=== PATIENT | female | born 1955 | race Caucasian/White ===

== ENCOUNTER 2018-02-03 04:30 | Observation (INO) | payer BC, SELFPAY ==
[2018-02-03] VITALS (9 sets, daily range): BP systolic 112–146; BP diastolic 66–81; PULSE 69–85; RESP 14–21; TEMP 36.4–36.9; O2SAT 97–100; BMI 22.1
--- NOTE | 2018-02-03 04:34 | ED.RN ---
no old ekg's in [facility]
--- NOTE | 2018-02-03 04:42 | EKG12_ITS ---
Test Reason : CP Blood Pressure : / mmHG Vent. Rate : 081 BPM Atrial Rate : 081 BPM P-R Int : 146 ms QRS Dur : 070 ms QT Int : 382 ms P-R-T Axes : 065 007 067 degrees QTc Int : 443 ms Normal sinus rhythm Nonspecific T wave abnormality Abnormal ECG Confirmed by JOSE RAFAEL SHIRLEY, ELDER ([id number]), technical editor MARIA ESTHER WAGNER ([id number]) on 02/03/2018 5:14:23 PM Referred By: AJIT Confirmed By:ELDER MANTILLA MD
--- NOTE | 2018-02-03 04:42 | RAD_ITS ---
STUDY: X-RAY CHEST REASON FOR EXAM: Female, 62 years old. Chest pain, nausea. TECHNIQUE: PA and lateral chest. COMPARISON: None. FINDINGS: The lungs are clear and expanded. There is no demonstrated pleural abnormality. Normal size heart. Normal mediastinum and braden. Normal visualized pulmonary arteries. Normal visualized aortic arch and descending thoracic aorta. Normal visualized thoracic spine. Normal visualized ribs, clavicles, and shoulders. There is no demonstrated abnormality of the visualized soft tissue structures of the upper abdomen. RAD/Chest PA and Lateral IMPRESSION: Normal x-ray examination of the chest. Electronically Signed: Wilfredo Mills MD at 5:07 EDT , Service support ,
[2018-02-03] MEDS: Aspirin 81 MG TAB.CHEW 324 MG PO (04:47)
[2018-02-03 04:49] LABS: Absolute Lymphocyte Count 4.26 X10^3/ul (0.83-4.51); Absolute Neutrophil Count 3.6 X10^3/uL (2.0-7.7); Basophil# 0.08 X10^3/uL; Basophil% 0.9 % (0-1); Eosinophil# 0.16 X10^3/uL; Eosinophils% 1.8 % (0-5); Hematocrit 40.2 % (37-47); Hemoglobin 13.9 g/dl (12.0-15.0); Lymphocyte # 4.26 X10^3/ul (4.0); Mean Corp Hgb Conc 34.6 g/gl (32-36); Mean Corpuscular Hgb 32.6 pg (27.0-32.0); Mean Corpuscular Volume 94.4 fL (81-99); Mean Platelet Vol. 10.8 fl (6.2-12.0); Monocyte# 0.76 X10^3/uL; Monocyte% 8.6 % (0-10); Neutrophil # 3.59 X10^3/uL (2.7-7.7); Neutrophil % 40.5 % (47-70); Platelet Count 271 K/mm3 (150-450); RBC Distribution Width CV 12.8 % (11.6-14.6); RBC Distribution Width SD 42.5 fl (35.1-43.9); Red Blood Count 4.26 M/mm3 (4.2-5.4); White Blood Count 8.9 K/mm3 (4.4-11.0)
[2018-02-03] MEDS: Ondansetron 4 MG/2 ML Vial IV (04:49)
[2018-02-03 04:51] LABS: POSITIVE COUNT NO; POSITIVE DIFFERENTIAL NO; POSITIVE MORPHOLOGY NO
--- NOTE | 2018-02-03 04:53 | ED.VISSUMM ---
- ER Visit Summary Date of Service: 02/03/18 Chief Complaint: Chest pain History of Present Illness: The patient is a 62 F presenting for evaluation secondary chest pain. Patient states that she woke up this evening very suddenly with an onset of chest pain. She described it as a heaviness in her chest, and then she developed a feeling of intense nausea. Patient and her then state that she started to have dry heaves at the side of the bed, and her states that she had a brief syncopal episode after that. Patient reports that she felt diaphoretic and short of breath associated with this. Patient reports that the symptoms lasted approximately half hour, and on presentation to the emergency department seem to have somewhat alleviated. Patient has no prior similar history in the past. She denies any history of hypertension diabetes high cholesterol family history of smoking. She denies any DVT or PE risk factors. Patient states that her primary care physician has recommended scheduling a stress test but she has not had one performed yet. Review of systems otherwise negative. Physical Examination: Vital signs are within normal limits, patient is afebrile. General: Patient is well-nourished well-developed and in no acute distress, but is significantly anxious Head: Normocephalic, atraumatic Eyes: Pupils equal round and reactive bilaterally, extra occular motion intact bialterally ENT: Moist mucous membranes Neck: Supple, no lymphadenopathy, no JVD, no meningismus CVS: Heart regular rate and rhythm, no murmurs, rubs or gallops, radial pulses 2+ bilaterally, DP pulses 2+ bilaterally Resp: Respirations nondistressed, lung sounds clear bilaterally Abdomen: Soft, nontender, nondistended, no palpable masses, normal bowel sounds Back: Nontender Extremities: Nontender, atraumatic, active full range of motion, no peripheral edema Skin: warm, no rashes, no petechia Neuro: Alert and oriented x 4, CN 2-12 intact, no lateralizing neurological defecits Psyc: Normal affect Test Results: Sinus rhythm of [address] segments. There is underlying artifact noted in leads III, II, and aVF. Nonspecific T-wave flattening is noted. No evidence of acute ischemia or arrhythmia. CBC, chemistry, troponin are negative. PA and lateral chest x-ray found to be unremarkable by my personal review as well as radiology Emergency Department Course and Treatment: Patient presented for evaluation secondary chest pain. Patient's workup was found to be unremarkable as noted above. She was administered aspirin in the emergency department and had improvement of her pain on repeat evaluation. Patient's LISSA score is 0, her heart score is 3. Patient's story however is very concerning to me given the fact that it was heavy chest pain associated with shortness of breath and syncope. I believe she warrants admission. I discussed this with the hospitalist. Disposition: Admission Impression: 1. Chest pain This note was generated with [employer] dictation software. It may contain incorrect words, spelling, and punctuation that were not noted in review of the chart prior to signing ED Disposition - Plan for ED Patient: Chief Complaint: Chest Pain Referrals: Robert Ramirez DO [Primary Care Provider] -
[2018-02-03 05:23] LABS: Anion Gap 11 (5-15); BUN 24 mg/dL (7-18); BUN/Creat Ratio 27.6 RATIO (10-20); Calcium,Total 9.3 mg/dL (8.5-10.1); Chloride 105 mmol/L (98-107); Creatinine, Serum 0.87 mg/dL (0.55-1.02); EST Glomerular Filtration Rate 70 mL/min (>60); Est Glom Filt Rate - Afr Amer 84 mL/min (>60); Glucose 142 mg/dL (74-106); Potassium 3.9 mmol/L (3.5-5.1); Sodium Level 141 mmol/L (136-145)
--- NOTE | 2018-02-03 05:54 | PCM.HP.STD ---
Problem List (1) Chest pain Status: Acute History of Present Illness Date of Admission: 02/03/18 Chief Complaint: chest pain The patient is a 62 year old F presents after awakening with chest pain. Earlier this morning, patient woke with midsternal chest pain. It was associated with diaphoresis and nausea. Patient presented to the emergency room and underwent a workup that has thus far been negative. She states that both of her arms were numb. Patient states states that she still has pressure midsternally but is much less than it was previously. Patient has never had anything like this before. [] Past Medical History Past Medical History (Chronic Problems): Chronic Problems (Last Reviewed 02/03/18 @ 05:56 by Jose Greenberg DO) History of right breast cancer (Chronic) Medical History: Medical History (Last Reviewed 02/03/18 @ 05:56 by Jose Greenberg DO) Fibromyalgia M79.7 IBS (irritable bowel syndrome) K58.9 Osteopenia M85.80 bone fractures gastrointestinal Allergies acetaminophen [From Tylenol] Allergy (Mild, Verified 02/03/18 04:41) Hives hydromorphone [From Dilaudid] Allergy (Mild, Verified 02/03/18 04:41) Hives oxycodone Allergy (Mild, Verified 02/03/18 04:41) Hives Home Medications: Ambulatory Orders Medication Instructions Recorded calcium carbonate 500 mg calcium 500 mg PO BID tab 08/26/17 (1,250 mg) tablet cholecalciferol (vitamin D3) 1,000 1,000 unit PO ONCE 08/26/17 unit capsule flaxseed oil 1,000 mg capsule 1,000 mg PO BID 08/26/17 melatonin 10 mg capsule 10 mg PO HS PRN 08/26/17 omega-3 fatty acids 1,000 mg 1,000 mg PO QDAY 08/26/17 capsule amitriptyline 75 mg tablet 75 mg PO QDAY #90 tab 09/14/17 Venlafaxine HCl [Effexor] 75 mg PO DAILY 02/03/18 Surgical History: Surgical History (Last Reviewed 02/03/18 @ 05:56 by Jose Greenberg DO) Calcaneus fracture S92.009A H/O hemorrhoidectomy Z98.890 History of hysterectomy Z98.890, Z90.710 KELSI BSO History of lumpectomy of right breast Z98.890, Z90.11 2016; no radiation or chemo cholecystectomy Smoking Status: Never smoker Tobacco Use: Non-smoker Alcohol: None Drugs: None - *Family History Paternal Family History: Family History (Last Reviewed 02/03/18 @ 05:56 by Jose Greenberg DO) Father Heart disease Mother Heart disease Osteoporosis Review of Systems Constitutional: Reports: Weakness. Denies: Anorexia, Chills, Fever Eyes: Denies: Blurred vision, Double vision HEENT: Denies: Head Aches, Sinus Congestion, Sinus Drainage Cardiovascular: Reports: Chest Pain. Denies: Edema Respiratory: Denies: Cough, Shortness of breath at rest, Sputum production Gastrointestinal: Reports: Nausea. Denies: Vomiting Genitourinary: Denies: Dysuria Musculoskeletal: Denies: Joint Pain, Joint Tenderness Skin: Denies: Rash, Wounds Neurological: Denies: Numbness, Tingling, Focal weakness Psychiatric: Denies: Anxiety, Depression Endocrine: Denies: Change in Body Habitus, Heat/ Cold Intolerance Hematologic/ Lymphatic: Denies: Easy Bruising, Easy Bleeding, Hx of blood clot Comment: Otherwise all review systems are negative except for as mentioned above in the HPI and review of systems. VTE Information - Inpt Only VTE Present on Admission: No VTE Pharm Prophylaxis ordered?: Yes Patient Problems: Active and Suspected Problems (Last Reviewed 02/03/18 @ 05:56 by Jose Greenberg DO) Chest pain (Acute) - Physical Exam General: Alert, Cooperative, No apparent distress HEENT: Atraumatic, Normocephalic Neck: No Nodes, Thyroid Normal Size and Texture Lungs: Clear to auscultation, Normal air movement, No rhonchi, No wheeze Cardiovascular: Regular rate, Regular Rhythm, Normal S1, Normal S2, No murmurs Abdomen: Bowel Sounds Present, Soft, Non Tender, Non-Distended, No Hepato-splenomegaly Extremities: No edema, No Calf Tenderness Skin: No rashes, No breakdown Musculoskeletal: No Tenderness to Palpation of Joints or Extremities, No Muscle Wasting Psych/Mental Status: Normal Affect, Appropriate Vital Signs Temp Pulse Resp BP Pulse Ox 36.4 C L 81 21 H 116/66 100 02/03/18 04:32 02/03/18 05:38 02/03/18 05:38 02/03/18 05:38 02/03/18 05:38 Oxygen Flow Rate (L/min) 2 Oxygen Delivery Method Nasal Cannula Weight: 60.2 kg Body Mass Index (BMI) 22.1 Laboratory Tests Past 24 Hrs 02/03/18 02/03/18 04:35 04:35 WBC 8.9 RBC 4.26 Hgb 13.9 Hct 40.2 MCV 94.4 MCH 32.6 H MCHC 34.6 RDW 12.8 RDW Differential 42.5 Plt Count 271 MPV 10.8 Immature Gran % (Auto) 0.200 Neut % (Auto) 40.5 L Lymph % (Auto) 48.0 H [place] % (Auto) 8.6 Eos % (Auto) 1.8 Baso % (Auto) 0.9 Absolute Neuts (auto) 3.6 Absolute Lymphs (auto) 4.26 Total Counted Not Reportable Sodium 141 Potassium 3.9 Chloride 105 Carbon Dioxide 25.0 Anion Gap 11 BUN 24 H Creatinine 0.87 Est GFR (MDRD) Af Amer 84 Est GFR (MDRD) Non-Af 70 BUN/Creatinine Ratio 27.6 H Glucose 142 H Calcium 9.3 Troponin I < 0.015 EKG reviewed showed normal sinus rhythm without any acute changes. Assessment/Plan All Active Problems (Last Reviewed 02/03/18 @ 05:56 by Jose Greenberg DO) Chest pain (Acute) 1. Chest pain Atypical but associated with nausea and diaphoresis. Plan is to get a treadmill stress test. Check a d-dimer and if elevated patient will undergo a CT angiogram. Etiologies could arrange for unstable angina, to pulmonary embolism to musculoskeletal. Is possible this could all be benign that some patients other symptoms, in regards to her arm numbness, may be attributable to a panic attack that patient had when she developed chest pain. 2. DVT prophylaxis with Lovenox Code Visit OBSV E&M: 03267 Initial observation care L2
--- NOTE | 2018-02-03 06:00 | HP.PCM_ITS ---
Problem List (1) Chest pain Status: Acute History of Present Illness Date of Admission: 02/03/18 Chief Complaint: chest pain The patient is a 62 year old F presents after awakening with chest pain. Earlier this morning, patient woke with midsternal chest pain. It was associated with diaphoresis and nausea. Patient presented to the emergency room and underwent a workup that has thus far been negative. She states that both of her arms were numb. Patient states states that she still has pressure midsternally but is much less than it was previously. Patient has never had anything like this before. [] Past Medical History Past Medical History (Chronic Problems): Chronic Problems (Last Reviewed 02/03/18 @ 05:56 by Jose Greenberg DO) History of right breast cancer (Chronic) Medical History: Medical History (Last Reviewed 02/03/18 @ 05:56 by Jose Greenberg DO) Fibromyalgia M79.7 IBS (irritable bowel syndrome) K58.9 Osteopenia M85.80 bone fractures gastrointestinal Allergies acetaminophen [From Tylenol] Allergy (Mild, Verified 02/03/18 04:41) Hives hydromorphone [From Dilaudid] Allergy (Mild, Verified 02/03/18 04:41) Hives oxycodone Allergy (Mild, Verified 02/03/18 04:41) Hives Home Medications: Ambulatory Orders Medication Instructions Recorded calcium carbonate 500 mg calcium 500 mg PO BID tab 08/26/17 (1,250 mg) tablet cholecalciferol (vitamin D3) 1,000 1,000 unit PO ONCE 08/26/17 unit capsule flaxseed oil 1,000 mg capsule 1,000 mg PO BID 08/26/17 melatonin 10 mg capsule 10 mg PO HS PRN 08/26/17 omega-3 fatty acids 1,000 mg 1,000 mg PO QDAY 08/26/17 capsule amitriptyline 75 mg tablet 75 mg PO QDAY #90 tab 09/14/17 Venlafaxine HCl [Effexor] 75 mg PO DAILY 02/03/18 Surgical History: Surgical History (Last Reviewed 02/03/18 @ 05:56 by Jose Greenberg DO) Calcaneus fracture S92.009A H/O hemorrhoidectomy Z98.890 History of hysterectomy Z98.890, Z90.710 KELSI BSO History of lumpectomy of right breast Z98.890, Z90.11 2016; no radiation or chemo cholecystectomy Smoking Status: Never smoker Tobacco Use: Non-smoker Alcohol: None Drugs: None - *Family History Paternal Family History: Family History (Last Reviewed 02/03/18 @ 05:56 by Jose Greenberg DO) Father Heart disease Mother Heart disease Osteoporosis Review of Systems Constitutional: Reports: Weakness. Denies: Anorexia, Chills, Fever Eyes: Denies: Blurred vision, Double vision HEENT: Denies: Head Aches, Sinus Congestion, Sinus Drainage Cardiovascular: Reports: Chest Pain. Denies: Edema Respiratory: Denies: Cough, Shortness of breath at rest, Sputum production Gastrointestinal: Reports: Nausea. Denies: Vomiting Genitourinary: Denies: Dysuria Musculoskeletal: Denies: Joint Pain, Joint Tenderness Skin: Denies: Rash, Wounds Neurological: Denies: Numbness, Tingling, Focal weakness Psychiatric: Denies: Anxiety, Depression Endocrine: Denies: Change in Body Habitus, Heat/ Cold Intolerance Hematologic/ Lymphatic: Denies: Easy Bruising, Easy Bleeding, Hx of blood clot Comment: Otherwise all review systems are negative except for as mentioned above in the HPI and review of systems. VTE Information - Inpt Only VTE Present on Admission: No VTE Pharm Prophylaxis ordered?: Yes Patient Problems: Active and Suspected Problems (Last Reviewed 02/03/18 @ 05:56 by Jose Greenberg DO) Chest pain (Acute) - Physical Exam General: Alert, Cooperative, No apparent distress HEENT: Atraumatic, Normocephalic Neck: No Nodes, Thyroid Normal Size and Texture Lungs: Clear to auscultation, Normal air movement, No rhonchi, No wheeze Cardiovascular: Regular rate, Regular Rhythm, Normal S1, Normal S2, No murmurs Abdomen: Bowel Sounds Present, Soft, Non Tender, Non-Distended, No Hepato- splenomegaly Extremities: No edema, No Calf Tenderness Skin: No rashes, No breakdown Musculoskeletal: No Tenderness to Palpation of Joints or Extremities, No Muscle Wasting Psych/Mental Status: Normal Affect, Appropriate Vital Signs Temp Pulse Resp BP Pulse Ox 36.4 C L 81 21 H 116/66 100 02/03/18 04:32 02/03/18 05:38 02/03/18 05:38 02/03/18 05:38 02/03/18 05:38 Oxygen Flow Rate (L/min) 2 Oxygen Delivery Method Nasal Cannula Weight: 60.2 kg Body Mass Index (BMI) 22.1 Laboratory Tests Past 24 Hrs 02/03/18 02/03/18 04:35 04:35 WBC 8.9 RBC 4.26 Hgb 13.9 Hct 40.2 MCV 94.4 MCH 32.6 H MCHC 34.6 RDW 12.8 RDW Differential 42.5 Plt Count 271 MPV 10.8 Immature Gran % (Auto) 0.200 Neut % (Auto) 40.5 L Lymph % (Auto) 48.0 H [place] % (Auto) 8.6 Eos % (Auto) 1.8 Baso % (Auto) 0.9 Absolute Neuts (auto) 3.6 Absolute Lymphs (auto) 4.26 Total Counted Not Reportable Sodium 141 Potassium 3.9 Chloride 105 Carbon Dioxide 25.0 Anion Gap 11 BUN 24 H Creatinine 0.87 Est GFR (MDRD) Af Amer 84 Est GFR (MDRD) Non-Af 70 BUN/Creatinine Ratio 27.6 H Glucose 142 H Calcium 9.3 Troponin I < 0.015 EKG reviewed showed normal sinus rhythm without any acute changes. Assessment/Plan All Active Problems (Last Reviewed 02/03/18 @ 05:56 by Jose Greenberg DO) Chest pain (Acute) 1. Chest pain * Atypical but associated with nausea and diaphoresis. * Plan is to get a treadmill stress test. * Check a d-dimer and if elevated patient will undergo a CT angiogram. * Etiologies could arrange for unstable angina, to pulmonary embolism to musculoskeletal. Is possible this could all be benign that some patients other symptoms, in regards to her arm numbness, may be attributable to a panic attack that patient had when she developed chest pain. 2. DVT prophylaxis with Lovenox Code Visit OBSV E&M: 99455 Initial observation care L2
[2018-02-03 07:16] LABS: D-Dimer Quantitative (DVT/PE) 0.31 FEU/ug/m (0.27-0.49)
[2018-02-03] MEDS: Calcium (Elemental) 500 MG Tablet PO (10:57)
[2018-02-03] MEDS: Venlafaxine HCl 75 MG Tablet PO (10:57)
[2018-02-03] MEDS: CLARIFY ORDER NOTE (10:58)
--- NOTE | 2018-02-03 11:38 | DCINST_ITS ---
- Discharge Diagnoses Current Active Problems: Current Active and Chronic Problems (Last Reviewed 02/03/18 @ 05:56 by Jose Greenberg DO) Chest pain (Acute) You will use the following diet at home:: No restrictions Discharge Activity: Return to Normal Activity Call your doctor if you observe: Shortness of breath, Dizziness, Fainting spells , Chest pain, Increased palpitations (irregular heartbeat) Allergies/Adverse Reactions: Allergies acetaminophen [From Tylenol] Allergy (Mild, Verified 02/03/18 04:41) Hives hydromorphone [From Dilaudid] Allergy (Mild, Verified 02/03/18 04:41) Hives oxycodone Allergy (Mild, Verified 02/03/18 04:41) Hives Medications to take at Discharge calcium carbonate 500 mg calcium (1,250 mg) tablet 500 mg PO BID tab 08/26/17 cholecalciferol (vitamin D3) 1,000 unit capsule 2,000 unit PO DAILY 08/26/17 flaxseed oil 1,000 mg capsule 1,000 mg PO BID 08/26/17 melatonin 10 mg capsule 10 mg PO HS PRN 08/26/17 Amitriptyline HCl 37.5 mg PO QHS 02/03/18 Venlafaxine HCl [Effexor] 37.5 mg PO DAILY 02/03/18 Primary Care Physician: Robert Ramirez DO [Primary Care Provider] - Please follow up with your Primary Care Physician in: 1 Week Proposed Discharge Date: 02/03/18
--- NOTE | 2018-02-03 12:50 | STRESSREP ---
Stress Test Report Exercise myocardial perfusion stress test 62 yo lady with a history of chest pain. Stress protocol: Resting EKG demonstrates normal sinus rhythm with a rate of 75 beats minute normal intervals and noted resting blood pressure 722/80 mmHg. The patient exercised according to the regular Chavo protocol for total duration of 9 minutes completing stage III of the Chavo protocol. The maximum heart rate attained was 155 bpm which was 98% maximum predicted heart rate the maximum workload was 10.1 metabolic equivalents. At rest there were no ST or T-wave changes noted suggest ischemia peak exercise upsloping ST changes only were noted with no meet the criteria for ischemia. No clinical angina was noted. Resting blood pressure is 122/80 with a peak blood pressure 146/78. Myocardial perfusion protocol. 12.0 mCi of technetium 99m sestamibi was injected at rest. The patient exercised according to regular Chavo protocol for total duration of 9 minutes and at peak exercise 32.7 mCi of technetium 99m sestamibi was injected stress images were obtained stress and rest images were reconstructed and compared in the short axis vertical long and horizontal long axis. Gated images were also obtained pre- Perfusion SPECT analysis: Review of the stress images demonstrate normal uptake of tracer noted in all areas of the myocardium. The resting images similarly demonstrate normal uptake of tracer noted in all areas of the myocardium. No areas of reversibility are noted suggest ischemia and no previous infarct is noted. Gated SPECT analysis: The gated ejection fraction is noted to be 73%. Conclusion: Normal exercise myocardial perfusion stress test. Preserved ejection fraction.
--- NOTE | 2018-02-03 13:37 | PCM.DC.SUM ---
<Clara Karimi - Last Filed: 02/03/18 13:43> Discharge Date and Diagnosis Date of Admission: 02/03/18 Date of Discharge: 02/03/18 - Primary Discharge Diagnosis Active and Suspected Problems (Last Reviewed 02/03/18 @ 05:56 by Jose Greenberg DO) 1. Chest pain- ACS ruled out - Secondary Discharge Diagnosis Chronic Problems (Last Reviewed 02/03/18 @ 05:56 by Jose Greenberg DO) History of right breast cancer (Chronic) Depression Hospital Course and Treatment Imaging Results: Diagnostic Data Chest X-Ray 02/03/18 04:42 IMPRESSION: Normal x-ray examination of the chest. Electronically Signed: Wilfredo Mills MD at 5:07 EDT , Service support , Operations: None Procedures: 2-D Echocardiogram, Stress test Summary of Care Provided: The patient is a 62 year old F admitted 02/03/2018 due to chest pain. Patient also reports episode of presyncope. Workup during admission has been unremarkable. Troponin negative. Vital signs stable. EKG without evidence of ischemia. Patient underwent nuclear stress test which was negative for ischemia. Echocardiogram pending and were reviewed prior to discharge. She will be discharged on Holter monitor to evaluate for arrhythmia. Follow-up with primary care physician in 1 week. Follow-up with Dr. Garcia following Holter monitor completion. Patient denies further chest pain. Denies further dizziness, presyncope. Stable for discharge home. Patient seen and examined prior to discharge. A and O ?3, no distress. Heart rate regular rate and rhythm. Lungs clear. Neuro grossly intact. Abdomen soft, nontender. No edema. Skin intact. Normal affect. Vital signs stable. This patient was seen by JESSENIA Monsalve under the supervision of Dr. Russo. Discharge Diet: No Restrictions Discharge Activity: Return to Normal Activity Call your doctor if you observe: Shortness of breath, Dizziness, Fainting spells, Chest pain, Increased palpitations (irregular heartbeat) Home Medications: Medications to take at Discharge calcium carbonate 500 mg calcium (1,250 mg) tablet 500 mg PO BID tab 08/26/17 cholecalciferol (vitamin D3) 1,000 unit capsule 2,000 unit PO DAILY 08/26/17 flaxseed oil 1,000 mg capsule 1,000 mg PO BID 08/26/17 melatonin 10 mg capsule 10 mg PO HS PRN 08/26/17 Amitriptyline HCl 37.5 mg PO QHS 02/03/18 Venlafaxine HCl [Effexor] 37.5 mg PO DAILY 02/03/18 Other Amb Orders: Cardiac Holter Monitor, Set-Up [[facility]] Location: None Selected Primary Care Physician: Robert Ramirez DO [Primary Care Provider] - Please follow up with your Primary Care Physician in: 1 Week Please Follow Up With: Prateek Garcia MD When: Call to schedule following heart monitor completion. Disposition: Home Minutes spent on discharge:: 35 Patient Condition:: Stable Medical Necessity - Tobacco Use Smoking Status: Never smoker Tobacco Use: Non-smoker Meaningful Use Info Meaningful Use Diagnoses (Choose all that apply): None applicable <RafaelaRanger - Last Filed: 02/03/18 21:17> Discharge Date and Diagnosis - Secondary Discharge Diagnosis Chronic Problems (Last Reviewed 02/03/18 @ 05:56 by Jose Greenberg DO) History of right breast cancer (Chronic) Hospital Course and Treatment Summary of Care Provided: The patient is a 62 year old F [] Code Visit Inpatient E&M: 67873 Disch Hosp
--- NOTE | 2018-02-03 13:43 | DS.PCM_ITS ---
<Clara Karimi - Last Filed: 02/03/18 13:43> Discharge Date and Diagnosis Date of Admission: 02/03/18 Date of Discharge: 02/03/18 - Primary Discharge Diagnosis Active and Suspected Problems (Last Reviewed 02/03/18 @ 05:56 by Jose Greenberg DO) 1. Chest pain- ACS ruled out - Secondary Discharge Diagnosis Chronic Problems (Last Reviewed 02/03/18 @ 05:56 by Jose Greenberg DO) History of right breast cancer (Chronic) Depression Hospital Course and Treatment Imaging Results: Diagnostic Data Chest X-Ray 02/03/18 04:42 IMPRESSION: Normal x-ray examination of the chest. Electronically Signed: Wilfredo Mills MD at 5:07 EDT , Service support , Operations: None Procedures: 2-D Echocardiogram, Stress test Summary of Care Provided: The patient is a 62 year old F admitted 02/03/2018 due to chest pain. Patient also reports episode of presyncope. Workup during admission has been unremarkable. Troponin negative. Vital signs stable. EKG without evidence of ischemia. Patient underwent nuclear stress test which was negative for ischemia. Echocardiogram pending and were reviewed prior to discharge. She will be discharged on Holter monitor to evaluate for arrhythmia. Follow-up with primary care physician in 1 week. Follow-up with Dr. Garcia following Holter monitor completion. Patient denies further chest pain. Denies further dizziness, presyncope. Stable for discharge home. Patient seen and examined prior to discharge. A and O ?3, no distress. Heart rate regular rate and rhythm. Lungs clear. Neuro grossly intact. Abdomen soft , nontender. No edema. Skin intact. Normal affect. Vital signs stable. This patient was seen by JESSENIA Monsalve under the supervision of Dr. Russo. Discharge Diet: No Restrictions Discharge Activity: Return to Normal Activity Call your doctor if you observe: Shortness of breath, Dizziness, Fainting spells , Chest pain, Increased palpitations (irregular heartbeat) Home Medications: Medications to take at Discharge calcium carbonate 500 mg calcium (1,250 mg) tablet 500 mg PO BID tab 08/26/17 cholecalciferol (vitamin D3) 1,000 unit capsule 2,000 unit PO DAILY 08/26/17 flaxseed oil 1,000 mg capsule 1,000 mg PO BID 08/26/17 melatonin 10 mg capsule 10 mg PO HS PRN 08/26/17 Amitriptyline HCl 37.5 mg PO QHS 02/03/18 Venlafaxine HCl [Effexor] 37.5 mg PO DAILY 02/03/18 Other Amb Orders: Cardiac Holter Monitor, Set-Up [[facility]] Location: None Selected Primary Care Physician: Robert Ramirez DO [Primary Care Provider] - Please follow up with your Primary Care Physician in: 1 Week Please Follow Up With: Prateek Garcia MD When: Call to schedule following heart monitor completion. Disposition: Home Minutes spent on discharge:: 35 Patient Condition:: Stable Medical Necessity - Tobacco Use Smoking Status: Never smoker Tobacco Use: Non-smoker Meaningful Use Info Meaningful Use Diagnoses (Choose all that apply): None applicable <[place] - Last Filed: 02/03/18 21:17> Discharge Date and Diagnosis - Secondary Discharge Diagnosis Chronic Problems (Last Reviewed 02/03/18 @ 05:56 by Jose Greenberg DO) History of right breast cancer (Chronic) Hospital Course and Treatment Summary of Care Provided: The patient is a 62 year old F [] Code Visit Inpatient E&M: 81233 Disch Hosp
== END 2018-02-03 11:38 | disposition home or self-care (01) ==
LOC: ED 04:45 → PCU 06:27
PROVIDERS: Emergency Provider Emergency Medicine; Family Provider Student in an Organized Health Care Education/Training Program; PCP Student in an Organized Health Care Education/Training Program; Visit Provider Internal Medicine
DX: R07.89 Other chest pain (principal); F32.9 Major depressive disorder, single episode, unspecified; Z85.3 Personal history of malignant neoplasm of breast; M79.7 Fibromyalgia; R06.00 Dyspnea, unspecified; R55 Syncope and collapse; R06.02 Shortness of breath; K58.9 Irritable bowel syndrome, unspecified; Z79.899 Other long term (current) drug therapy
CPT/HCPCS: 71046; 78452; 80048; 84484; 85025; 85379; 93005; 93017; 96374; 99218; 99285; A9500; A4216; G0378; J2405

== ENCOUNTER → 2018-02-03 13:41 | Outpatient (CLI) | payer BC, SELFPAY | PROVIDERS: Family Provider Student in an Organized Health Care Education/Training Program; PCP Student in an Organized Health Care Education/Training Program; Visit Provider Nurse Practitioner Family | DX: R00.1 Bradycardia, unspecified (principal) | CPT/HCPCS: 93225; 93226 ==

== ENCOUNTER → 2019-10-04 | Outpatient (CLI) | payer MEDICARE, OTHER, SELFPAY ==
[2019-10-04 10:26] VITALS: BMI 22.1
== END | disposition home or self-care (01) ==
PROVIDERS: PCP Student in an Organized Health Care Education/Training Program; Referring Provider Nurse Practitioner Women's Health; Visit Provider Nurse Practitioner Women's Health
DX: R30.0 Dysuria (principal)
CPT/HCPCS: 87086

== ENCOUNTER 2020-03-28 11:46 | Emergency (ER) | payer MEDICARE, OTHER, SELFPAY ==
[2019-10-04 10:26] VITALS: BMI 22.1
[2020-03-28 11:47] VITALS: BP 120/65; PULSE 81; RESP 18; TEMP 37.2; O2SAT 98; BMI 24.5
--- NOTE | 2020-03-28 11:56 | RAD_ITS ---
STUDY: X-RAY CHEST REASON FOR EXAM: Female, 64 years old. COVID POSITIVE, INCREASED DYSPNEA TECHNIQUE: Single AP portable view of the chest. COMPARISON: 02/03/2018 FINDINGS: Patchy alveolar opacities in the lower aspect of both lungs consistent with bilateral pneumonia. CT would be useful. There is no demonstrated pleural abnormality. Normal size heart. Normal mediastinum and braden. Normal visualized pulmonary arteries. Normal visualized aortic arch and descending thoracic aorta. Normal visualized thoracic spine. Normal visualized ribs, clavicles, and shoulders. There is no demonstrated abnormality of the visualized soft tissue structures of the upper abdomen. RAD/Chest 1 View (Portable) IMPRESSION: Suspect bilateral pneumonia correlation with CT would be useful. Electronically Signed: Brian Cardona MD at 12:33 EDT Tel , Service support ,
--- NOTE | 2020-03-28 11:58 | ED.VISSUMM ---
- ER Visit Summary Date of Service: 03/28/20 Chief Complaint: Shortness of breath with a recent diagnosis of COVID History of Present Illness: The patient is a 64 F history of fibromyalgia. 1 week ago patient was diagnosed with COVID-19. States that over the last 1 to 2 weeks she has had cough, fever as high as 102, chills, nausea, vomiting, diarrhea and body aches. She was tested and was COVID positive. She said she is just been dealing with the symptoms. She has a pulse ox at home and it is been registering in the mid 80s today. She denies significant chest pain. No hemoptysis. No leg pain or swelling. No recent travel, surgery or immobilization. Physical Examination: 64-year-old female no acute distress. Eating up in bed. Vital signs stable afebrile. Her pulse ox is 96 to 98% on room air. HEENT exam unremarkable. Neck nontender no lymphadenopathy. No JVD. Lungs clear to auscultation bilaterally. Heart regular rhythm no murmur. Abdomen soft nontender normal bowel sounds no peritoneal signs. Extremities moves all 4. Calves are nontender, no edema no cords. Neurologically she is awake and alert. Moving all 4 extremities. No focal or motor deficits. Test Results: This x-ray shows bilateral upper and lower lobe infiltrates consistent with COVID. Portable 1 view read by myself and the radiologist. CBC normal white count of 6. Hemoglobin 12. No bands. Chemistries normal normal creatinine and gap. D-dimer normal at 0.43. Emergency Department Course and Treatment: Patient with known diagnosis of COVID with shortness of breath. Screening labs, chest x-ray and d-dimer being obtained. Clinically my concern for PE is low but with her COVID and reported low pulse ox at home it is in the differential diagnosis. Repeat exam the patient is doing well at 1:28 PM. I asked her how she was feeling she said I am ready to go home. Nurses did walk her without oxygen and her sats went to 92%. She understands that if she is feeling worse to return. She feels comfortable and wants to be discharged home. Really does not meet criteria for admission at this time. Treatment Plan: Decadron daily for 5 days. Follow-up with her primary care physician. Return if worse. Disposition: Discharge Impression: COVID-19 positive Dyspnea This note was generated with Nora dictation software. It may contain incorrect words, spelling, and punctuation that were not noted in review of the chart prior to signing ED Disposition - Plan for ED Patient: Referrals: Robert Ramirez DO [Primary Care Provider] -
[2020-03-28] MEDS: dexAMETHasone 10 MG/ML Vial IV (12:03)
[2020-03-28 12:10] LABS: Absolute Lymphocyte Count 1.19 X10^3/uL (0.83-4.51); Absolute Neutrophil Count 4.8 X10^3/uL (2.0-7.7); Basophil# 0.01 X10^3/uL; Basophil% 0.2 % (0-1); Eosinophil# 0.08 X10^3/uL; Eosinophils% 1.2 % (0-5); Hematocrit 38.7 % (37-47); Hemoglobin 12.5 g/dL (12.0-15.0); Lymphocyte # 1.19 X10^3/ul (4.0); Lymphocyte % 18.5 % (19-41); Mean Corp Hgb Conc 32.3 g/dL (32-36); Mean Corpuscular Hgb 31.4 pg (27.0-32.0); Mean Corpuscular Volume 97.2 fL (81-99); Monocyte% 4.7 % (0-10); NRBC Flagged by Analyzer 0 % (0-5); Neutrophil # 4.83 X10^3/uL (2.7-7.7); Neutrophil % 74.9 % (47-70); Platelet Count 197 K/mm3 (150-450); RBC Distribution Width CV 13.1 % (11.6-14.6); RBC Distribution Width SD 47.3 fl (35.1-43.9); Red Blood Count 3.98 M/mm3 (4.2-5.4); White Blood Count 6.4 K/mm3 (4.4-11.0)
[2020-03-28 12:23] LABS: Anion Gap 2 (5-15); BUN 16 mg/dL (7-18); BUN/Creat Ratio 18.3 RATIO (10-20); Calcium,Total 8.5 mg/dL (8.5-10.1); Chloride 103 mmol/L (98-107); Creatinine, Serum 0.88 mg/dL (0.55-1.02); D-Dimer Quantitative (DVT/PE) 0.43 FEU/ug/m (0.27-0.49); EST Glomerular Filtration Rate 69 mL/min (>60); Est Glom Filt Rate - Afr Amer 83 mL/min (>60); Estimated Creatinine Clearance 57.35 ml/min; Glucose 125 mg/dL (74-106); Potassium 3.7 mmol/L (3.5-5.1); Sodium Level 136 mmol/L (136-145)
[2020-03-28 12:30] VITALS: O2SAT 97
--- NOTE | 2020-03-28 13:30 | ED.DEP ---
ED Disposition - Plan for ED Patient: Disposition: Home or Assisted Living Prescriptions: Dexamethasone [Decadron] 6 mg PO DAILY 5 Days tab Prescription Printed Referrals: Robert Ramirez DO [Primary Care Provider] - 3-5 Days if not improving Additional Instructions: Follow-up with your doctor if not improving. Decadron which is a steroid 1 pill daily for the next 5 days starting tomorrow. Return tomorrow department if you are feeling a lot worse mostly if you are significantly more short of breath. At this time you do not meet criteria to be admitted to the hospital.
[2020-03-28 13:48] VITALS: BP 107/57; PULSE 63; RESP 18; O2SAT 97
== END 2020-03-28 13:48 | disposition home or self-care (01) ==
PROVIDERS: Emergency Provider Emergency Medicine; PCP Student in an Organized Health Care Education/Training Program
DX: U07.1 COVID-19 (principal); R06.00 Dyspnea, unspecified; M79.7 Fibromyalgia; Z79.899 Other long term (current) drug therapy
CPT/HCPCS: 71045; 80048; 85025; 85379; 96374; 99283; A4216

== ENCOUNTER 2020-04-01 16:09 | Emergency (ER) | payer MEDICARE, OTHER, SELFPAY ==
[2020-04-01 16:10] VITALS: BP 113/93; PULSE 84; RESP 21; TEMP 36.9; O2SAT 95; BMI 23.6
--- NOTE | 2020-04-01 16:22 | EKG12_ITS ---
Test Reason : Blood Pressure : / mmHG Vent. Rate : 074 BPM Atrial Rate : 074 BPM P-R Int : 140 ms QRS Dur : 078 ms QT Int : 378 ms P-R-T Axes : 040 -09 039 degrees QTc Int : 419 ms Normal sinus rhythm Cannot rule out Anterior infarct , age undetermined Abnormal ECG Confirmed by JOSE RAFAEL SHIRLEY, ELDER ([id number]), manager editorial PHONG GALLARDO ([id number]) on 04/02/2020 9:45:28 AM Referred By: SHAHBAZ Confirmed By:ELDER MANTILLA MD
--- NOTE | 2020-04-01 16:22 | RAD_ITS ---
STUDY: X-RAY CHEST REASON FOR EXAM: Female, 64 years old. pt arrives to ed with sob related to + covid. tested 03/20/20. TECHNIQUE: Single AP portable view of the chest. COMPARISON: March 28 2020 FINDINGS: Moderate interval decrease in previously seen irregular infiltrates in the bilateral lower lobes. Linear scarring or atelectasis is now seen in the bilateral lower lobes likely a result of recent pneumonia. Trace pleural effusions are present. Normal heart size. Stable osseous structures. RAD/Chest 1 View (Portable) IMPRESSION: Moderate interval resolution of previously seen bilateral lower lobe infiltrates Electronically Signed: Willie Grant MD at 17:02 EDT , Service support ,
--- NOTE | 2020-04-01 16:30 | ED.VISSUMM ---
- ER Visit Summary Date of Service: 04/01/20 Chief Complaint: [Shortness of breath] History of Present Illness: The patient is a 64 F presents to the emergency department with complaint of shortness of breath that she has had since yesterday. Patient states that she was diagnosed with COVID-19 after being infected by her sister who is currently in the ICU. Patient states also her has COVID-19. Patient was seen in the emergency department 5 days ago for low pulse ox at home however in the department she was noted not to be hypoxic and was started on prednisone and discharged back to home. Patient states that she is not had a fever for several days but continues to cough that essentially nonproductive. She denies any chest pain. She complains of feeling weak and shaky and lightheaded at times. Patient continues to have low pulse ox at home intermittently into the upper 80s. Patient otherwise has no medical history. [] Physical Examination: [HEENT-PERRLA, EOMI. Cranial nerves II through XII grossly intact. TMs clear. Mucous membranes moist. No adenopathy. Cardiovascular-regular rate and rhythm without murmur or ectopy Lungs-clear to auscultation, chest wall stable without crepitus or subcu emphysema Abdomen-normoactive bowel sounds, soft, nontender, no rebound or rigidity, no peritoneal signs. Extremities-intact ?4, normal range of motion, normal pulses, atraumatic] Test Results: [CBC with differential obtained showed a white count 13.9, hemoglobin 13, hematocrit 41, platelets 413. Chemistries unremarkable. D-dimer was elevated 0.74. EKG obtained showed a sinus rhythm with a ventricular rate of 74 bpm with no acute segment changes. Troponin was less than 0.015. Chest x-ray showed moderate interval resolution of bilateral infiltrates. CTA of the chest showed no evidence of PE or dissection. Patient was noted to have a small irregular infiltrate remaining in the lingula of the left upper lobe. Patient had multiple scattered islands of groundglass edema throughout the lungs noted sequela from previous consolidation with linear scarring or fibrosis is seen in the bilateral lung bases. Patient had a small pericardial effusion.] Emergency Department Course and Treatment: [Given continued cough and signs of infiltrate as well as slightly elevated white count patient will be treated with Levaquin to cover for any possible bacterial pneumonia. Patient had a normal pulse ox even with ambulation in department. She is in no respiratory distress. Feel patient to be treated as an outpatient.] Treatment Plan: [Patient will be treated with Levaquin. Patient advised to follow-up with primary care physician in 7 to 10 days. Patient advised to return if increasing shortness of breath or condition should worsen anyway.] Disposition: Discharged home in stable condition [] Impression: [COVID-19 viral pneumonia Dyspnea] This note was generated with ZeePearl dictation software. It may contain incorrect words, spelling, and punctuation that were not noted in review of the chart prior to signing ED Disposition - Plan for ED Patient: Referrals: Robert Ramirez DO [Primary Care Provider] -
[2020-04-01 16:38] VITALS: BP 121/71; PULSE 76; RESP 21; O2SAT 93
[2020-04-01 16:49] VITALS: O2SAT 93
[2020-04-01 16:53] LABS: Absolute Lymphocyte Count 1.48 X10^3/uL (0.83-4.51); Absolute Neutrophil Count 11.7 X10^3/uL (2.0-7.7); Basophil# 0.04 X10^3/uL; Basophil% 0.3 % (0-1); Eosinophil# 0.01 X10^3/uL; Eosinophils% 0.1 % (0-5); Hematocrit 41.2 % (37-47); Hemoglobin 13.2 g/dL (12.0-15.0); Lymphocyte # 1.48 X10^3/ul (4.0); Lymphocyte % 10.6 % (19-41); Mean Corpuscular Hgb 30.8 pg (27.0-32.0); Mean Platelet Vol. 9.8 fl (6.2-12.0); Monocyte# 0.33 X10^3/uL; Monocyte% 2.4 % (0-10); NRBC Flagged by Analyzer 0 % (0-5); Neutrophil # 11.73 X10^3/uL (2.7-7.7); Neutrophil % 84.3 % (47-70); POSITIVE MORPHOLOGY YES; Platelet Count 413 K/mm3 (150-450); RBC Distribution Width CV 12.8 % (11.6-14.6); RBC Distribution Width SD 45.2 fl (35.1-43.9); Red Blood Count 4.29 M/mm3 (4.2-5.4); White Blood Count 13.9 K/mm3 (4.4-11.0)
[2020-04-01 17:03] LABS: Differential Comment SCANNED; Differential Indicated SCAN CRITERIA MET
--- NOTE | 2020-04-01 17:07 | CT_ITS ---
STUDY: CTA CHEST REASON FOR EXAM: Female, 64 years old. PT COVID 19 POSITIVE X 2 WEEKS, PRESENTS WITH INCREASED SHORT OF BREATH RADIATION DOSAGE (If Supplied By Facility): CTDIvol = ( 8.84 ) mGy, DLP = ( 223.72 ) mGycm TECHNIQUE: The examination was performed with the intravenous administration of 100ML ISOVUE 370. Post-processing of the angiographic images was performed, with multiplanar reformation and 3D reconstruction. Individualized dose optimization techniques were used for this CT. COMPARISON: Chest x-ray dated April 01, 2020 and March 28, 2020. FINDINGS: Multiple scattered islands of groundglass edema throughout both lungs noted. Sequela from previous consolidation with linear scarring or fibrosis is seen in the bilateral lung bases. A small irregular infiltrate remains in the lingula of the left upper lobe. Bibasilar mild atelectasis is also present. No pleural effusion is present. Normal enhancement of the main pulmonary artery and right and left pulmonary arteries. Normal enhancement of the bilateral peripheral pulmonary arteries. There is no demonstrated pulmonary embolism. Normal thoracic aorta and visualized great vessels. There is no demonstrated aortic dissection. Normal heart size. A small anterior pericardial effusion is present. Normal mediastinum. Normal hilar regions. Normal visualized trachea and bronchi. Normal chest wall structures. There are degenerative changes of thoracic spine. Unremarkable visualized upper abdomen. CT/CTA Chest W/WO Contrast IMPRESSION: 1. No demonstrated pulmonary embolism or arterial dissection. 2. Small pericardial effusion. 3. Multiple scattered islands of groundglass edema throughout both lungs noted. Sequela from previous consolidation with linear scarring or fibrosis is seen in the bilateral lung bases. 4. A small irregular infiltrate remains in the lingula of the left upper lobe. 5. Bibasilar mild atelectasis is also present. No pleural effusion is present. Electronically Signed: Willie Grant MD at 18:33 EDT , Service support ,
[2020-04-01 17:08] LABS: D-Dimer Quantitative (DVT/PE) 0.74 FEU/ug/m (0.27-0.49)
[2020-04-01 17:15] LABS: Anion Gap 6 (5-15); BUN 19 mg/dL (7-18); BUN/Creat Ratio 20.7 RATIO (10-20); Calcium,Total 9.1 mg/dL (8.5-10.1); Chloride 105 mmol/L (98-107); Creatinine, Serum 0.92 mg/dL (0.55-1.02); EST Glomerular Filtration Rate 65 mL/min (>60); Est Glom Filt Rate - Afr Amer 79 mL/min (>60); Estimated Creatinine Clearance 54.86 ml/min; Glucose 208 mg/dL (74-106); Potassium 3.8 mmol/L (3.5-5.1); Sodium Level 138 mmol/L (136-145)
[2020-04-01 18:18] VITALS: BP 148/71; PULSE 65; RESP 20; O2SAT 98
[2020-04-01 18:42] VITALS: BP 139/73; PULSE 84; RESP 20; O2SAT 95
--- NOTE | 2020-04-01 18:43 | ED.DEP ---
ED Disposition - Plan for ED Patient: Instructions: ED Upper Resp Infec Abx Tx, ED Dyspnea Prescriptions: Levofloxacin [Levaquin] 750 mg PO DAILY #6 tab Prescription Printed Referrals: Robert Ramirez DO [Primary Care Provider] - 5-7 Days
[2020-04-01] MEDS: levoFLOXacin 750 MG Tablet PO (18:48)
== END 2020-04-01 18:55 | disposition home or self-care (01) ==
LOC: ED 16:58
PROVIDERS: Emergency Provider Emergency Medicine; PCP Student in an Organized Health Care Education/Training Program
DX: U07.1 COVID-19 (principal); J12.89 Other viral pneumonia; R06.00 Dyspnea, unspecified; K58.9 Irritable bowel syndrome, unspecified; M79.7 Fibromyalgia; Z79.899 Other long term (current) drug therapy
CPT/HCPCS: 71045; 71275; 80048; 84484; 85025; 85379; 93005; 99285; Q9967; A4216

== ENCOUNTER → 2023-01-27 | Outpatient (CLI) | payer MEDICARE, OTHER, SELFPAY ==
--- NOTE | 2023-01-27 11:27 | RAD_ITS ---
STUDY: X-RAY CHEST REASON FOR EXAM: Female, 67 years old. Cough, fatigue TECHNIQUE: PA and lateral views of the chest. COMPARISON: Comparison is made with prior study April 01, 2020. FINDINGS: The lungs are clear and expanded. Scattered calcified granulomas. There is no demonstrated pleural abnormality. Normal size heart. Normal mediastinum and braden. Normal visualized pulmonary arteries. There is atherosclerotic calcification of the aortic arch with tortuosity. There is demineralization of the osseous structures. Normal visualized ribs, clavicles, and shoulders. There is no demonstrated abnormality of the visualized soft tissue structures of the upper abdomen. RAD/Chest PA and Lateral IMPRESSION: Scattered calcified granulomas. No acute abnormality is seen. Electronically Signed: Alphonso Ribeiro MD at 12:20 EDT ,
== END | disposition home or self-care (01) ==
PROVIDERS: PCP Student in an Organized Health Care Education/Training Program; Referring Provider Physician Assistant; Visit Provider Physician Assistant
DX: R05.9 Cough, unspecified (principal)
CPT/HCPCS: 71046

== ENCOUNTER 2023-04-14 11:00 | Outpatient (RCR) | payer MEDICARE, OTHER, SELFPAY ==
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
--- NOTE | 2023-01-15 14:03 | HP.PTREVAL ---
BENJAMIN ALAN, It has been my pleasure to treat LESLIE ROBERTO over the last 10 visits for S/P R SHLD BICEPS TENOTOMY, RTC REPAR AND SAD 12/04/22. Please see the progress note below for an update on the physical therapy plan of care! Subjective: PATIENT REPORTS SHE IS DOING GOOD. DENIES PAIN. STATES DR. ALAN TOLD HER NO STRENGTHENING UNTIL 3 MONTHS POST OP (03/04/23). CURRENTLY 6 WKS PO. GETS A LITTLE SORE. TRYING NOT TO TAKE ALEVE. SLING WAS D/C'D YESTERDAY BY SURGEON. Objective/Function: PATIENT WAS SEEN TODAY FOR RE-ASSESSMENT OF PROGRESS TOWARD THE SET PT GOALS AND THE NEED FOR FURTHER PHYSICAL THERAPY VS READINESS FOR DISCHARGE. PATIENT IS A GOOD CANDIDATE TO CONTINUE PT BASED ON PROGRESS MADE AND ROOM FOR FURHTER IMPROVEMENT. PROGRESS AT LEAST PARTIALLY LIMITED BY PROTOCOL. REINFORCEMENT TODAY TO PATIENT ABOUT STILL BEING IN PROTECTIVE PHASE OF HEALING. UPON EXAM TODAY: PROM R SHLD IN SUPINE: FLEXION 156 DEG, ABD 143 DEG, (70 DEG ABD):ER 72 DEG AND IR 78 DEG. AROM R SHLD IN STANDING: FLEX 135 DEG, ABD 120 DEG. Plan Plan: CONTINUE 2'S A WK X 3 WKS THEN 1X/WK X 3 WKS. R SHLD REHAB PER PROTOCOL (IN WORKROOM). NO STRENGTHENING UNTIL 3 MONTHS PO. WORK TOWARD FULL ACTIVE AND PASSIVE ROM. *HEP INSTRUCTION* Balance/Gait/Functional tests - Balance/Special Test Scores Quick DASH Score: 36.3625 Goals Goal 1:: DECREASE C/O RIGHT SHLD PAIN Goal Time Frame: 6-8 Weeks Goal Progress: Progressing Goal 2:: INCREASE R SHLD FUNCTION ROM TO EASE ADL'S PER PROTOCOL Goal Time Frame: 6-8 Weeks Goal Progress: Progressing Goal 3:: IMPROVE R UE FUNCTIONAL STRENGTH TO EASE ADL'S PER PROTOCOL Goal Time Frame: 6-8 Weeks Goal Progress: Progressing Goal 4:: PATIENT WILL BE INDEP WITH A HEP FOR CONTINUED IMPROVEMENT ONCE FORMAL PHYSICAL THERAPY CONCLUDES. Goal Time Frame: 6-8 Weeks Goal Progress: Progressing Anticipated Interventions Patient/Client Instruction: Educate patient on: Condition, Plan of Care, Risk Factors For the Purpose of:: To improve self management Therapeutic Exercise to Include: Strength training, Body mechanics, Postural training, Flexibilty training, Neuromotor development, Passive ROM, Active ROM, Scapular Strength/Stabilization For the Purpose of:: To decrease pain, To increase ROM, To improve muscle performance and motor function, To increase tolerance to activity/condition/position, To improve ability of physical actions for home/community/work/leisure Cryotherapy (ice pack, ice massage): Yes Thermo therapy (hot pack): Yes For the Purpose of:: To decrease pain, To improve nutrient delivery to tissue Please do not hesitate to contact me at [phone] by phone or if you have questions or concerns regarding this new plan of care! Sincerely, Shannon Sharif, PT, Cert MDT
--- NOTE | 2023-02-25 11:32 | HP.PTREVAL ---
Re-Evaluation Intro: BENJAMIN ALAN, It has been my pleasure to treat LESLIE ROBERTO over the last 19 visits for S/P R SHLD BICEPS TENOTOMY, RTC REPAR AND SAD 12/04/22. Please see the progress note below for an update on the physical therapy plan of care! Subjective Subjective: PATIENT REPORTS SHE IS DOING GREAT. NO PAIN OR PROBLEMS IN GENERAL OTHER THAN SOME ACHING IN DAMP WEATHER. Objective Objective/Function: PATIENT WAS SEEN TODAY FOR RE-ASSESSMENT OF PROGRESS TOWARD THE SET PT GOALS AND THE NEED FOR FURTHER PHYSICAL THERAPY VS READINESS FOR DISCHARGE. PATIENT IS A GOOD CANDIDATE TO CONTINUE PT BASED ON PROGRESS MADE AND ROOM FOR FURHTER IMPROVEMENT. UPON EXAM TODAY: PROM R SHLD IN SUPINE: FLEXION 162 DEG, ABD 145 DEG, (90 DEG ABD):ER 85 DEG AND IR 75 DEG. AROM R SHLD IN STANDING: FLEX 148 DEG, ABD 145 DEG. Plan Plan Plan: *CHECK FOR NEW ORDER BEFORE TREATMENT NEXT VISIT* CONTINUE PT 1 TIME A WK X 6 WEEKS PER PHYSICIAN ORDER AND R SHLD REHAB PROTOCOL IN WORKROOM. PROGRESS HEP PER PROTOCOL. Balance/Gait/Functional tests Balance/Special Test Scores Quick DASH Score: 20.0000 Goals Goals Goal 1:: DECREASE C/O RIGHT SHLD PAIN Goal Time Frame: 6-8 Weeks Goal Progress: Progressing Goal 2:: INCREASE R SHLD FUNCTION ROM TO EASE ADL'S PER PROTOCOL Goal Time Frame: 6-8 Weeks Goal Progress: Progressing Goal 3:: IMPROVE R UE FUNCTIONAL STRENGTH TO EASE ADL'S PER PROTOCOL Goal Time Frame: 6-8 Weeks Goal Progress: Progressing Goal 4:: PATIENT WILL BE INDEP WITH A HEP FOR CONTINUED IMPROVEMENT ONCE FORMAL PHYSICAL THERAPY CONCLUDES. Goal Time Frame: 6-8 Weeks Goal Progress: Progressing Anticipated Interventions Anticipated Interventions Patient/Client Instruction: Educate patient on: Condition, Plan of Care and Risk Factors For the Purpose of:: To improve self management Therapeutic Exercise to Include: Strength training, Body mechanics, Postural training, Flexibilty training, Neuromotor development, Passive ROM, Active ROM and Scapular Strength/Stabilization For the Purpose of:: To decrease pain, To increase ROM, To improve muscle performance and motor function, To increase tolerance to activity/condition/position and To improve ability of physical actions for home/community/work/leisure Cryotherapy (ice pack, ice massage): Yes Thermo therapy (hot pack): Yes For the Purpose of:: To decrease pain and To improve nutrient delivery to tissue Re-Evaluation Ending Re-evaluation ending: Please do not hesitate to contact me at [phone] by phone or if you have questions or concerns regarding this new plan of care! Sincerely, Shannon Sharif, PT, Cert MDT
--- NOTE | 2023-04-14 11:25 | HP.PTREVAL_ITS ---
Re-Evaluation Intro: BENJAMIN ALAN, It has been my pleasure to treat LESLIE ROBERTO over the last 25 visits for S/P R SHLD BICEPS TENOTOMY, RTC REPAR AND SAD 12/04/22. Please see the progress note below for an update on the physical therapy plan of care! Subjective Subjective: PATIENT REPORTS SHE IS DOING HER NORMAL CLEANING AND EVERYTHING SHE DID BEFORE. I DON'T REALLY HAVE ANY LIMITATIONS. Objective Objective/Function: PATIENT WAS SEEN TODAY FOR RE-ASSESSMENT OF PROGRESS TOWARD THE SET PT GOALS AND THE NEED FOR FURTHER PHYSICAL THERAPY VS READINESS FOR DISCHARGE. ALL GOALS HAVE BEEN MET AND PATIENT IS APPROPRIATE FOR DISCHARGE. PATIENT IS AGREEABLE. UPON EXAM TODAY: PROM R SHLD IN SUPINE: FLEXION 170 DEG, ABD 152 DEG, (90 DEG ABD):ER 90 DEG AND IR 76 DEG. AROM R SHLD IN STANDING: FLEX 152 DEG, ABD 148 DEG. Plan Plan Plan: D/C TO INDEP HEP. PATINET IS AGREEABLE. Balance/Gait/Functional tests Balance/Special Test Scores Quick DASH Score: 4.5450 Goals Goals Goal 1:: DECREASE C/O RIGHT SHLD PAIN Goal Time Frame: 6-8 Weeks Goal Progress: Goal Met Goal 2:: INCREASE R SHLD FUNCTION ROM TO EASE ADL'S PER PROTOCOL Goal Time Frame: 6-8 Weeks Goal Progress: Goal Met Goal 3:: IMPROVE R UE FUNCTIONAL STRENGTH TO EASE ADL'S PER PROTOCOL Goal Time Frame: 6-8 Weeks Goal Progress: Goal Met Goal 4:: PATIENT WILL BE INDEP WITH A HEP FOR CONTINUED IMPROVEMENT ONCE FORMAL PHYSICAL THERAPY CONCLUDES. Goal Time Frame: 6-8 Weeks Goal Progress: Goal Met Anticipated Interventions Anticipated Interventions Patient/Client Instruction: Educate patient on: Condition, Plan of Care and Risk Factors For the Purpose of:: To improve self management Therapeutic Exercise to Include: Strength training, Body mechanics, Postural training, Flexibilty training, Neuromotor development, Passive ROM, Active ROM and Scapular Strength/Stabilization For the Purpose of:: To decrease pain, To increase ROM, To improve muscle performance and motor function, To increase tolerance to activ ity/condition/position and To improve ability of physical actions for home/community/work/leisure Cryotherapy (ice pack, ice massage): Yes Thermo therapy (hot pack): Yes For the Purpose of:: To decrease pain and To improve nutrient delivery to tissue Re-Evaluation Ending Re-evaluation ending: Please do not hesitate to contact me at [phone] by phone or if you have questions or concerns regarding this new plan of care! Sincerely, Shannon Sharif PT, Cert MDT
--- NOTE | 2023-04-14 12:50 | HP.PTDCSUM ---
Discharge Summary D/C summary: It has been my pleasure to treat LESLIE ROBERTO referred by BENJAMIN ALAN, with the diagnosis of S/P R SHLD BICEPS TENOTOMY, RTC REPAR AND SAD 12/04/22 for a total of 25 visit(s). Discharge Date: 04/14/23 Please see the following information for a summary of their discharge status. Subjective Subjective: PATIENT REPORTS SHE IS DOING HER NORMAL CLEANING AND EVERYTHING SHE DID BEFORE. I DON'T REALLY HAVE ANY LIMITATIONS. Pain R shoulder/arm: Pain Intensity (Out of 10): 0 Overall Improvement % Improvement: 98 Objective Objective/Function: PATIENT WAS SEEN TODAY FOR RE-ASSESSMENT OF PROGRESS TOWARD THE SET PT GOALS AND THE NEED FOR FURTHER PHYSICAL THERAPY VS READINESS FOR DISCHARGE. ALL GOALS HAVE BEEN MET AND PATIENT IS APPROPRIATE FOR DISCHARGE. PATIENT IS AGREEABLE. UPON EXAM TODAY: PROM R SHLD IN SUPINE: FLEXION 170 DEG, ABD 152 DEG, (90 DEG ABD):ER 90 DEG AND IR 76 DEG. AROM R SHLD IN STANDING: FLEX 152 DEG, ABD 148 DEG. Goals Goal 1:: DECREASE C/O RIGHT SHLD PAIN Goal Progress: Goal Met Goal 2:: INCREASE R SHLD FUNCTION ROM TO EASE ADL'S PER PROTOCOL Goal Progress: Goal Met Goal 3:: IMPROVE R UE FUNCTIONAL STRENGTH TO EASE ADL'S PER PROTOCOL Goal Progress: Goal Met Goal 4:: PATIENT WILL BE INDEP WITH A HEP FOR CONTINUED IMPROVEMENT ONCE FORMAL PHYSICAL THERAPY CONCLUDES. Goal Progress: Goal Met Plan Plan: D/C TO INDEP HEP. COLLINNET IS AGREEABLE. D/C Information d/c sentence: If there are questions or concerns regarding this patient's physical therapy, please feel free to call me at [phone]. Thank you for the referral of this patient. Sincerely, Shannon Sharif, PT, Cert MDT Balance/Gait/Functional tests Balance/Special Test Scores Quick DASH Score: 4.5450
== END 2023-04-14 19:00 | disposition home or self-care (01) ==
LOC: PT 11:00
PROVIDERS: PCP Student in an Organized Health Care Education/Training Program
DX: S46.211D Strain of muscle, fascia and tendon of other parts of biceps, right arm, subsequent encounter (principal); M75.41 Impingement syndrome of right shoulder; M25.511 Pain in right shoulder; M50.320 Other cervical disc degeneration, mid-cervical region, unspecified level; M75.111 Incomplete rotator cuff tear or rupture of right shoulder, not specified as traumatic; Z48.02 Encounter for removal of sutures; Z47.89 Encounter for other orthopedic aftercare
CPT/HCPCS: 97110; 97140; 97162; 97164; 97530

== ENCOUNTER 2025-02-05 10:14 | Emergency (ER) | payer MEDICARE, OTHER, SELFPAY ==
[2025-02-05 10:15] VITALS: BP 149/90; PULSE 86; RESP 16; TEMP 36; O2SAT 99; BMI 24.4
--- NOTE | 2025-02-05 10:31 | EX.ED.DYSGE1 ---
HPI History of Present Illness Chief Complaint: Constipation Informant: patient Onset/Context/Timing Onset: Days (6) Context: Gradual Onset Timing: Continuous Quality: Cramping Location: Generalized Worsened by: Nothing Relieved by: Nothing Narrative Narrative: Patient presents with constipation that has been constant for the past 6 days. Patient states she has some intermittent cramping. Patient states she has tried MiraLAX, fleets enema, and milk of magnesia with no improvement. Patient states nothing makes it worse. Patient denies any nausea or vomiting. Patient denies any fevers or chills. Patient denies any neck or back pain. Patient denies any urinary complaints. Prior similar symptoms: Yes PFSH PFSH Medical History h/o covid vaccine h/o bauer virus squamous cell Osteopenia IBS (irritable bowel syndrome) gastrointestinal Fibromyalgia bone fractures Home Medications ?Medication ?Instructions ?Recorded ?Last Taken ?Type cholecalciferol (vitamin D3) 25 3,000 unit PO DAILY 08/26/17 02/04/25 History mcg (1,000 unit) capsule flaxseed oil 1,000 mg capsule 1,000 mg PO BID 09/15/18 02/04/25 History biotin 5 mg capsule 100 mg PO DAILY 12/19/21 02/04/25 History famotidine 20 mg tablet (Pepcid) 20 mg PO DAILY PRN acid reflux 12/19/21 Unknown History amitriptyline 50 mg tablet 50 mg PO QHS #90 tabs 02/08/24 02/04/25 Rx amitriptyline 25 mg tablet 25 mg PO QHS 02/05/25 02/04/25 History atorvastatin 10 mg tablet 10 mg PO QHS 02/05/25 02/04/25 History calcium carbonate (Antacid 200 mg PO BID 02/05/25 Unknown History (calcium carbonate)) esomeprazole magnesium 40 mg 40 mg PO DAILY 02/05/25 02/05/25 History capsule,delayed release Allergy/AdvReac Type Severity Reaction Status Date / Time cephalexin Allergy Intermediate Hives Verified 02/05/25 10:17 acetaminophen (From Tylenol) Allergy Mild Hives Verified 02/05/25 10:17 hydromorphone (From Dilaudid) Allergy Mild Hives Verified 02/05/25 10:17 oxycodone Allergy Mild Hives Verified 02/05/25 10:17 Family History Father Heart disease Mother Heart disease Osteoporosis Sister Heart disease Surgical History History of lumpectomy of right breast H/O hemorrhoidectomy cholecystectomy History of hysterectomy Calcaneus fracture Social History Smoking Status: Never smoker alcohol intake: never substance use type: does not use caffeine: No what type of physical activity do you participate in: none, walking and weight training frequency: 3-4 times per week seatbelt use: always do you feel safe at home: Yes additional social history: -Jose Patient and are both retired ROS ROS ED Constitutional Constitutional ED: Denies chills or fever(s) Eyes Eyes: Denies blurry vision or change in vision ENT ENT ED: Denies rhinorrhea or sore throat Cardiovascular Cardiovascular: Denies chest pain or palpitations Respiratory/Chest Respiratory/Chest: Denies cough or dyspnea Gastrointestinal Gastrointestinal: Reports abdominal pain and constipation; Denies nausea or vomiting Genitourinary Genitourinary ED: Denies dysuria or hematuria Musculoskeletal Musculoskeletal: Denies back pain or neck pain Integumentary Denies abscess or rash Neurologic Neurologic: Reports headache(s); Denies weakness Allergic/Immunologic Allergic/Immunologic ED: Denies mouth swelling or urticaria EXAM Physical Exam Const Vital Signs: 02/05/25 10:15 Temperature 96.8 F L Temperature Source Oral Pulse Rate 86 Respiratory Rate 16 Blood Pressure 149/90 H Blood Pressure Mean 109 Pulse Ox 99 Oxygen Delivery Method Room Air Positive well nourished and well developed General Appearance ED: well developed and NAD HEENT Reports moist mucous membranes Neck supple and no JVD Resp normal respiratory effort and clear to auscultation bilaterally Cardio regular rate and regular rhythm GI non-tender and non-distended Auscultation: normoactive bowel sounds Palpation: soft Neuro oriented x3, CN's II-XII intact bilaterally and no sensory deficits noted Sensorium / Orientation: alert Motor Exam: strength 5/5 throughout Psych mental status grossly normal MDM MDM MDM Narrative Medical decision making narrative: Differential diagnosis includes but is not limited to bowel obstruction, perforation, and constipation. Acute abdominal x-rays will be obtained to assess for bowel obstruction, perforation, and constipation. History & Record Review Additional record(s) reviewed:: Prior outpatient record Radiography Diagnostic Testing: Clinical Impression(s) from Imaging Studies Acute Abdomen Series 02/05/25 10:41 IMPRESSION: NO ACUTE FINDINGS Reading Location: [facility] Acute abdominal x-rays were obtained. There are 4 views. On my independent interpretation, there is. No evidence of bowel obstruction or perforation. There is stool throughout the descending colon, sigmoid colon, and rectum. Radiologist also interpreted the x-rays and agrees. Treatment and Re-Evaluation :: Patient was advised of her findings. Patient was offered a soapsuds enema but she does not want this. Patient was instructed to take MiraLAX every hour at home until she starts having bowel movements. Patient was instructed to return if worse in any way. Patient understood and was agreeable with the plan. All questions were answered. Discharge Plan Triage Chief Complaint: Constipation ED Provider: Jose Flores Dx/Rx/DC Orders Clinical Impression: Constipation, History of IBS Instructions: Treating Constipation, ED Constipation (Adult) Prescriptions: No Action cholecalciferol (vitamin D3) 1,000 unit capsule 3,000 unit PO DAILY flaxseed oil 1,000 mg capsule 1,000 mg PO BID biotin 5 mg capsule 100 mg PO DAILY famotidine [Pepcid] 20 mg tablet 20 mg PO DAILY PRN (Reason: acid reflux) amitriptyline 25 mg tablet 25 mg PO QHS Patient Comments: PT TAKES WITH 50MG TO MAKE A DOSE OF 75MG. esomeprazole magnesium 40 mg capsule,delayed release(DR/EC) 40 mg PO DAILY atorvastatin 10 mg tablet 10 mg PO QHS calcium carbonate [Antacid (calcium carbonate)] 200 mg calcium (500 mg) tablet,chewable 200 mg PO BID amitriptyline 50 mg tablet 50 mg PO QHS Qty: 90 0RF Primary Care Provider: Robert Ramirez Referrals: Robert Ramirez DO [Primary Care Provider] - 5-7 Days Activity Restrictions/Additional Instructions: Use [id number] MiraLAX as needed until bowel movement. Print Language: Malaysian Disposition Disposition: Home, Self Care
--- NOTE | 2025-02-05 10:41 | RAD_ITS ---
PROCEDURE: ACUTE ABDOMEN INC CHEST 02/05/2025 REASON FOR EXAM: ABDOMINAL PAIN TECHNIQUE: ACUTE ABDOMEN INC CHEST COMPARISON: Chest radiograph 01/27/2023. FINDINGS: Hardware: None. Heart: The heart size is normal. Lungs: No focal consolidation, pleural effusion or pneumothorax. Bowel gas: Bowel gas pattern is normal. No evidence of bowel obstruction. Free air: No free air. Bones: There are degenerative changes of the spine. RAD/Acute Abdomen Inc Chest IMPRESSION: NO ACUTE FINDINGS Reading Location: [id number]
--- NOTE | 2025-02-05 10:50 | CM.ED ---
Social Work Date of referral: 02/05/25 Reason for referral: Advanced Care Directives (ACD's) not on file Referred by: Social Work Identification Patient provided consent to social work visit. Mechanical Design Engineer requested patient bring in a copy of ACD's either during the next visit or when close to the hospital; social science analyst advised patient that ACD's can be dropped off as well. Patient agreed to bring in requested paperwork. Gisele White, COTTRELL OPERATOR, PUBLICATION DIRECTOR
--- OUTSIDE RECORDS SUMMARY | 2025-02-05 10:59 | XMS RPT_ITS | CCD ---
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 Robert Bruner Primary Care Provider Dr. Robert Ramirez Referring Provider MARVIN Burris Attending Provider MARVIN Merchant Attending Provider Robert Ramirez DO Primary Care Provider Kaylav Robert Bruner Primary Care Unavailable Robert Ramirez Referring Unavailable Martha Pollard NP Attending Unavailable ROBYN SIBLEY Attending Unavailable ROBYN SIBLEY Referring Unavailable Robert Ramirez Primary Care Unavailable Robert Ramirez DO Primary Care Provider Molina ADDICTION THERAPIST.Luisa MABRY Unavailable Cassandra ADDICTION THERAPIST.Jade MABRY Unavailable JADE DIMAS Referring Unavailable ROBERT RAMIREZ Primary Care Unavailable ROBERT RAMIREZ Referring Unavailable ROBERT RAMIREZ Primary Care Unavailable JADE DIMAS Attending Unavailable ROBERT RAMIREZ Primary Care Unavailable JADE DIMAS Referring Unavailable ROBERT RAMIREZ Primary Care Unavailable ROBERT RAMIREZ Referring Unavailable ROBERT RAMIREZ Primary Care Unavailable JADE DIMAS Referring Unavailable ROBRET RAMIREZ Primary Care Unavailable HARISH HILL Attending Unavailable JADE DIMAS Referring Unavailable ROBERT RAMIREZ Primary Care Unavailable JADE DIMAS Referring Unavailable ROBERT RAMIREZ Primary Care Unavailable RAMIREZROBERT L Primary Care Unavailable JADE DIMAS Attending Unavailable RAMIREZROBERT L Primary Care Unavailable ELA HUI M Referring Unavailable ELA HUI M Attending Unavailable ROBERT RAMIREZ L Primary Care Unavailable ELA HUI M Attending Unavailable ROBERT RAMIREZ L Primary Care Unavailable KORINAELA CARDENAS M Referring Unavailable ELA HUI M Attending Unavailable ROBERT RAMIREZ L Referring Unavailable ROBERT RAMIREZ L Primary Care Unavailable SAMANTHA ZHANG Referring Unavailable ROBERT RAMIREZ Primary Care Unavailable Allergies Allergy Classification Reported Allergen(s) Allergy Type Date of Onset Reaction(s) Facility Acetaminophen (1 source) Acetaminophen Drug Allergy 4 [facility] Cephalosporins (antibiotic) (1 source) Cephalexin Drug Allergy 1 Rash [facility] Opioid Agonists (2 sources) HYDROmorphone Drug Allergy 1 [facility] Quinolones (antibiotic) (1 source) levoFLOXacin Drug Allergy 0 GI Upset [facility] (20 sources) Acetaminophen; Translations: [ACETAMINOPHEN] Drug Allergy 4 [facility] (20 sources) Cephalexin; Translations: [CEPHALEXIN] Drug Allergy 1 Rash, Itching [facility] Work Phone: (20 sources) HYDROmorphone; Translations: [HYDROMORPHONE] Drug Allergy 1 [facility] (20 sources) levoFLOXacin; Translations: [LEVOFLOXACIN] Drug Allergy 0 GI Upset [facility] Work Phone: (20 sources) oxyCODONE; Translations: [OXYCODONE] Drug Allergy 1 [facility] (5 sources) Salicylic Acid; Translations: [SALICYLATES] Drug Allergy 5 Intolerance [facility] Work Phone: (20 sources) Salicylate product Propensity to adverse reactions to drug 5 Intolerance [facility] Work Phone: (5 sources) Aspirin Drug Allergy 5 Nausea Only [facility] (1 source) Acetaminophen Drug Allergy [address] [facility] (1 source) Cephalexin Drug Allergy [address] [facility] (1 source) HYDROmorphone Drug Allergy [address] [facility] (1 source) oxyCODONE Drug Allergy [address] [facility] Medications Current Medications Medication Drug Class(es) Dates Sig (Normalized) Sig (Original) amitriptyline hydrochloride 50 mg oral tablet (20 sources) Tricyclic Antidepressant Start: 01-11-2025 take 2 tablets by mouth once daily at bedtime amitriptyline (ELAVIL) 50 mg tablet Take 2 tablets by mouth daily at bedtime. 90 tablet 1 01/11/2025 Active Start: 07-20-2024 take 2 tablets by mo uth once daily at bedtime amitriptyline (ELAVIL) 50 mg tablet Take 2 tablets by mouth daily at bedtime. 90 tablet 1 07/20/2024 Active Start: 07-05-2024 End: 07-20-2024 take 1 tablet by mouth once daily at bedtime amitriptyline (ELAVIL) 50 mg tablet Take 1 tablet by mouth daily at bedtime. 90 tablet 1 07/05/2024 07/20/2024 Discontinued Start: 10-04-2019 End: 01-23-2023 take 50 mg by mouth at bedtime Amitriptyline Active 50 MG PO AT BEDTIME 90 January 23, 2023 5:26pm Start: 02-03-2018 End: 10-04-2019 take 37.5 mg by mouth at bedtime Amitriptyline Discontinued 37.5 MG PO AT BEDTIME 90 September 15, 2018 3:08pm October 04, 2019 11:29am Start: 08-26-2017 End: 08-26-2017 take 25 mg by mouth twice daily Amitriptyline Disconti nued 25 MG PO TWICE A DAY August 26, 2017 1:00am August 26, 2017 11:47am Start: 08-26-2017 End: 09-14-2017 take 75 mg by mouth once daily Amitriptyline Discontin ued 75 MG PO daily 90 Brandee 10th, 2018 4:59pm September 14, 2017 2:43pm Start: 03-11-2017 End: 07-19-2024 take 1 tablet by mouth once daily at bedtime amitriptyline (ELAVIL) 25 mg tablet Take 1 tablet by mouth daily at bedtime. 90 tablet 1 05/06/2023 05/24/2024 Discontinued amitriptyline 75 MG Tab Take 50 mg by mouth At bedtime. Active amitriptyline 75 MG Tab Take 37.5 mg by mouth At bedtime. 0 Active Comment on above: Take 1 tablet by ligia th daily at bedtime. amoxicillin 875 mg / clavulanate 125 mg oral tablet (1 source) Penicillin-class Antibacterial Start: 023 End: take 1 tablet by mouth twice daily amoxicillin-clavul anate potassium (AUGMENTIN) 875-125 mg per tablet Take 1 tablet by mouth two times a day for 7 days. 14 tablet 0 07/20/2023 07/27/2023 Active Comment on above: Take 1 tablet by ligia th two times a day for 7 days. atorvastatin 10 mg oral tablet (20 sources) HMG-CoA Reductase Inhibitor Start: 022 End: 025 take 1 tablet by mouth once daily at bedtime for hyperlipidemia atorvastatin (LIPITOR) 10 mg tablet Indications: Dyslipidemia Take 1 tablet by mouth daily at bedtime. For cholesterol. 90 tablet 3 11/01/2024 Active Comment on above: Take 1 tablet by ligia th daily at bedtime. For cholesterol. B Complex Vitamins (VITAMIN-B COMPLEX PO) (5 sources) B Complex Vitami ns (VITAMIN-B COMPLEX PO) take by mouth. Active B Complex Vitami ns (VITAMIN-B COMPLEX PO) take by mouth. 0 Active B COMPLEX WITH VITAMIN C ( TAMIN B COMPLEX-C ORAL) (20 sources) B COMPLEX WITH V ITAMIN C (VITAMIN B COMPLEX-C ORAL) Take by mouth. Active B COMPLEX WITH V ITAMIN C (VITAMIN B COMPLEX-C ORAL) Take by mouth. 0 Active Comment on above: Take by mouth. benzonatate 100 mg oral capsule (19 sources) Non-narcotic Antitussive Start: take 200 mg by mouth three times daily Benzonatate Active 200 MG PO THREE TIMES A DAY January 22, 2023 12:00am Start: 08-10-2022 End: 07-19-2024 take 2 capsules by mouth every eight hours as needed benzonatate (TESSALON PERLES) 100 mg capsule Take 2 capsules by mouth three times daily as needed. 30 capsule 08/10/2022 07/19/2024 Discontinued Comment on above: Take 2 capsules by m outh three times daily as needed. biotin 5 mg oral capsule (2 sources) Start: 12-19-2021 take 100 mg by mouth once daily Biotin Active 100 MG PO DAILY December 19, 2021 9:50am Start: 10-04-2019 End: 12-19-2021 take 5 mg by mouth once daily Biotin Discontinued 5 MG PO DAILY October 04, 2019 1:00am December 19, 2021 9:52am onabotulinumtoxina 200 unt injection (8 sources) Acetylcholine Release Inhibitor Start: 08-12-2024 onabotulinum toxin type A 200 Units injection (BOTOX) Start: 08-12-2024 200 Units, INT RAMUSCULAR, EVERY 12 WEEKS, First dose on Thu08/12/24 at 1200, Until Discontinued, This record documents the total dose provided to patient. See progress note for specific locations and amounts administered. Calcium (5 sources) Phosphate Binder, Calcium Calciu m 500 MG Chew Tab Chew 1,200 mg. Active Calcium 500 MG C hew Tab take by mouth. Active Calcium 500 MG C hew Tab take by mouth. 0 Active calcium carbonate 1250 mg oral tablet (1 source) Start: 08-26-2017 take 1 tablet by mouth twice daily Calcium Carbonate (Calcium 500) 500 mg calcium (1,250 mg) tablet Active 500 MG PO TWICE A DAY August 26, 2017 1:00am calcium carbonate 1250 mg / cholecalciferol 100 unt / vitamin k1 0.04 mg chewable tablet (20 sources) Vitamin D, Warfarin Reversal Agent, Vitamin K Start: 03-19-2010 ca carbonate/vitamin d3/vit k(VIACTIV 500 MG-100 UNIT-40 MCG CHEWABLE TAB) Chews 2 daily 0 0 03/19/2010 Active Comment on above: Chews 2 daily cholecalciferol 0.025 mg oral capsule (20 sources) Vitamin D Start: 08-26-2017 take 2000 [IU] by mouth once daily Cholecalciferol (Vitamin D3) Active 2000 UNIT PO DAILY August 26, 2017 1:00am Start: 03-29-2010 CHOLECALCIFERO L (VITAMIN D3) 1,000 UNIT CAP Take one(1) tablet daily. 0 03/29/2010 Active take 1 tablet by ligia th once daily Vitamin D3 1000 UNITS Tab Take 1 tablet by mouth daily. Active Comment on above: Take one(1) tablet d aily. COCONUT OIL PO (2 sources) COCONUT OIL PO T [place] by mouth daily. Takes 2 daily 0 Active cotton seed oil (1 source) Start: 11-06-2020 cotton seed oil Active PO November 06, 2020 12:00am famotidine 20 mg oral tablet (6 sources) Histamine-2 Receptor Antagonist Start: 12-19-2021 take 1 tablet by mouth once daily Famotidine (Pepcid) 20 mg tablet Active 20 MG PO DAILY December 19, 2021 12:00am take 1 tablet by mouth twice oliver ly faMOTIdine 20 MG tablet Take 1 tablet by mouth 2 times daily. Active Flaxseed Oil oil (20 sources) Start: 08-26-2017 Flaxseed Oil o il TWICE A DAY 08/26/2017 Active Start: 08-26-2017 Flaxseed Oil o il TWICE A DAY 0 08/26/2017 Active Comment on above: TWICE A DAY Flaxseed, Linseed, (FLAX SEEDS PO) (3 sources) Flaxseed, Linsee d, (FLAX SEEDS PO) Take by mouth. Active HERBAL DRUGS CAP (20 sources) Start: 03-19-2010 HERBAL DRUGS C AP Enzyme solutions formula 30 takes 4-5 daily 0 0 03/19/2010 Active Start: 03-19-2010 HERBAL DRUGS C AP Colon Buster 400mg twice daily 0 0 03/19/2010 Active Comment on above: Enzyme solutions for elisa 30 takes 4-5 daily Colon Buster 400mg t wice daily hydrocortisone 25 mg/ml topical cream (7 sources) Corticosteroid Start: 2023 hydrocortisone 2.5 % cream APPLY TO THE AFFECTED AREA ON THE FOREHEAD NEEDED ONCE OR TWICE DAILY 07/23/2024 Active iv contrast (will be provided with radiology test) (3 sources) Start: 2023 End: 2023 inject 1 dose intravenously once iv contrast (will be provided with radiology test) Indications: Trigeminal neuralgia MRI Brain Inject, intravenously, once for 1 dose.No IV access, insert saline lock prior to beginning of sedation, infusion, injection of imaging exam.Discontinue saline lock post exam. If Pt. has a central line or IVAD, may access for administration according to line specific nursing protocol.Once exam is complete flush line and de-access according to line specific nursing protocol in the MR contrast administration guidelines link 1 Each 08/12/2024 08/13/2024 Active Start: 08-02-2024 End: 08-03-2024 inject 1 dose intravenously once iv contrast (will be provided with radiology test) Indications: [place] headache , Brain ischemia , Other trigeminal autonomic cephalgia (TAC), not intractable , Chronic post-traumatic headache, not intractable , Dyslipidemia CTA Head/Neck W No IV access, insert saline lock prior to the sedation, infusion, injection for imaging exam. Discontinue saline lock post exam. If Pt. has a central line or IVAD, may access for administration according to line specific nursing protocol. Once exam is complete flush line and de-access according to line specific nursing protocol in the CT contrast administration guidelines link. 1 Each 08/02/2024 08/03/2024 Active ketoconazole 20 mg/ml medicated shampoo (20 sources) Azole Antifungal Start: 01-27-2024 ketoconazole (NIZORAL) 2 % shampoo Indications: Itchy scalp Apply to affected area once daily. 120 mL 2 01/27/2024 Active Lactulose (20 sources) Osmotic Laxative Start: 09-27-2020 take 30 mL by mouth once daily as needed lactulose 10 gram/15 mL (15 mL) soln Indications: Chronic idiopathic constipation Take 30 mL by mouth once daily. or as needed. 473 mL 1 09/27/2020 Active Start: 09-27-2020 take 30 mL by mouth once daily as needed lactulose 10 gram/15 mL (15 mL) soln Indications: Chronic idiopathic constipation Take 30 mL by mouth once daily. or as needed. 473 mL 1 09/27/2020 Active Comment on above: Take 30 mL by mouth once daily. or as needed. levoFLOXacin 500 mg oral tablet (2 sources) Quinolone Antimicrobial Start: 3 take 500 mg by mouth once daily Levofloxacin Active 500 MG PO DAILY January 27, 2023 12:00am Start: 04-01-2020 End: 11-06-2020 take 750 mg by mouth once daily Levofloxacin Discontinued 750 MG PO DAILY April 01, 2020 12:00am November 06, 2020 10:00am linseed oil 1000 mg oral capsule (2 sources) Start: 08-26-2017 End: 09-15-2018 take 1000 mg by mouth twice daily Flaxseed Oil Active 1000 MG PO TWICE A DAY September 15, 2018 1:00am loteprednol etabonate 2 mg/ml ophthalmic suspension (20 sources) Start: 03-19-2010 loteprednol etabonate(ALREX 0.2 % EYE DROPS) 1 or 2 drops in each eye daily as necessary 0 0 03/19/2010 Active Comment on above: 1 or 2 drops in each eye daily as necessary Magnesium (5 sources) take 5 capsules by mouth once daily Magnesium 100 MG Cap Take 5 capsules by mouth daily. Active take 5 capsules by mouth once da eliot Magnesium 100 MG Cap take 500 mg by mouth daily. 0 Active magnesium oxide 500 mg oral tablet (20 sources) take 1 tablet by mouth once daily Magnesium Oxide 500 mg tab Take 500 mg by mouth once daily. Active Comment on above: Take 500 mg by mouth once daily. melatonin 10 mg oral capsule (20 sources) Start: 08-26-2017 End: 09-15-2018 melatonin 10 mg cap BEDTIME PRN For Sleep 08/26/2017 Active take 7 mg by mouth at bedtime me latonin 3 MG Tab Take 7 mg by mouth at bedtime. Takes 7mg-10mg Active Comment on above: BEDTIME PRN For Slee p methylPREDNISolone (1 source) Corticosteroid Start: 07-20-2023 End: 07-26-2023 methylPREDNISolone (MEDROL, JAIME,) 4 mg Dose-Pack Follow dosing instructions, take with food. 21 tablet 0 07/20/2023 07/26/2023 Active Comment on above: Follow dosing instru ctions, take with food. Naltrexone (20 sources) Opioid Antagonist Start: 06-09-2024 naltrexone 1.5 mg cap at bedtime (rx given from Dr [facility]) 06/09/2024 Active take 1 capsule by mouth once oliver ly naltrexone capsule 1.5 mg (CPD) Take 1 capsule by mouth once daily. Dr. Fisher Active Naltrexone HCl, Pain, 1.5 MG capsule (2 sources) take 1 capsule by mo uth once daily Naltrexone HCl, Pain, 1.5 MG capsule Take 1 capsule by mouth daily. Active Nutritional Supplements (NUTRITIONAL SUPPLEMENT PO) (5 sources) Nutritional Supp lements (NUTRITIONAL SUPPLEMENT PO) Take by mouth. Pro HN3 Active Nutritional Supp lements (NUTRITIONAL SUPPLEMENT PO) take by mouth. Pro HN3 0 Active Goodyear-3 Fatty Acids (FISH OI L) 500 MG Cap (5 sources) Goodyear-3 Fatty Ac ids (FISH OIL) 500 MG Cap take by mouth.. Active Goodyear-3 Fatty Ac ids (FISH OIL) 500 MG Cap take by mouth.. 0 Active pantoprazole 20 mg delayed release oral tablet (20 sources) Proton Pump Inhibitor Start: 12-19-2021 take 20 mg by mouth once daily Pantoprazole Active 20 MG PO DAILY December 19, 2021 12:00am Start: 12-20-2020 take 1 tablet by ligia th once daily pantoprazole DR (PROTONIX) 40 mg tablet Indications: Gastroesophageal reflux disease without esophagitis Take 1 tablet by mouth once daily. 30 tablet 3 12/20/2020 Active Pantoprazole Sod ium (PROTONIX PO) Take by mouth. Active Pantoprazole Sod ium (PROTONIX PO) Take by mouth. 0 Active Comment on above: Take 1 tablet by ligia th once daily. predniSONE 20 mg oral tablet (1 source) Start: 02-01-20 End: 02-06-20 take 2 tablets by mouth once daily predniSONE (DELTASONE) 20 mg tablet Indications: Viral bronchitis Take 2 tablets by mouth once daily for 5 days. 10 tablet 0 01/31/2022 02/05/2022 Active Comment on above: Take 2 tablets by mo [facility] once daily for 5 days. 24 hr venlafaxine 150 mg extended release oral capsule (20 sources) Serotonin and Norepinephrine Reuptake Inhibitor Start: 07-25-20 24 venlafaxine 150 MG Cap SR 24HR capsule XR Indications: Hot flashes due to menopause TAKE 1 CAPSULE DAILY 90 capsule 07/25/2024 Active Start: 10-30-2023 take 1 capsule by mo uth once daily venlafaxine 150 MG Cap SR 24HR capsule XR Indications: Hot flashes due to menopause Take 1 capsule by mouth daily. 90 capsule 3 10/30/2023 Active Start: 04-04-2022 take 1 capsule by [facility] once daily venlafaxine 150 MG Cap SR 24HR capsule XR Indications: Hot flashes due to menopause Take 1 capsule by mouth daily. 90 capsule 1 04/04/2022 Active Start: 09-15-2018 End: 12-19-2021 take 1 capsule by mouth once daily Venlafaxine (Effexor Xr) 75 mg capsule,extended release 24hr Active 150 MG PO DAILY December 19, 2021 9:51am Start: 02-03-2018 End: 09-15-2018 take 37.5 mg by mouth once daily Venlafaxine Discontinued 37.5 MG PO DAILY February 03, 2018 12:00am September 15, 2018 2:30pm Start: 08-26-2017 End: 08-26-2017 take 75 mg by mouth three times daily Venlafaxine Discontinued 75 MG PO THREE TIMES A DAY August 26, 2017 10:56am August 26, 2017 11:48am Start: 08-26-2017 End: 08-26-2017 take 25 mg by mouth three times daily Venlafaxine Discontinued 25 MG PO THREE TIMES A DAY August 26, 2017 1:00am August 26, 2017 10:58am take 1 capsule by [facility] once daily venlafaxine ER (EFFEXOR XR) 75 mg 24 hr capsule Take 150 mg by mouth once daily. Active Comment on above: Take 150 mg by mouth once daily. Completed/Discontinued Medications Medication Drug Class(es) Dates Sig (Normalized) Sig (Original) azithromycin 250 mg oral tablet (1 source) Macrolide Antimicrobial Start: 08-20-2021 End: 12-19-2021 Azithromycin Discontinued 0 PO .COMPLEX August 20, 2021 1:00am December 19, 2021 9:50am take 500 mg today (day 1), then 250 mg for 4 days (days 2-5) PO brompheniramine maleate 0.4 mg/ml / dextromethorphan hydrobromide 2 mg/ml / pseudoephedrine hydrochloride 6 mg/ml oral solution (20 sources) alpha-Adrenergic Agonist, Uncompetitive X-jkxcgs-C-aspartate Receptor Antagonist, Sigma-1 Agonist Start: 01-31-2022 End: 07-19-2024 take 5 mL by mouth four times daily as needed Brompheniramine-P seudoeph-DM (BROMFED DM) 2-30-10 mg/5 mL syrup Indications: Viral bronchitis Take 5 mL by mouth four times daily as needed. 120 mL 01/31/2022 07/19/2024 Discontinued Comment on above: Take 5 mL by mouth f our times daily as needed. calcium citrate 950 mg / cholecalciferol 250 unt oral tablet (1 source) Vitamin D Start: 09-15-2018 End: 10-04-2019 take 1 tablet by mouth once daily Calcium Citrate-Vitamin D3 Discontinued 1 TABLET PO DAILY September 15, 2018 1:00am October 04, 2019 11:17am dexamethasone 6 mg oral tablet (1 source) Corticosteroid Start: 03-28-2020 End: 11-06-2020 take 6 mg by mouth once daily Dexamethasone Discontinued 6 MG PO DAILY March 28, 2020 12:00am November 06, 2020 10:00am evening primrose oil 500 mg oral capsule (1 source) Start: 09-15-2018 End: 10-04-2019 take 500 mg by mouth three times daily Evening [place] Oil Discontinued 500 MG PO THREE TIMES A DAY September 15, 2018 1:00am October 04, 2019 11:17am linaclotide (1 source) Guanylate Cyclase-C Agonist End: 08-06-2022 take 1 tablet by mouth once daily linaCLOtide (LINZESS PO) Take 1 tablet by mouth daily. 0 08/06/2022 Discontinued (Alternate therapy) omeprazole 20 mg delayed release oral capsule (1 source) Proton Pump Inhibitor Start: 09-15-2018 End: 12-19-2021 take 20 mg by mouth once daily Omeprazole Discontinued 20 MG PO DAILY September 15, 2018 1:00am December 19, 2021 9:50am 72 hr scopolamine 0.0139 mg/hr transdermal system (11 sources) Anticholinergic Start: 01-27-2024 End: 07-19-2024 scopolamine (TRANSDERM-SCOP) patch 1.5 mg/72 hr (delivers 1 mg over 3 days) Indications: Motion sickness, subsequent encounter Apply 1 Patch as directed every 72 hours. Apply patch to skin behind ear 4hrs prior to travel. 10 Patch 1 01/27/2024 07/19/2024 Discontinued vitamin e 90 mg oral capsule (1 source) Start: 09-15-2018 End: 10-04-2019 take 200 [IU] by mouth once daily Vitamin E Discontinued 200 UNIT PO DAILY September 15, 2018 1:00am October 04, 2019 11:18am Problems Active Problems Problem Classification Problem Date Documented Da te Episodic/Chronic Acute bronchitis (2 sources) Viral bronchitis; Translations: [Acute bronchitis due to other specified organisms] Episodic Anxiety disorders (20 sources) Anxiety state; Translations: [Generalized anxiety disorder] Onset: 02-23-2006 02-23-2006 Chronic Cancer of breast (10 sources) History of lobular carcinoma in situ; Translations: [Personal history of in-situ neoplasm of breast] Onset: 05-05-2018 05-05-2018 Episodic Disorders of lipid metabolism (20 sources) Dyslipidemia; Translations: [Hyperlipidemia, unspecified] Onset: 04-30-2022 Chronic Esophageal disorders (1 source) Gastro-esophageal reflux disease without esophagitis; Translations: [Gastro-esophageal reflux disease without esophagitis] Onset: 01-19-2025 Chronic Headache; including migraine (7 sources) Chronic post-traumatic headache; Translations: [Chronic post-traumatic headache, not intractable] Onset: 07-29-2024 07-19-2024 Chronic Headache; including migraine (11 sources) Headache disorder; Translations: [Other trigeminal autonomic cephalgias (TAC), not intractable] Onset: 07-29-2024 07-19-2024 Episodic Hemorrhoids (20 sources) Internal hemorrhoids; Translations: [Other hemorrhoids] 06-19-2006 Episodic Menopausal disorders (20 sources) Menopausal problem; Translations: [Unspecified menopausal and perimenopausal disorder] Onset: 10-22-2016 10-22-2016 Chronic Nausea and vomiting (1 source) Nausea with vomiting, unspecified; Translations: [Nausea with vomiting, unspecified] Onset: 01-19-2025 Episodic Nonmalignant breast conditions (13 sources) Fibrocystic changes of bilateral breasts; Translations: [Diffuse cystic mastopathy of right breast] Onset: 05-05-2018 Chronic Nonspecific chest pain (1 source) Chest pain; Translations: [Chest pain, unspecified] 02-03-2018 Episodic Nutritional deficiencies (20 sources) Vitamin D deficiency; Translations: [Vitamin D deficiency, unspecified] Onset: 04-30-2022 Chronic Nutritional deficiencies (2 sources) Cobalamin deficiency; Translations: [Deficiency of other specified B group vitamins] Onset: 08-16-2024 08-16-2024 Episodic Other and ill-defined cerebrovascular disease (3 sources) Cerebral ischemia; Translations: [Cerebral ischemia] 08-02-2024 Chronic Other and ill-defined cerebrovascular disease (1 source) Cerebral ischemia; Translations: [Brain ischemia] Onset: 08-11-2024 Chronic Other bone disease and musculoskeletal deformities (1 source) Senile osteopenia; Translations: [Other specified disorders of bone density and structure, unspecified site] 05-12-2024 Episodic Other bone disease and musculoskeletal deformities (1 source) Disorder of bone; Translations: [Other specified disorders of bone density and structure, multiple sites] 05-12-2024 Episodic Other circulatory disease (1 source) Wheeze - rhonchi; Translations: [Other specified symptoms and signs involving the circulatory and respiratory systems] Episodic Other connective tissue disease (1 source) Impingement syndrome of right shoulder; Translations: [Impingement syndrome of right shoulder] Onset: 10-31-2022 Episodic Other connective tissue disease (1 source) Incomplete rotator cuff tear or rupture of right shoulder, not specified as traumatic; Translations: [Incomplete tear of right rotator cuff, unspecified whether traumatic] Onset: 10-31-2022 Episodic Other female genital disorders (2 sources) Personal history of other diseases of the female genital tract; Translations: [Personal history of other diseases of the female genital tract] Onset: 05-05-2018 Episodic Other gastrointestinal disorders (20 sources) Irritable bowel syndrome; Translations: [Irritable bowel syndrome without diarrhea] Onset: 10-22-2016 10-22-2016 Chronic Other gastrointestinal disorders (20 sources) Constipation; Translations: [Constipation, unspecified] 06-19-2006 Episodic Other gastrointestinal disorders (1 source) Dysphagia, unspecified; Translations: [Dysphagia, unspecified] Onset: 01-19-2025 Episodic Other gastrointestinal disorders (1 source) Other constipation; Translations: [Other constipation] Onset: 01-19-2025 Episodic Other inflammatory condition of skin (1 source) Pruritic scalp dermatosis; Translations: [Pruritus, unspecified] 01-27-2024 Episodic Other injuries and conditions due to external causes (1 source) Motion sickness; Translations: [Motion sickness, subsequent encounter] 01-27-2024 Episodic Other lower respiratory disease (1 source) Cough; Translations: [Cough] 01-27-2023 Episodic Other nervous system disorders (1 source) Trigeminal neuralgia; Translations: [Trigeminal neuralgia] 08-12-2024 Episodic Other non-traumatic joint disorders (1 source) Pain in right shoulder; Translations: [Right shoulder pain, unspecified chronicity] Onset: 10-31-2022 Episodic Other skin disorders (1 source) Nail discoloration; Translations: [Other nail disorders] 06-03-2024 Episodic Other upper respiratory infections (1 source) Chronic sinusitis, unspecified; Translations: [Unspecified sinusitis (chronic)] 07-20-2023 Chronic Other upper respiratory infections (4 sources) Acute upper respiratory infection; Translations: [Acute upper respiratory infection, unspecified] 01-22-2023 Episodic Residual codes; unclassified (2 sources) At high risk for breast cancer; Translations: [Other specified personal risk factors, not elsewhere classified] Episodic Spondylosis; intervertebral disc disorders; other back problems (1 source) Other cervical disc degeneration, mid-cervical region, unspecified level; Translations: [Degeneration of intervertebral disc of mid-cervical region, unspecified spinal level] Onset: 10-31-2022 Chronic Sprains and strains (1 source) Strain of muscle, fascia and tendon of other parts of biceps, right arm, initial encounter; Translations: [Traumatic partial tear of right biceps tendon, initial encounter] Onset: 10-31-2022 Episodic Past or Other Problems Problem Classification Problem Date Documented Date Episodic/Chronic Cancer of breast (5 sources) Lobular carcinoma in situ of right breast; Translations: [Lobular carcinoma in situ of right breast] Onset: 10-25-2015 Resolved: 05-05-2018 05-05-2018 Chronic Deficiency and other anemia (20 sources) Anemia; Translations: [Anemia, unspecified] Onset: 04-30-2022 Episodic Diabetes mellitus without complication (20 sources) Hyperglycemia; Translations: [Hyperglycemia, unspecified] Onset: 04-30-2022 Episodic Mood disorders (5 sources) Mood disorders Onset: 08-06-2022 Resolved: 03-09-2024 08-06-2022 Nonmalignant breast conditions (20 sources) Atypical lobular hyperplasia of right breast; Translations: [Unspecified benign mammary dysplasia of right breast] Onset: 03-15-2015 Resolved: 08-19-2023 03-15-2015 Episodic Other and unspecified benign neoplasm (5 sources) Fibroadenoma of breast; Translations: [Benign neoplasm of unspecified breast] Onset: 03-21-2015 03-21-2015 Episodic Other bone disease and musculoskeletal deformities (20 sources) Disorder of skeletal system; Translations: [Disorder of bone, unspecified] Onset: 02-05-2006 02-05-2006 Episodic Other bone disease and musculoskeletal deformities (1 source) Other specified disorders of bone density and structure, unspecified site; Translations: [Osteopenia, senile] Onset: 05-12-2024 Episodic Other bone disease and musculoskeletal deformities (1 source) Other specified disorders of bone density and structure, multiple sites; Translations: [Other specified disorders of bone density and structure, multiple sites] Onset: 05-12-2024 Episodic Other circulatory disease (20 sources) Feeling of lump in throat; Translations: [Other specified symptoms and signs involving the circulatory and respiratory systems] Onset: 05-31-2018 05-31-2018 Episodic Other connective tissue disease (20 sources) Fibromyalgia; Translations: [Fibromyalgia] Onset: 03-19-2010 03-19-2010 Episodic Other diseases of veins and lymphatics (20 sources) Peripheral venous insufficiency; Translations: [Venous insufficiency (chronic) (peripheral)] Onset: 02-23-2006 02-23-2006 Episodic Other female genital disorders (9 sources) History of atypical hyperplasia of breast; Translations: [Personal history of other diseases of the female genital tract] Onset: 05-05-2018 Episodic Other screening for suspected conditions (not mental disorders or infectious disease) (20 sources) Patient encounter status; Translations: [Encounter for screening mammogram for malignant neoplasm of breast] Onset: 05-05-2018 Episodic Residual codes; unclassified (20 sources) Persistent insomnia; Translations: [Insomnia, unspecified] Onset: 02-05-2006 02-05-2006 Episodic Spondylosis; intervertebral disc disorders; other back problems (20 sources) Neck pain; Translations: [Cervicalgia] Onset: 09-23-2006 09-23-2006 Episodic Unclassified (1 source) bone fractures 03-12-2022 Unclassified (1 source) gastrointestinal 03-12-2022 Unclassified (1 source) 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 Unclassified (1 source) squamous cell 03-12-2022 Viral infection (1 source) Disease caused by 2019-nCoV 03-12-2022 Results Test Name Value Interpretation Reference Range Facility US ABD RIGHT UPPER QUADRANTo n 01-19-2025 US ABD RIGHT UPPER QUADRANT * * *Final Report* * * DATE OF EXAM: Jan 19 2025 9:44AM ANDRES 1032 - US ABD RIGHT UPPER QUADRANT / PROCEDURE REASON: nausea and vomitin r11.2,gerd k21.9,dyphagia r13.10,chronic constipation k59.09 * * * * Physician Interpretation * * * * EXAMINATION: RIGHT UPPER QUADRANT ULTRASOUND CLINICAL HISTORY: Nausea and vomiting TECHNIQUE: Sonography of the right upper quadrant was performed. Images were obtained and stored in a permanent archive. MQ: [id number] COMPARISON: CT scans of 03/13/2021. RESULT: Pancreas: Normal sonographic appearance. Portions obscured: Portions of the head, distal body and tail are suboptimally seen due to overlying bowel gas Liver: Echotexture: Normal, homogeneous. Echogenicity: Normal Surface contour: Smooth Lesions: None. Biliary: No intrahepatic biliary duct dilation. CBD: 0.4 cm at the hilum. Gallbladder: Normal caliber -Contents: No cholelithiasis -Wall: several polyps. The largest is 0.3 cm -Other: No pericholecystic fluid. Right Kidney: No hydronephrosis. Ascites: None. IMPRESSION: Several tiny gallbladder polyps Otherwise normal sonographic appearance of the right upper quadrant. Physical Chemistry Teacher: SVEN Transcribe Date/Time: Jan 19 2025 1:54P Dictated by : CHANNING STANTON MD This examination was interpreted and the report reviewed and electronically signed by: CHANNING STANTON MD on Jan 19 2025 1:56PM EST [id number] N Normal [facility] Lipid 1996 panelon 5 Cholesterol [Mass/Vol] 157 mg/dL Normal <200 [facility] Comment on above: Order Comment: Speci men Type: BLOOD SPECIMENOrdering Facility: [facility] [address] [address] [facility] [place] [id number] Result Comment: <200 mg/dL, Desirable 200-239 mg/dL, Borderline high >239 mg/dL, High Performed By: #### 2 4331-1 ####[facility] LABCLIA [id number] [address] [id number] [place] [address] [place] Cholesterol in HDL [Mass/Vol] 49 mg/dL Normal >39 [facility] Comment on above: Order Comment: Aamiri men Type: BLOOD SPECIMENOrdering Facility: [facility] Address: [address] [place] [address] Result Comment: 40-5 9 mg/dL, Acceptable >59 mg/dL, High: Negative risk factor for coronary heart disease <40 mg/dL, Low: Positive risk factor for coronary heart disease Performed By: #### 2 4331-1 ####[facility] LABCLIA [id number] [address] [id number] [place] [address] [place] Cholesterol in LDL [Mass/Vol] 60 mg/dL Normal <100 [facility] Comment on above: Order Comment: Sushma men Type: BLOOD SPECIMENOrdering Facility: [facility] Address: [address] [place] [address] Result Comment: <100 mg/dL, Optimal 100-129 mg/dL, Near optimal/above optimal 130-159 mg/dL, Borderline high 160-189 mg/dL, High >189 mg/dL, Very high Secondary prevention optimal LDL Cholesterol levels are recommended to be < 70 mg/dL Performed By: #### 2 4331-1 ####[facility] LABCLIA [id number] [address] [id number] [place] [address] [place] Cholesterol in LDL/Cholesterol in HDL [Mass ratio] 1.22 {ratio} Normal <2.54 [facility] Comment on above: Order Comment: Speci men Type: BLOOD SPECIMENOrdering Facility: [facility] Address: [address] [place] [address] Result Comment: Theresa castillo: 1. National Cholesterol Education Program ATP III Guideline At-A-Glance Quick Desk Reference: National Heart, Lung, and Blood [place]. National Institutes of Health. 2001: NIH Publication No. 01-3305. 2. An International Atherosclerosis Society position paper: global recommendations for the management of dyslipidemia: executive summary, Atherosclerosis. 2014: 232(2):410-413. Performed By: #### 2 4331-1 ####[facility] LABCLIA [id number] [address] [id number] [place] [address] [place] Cholesterol in VLDL [Mass/Vol] 48 mg/dL High <30 [facility] Comment on above: Order Comment: Sushma scar Type: BLOOD SPECIMENOrdering Facility: [facility] Address: [address] [place] [address] Performed By: #### 2 4331-1 ####[facility] LABCLIA [id number] [address] [id number] [place] [address] [place] Cholesterol non HDL [Mass/Vol] 108 mg/dL Normal <130 [facility] Comment on above: Order Comment: Aamirpaige abbott Type: BLOOD SPECIMENOrdering Facility: [facility] Address: [address] [place] [address] Result Comment: <130 mg/dL, Optimal 130-159 mg/dL, Near optimal/above optimal 160-189 mg/dL, Borderline high 190-219 mg/dL, High >219 mg/dL, Very high Secondary prevention optimal non HDL Cholesterol levels are recommended to be <100 mg/dL Performed By: #### 2 4331-1 ####[facility] LABCLIA [id number] [address] [id number] [place] [address] [place] Cholesterol.total/Chol esterol in HDL [Mass ratio] 3.20 {ratio} Normal <5.10 [facility] Comment on above: Order Comment: Speci men Type: BLOOD SPECIMENOrdering Facility: [facility] Address: [address] [place] [address] Performed By: #### 2 4331-1 ####[facility] LABCLIA [id number] [address] [id number] [place] [address] [place] FASTING TIME 12 hrs Normal [facility] Comment on above: Order Comment: Speci men Type: BLOOD SPECIMENOrdering Facility: [facility] Address: [address] [place] [address] Performed By: #### 2 4331-1 ####[facility] LABCLIA [id number] [address] [id number] [place] [address] [place] Triglyceride [Mass/Vol] 238 mg/dL High <150 [facility] Comment on above: Order Comment: Speci men Type: BLOOD SPECIMENOrdering Facility: [facility] Address: [address] [place], [place] [address] Result Comment: <150 mg/dL, Normal 150-199 mg/dL, Borderline high 200-499 mg/dL, High >499 mg/dL, Very high Performed By: #### 2 4331-1 ####[facility] LABCLIA [id number] [place] [id number] [facility] [id number] [place] [address] [facility] Monse 08-19-2024 CNPN Telephone (FAMPWS) EMMIE WILLARD ([id number]) 1955 F Date Time Provider Department 08/19/24 [facility] During your visit today, we recorded the following information about you: Robert Ramirez DO 08/19/2024 7:38 AM Signed Please inform patient that all her labs are normal except her A1c is still a little high at 6.2% in the prediabetes range. Continue to limit sugars and starches in her diet. DO Monika Gant [place], MA 08/19/2024 8:14 AM Signed Left message to return call HUONG Ovalle Brittany L, MA 08/19/2024 8:18 AM Signed Patient active MyChart. Patient notified via ZeeVee message. Romie Zapata MA Allergies As of Date: 08/19/2024 Noted Allergy Reaction ACETAMINOPHEN 10/07/2013 4 - Hives ASA (SALICYLATES) 05/01/2005 5 - Intolerance Comments: Tolerates 81 mg, not 325 mg DILAUDID (HYDROMORPHONE) 06/20/2011 4 - Hives KEFLEX (CEPHALEXIN) 09/26/2020 2 - Rash LEVAQUIN (LEVOFLOXACIN) 08/06/2020 8 - GI Upset OXYCODONE 06/20/2011 4 - Hives Date Reviewed: 08/12/2024 Reviewed by: Jacqueline Johnson MA - Fully Assessed Reason for Visit: Results [95] Prescriptions as of 08/19/2024 - hydrocortisone 2.5 % cream APPLY TO THE AFFECTED AREA ON THE FOREHEAD NEEDED ONCE OR TWICE DAILY - atorvastatin (LIPITOR) 10 mg tablet Take 1 tablet by mouth daily at bedtime. For cholesterol. - amitriptyline (ELAVIL) 50 mg tablet Take 2 tablets by mouth daily at bedtime. - naltrexone 1.5 mg cap at bedtime (rx given from Dr [facility]) - naltrexone capsule 1.5 mg (CPD) Take 1 capsule by mouth once daily. Dr. Buchanan-DERM - ketoconazole (NIZORAL) 2 % shampoo Apply to affected area once daily. - pantoprazole DR (PROTONIX) 40 mg tablet Take 1 tablet by mouth once daily. - lactulose 10 gram/15 mL (15 mL) soln Take 30 mL by mouth once daily. or as needed. - Flaxseed Oil oil TWICE A DAY - melatonin 10 mg cap BEDTIME PRN For Sleep - venlafaxine ER (EFFEXOR XR) 75 mg 24 hr capsule Take 150 mg by mouth once daily. - Magnesium Oxide 500 mg tab Take 500 mg by mouth once daily. - B COMPLEX WITH VITAMIN C (VITAMIN B COMPLEX-C ORAL) Take by mouth. - CHOLECALCIFEROL (VITAMIN D3) 1,000 UNIT CAP Take one(1) tablet daily. - HERBAL DRUGS CAP Enzyme solutions formula 30 takes 4-5 daily - HERBAL DRUGS CAP Colon Buster 400mg twice daily - ca carbonate/vitamin d3/vit k(VIACTIV 500 MG-100 UNIT-40 MCG CHEWABLE TAB) Chews 2 daily - loteprednol etabonate(ALREX 0.2 % EYE DROPS) 1 or 2 drops in each eye daily as necessary Facility-Administered Medications as of 08/19/2024 - onabotulinum toxin type A 200 Units injection (BOTOX) Problem List As Of Date 08/19/2024 Noted Resolved PERSISTENT INSOMNIA [G47.00] 02/05/2006 BONE AND CARTILAGE DIS NOS [M89.9, M94.9] 02/05/2006 VENOUS INSUFFICIENCY [I87.2] 02/23/2006 ANXIETY STATE NOS [F41.1] 02/23/2006 CONSTIPATION NOS [K59.00] INT HEMORRHOID W/O COMPL [K64.8] CERVICALGIA [M54.2] 09/23/2006 BACKACHE NOS [M54.9] 09/23/2006 Fibromyalgia [M79.7] 03/19/2010 Atypical lobular hyperplasia of right breast [N*03/15/2015 IBS (irritable bowel syndrome) [K58.9] Irritable bowel syndrome with both constipation*10/23/19 17 Post menopausal problems [N95.9] 10/22/2016 Globus sensation [R09.A2] 05/31/2018 Hyperglycemia [R73.9] 04/30/2022 Dyslipidemia [E78.5] 04/30/2022 Vitamin D deficiency [E55.9] 04/30/2022 Borderline abnormal thyroid function test [R94.*04/30/2022 Anemia [D64.9] 04/30/2022 Encounter Status:Closed by ROMIE ZAPATA on 08/19/24 Normal [facility] 25(OH)D3 [facility] 2023 25-hydroxyvitamin D3 [Mass/Vol] 70.1 ng/mL Normal 31.0-80.0 [facility] Comment on above: Order Comment: Speci men Type: BLOOD SPECIMENOrdering Facility: [facility] Address: [address] [place] [address] Result Comment: Clas sification of 25 OH Vitamin D status: Deficiency/Insufficiency: < or = 30 ng/ml. Sufficiency/Optimal Levels: 31-80 ng/mL Toxicity: > 100 ng/mL. Test performed by chemiluminescent immunoassay. Performed By: #### 1 989-3 ####[facility] [id number] [place] [address] [place] CBC W Auto Differential pane l (Bld)on 08-16-2024 Basophils (Bld) [#/Vol] 0.08 10*3/uL Normal <0.11 [facility] Comment on above: Order Comment: Speci men Type: BLOOD SPECIMENOrdering Facility: [facility] Address: [address] [place] [address] Performed By: #### 5 7021-8 ####[facility] [id number] [place] [address] [place] Basophils/100 WBC (Bld) 1.0 % Normal [facility] Comment on above: Order Comment: Speci men Type: BLOOD SPECIMENOrdering Facility: [facility] Address: [address] [place] [address] Performed By: #### 5 7021-8 ####[facility] LABCLIA [id number] [place] [address] [place] Differential cell count method Nom (Bld) Auto Normal [facility] Comment on above: Order Comment: Speci men Type: BLOOD SPECIMENOrdering Facility: [facility] Address: [address] [place] [address] Performed By: #### 5 7021-8 ####[facility] LABCLIA [id number] [place] [address] [place] Eosinophils (Bld) [#/Vol] 0.15 10*3/uL Normal <0.46 [facility] Comment on above: Order Comment: Speci men Type: BLOOD SPECIMENOrdering Facility: [facility] Address: [address] [place] [address] Performed By: #### 5 7021-8 ####[facility] LABCLIA [id number] [place] [address] [place] Eosinophils/100 WBC (Bld) 1.9 % Normal [facility] Comment on above: Order Comment: Speci men Type: BLOOD SPECIMENOrdering Facility: [facility] Address: [address] [place] [address] Performed By: #### 5 7021-8 ####[facility] LABCLIA [id number] [place] [address] [place] Erythrocyte distribution width (RBC) [Ratio] 13.1 % Normal 11.5-15.0 [facility] Comment on above: Order Comment: Speci men Type: BLOOD SPECIMENOrdering Facility: [facility] Address: [address] [place] [address] Performed By: #### 5 7021-8 ####[facility] LABCLIA [id number] [place] [address] [place] Hematocrit (Bld) [Volume fraction] 44.2 % Normal 36.0-46.0 [facility] Comment on above: Order Comment: Speci men Type: BLOOD SPECIMENOrdering Facility: [facility] Address: [address] [place] [address] Performed By: #### 5 7021-8 ####[facility] LABCLIA [id number] [place] [address] [place] Hemoglobin (Bld) [Mass/Vol] 14.2 g/dL Normal 11.5-15.5 [facility] Comment on above: Order Comment: Speci men Type: BLOOD SPECIMENOrdering Facility: [facility] Address: [address] [place] [address] Performed By: #### 5 7021-8 ####[facility] LABCLIA [id number] [place] [address] [place] Immature granulocytes (Bld) [#/Vol] 10*3/uL Normal <0.10 [facility] Comment on above: Order Comment: Speci men Type: BLOOD SPECIMENOrdering Facility: [facility] Address: [address] [place] [address] Performed By: #### 5 7021-8 ####[facility] LABCLIA [id number] [place] [address] [place] Immature granulocytes/100 WBC (Bld) 0.3 % Normal [facility] Comment on above: Order Comment: Speci men Type: BLOOD SPECIMENOrdering Facility: [facility] Address: [address] [place] [address] Performed By: #### 5 7021-8 ####[facility] LABCLIA [id number] [place] [address] [place] Lymphocytes (Bld) [#/Vol] 2.37 10*3/uL Normal 1.00-4.00 [facility] Comment on above: Order Comment: Speci men Type: BLOOD SPECIMENOrdering Facility: [facility] Address: [address] [place] [address] Performed By: #### 5 7021-8 ####[facility] LABIA [id number] [place] [address] [place] Lymphocytes/100 WBC (Bld) 30.8 % Normal [facility] Comment on above: Order Comment: Speci men Type: BLOOD SPECIMENOrdering Facility: [facility] Address: [address] [place] [address] Performed By: #### 5 7021-8 ####[facility] LABIA [id number] [place] [address] [place] MCH (RBC) [Entitic mass] 31.1 pg Normal 26.0-34.0 [facility] Comment on above: Order Comment: Speci men Type: BLOOD SPECIMENOrdering Facility: [facility] Address: [address] [place] [address] Performed By: #### 5 7021-8 ####[facility] [id number] [place] [address] [place] MCHC (RBC) [Mass/Vol] 32.1 g/dL Normal 30.5-36.0 [facility] Comment on above: Order Comment: Speci men Type: BLOOD SPECIMENOrdering Facility: [facility] Address: [address] [place] [address] Performed By: #### 5 7021-8 ####[facility] LABIA [id number] [place] [address] [place] MCV (RBC) [Entitic vol] 96.9 fL Normal 80.0-100.0 [facility] Comment on above: Order Comment: Speci men Type: BLOOD SPECIMENOrdering Facility: [facility] Address: [address] [place] [address] Performed By: #### 5 7021-8 ####[facility] LABIA [id number] [place] [address] [place] Monocytes (Bld) [#/Vol] 0.52 10*3/uL Normal <0.87 [facility] Comment on above: Order Comment: Speci men Type: BLOOD SPECIMENOrdering Facility: [facility] Address: [address] [place] [address] Performed By: #### 5 7021-8 ####[facility] LABCLIA [id number] [place] [address] [place] Monocytes/100 WBC (Bld) 6.8 % Normal [facility] Comment on above: Order Comment: Speci men Type: BLOOD SPECIMENOrdering Facility: [facility] Address: [address] [place] [address] Performed By: #### 5 7021-8 ####[facility] LABCLIA [id number] [place] [address] [place] Neutrophils (Bld) [#/Vol] 4.56 10*3/uL Normal 1.45-7.50 [facility] Comment on above: Order Comment: Speci men Type: BLOOD SPECIMENOrdering Facility: [facility] Address: [address] [place] [address] Performed By: #### 5 7021-8 ####[facility] LABCLIA [id number] [place] [address] [place] Neutrophils/100 WBC (Bld) 59.2 % Normal [facility] Comment on above: Order Comment: Speci men Type: BLOOD SPECIMENOrdering Facility: [facility] Address: [address] [place] [address] Performed By: #### 5 7021-8 ####[facility] LABCLIA [id number] [place] [address] [place] Nucleated RBC (Bld) [#/Vol] 10*3/uL Normal <0.01 [facility] Comment on above: Order Comment: Speci men Type: BLOOD SPECIMENOrdering Facility: [facility] Address: [address] [place] [address] Performed By: #### 5 7021-8 ####[facility] LABCLIA [id number] [place] [address] [place] Nucleated RBC/100 WBC (Bld) [Ratio] 0.0 /100 WBC Normal [facility] Comment on above: Order Comment: Speci men Type: BLOOD SPECIMENOrdering Facility: [facility] Address: [address] [place] [address] Performed By: #### 5 7021-8 ####[facility] LABCLIA [id number] [place] [address] [place] Platelet mean volume (Bld) [Entitic vol] 11.1 fL Normal 9.0-12.7 [facility] Comment on above: Order Comment: Speci men Type: BLOOD SPECIMENOrdering Facility: [facility] Address: [address] [place] [address] Performed By: #### 5 7021-8 ####[facility] LABCLIA [id number] [place] [address] [place] Platelets (Bld) [#/Vol] 263 10*3/uL Normal 150-400 [facility] Comment on above: Order Comment: Speci men Type: BLOOD SPECIMENOrdering Facility: [facility] Address: [address] [place] [address] Performed By: #### 5 7021-8 ####[facility] LABCLIA [id number] [place] [address] [place] RBC (Bld) [#/Vol] 4.56 10*6/uL Normal 3.90-5.20 [facility] Comment on above: Order Comment: Speci men Type: BLOOD SPECIMENOrdering Facility: [facility] Address: [address] [place] [address] Performed By: #### 5 7021-8 ####[facility] LABCLIA [id number] [place] [address] [place] WBC (Bld) [#/Vol] 7.70 10*3/uL Normal 3.70-11.00 [facility] Comment on above: Order Comment: Speci men Type: BLOOD SPECIMENOrdering Facility: [facility] Address: [address] [place] [address] Performed By: #### 5 7021-8 ####[facility] LABIA [id number] [place] [address] [place] Comprehensive metabolic 2000 panelon 08-16-2024 Albumin [Mass/Vol] 4.5 g/dL Normal 3.9-4.9 [facility] Comment on above: Order Comment: Speci men Type: BLOOD SPECIMENOrdering Facility: [facility] Address: [address] [place] [address] Performed By: #### 2 4323-8 ####[facility] LABIA [id number] [place] [address] [place] ALP [Catalytic activity/Vol] 108 U/L Normal 34-123 [facility] Comment on above: Order Comment: Speci men Type: BLOOD SPECIMENOrdering Facility: [facility] Address: [address] [place] [address] Performed By: #### 2 4323-8 ####[facility] LABIA [id number] [place] [address] [place] ALT [Catalytic activity/Vol] 20 U/L Normal 7-38 [facility] Comment on above: Order Comment: Speci men Type: BLOOD SPECIMENOrdering Facility: [facility] Address: [address] [place] [address] Performed By: #### 2 4323-8 ####[facility] LABIA [id number] [place] [id number] [place] Anion gap [Moles/Vol] 11 mmol/L Normal 8-15 [facility] Comment on above: Order Comment: Speci men Type: BLOOD SPECIMENOrdering Facility: [facility] Address: [address] [place] [address] Performed By: #### 2 4323-8 ####[facility] LABCLIA [id number] [place] [address] [place] AST [Catalytic activity/Vol] 19 U/L Normal 13-35 [facility] Comment on above: Order Comment: Speci men Type: BLOOD SPECIMENOrdering Facility: [facility] Address: [address] [place] [address] Performed By: #### 2 4323-8 ####[facility] LABIA [id number] [place] [address] [place] Bilirubin [Mass/Vol] 0.2 mg/dL Normal 0.2-1.3 [facility] Comment on above: Order Comment: Speci men Type: BLOOD SPECIMENOrdering Facility: [facility] Address: [address] [place] [address] Performed By: #### 2 4323-8 ####[facility] LABIA [id number] [place] [address] [place] Calcium [Mass/Vol] 10.0 mg/dL Normal 8.5-10.2 [facility] Comment on above: Order Comment: Speci men Type: BLOOD SPECIMENOrdering Facility: [facility] Address: [address] [place] [address] Performed By: #### 2 4323-8 ####[facility] LABIA [id number] [place] [address] [place] Chloride [Moles/Vol] 103 mmol/L Normal 98-107 [facility] Comment on above: Order Comment: Speci men Type: BLOOD SPECIMENOrdering Facility: [facility] Address: [address] [place] [address] Performed By: #### 2 4323-8 ####[facility] LABCLIA [id number] [place] [address] [place] CO2 [Moles/Vol] 27 mmol/L Normal 22-30 [facility] Comment on above: Order Comment: Speci men Type: BLOOD SPECIMENOrdering Facility: [facility] Address: [address] [place] [address] Performed By: #### 2 4323-8 ####[facility] LABIA [id number] [place] [address] [place] Creatinine [Mass/Vol] 0.71 mg/dL Normal 0.58-0.96 [facility] Comment on above: Order Comment: Speci men Type: BLOOD SPECIMENOrdering Facility: [facility] Address: [address] [place] [address] Performed By: #### 2 4323-8 ####[facility] LABIA [id number] [address] [place] Creatinine and Glomerular filtration rate.predicted panel (S/P/Bld) 92 mL/min/1.73m??? Normal >=60 [facility] Comment on above: Order Comment: Speci men Type: BLOOD SPECIMENOrdering Facility: [facility] Address: [address] [place] [address] Result Comment: Yaz mated Glomerular Filtration Rate (eGFR) is calculated using the 2020 CKD-EPI creatinine equation. This equation utilizes serum creatinine, sex, and age as parameters. The creatinine assay has traceable calibration to isotope dilution-mass spectrometry. Refer to KDIGO guidelines for clinical interpretation. In patients with unstable renal function, e.g. those with acute kidney injury, the eGFR may not accurately reflect actual GFR. Performed By: #### 2 4323-8 ####[facility] LABIA [id number] [place] [address] [place] Glucose [Mass/Vol] 96 mg/dL Normal 74-99 [facility] Comment on above: Order Comment: Speci men Type: BLOOD SPECIMENOrdering Facility: [facility] Address: [address] [place] [address] Result Comment: The [place] Diabetes Association (ADA) provides guidance for cutoff values for fasting glucose and random glucose. The ADA defines fasting as no caloric intake for at least 8 hours. Fasting plasma glucose results between 100 to 125 mg/dL indicate increased risk for diabetes (prediabetes). Fasting plasma glucose results greater than or equal to 126 mg/dL meet the criteria for diagnosis of diabetes. In the absence of unequivocal hyperglycemia, results should be confirmed by repeat testing. In a patient with classic symptoms of hyperglycemia or hyperglycemic crisis, random plasma glucose results greater than or equal to 200 mg/dL meet the criteria for diagnosis of diabetes. Reference: Standards of Medical Care in Diabetes 2016, [place] Diabetes Association. Diabetes Care. 2016.39(Suppl 1). Performed By: #### 2 4323-8 ####[facility] LABCLIA [id number] [place] [address] [place] Potassium [Moles/Vol] 4.0 mmol/L Normal 3.7-5.1 [facility] Comment on above: Order Comment: Speci men Type: BLOOD SPECIMENOrdering Facility: [facility] Address: [address] [place] [address] Performed By: #### 2 4323-8 ####[facility] LABCLIA [id number] [place] [address] [place] Protein [Mass/Vol] 7.5 g/dL Normal 6.3-8.0 [facility] Comment on above: Order Comment: Speci men Type: BLOOD SPECIMENOrdering Facility: [facility] Address: [address] [place] [id number] Performed By: #### 2 4323-8 ####[facility] LABCLIA [id number] [place] [address] [place] Sodium [Moles/Vol] 141 mmol/L Normal 136-144 [facility] Comment on above: Order Comment: Speci men Type: BLOOD SPECIMENOrdering Facility: [facility] Address: [address] [place] [address] Performed By: #### 2 4323-8 ####[facility] LABCLIA [id number] [place] [address] [place] Urea nitrogen [Mass/Vol] 19 mg/dL Normal 7-21 [facility] Comment on above: Order Comment: Speci men Type: BLOOD SPECIMENOrdering Facility: [facility] Address: [address] [place] [address] Performed By: #### 2 4323-8 ####[facility] LABCLIA [id number] [place] [address] [place] HbA1c (Bld)on 08-16-2024 Average glucose Estimated from glycated hemoglobin (Bld) [Mass/Vol] 131 mg/dL Normal [facility] Comment on above: Order Comment: Speci men Type: BLOOD SPECIMENOrdering Facility: [facility] Address: [address] [place] [address] Result Comment: eAG: (Estimated average glucose) is a calculated value from HgbA1c and is customer field representative of the average blood glucose level in the last 2-3 month period. Performed By: #### 5 5454-3 ####[facility] LABCLIA [id number] [place] [address] [place] HbA1c (Bld) [Mass fraction] 6.2 % High 4.3-5.6 [facility] Comment on above: Order Comment: Speci men Type: BLOOD SPECIMENOrdering Facility: [facility] Address: [address] [place] [address] Result Comment: [place] Diabetes Association guidelines indicate that patients with HgbA1c in the range 5.7-6.4% are at increased risk for development of diabetes, and intervention by lifestyle modification may be beneficial. HgbA1c greater or equal to 6.5% is considered diagnostic of diabetes. Performed By: #### 5 5454-3 ####[facility] LABCLIA [id number] [place] [address] [place] TSH SerPl-aCncon 08-16-2024 TSH Qn 1.680 m[IU]/L Normal 0.270-4.200 [facility] Comment on above: Order Comment: Speci men Type: BLOOD SPECIMENOrdering Facility: [facility] Address: [address] [place] [address] Performed By: #### 2 132-9, 3016-3 ####[facility] LABCLIA [id number] [address] Vit B12 SerPl-mCncon 024 Cobalamin (Vitamin B12) [Mass/Vol] 544 pg/mL Normal 232-1245 [facility] Comment on above: Order Comment: Speci men Type: BLOOD SPECIMENOrdering Facility: [facility] Address: [address] [place] [address] Performed By: #### 2 132-9, 3016-3 ####[facility] LABCLIA [id number] [address] CNPNon 08-15-2024 CNPN Telephone (FAMPWS) EMMIE WILLARD ([id number]) 1955 F Date Time Provider Department 08/15/24 [facility] During your visit today, we recorded the following information about you: Angelica Sandoval LPN 08/15/2024 2:21 PM Signed Pt reports it was brought to her attention that she has not had blood work done since 2022. Pt is asking if provider would please order labs. Pt reports she is leaving for [place] on . Last OV: 07/19/24. Please review lab orders. CAll pt when labs have been ordered. SHAYEN Jolly Jordan L, DO 08/16/2024 9:48 AM Signed Order placed for fasting labs Please notify her Robert Williamson DO Jassi Ramirez Susan LPN 08/16/2024 9:53 AM Signed Pt. informed. Allergies As of Date: 08/15/2024 Noted Allergy Reaction ACETAMINOPHEN 10/07/2013 4 - Hives ASA (SALICYLATES) 05/01/2005 5 - Intolerance Comments: Tolerates 81 mg, not 325 mg DILAUDID (HYDROMORPHONE) 06/20/2011 4 - Hives KEFLEX (CEPHALEXIN) 09/26/2020 2 - Rash LEVAQUIN (LEVOFLOXACIN) 08/06/2020 8 - GI Upset OXYCODONE 06/20/2011 4 - Hives Date Reviewed: 08/12/2024 Reviewed by: Jacqueline Johnson MA - Fully Assessed Reason for Visit: Lab Orders [1688] Primary Visit Diagnosis:Dyslipidemi a [E78.5] Other Visit Diagnoses:Vitamin D deficiency [E55.9] Hyperglycemia [R73.9] Vitamin B12 deficiency [E53.8] Order(s):LIPID PANEL BASIC [SQLIPB] Order #: [id number] FUTURE COMPREHENSIVE METABOLIC PANEL [SQCMP] Order #: [id number] FUTURE HEMOGLOBIN A1C [FLNIG1Q] Order #: [id number] FUTURE VITAMIN D 25 HYDROXY [SQVITD] Order #: [id number] FUTURE COMPLETE BLOOD COUNT AND DIFFERENTIAL [SQCBCDIF] Order #: [id number] FUTURE THYROID STIMULATING HORMONE [SQTSH] Order #: [id number] FUTURE VITAMIN B12 [SQB12] Order #: [id number] FUTURE Prescriptions as of 08/16/2024 - hydrocortisone 2.5 % cream APPLY TO THE AFFECTED AREA ON THE FOREHEAD NEEDED ONCE OR TWICE DAILY - atorvastatin (LIPITOR) 10 mg tablet Take 1 tablet by mouth daily at bedtime. For cholesterol. - amitriptyline (ELAVIL) 50 mg tablet Take 2 tablets by mouth daily at bedtime. - naltrexone 1.5 mg cap at bedtime (rx given from Dr [facility]) - naltrexone capsule 1.5 mg (CPD) Take 1 capsule by mouth once daily. Dr. Buchanan-DERM - ketoconazole (NIZORAL) 2 % shampoo Apply to affected area once daily. - pantoprazole DR (PROTONIX) 40 mg tablet Take 1 tablet by mouth once daily. - lactulose 10 gram/15 mL (15 mL) soln Take 30 mL by mouth once daily. or as needed. - Flaxseed Oil oil TWICE A DAY - melatonin 10 mg cap BEDTIME PRN For Sleep - venlafaxine ER (EFFEXOR XR) 75 mg 24 hr capsule Take 150 mg by mouth once daily. - Magnesium Oxide 500 mg tab Take 500 mg by mouth once daily. - B COMPLEX WITH VITAMIN C (VITAMIN B COMPLEX-C ORAL) Take by mouth. - CHOLECALCIFEROL (VITAMIN D3) 1,000 UNIT CAP Take one(1) tablet daily. - HERBAL DRUGS CAP Enzyme solutions formula 30 takes 4-5 daily - HERBAL DRUGS CAP Colon Buster 400mg twice daily - ca carbonate/vitamin d3/vit k(VIACTIV 500 MG-100 UNIT-40 MCG CHEWABLE TAB) Chews 2 daily - loteprednol etabonate(ALREX 0.2 % EYE DROPS) 1 or 2 drops in each eye daily as necessary Facility-Administered Medications as of 08/16/2024 - onabotulinum toxin type A 200 Units injection (BOTOX) Problem List As Of Date 08/15/2024 Noted Resolved PERSISTENT INSOMNIA [G47.00] 02/05/2006 BONE AND CARTILAGE DIS NOS [M89.9, M94.9] 02/05/2006 VENOUS INSUFFICIENCY [I87.2] 02/23/2006 ANXIETY STATE NOS [F41.1] 02/23/2006 CONSTIPATION NOS [K59.00] INT HEMORRHOID W/O COMPL [K64.8] CERVICALGIA [M54.2] 09/23/2006 BACKACHE NOS [M54.9] 09/23/2006 Fibromyalgia [M79.7] 03/19/2010 Atypical lobular hyperplasia of right breast [N*03/15/2015 IBS (irritable bowel syndrome) [K58.9] Irritable bowel syndrome with both constipation*10/23/19 17 Post menopausal problems [N95.9] 10/22/2016 Globus sensation [R09.A2] 05/31/2018 Hyperglycemia [R73.9] 04/30/2022 Dyslipidemia [E78.5] 04/30/2022 Vitamin D deficiency [E55.9] 04/30/2022 Borderline abnormal thyroid function test [R94.*04/30/2022 Anemia [D64.9] 04/30/2022 Encounter Status:Closed by SAMPSON ROPER LPN on 08/16/24 [facility] CNOVon 08-12-2024 CNOV Office Visit (NHATWN ) EMMIE WILLARD ([id number]) 1955 F Date Time Provider Department 08/12/24 10:00 AM [facility] During your visit today, we recorded the following information about you: Pulse Blood pressure Weight Height 92/minute 130/80 68.6 kg 1.651 m Harish Hill MD 08/12/2024 11:39 AM Signed [facility] Date: August 12, 2024 Patient Name: Emmie Willard Referring physician: Jade Dimas [address] [place] [address] Primary physician: Robert Ramirez [address] [place] [address] Reason for Evaluation: Headaches Consultation requested by Jade Dimas CNP for an opinion regarding headaches. My final recommendations will be communicated back to the requesting physician by way of shared Medical record or letter to requesting physician via US mail. HPI: This patient is a 69-year-old female being seen for headaches. She is accompanied by her . She has a medical history notable for fibromyalgia, hyperlipidemia, rosacea, and IBS. She reports multiple complaints. The first issue is headaches. These have been daily for the last 5 years. She gets about 8 days/month of moderate to severe headaches with accompanying photophobia and phonophobia. On occasion she will get nausea. Her other headaches are low-grade. Headaches last at least 4 hours and can last the entire day. She gets significant neck pain and occasional low back pain. She gets massage for her neck pain which helps but has never done physical therapy. Headaches worsen with exertion. She has never seen a neurologist for these headaches. She does not get auras. Her second issue is that in early June 2024 she was in [place] when she began experiencing electric zaps of pain that were excruciating. These were occurring around the right ear with radiation to the right mormon and forehead. They would worsen with chewing, brushing her teeth, and talking. She was seen in urgent care and told that she had trigeminal neuralgia. She was recommended Percocet but declined. Symptoms lasted about 1.5 weeks before resolving and have not recurred. She has fibromyalgia and follows with her PCP. She has had issues with tingling in her head that will radiate to her body. This is not painful. This has been going on for years and she follows with dermatology. They are treating her with naltrexone. She underwent a CT of the brain on 07/29/2024 that showed microvascular ischemic changes. Patient reports that this was actually the main reason that she was referred to us. She underwent a CTA of the head and neck on 08/11/2024 which was normal. She has had 2 episodes of head trauma but recovered well from them. She will occasionally have dizziness. She has been diagnosed with vertigo in the past. Trigeminal Neuralgia HPI Onset: June, Side: right Distribution: V1 Any pain on the side or back of head: Yes Character: sharp/shooting and electric shock Pain-free between episodes: Yes Triggers: talking, eating/chewing and brushing teeth Sensory abnormalities: No Initial benefit from Tegretol/Trileptal: N/A History of MS: No History of Lyme disease: No History of shingles facial rash: No History of dental/oral surgery: No History of facial/plastic surgery: No Type of Trigeminal Neuralgia: pending workup CT Head/Brain - Last [address] BRAIN WO IVCON Exam End: 07/29/2024 12:02 PM (Final result) Impression: IMPRESSION: No CT evidence of an acute intracranial process. Extensive white matter changes, which may be related to chronic microvascular ischemia. Physical Chemistry Teacher: SVEN Transcribe Date/Time: Jul 29 2024 2:50P Dictated by : VANCE PANTOJA MD This examination was interpreted and the report reviewed and electronically signed by: VANCE PANTOJA MD on Jul 29 2024 2:53PM EST CTA Head and/or Neck - Last 2 CTA NECK W IVCON Exam End: 08/11/2024 1:50 PM (Final result) Impression: IMPRESSION: No evidence of hemodynamically significant stenosis, intraluminal filling defect, abrupt vessel occlusion, aneurysm or vascular malformation in the intracranial and extracranial arterial vasculature. Arterial blood flow was measured to detect acute large vessel occlusion by computer aided detection software: Not Performed. Concordance between software and imaging review: Not Applicable. Physical Chemistry Teacher: PSCB Transcribe Date/Time: Aug 11 2024 2:08P Dictated by : ANGELA MAGANA MD This examination was interpreted and the report reviewed and electronically signed by: ANGELA MAGANA MD on Aug 11 2024 2:16PM EST CTA HEAD W IVCON Exam End: 08/11/2024 1:50 PM (Final result) Impression: IMPRESSION: No evidence of hemodynamically significant stenosis, intraluminal filling defect, abrupt vessel occlusion, aneurysm or va (more content not included)... Normal [facility] CT Neck W contrast Jovan 12-1 * * *Final Report* * * DATE OF EXAM: Aug 11 2024 1:49PM [facility] 0024 - CTA NECK W IVCON / PROCEDURE REASON: multiple diagnoses * * * * Physician Interpretation * * * * EXAMINATION: CTA NECK W IVCON, CTA HEAD W IVCON HISTORY: Thunderclap headache Brain ischemia Other trigeminal autonomic cephalgia (TAC), not intractable Chronic post-traumatic headache, not intractable TECHNIQUE: Spiral high resolution axial images were obtained through the head, neck and superior mediastinum following bolus administration of intravenous contrast for CT angiography. 3D maximum intensity projection images were created, reviewed and archived . MQ: CTAHN_4 Contrast: 80 mL Omnipaque [address] Radiation dose: Integrated Dose-Length Product (DLP) for this visit = 694 mGy*cm. CT Dose Reduction Employed: Automated exposure control(AEC) and iterative recon COMPARISON: None. RESULT: BRAIN: Evaluation of the individual slices of the CTA demonstrates no evidence of an acute stroke. ASPECT Score = 10 Hemorrhage: No clear evidence of acute intracranial hemorrhage within the constraints of this contrast enhanced acquisition. ECASS hemorrhagic transformation score: Not Applicable NECK: Soft tissues: The soft tissue planes are maintained throughout. No evidence of a soft tissue mass in the neck or superior mediastinum. No significant lymphadenopathy is seen. Spine: Alignment is normal. Minimal degenerative changes are present. Lung apices: The visualized lung apices are clear. CT ARTERIOGRAM: Extracranial Circulation: Aortic Arch: There is a normal branching pattern from the aortic arch. There is no significant stenosis in the proximal brachiocephalic vessels. Carotid Stenosis: Right Common: No significant stenosis. Right Internal Carotid Plaque: No significant plaque formation. Right Internal Carotid Stenosis (% by NASCET Criteria): 0 Left Common: No significant stenosis. Left Internal Carotid Plaque: No significant plaque formation. Left Internal Carotid Stenosis (% by NASCET Criteria): 0 Cervical Vertebral Arteries: Patency: Bilateral Dominance: Slightly left Intracranial Circulation: No intracranial arterial stenosis, aneurysm, or other lesion is identified. An anterior communicating artery is present. The bilateral posterior communicating arteries are within normal limits. The intracranial internal carotid arteries and the proximal anterior, middle and posterior cerebral arteries appear normal. The left vertebral artery is dominant. The intracranial vertebral arteries and the basilar artery appear normal. The visualized predominantly proximal segments of the bilateral PICAs, AICAs and SCAs appear normal. The visualized dural venous sinuses are patent. Picture Copyist (topogram) images: No significant findings. DIVISION OF RADIOLOGY Provider, [facility] - 08/11/2024 * * *Final Report* * * DATE OF EXAM: Aug 11 2024 1:49PM [facility] 0024 - CTA NECK W IVCON / PROCEDURE REASON: multiple diagnoses * * * * Physician Interpretation * * * * EXAMINATION: CTA NECK W IVCON, CTA HEAD W IVCON HISTORY: Thunderclap headache Brain ischemia Other trigeminal autonomic cephalgia (TAC), not intractable Chronic post-traumatic headache, not intractable TECHNIQUE: Spiral high resolution axial images were obtained through the head, neck and superior mediastinum following bolus administration of intravenous contrast for CT angiography. 3D maximum intensity projection images were created, reviewed and archived . MQ: CTAHN_4 Contrast: 80 mL Omnipaque [address] Radiation dose: Integrated Dose-Length Product (DLP) for this visit = 694 mGy*cm. CT Dose Reduction Employed: Automated exposure control(AEC) and iterative recon COMPARISON: None. RESULT: BRAIN: Evaluation of the individual slices of the CTA demonstrates no evidence of an acute stroke. ASPECT Score = 10 Hemorrhage: No clear evidence of acute intracranial hemorrhage within the constraints of this contrast enhanced acquisition. ECASS hemorrhagic transformation score: Not Applicable NECK: Soft tissues: The soft tissue planes are maintained throughout. No evidence of a soft tissue mass in the neck or superior mediastinum. No significant lymphadenopathy is seen. Spine: Alignment is normal. Minimal degenerative changes are present. Lung apices: The visualized lung apices are clear. CT ARTERIOGRAM: Extracranial Circulation: Aortic Arch: There is a normal branching pattern from the aortic arch. There is no significant stenosis in the proximal brachiocephalic vessels. Carotid Stenosis: Right Common: No significant stenosis. Right Internal Carotid Plaque: No significant plaque formation. Right Internal Carotid Stenosis (% by NASCET Criteria): 0 Left Common: No significant stenosis. Left Internal Carotid Plaque: No significant plaque formation. Left Internal Carotid Stenosis (% by NASCET Criteria): 0 Cervical Vertebral Arteries: Patency: Bilateral Dominance: Slightly left Intracranial Circulation: No intracranial arterial stenosis, aneurysm, or other lesion is identified. An anterior communicating artery is present. The bilateral posterior communicating arteries are within normal limits. The intracranial internal carotid arteries and the proximal anterior, middle and posterior cerebral arteries appear normal. The left vertebral artery is dominant. The intracranial vertebral arteries and the basilar artery appear normal. The visualized predominantly proximal segments of the bilateral PICAs, AICAs and SCAs appear normal. The visualized dural venous sinuses are patent. Picture Copyist (topogram) images: No significant findings. IMPRESSION IMPRESSION: No evidence of hemodynamically significant stenosis, intraluminal filling defect, abrupt vessel occlusion, aneurysm or vascular malformation in the intracranial and extracranial arterial vasculature. Arterial blood flow was measured to detect acute large vessel occlusion by computer aided detection software: Not Performed. Concordance between software and imaging review: Not Applicable. Physical Chemistry Teacher: PSCB Transcribe Date/Time: Aug 11 2024 2:08P Dictated by : ANGELA MAGANA MD This examination was interpreted and the report reviewed and electronically signed by: ANGELA MAGANA MD on Aug 11 2024 2:16PM [facility] CTA HEAD W IVCONon 4 CTA HEAD W IVCON * * *Final Report* * * DATE OF EXAM: Aug 11 2024 1:49PM [facility] 0022 - CTA HEAD W IVCON / PROCEDURE REASON: multiple diagnoses * * * * Physician Interpretation * * * * EXAMINATION: CTA NECK W IVCON, CTA HEAD W IVCON HISTORY: Thunderclap headache Brain ischemia Other trigeminal autonomic cephalgia (TAC), not intractable Chronic post-traumatic headache, not intractable TECHNIQUE: Spiral high resolution axial images were obtained through the head, neck and superior mediastinum following bolus administration of intravenous contrast for CT angiography. 3D maximum intensity projection images were created, reviewed and archived . MQ: CTAHN_4 Contrast: 80 mL Omnipaque [address] Radiation dose: Integrated Dose-Length Product (DLP) for this visit = 694 mGy*cm. CT Dose Reduction Employed: Automated exposure control(AEC) and iterative recon COMPARISON: None. RESULT: BRAIN: Evaluation of the individual slices of the CTA demonstrates no evidence of an acute stroke. ASPECT Score = 10 Hemorrhage: No clear evidence of acute intracranial hemorrhage within the constraints of this contrast enhanced acquisition. ECASS hemorrhagic transformation score: Not Applicable NECK: Soft tissues: The soft tissue planes are maintained throughout. No evidence of a soft tissue mass in the neck or superior mediastinum. No significant lymphadenopathy is seen. Spine: Alignment is normal. Minimal degenerative changes are present. Lung apices: The visualized lung apices are clear. CT ARTERIOGRAM: Extracranial Circulation: Aortic Arch: There is a normal branching pattern from the aortic arch. There is no significant stenosis in the proximal brachiocephalic vessels. Carotid Stenosis: Right Common: No significant stenosis. Right Internal Carotid Plaque: No significant plaque formation. Right Internal Carotid Stenosis (% by NASCET Criteria): 0 Left Common: No significant stenosis. Left Internal Carotid Plaque: No significant plaque formation. Left Internal Carotid Stenosis (% by NASCET Criteria): 0 Cervical Vertebral Arteries: Patency: Bilateral Dominance: Slightly left Intracranial Circulation: No intracranial arterial stenosis, aneurysm, or other lesion is identified. An anterior communicating artery is present. The bilateral posterior communicating arteries are within normal limits. The intracranial internal carotid arteries and the proximal anterior, middle and posterior cerebral arteries appear normal. The left vertebral artery is dominant. The intracranial vertebral arteries and the basilar artery appear normal. The visualized predominantly proximal segments of the bilateral PICAs, AICAs and SCAs appear normal. The visualized dural venous sinuses are patent. Picture Copyist (topogram) images: No significant findings. IMPRESSION: No evidence of hemodynamically significant stenosis, intraluminal filling defect, abrupt vessel occlusion, aneurysm or vascular malformation in the intracranial and extracranial arterial vasculature. Arterial blood flow was measured to detect acute large vessel occlusion by computer aided detection software: Not Performed. Concordance between software and imaging review: Not Applicable. Physical Chemistry Teacher: SVEN Transcribe Date/Time: Aug 11 2024 2:08P Dictated by : ANGELA MAGANA MD This examination was interpreted and the report reviewed and electronically signed by: ANGELA MAGANA MD on Aug 11 2024 2:16PM EST [id number] Normal [facility] CTA Head Arteries W contrast Jovan 08-11-2024 * * *Final Report* * * DATE OF EXAM: Aug 11 2024 1:49PM [facility] 0022 - CTA HEAD W IVCON / PROCEDURE REASON: multiple diagnoses * * * * Physician Interpretation * * * * EXAMINATION: CTA NECK W IVCON, CTA HEAD W IVCON HISTORY: Thunderclap headache Brain ischemia Other trigeminal autonomic cephalgia (TAC), not intractable Chronic post-traumatic headache, not intractable TECHNIQUE: Spiral high resolution axial images were obtained through the head, neck and superior mediastinum following bolus administration of intravenous contrast for CT angiography. 3D maximum intensity projection images were created, reviewed and archived . MQ: CTAHN_4 Contrast: 80 mL Omnipaque [address] Radiation dose: Integrated Dose-Length Product (DLP) for this visit = 694 mGy*cm. CT Dose Reduction Employed: Automated exposure control(AEC) and iterative recon COMPARISON: None. RESULT: BRAIN: Evaluation of the individual slices of the CTA demonstrates no evidence of an acute stroke. ASPECT Score = 10 Hemorrhage: No clear evidence of acute intracranial hemorrhage within the constraints of this contrast enhanced acquisition. ECASS hemorrhagic transformation score: Not Applicable NECK: Soft tissues: The soft tissue planes are maintained throughout. No evidence of a soft tissue mass in the neck or superior mediastinum. No significant lymphadenopathy is seen. Spine: Alignment is normal. Minimal degenerative changes are present. Lung apices: The visualized lung apices are clear. CT ARTERIOGRAM: Extracranial Circulation: Aortic Arch: There is a normal branching pattern from the aortic arch. There is no significant stenosis in the proximal brachiocephalic vessels. Carotid Stenosis: Right Common: No significant stenosis. Right Internal Carotid Plaque: No significant plaque formation. Right Internal Carotid Stenosis (% by NASCET Criteria): 0 Left Common: No significant stenosis. Left Internal Carotid Plaque: No significant plaque formation. Left Internal Carotid Stenosis (% by NASCET Criteria): 0 Cervical Vertebral Arteries: Patency: Bilateral Dominance: Slightly left Intracranial Circulation: No intracranial arterial stenosis, aneurysm, or other lesion is identified. An anterior communicating artery is present. The bilateral posterior communicating arteries are within normal limits. The intracranial internal carotid arteries and the proximal anterior, middle and posterior cerebral arteries appear normal. The left vertebral artery is dominant. The intracranial vertebral arteries and the basilar artery appear normal. The visualized predominantly proximal segments of the bilateral PICAs, AICAs and SCAs appear normal. The visualized dural venous sinuses are patent. Picture Copyist (topogram) images: No significant findings. DIVISION OF RADIOLOGY Provider, [facility] - 08/11/2024 * * *Final Report* * * DATE OF EXAM: Aug 11 2024 1:49PM [facility] 0022 - CTA HEAD W IVCON / PROCEDURE REASON: multiple diagnoses * * * * Physician Interpretation * * * * EXAMINATION: CTA NECK W IVCON, CTA HEAD W IVCON HISTORY: Thunderclap headache Brain ischemia Other trigeminal autonomic cephalgia (TAC), not intractable Chronic post-traumatic headache, not intractable TECHNIQUE: Spiral high resolution axial images were obtained through the head, neck and superior mediastinum following bolus administration of intravenous contrast for CT angiography. 3D maximum intensity projection images were created, reviewed and archived . MQ: CTAHN_4 Contrast: 80 mL Omnipaque [address] Radiation dose: Integrated Dose-Length Product (DLP) for this visit = 694 mGy*cm. CT Dose Reduction Employed: Automated exposure control(AEC) and iterative recon COMPARISON: None. RESULT: BRAIN: Evaluation of the individual slices of the CTA demonstrates no evidence of an acute stroke. ASPECT Score = 10 Hemorrhage: No clear evidence of acute intracranial hemorrhage within the constraints of this contrast enhanced acquisition. ECASS hemorrhagic transformation score: Not Applicable NECK: Soft tissues: The soft tissue planes are maintained throughout. No evidence of a soft tissue mass in the neck or superior mediastinum. No significant lymphadenopathy is seen. Spine: Alignment is normal. Minimal degenerative changes are present. Lung apices: The visualized lung apices are clear. CT ARTERIOGRAM: Extracranial Circulation: Aortic Arch: There is a normal branching pattern from the aortic arch. There is no significant stenosis in the proximal brachiocephalic vessels. Carotid Stenosis: Right Common: No significant stenosis. Right Internal Carotid Plaque: No significant plaque formation. Right Internal Carotid Stenosis (% by NASCET Criteria): 0 Left Common: No significant stenosis. Left Internal Carotid Plaque: No significant plaque formation. Left Internal Carotid Stenosis (% by NASCET Criteria): 0 Cervical Vertebral Arteries: Patency: Bilateral Dominance: Slightly left Intracranial Circulation: No intracranial arterial stenosis, aneurysm, or other lesion is identified. An anterior communicating artery is present. The bilateral posterior communicating arteries are within normal limits. The intracranial internal carotid arteries and the proximal anterior, middle and posterior cerebral arteries appear normal. The left vertebral artery is dominant. The intracranial vertebral arteries and the basilar artery appear normal. The visualized predominantly proximal segments of the bilateral PICAs, AICAs and SCAs appear normal. The visualized dural venous sinuses are patent. Picture Copyist (topogram) images: No significant findings. IMPRESSION IMPRESSION: No evidence of hemodynamically significant stenosis, intraluminal filling defect, abrupt vessel occlusion, aneurysm or vascular malformation in the intracranial and extracranial arterial vasculature. Arterial blood flow was measured to detect acute large vessel occlusion by computer aided detection software: Not Performed. Concordance between software and imaging review: Not Applicable. Physical Chemistry Teacher: PSCB Transcribe Date/Time: Aug 11 2024 2:08P Dictated by : ANGELA MAGANA MD This examination was interpreted and the report reviewed and electronically signed by: ANGELA MAGANA MD on Aug 11 2024 2:16PM [facility] CTA NECK W IVCONon 4 CTA NECK W IVCON * * *Final Report* * * DATE OF EXAM: Aug 11 2024 1:49PM [facility] 0024 - CTA NECK W IVCON / PROCEDURE REASON: multiple diagnoses * * * * Physician Interpretation * * * * EXAMINATION: CTA NECK W IVCON, CTA HEAD W IVCON HISTORY: Thunderclap headache Brain ischemia Other trigeminal autonomic cephalgia (TAC), not intractable Chronic post-traumatic headache, not intractable TECHNIQUE: Spiral high resolution axial images were obtained through the head, neck and superior mediastinum following bolus administration of intravenous contrast for CT angiography. 3D maximum intensity projection images were created, reviewed and archived . MQ: CTAHN_4 Contrast: 80 mL Omnipaque [address] Radiation dose: Integrated Dose-Length Product (DLP) for this visit = 694 mGy*cm. CT Dose Reduction Employed: Automated exposure control(AEC) and iterative recon COMPARISON: None. RESULT: BRAIN: Evaluation of the individual slices of the CTA demonstrates no evidence of an acute stroke. ASPECT Score = 10 Hemorrhage: No clear evidence of acute intracranial hemorrhage within the constraints of this contrast enhanced acquisition. ECASS hemorrhagic transformation score: Not Applicable NECK: Soft tissues: The soft tissue planes are maintained throughout. No evidence of a soft tissue mass in the neck or superior mediastinum. No significant lymphadenopathy is seen. Spine: Alignment is normal. Minimal degenerative changes are present. Lung apices: The visualized lung apices are clear. CT ARTERIOGRAM: Extracranial Circulation: Aortic Arch: There is a normal branching pattern from the aortic arch. There is no significant stenosis in the proximal brachiocephalic vessels. Carotid Stenosis: Right Common: No significant stenosis. Right Internal Carotid Plaque: No significant plaque formation. Right Internal Carotid Stenosis (% by NASCET Criteria): 0 Left Common: No significant stenosis. Left Internal Carotid Plaque: No significant plaque formation. Left Internal Carotid Stenosis (% by NASCET Criteria): 0 Cervical Vertebral Arteries: Patency: Bilateral Dominance: Slightly left Intracranial Circulation: No intracranial arterial stenosis, aneurysm, or other lesion is identified. An anterior communicating artery is present. The bilateral posterior communicating arteries are within normal limits. The intracranial internal carotid arteries and the proximal anterior, middle and posterior cerebral arteries appear normal. The left vertebral artery is dominant. The intracranial vertebral arteries and the basilar artery appear normal. The visualized predominantly proximal segments of the bilateral PICAs, AICAs and SCAs appear normal. The visualized dural venous sinuses are patent. Picture Copyist (topogram) images: No significant findings. IMPRESSION: No evidence of hemodynamically significant stenosis, intraluminal filling defect, abrupt vessel occlusion, aneurysm or vascular malformation in the intracranial and extracranial arterial vasculature. Arterial blood flow was measured to detect acute large vessel occlusion by computer aided detection software: Not Performed. Concordance between software and imaging review: Not Applicable. Physical Chemistry Teacher: SVEN Transcribe Date/Time: Aug 11 2024 2:08P Dictated by : ANGELA MAGANA MD This examination was interpreted and the report reviewed and electronically signed by: ANGELA MAGANA MD on Aug 11 2024 2:16PM EST [id number] Normal [facility] No Panel Informationon 08-11 IMPRESSION: No evidence of hemodynamically significant stenosis, intraluminal filling defect, abrupt vessel occlusion, aneurysm or vascular malformation in the intracranial and extracranial arterial vasculature. Arterial blood flow was measured to detect acute large vessel occlusion by computer aided detection software: Not Performed. Concordance between software and imaging review: Not Applicable. Physical Chemistry Teacher: SVEN Transcribe Date/Time: Aug 11 2024 2:08P Dictated by : ANGELA MAGANA MD This examination was interpreted and the report reviewed and electronically signed by: ANGELA MAGANA MD on Aug 11 2024 2:16PM [facility] DIVISION OF RADIOLOGY Radiology Study observation (narrative) [facility] No Panel InformationOrdered By: [facility] Provider on 08-11-2024 [facility] CREATININE BLDon 08-08-2024 Creatinine [Mass/Vol] 0.71 mg/dL Normal 0.58-0.96 [facility] Comment on above: Order Comment: Speci men Type: BLOOD SPECIMENOrdering Facility: [facility] Address: [address] [place] [address] Performed By: #### C RET1 ####[facility] [id number] [address] OF [facility] Creatinine and Glomerular filtration rate.predicted panel (S/P/Bld) 92 mL/min/1.73m??? Normal >=60 [facility] Comment on above: Order Comment: Speci men Type: BLOOD SPECIMENOrdering Facility: [facility] Address: [address] [place] [address] Result Comment: Yaz mated Glomerular Filtration Rate (eGFR) is calculated using the 2020 CKD-EPI creatinine equation. This equation utilizes serum creatinine, sex, and age as parameters. The creatinine assay has traceable calibration to isotope dilution-mass spectrometry. Refer to KDIGO guidelines for clinical interpretation. In patients with unstable renal function, e.g. those with acute kidney injury, the eGFR may not accurately reflect actual GFR. Performed By: #### C RET1 ####[facility] [id number] [place] [address] [facility] Monse 08-03-2024 RAGHAVENDRAN Telephone (FAMPWS) MONTSEEMMIE WHITLOCK ([id number]) 1955 F Date Time Provider Department 08/03/24 JADE DIMAS [facility] During your visit today, we recorded the following information about you: Kirit Schroeder RN 08/03/2024 1:02 PM Signed Patient calls to verify that provider (Latanya Dennis) that patient is seeing on 08/12/2024 is ok with [facility] for neurology consult. Consult to neurology appears to be scheduled with appropriate provider. Patient asking Christine to verify she approves as discussed with provider last evening. MORGAN Sidhu Rebekah, APRN.RAGHAVENDRA 08/03/2024 1:47 PM Signed Yes, she is an appropriate provider. Jade Dimas APRN.Kirit Landon RN 08/03/2024 2:04 PM Signed Call placed to patient and detailed message left on secure voicemail. Phone number to call back also given for any further questions. Kirit Schroeder RN Allergies As of Date: 08/03/2024 Noted Allergy Reaction ACETAMINOPHEN 10/07/2013 4 - Hives ASA (SALICYLATES) 05/01/2005 5 - Intolerance Comments: Tolerates 81 mg, not 325 mg DILAUDID (HYDROMORPHONE) 06/20/2011 4 - Hives KEFLEX (CEPHALEXIN) 09/26/2020 2 - Rash LEVAQUIN (LEVOFLOXACIN) 08/06/2020 8 - GI Upset OXYCODONE 06/20/2011 4 - Hives Date Reviewed: 07/19/2024 Reviewed by: Jade Dimas APRN.CNP - Fully Assessed Reason for Visit: Patient Update [1234] Prescriptions as of 08/03/2024 - iv contrast (will be provided with radiology test) CTA Head/Neck W No IV access, insert saline lock prior to the sedation, infusion, injection for imaging exam. Discontinue saline lock post exam. If Pt. has a central line or IVAD, may access for administration according to line specific nursing protocol. Once exam is complete flush line and de-access according to line specific nursing protocol in the CT contrast administration guidelines link. - amitriptyline (ELAVIL) 50 mg tablet Take 2 tablets by mouth daily at bedtime. - naltrexone 1.5 mg cap at bedtime (rx given from Dr [facility]) - naltrexone capsule 1.5 mg (CPD) Take 1 capsule by mouth once daily. Dr. Buchanan-DERM - atorvastatin (LIPITOR) 10 mg tablet Take 1 tablet by mouth daily at bedtime. For cholesterol. - ketoconazole (NIZORAL) 2 % shampoo Apply to affected area once daily. - pantoprazole DR (PROTONIX) 40 mg tablet Take 1 tablet by mouth once daily. - lactulose 10 gram/15 mL (15 mL) soln Take 30 mL by mouth once daily. or as needed. - Flaxseed Oil oil TWICE A DAY - melatonin 10 mg cap BEDTIME PRN For Sleep - venlafaxine ER (EFFEXOR XR) 75 mg 24 hr capsule Take 150 mg by mouth once daily. - Magnesium Oxide 500 mg tab Take 500 mg by mouth once daily. - B COMPLEX WITH VITAMIN C (VITAMIN B COMPLEX-C ORAL) Take by mouth. - CHOLECALCIFEROL (VITAMIN D3) 1,000 UNIT CAP Take one(1) tablet daily. - HERBAL DRUGS CAP Enzyme solutions formula 30 takes 4-5 daily - HERBAL DRUGS CAP Colon Buster 400mg twice daily - ca carbonate/vitamin d3/vit k(VIACTIV 500 MG-100 UNIT-40 MCG CHEWABLE TAB) Chews 2 daily - loteprednol etabonate(ALREX 0.2 % EYE DROPS) 1 or 2 drops in each eye daily as necessary Problem List As Of Date 08/03/2024 Noted Resolved PERSISTENT INSOMNIA [G47.00] 02/05/2006 BONE AND CARTILAGE DIS NOS [M89.9, M94.9] 02/05/2006 VENOUS INSUFFICIENCY [I87.2] 02/23/2006 ANXIETY STATE NOS [F41.1] 02/23/2006 CONSTIPATION NOS [K59.00] INT HEMORRHOID W/O COMPL [K64.8] CERVICALGIA [M54.2] 09/23/2006 BACKACHE NOS [M54.9] 09/23/2006 Fibromyalgia [M79.7] 03/19/2010 Atypical lobular hyperplasia of right breast [N*03/15/2015 IBS (irritable bowel syndrome) [K58.9] Irritable bowel syndrome with both constipation*10/23/19 17 Post menopausal problems [N95.9] 10/22/2016 Globus sensation [R09.A2] 05/31/2018 Hyperglycemia [R73.9] 04/30/2022 Dyslipidemia [E78.5] 04/30/2022 Vitamin D deficiency [E55.9] 04/30/2022 Borderline abnormal thyroid function test [R94.*04/30/2022 Anemia [D64.9] 04/30/2022 Encounter Status:Closed by KIRIT SCHROEDER on 08/03/24 Normal [facility] MAMMO SCREENING WITH THIERRY BI LATERALon 08-02-2024 MAMMO SCREENING WITH THIERRY BILATERAL EXAM: MAMMO SCREENING WITH THIERRY BILATERAL, 08/02/2024 11:21 AM CLINICAL INDICATIONS: Screening. History of right-sided ALH status post excisional breast biopsy (2014) COMPARISON: Mammograms dated 08/19/2023, 08/06/2022, 07/31/2021. TECHNIQUE: 3-D MLO and CC digital tomosynthesis images were obtained of the bilateral breasts. Synthetic 2-D images were generated from the tomosynthesis data. Additionally, 2-D/3-D XCCL digital tomosynthesis images of the right breast were obtained. Computer aided detection was utilized. FINDINGS: Breast Density: There are scattered areas of fibroglandular density. Postsurgical changes of right-sided excisional breast biopsy. Bilateral benign appearing masses are noted. There are no suspicious masses, calcifications, or architectural distortions. IMPRESSION: No mammographic evidence of malignancy. BI-RADS: 2: Benign Recommendation: Routine mammography. Recommendation Laterality: Bilateral The current National Comprehensive Cancer Network and [employer] guidelines recommend women undergo a screening mammogram every year over the age of 40 and continue mammographic screening as long as they are in good health. Screening mammography under age 40 may occur for women who are at increased risk for breast cancer. SA Facility: [facility], [address] [place] [address] I personally viewed and interpreted these images and I have reviewed and approved this report. Table formatting from the original result was not included. MAMMO STANDARD RISK MQSA SITE BEGIN [place] [address] [address] [facility] MG Breast - bilateral Screen ingon 08-02-2024 IMPRESSION: No mammographic evidence of malignancy. BI-RADS: 2: Benign Recommendation: Routine mammography. Recommendation Laterality: Bilateral The current National Comprehensive Cancer Network and [employer] Radiology guidelines recommend women undergo a screening mammogram every year over the age of 40 and continue mammographic screening as long as they are in good health. Screening mammography under age 40 may occur for women who are at increased risk for breast cancer. [facility] Facility: [facility], [address] [place] [address] I personally viewed and interpreted these images and I have reviewed and approved this report. OLOGY EXAM: MAMMO SCREENIN G WITH THIERRY BILATERAL, 08/02/2024 11:21 AM CLINICAL INDICATIONS: Screening. History of right-sided ALH status post excisional breast biopsy (2014) COMPARISON: Mammograms dated 08/19/2023, 08/06/2022, 07/31/2021. TECHNIQUE: 3-D MLO and CC digital tomosynthesis images were obtained of the bilateral breasts. Synthetic 2-D images were generated from the tomosynthesis data. Additionally, 2-D/3-D XCCL digital tomosynthesis images of the right breast were obtained. Computer aided detection was utilized. FINDINGS: Breast Density: There are scattered areas of fibroglandular density. Postsurgical changes of right-sided excisional breast biopsy. Bilateral benign appearing masses are noted. There are no suspicious masses, calcifications, or architectural distortions. RADIOLOGY Sam Henning M D - 08/02/2024 EXAM: MAMMO SCREENING WITH THIERRY BILATERAL, 08/02/2024 11:21 AM CLINICAL INDICATIONS: Screening. History of right-sided ALH status post excisional breast biopsy (2014) COMPARISON: Mammograms dated 08/19/2023, 08/06/2022, 07/31/2021. TECHNIQUE: 3-D MLO and CC digital tomosynthesis images were obtained of the bilateral breasts. Synthetic 2-D images were generated from the tomosynthesis data. Additionally, 2-D/3-D XCCL digital tomosynthesis images of the right breast were obtained. Computer aided detection was utilized. FINDINGS: Breast Density: There are scattered areas of fibroglandular density. Postsurgical changes of right-sided excisional breast biopsy. Bilateral benign appearing masses are noted. There are no suspicious masses, calcifications, or architectural distortions. IMPRESSION IMPRESSION: No mammographic evidence of malignancy. BI-RADS: 2: Benign Recommendation: Routine mammography. Recommendation Laterality: Bilateral The current National [employer] Cancer Network and [employer] guidelines recommend women undergo a screening mammogram every year over the age of 40 and continue mammographic screening as long as they are in good health. Screening mammography under age 40 may occur for women who are at increased risk for breast cancer. [facility] Facility: [facility], [address] [place] [address], I personally viewed and interpreted these images and I have reviewed and approved this report. [facility] Radiology Study observation (narrative) [facility] MG Breast - bilateral Screen ingOrdered By: Sam Henning on 08-02-2024 [facility] Work Phone: CT BRAIN WO IVCONon 07-29-20 CT BRAIN WO IVCON * * *Final Report* * * DATE OF EXAM: Jul 29 2024 12:02PM [facility] 0504 - CT BRAIN WO IVCON / PROCEDURE REASON: multiple diagnoses * * * * Physician Interpretation * * * * EXAMINATION: CT BRAIN WO IVCON CLINICAL HISTORY: Headache, trigeminal neuralgia TECHNIQUE: Serial axial images without IV contrast were obtained from the vertex to the foramen magnum. MQ: CTBWO_3 CT Radiation dose: Integrated Dose-Length Product (DLP) for this visit = 719 mGy*cm CT Dose Reduction Employed: Automated exposure control(AEC) and iterative recon COMPARISON: None. RESULT: Localizer images: Unremarkable. Post-operative change: None. Acute change: No evidence of an acute intracranial process. Hemorrhage: No evidence of acute intracranial hemorrhage. ECASS hemorrhagic transformation score: Not Applicable Mass Lesion / Mass Effect: There is no evidence of an intracranial mass or extraaxial fluid collection. No significant mass effect. Chronic change: Extensive confluent foci of low attenuation are present in the supratentorial white matter which is nonspecific but likely represents extensive microvascular ischemia. Mild atherosclerotic calcific plaque in the bilateral carotid siphons. Parenchyma: There is mild generalized volume loss. The brain parenchyma is otherwise within normal limits for age. Ventricles: Ventricular enlargement concordant with the degree of parenchymal volume loss. Paranasal sinuses and skull base: The visualized paranasal sinuses are grossly clear. The skull base and imaged soft tissues are unremarkable. IMPRESSION: No CT evidence of an acute intracranial process. Extensive white matter changes, which may be related to chronic microvascular ischemia. Physical Chemistry Teacher: SVEN Transcribe Date/Time: Jul 29 2024 2:50P Dictated by : VANCE PANTOJA MD This examination was interpreted and the report reviewed and electronically signed by: VANCE PANTOJA MD on Jul 29 2024 2:53PM EST [id number] Normal [facility] CT Head WO contraston 2023 IMPRESSION: No CT evidence of an acute intracranial process. Extensive white matter changes, which may be related to chronic microvascular ischemia. Physical Chemistry Teacher: SVEN Transcribe Date/Time: Jul 29 2024 2:50P Dictated by : VANCE PANTOJA MD This examination was interpreted and the report reviewed and electronically signed by: VANCE PANTOJA MD on Jul 29 2024 2:53PM EST DIVISION OF RADIOLOGY * * *Final Report* * * DATE OF EXAM: Jul 29 2024 12:02PM [facility] 0504 - CT BRAIN WO IVCON / PROCEDURE REASON: multiple diagnoses * * * * Physician Interpretation * * * * EXAMINATION: CT BRAIN WO IVCON CLINICAL HISTORY: Headache, trigeminal neuralgia TECHNIQUE: Serial axial images without IV contrast were obtained from the vertex to the foramen magnum. MQ: CTBWO_3 CT Radiation dose: Integrated Dose-Length Product (DLP) for this visit = 719 mGy*cm CT Dose Reduction Employed: Automated exposure control(AEC) and iterative recon COMPARISON: None. RESULT: Localizer images: Unremarkable. Post-operative change: None. Acute change: No evidence of an acute intracranial process. Hemorrhage: No evidence of acute intracranial hemorrhage. ECASS hemorrhagic transformation score: Not Applicable Mass Lesion / Mass Effect: There is no evidence of an intracranial mass or extraaxial fluid collection. No significant mass effect. Chronic change: Extensive confluent foci of low attenuation are present in the supratentorial white matter which is nonspecific but likely represents extensive microvascular ischemia. Mild atherosclerotic calcific plaque in the bilateral carotid siphons. Parenchyma: There is mild generalized volume loss. The brain parenchyma is otherwise within normal limits for age. Ventricles: Ventricular enlargement concordant with the degree of parenchymal volume loss. Paranasal sinuses and skull base: The visualized paranasal sinuses are grossly clear. The skull base and imaged soft tissues are unremarkable. DIVISION OF RADIOLOGY Provider, [facility] - 07/29/2024 * * *Final Report* * * DATE OF EXAM: Jul 29 2024 12:02PM [facility] 0504 - CT BRAIN WO IVCON / PROCEDURE REASON: multiple diagnoses * * * * Physician Interpretation * * * * EXAMINATION: CT BRAIN WO IVCON CLINICAL HISTORY: Headache, trigeminal neuralgia TECHNIQUE: Serial axial images without IV contrast were obtained from the vertex to the foramen magnum. MQ: CTBWO_3 CT Radiation dose: Integrated Dose-Length Product (DLP) for this visit = 719 mGy*cm CT Dose Reduction Employed: Automated exposure control(AEC) and iterative recon COMPARISON: None. RESULT: Localizer images: Unremarkable. Post-operative change: None. Acute change: No evidence of an acute intracranial process. Hemorrhage: No evidence of acute intracranial hemorrhage. ECASS hemorrhagic transformation score: Not Applicable Mass Lesion / Mass Effect: There is no evidence of an intracranial mass or extraaxial fluid collection. No significant mass effect. Chronic change: Extensive confluent foci of low attenuation are present in the supratentorial white matter which is nonspecific but likely represents extensive microvascular ischemia. Mild atherosclerotic calcific plaque in the bilateral carotid siphons. Parenchyma: There is mild generalized volume loss. The brain parenchyma is otherwise within normal limits for age. Ventricles: Ventricular enlargement concordant with the degree of parenchymal volume loss. Paranasal sinuses and skull base: The visualized paranasal sinuses are grossly clear. The skull base and imaged soft tissues are unremarkable. IMPRESSION IMPRESSION: No CT evidence of an acute intracranial process. Extensive white matter changes, which may be related to chronic microvascular ischemia. Physical Chemistry Teacher: PSCB Transcribe Date/Time: Jul 29 2024 2:50P Dictated by : VANCE PANTOJA MD This examination was interpreted and the report reviewed and electronically signed by: VANCE PANTOJA MD on Jul 29 2024 2:53PM EST [facility] Radiology Study observation (narrative) [facility] CT Head WO contrastOrdered B y: Ccf Provider on 07-29-2024 [facility] CNOVon 07-19-2024 [facility] EMMIE WILLARD ([id number]) 1955 F Date Time Provider Department 07/19/24 9:20 AM [facility] During your visit today, we recorded the following information about you: Pulse Respiration Blood pressure Weight 101/minute 16/minute 112/72 68.5 kg Jade Dimas APRN.LITERARY AGENT 07/19/2024 3:29 PM Signed Chief Complaint Patient presents with: Headache: Shooting pains right side of head since beginning of JUN, [facility] [place] [facility]28-06/30, provider dx with trigeminal neuralgia HPI Emmie Willard is a 69 year old female who presents here today for Above Complaints. Scalp itching-Dr. Buchanan dermatology started her on naltrexone 1.5mg at nighttime. Does seem to overall help. She sees him again on 08/05. Trigeminal Neuralgia-was seen at [facility] [place]-they dx her with trigeminal neuralgia. Started with pain in the lower back side of her ear and up the right side of her head and moving upward. Last night was feeling some twinges in the front of her ear. When she has the pain it stays. That side of her face and scalp are tender. Past medical history, appointments, medications, allergies reviewed. Previous Medical History PAST MEDICAL HISTORY Diagnosis Date Advance care planning 04/29/2022 Jose can help if needed in future with medical decision making Chronic idiopathic constipation Diffuse cystic mastopathy Disorder of bone and cartilage, unspecified Fibromyalgia Fracture of right calcaneus 2010 IBS (irritable bowel syndrome) Internal hemorrhoids without mention of complication Nondisp fx of left radial styloid process, init for clos fx 05/09/2020 [facility] 05/09/2020 [facility] - PAST MEDICAL HISTORY OF eye [place] Skin cancer 06/06/2019 Left lower leg Squaumous cell Unspecified hemorrhoids without mention of complication Varicose veins of other sites Previous Surgical History PAST SURGICAL HISTORY Procedure Laterality Date COLONOSCOPY FLX DX W/COLLJ SPEC WHEN PFRMD 06/19/06 COLONOSCOPY FLX DX W/COLLJ SPEC WHEN PFRMD 07/07/2016 Colonoscopy HEMORRHOIDECTOMY NTRNL AND XTRNL 1 COLUMN/GROUP 06/29/98 PAST SURGICAL HISTORY OF 1993 CRYOTHERAPY / CERVIX PAST SURGICAL HISTORY OF Right 2011 shattered heel- Dr Wilman Campo- [place], [place] TOTAL ABDOMINAL HYSTERECT W/WO RMVL TUBE OVARY 05/27 Hysterectomy, KELSI AND BLADDER REPAIR Family History FAMILY HISTORY Problem Relation Age of Onset Osteoporosis Mother Hypertension Mother Arthritis Mother Lipids Mother High Cholesterol Heart Mother other (hypertrophic cardiomyopathy w/obstructive heart disease) Mother GI problems Hypertension Father Heart Father [place] Osteoporosis Sister GI problems Hypertension Sister other (Sjorns Disease) Sister Patient Allergies ALLERGIES Allergen Reactions Acetaminophen Hives Asa [Salicylates] Intolerance Tolerates 81 mg, not 325 mg Dilaudid [Hydromorp* Hives Keflex [Cephalexin] Rash Levaquin [Levofloxa* GI Upset Oxycodone Hives Current Medications Current Outpatient Medications on File Prior to Visit Medication Sig amitriptyline (ELAVIL) 50 mg tablet Take 1 tablet by mouth daily at bedtime. naltrexone 1.5 mg cap at bedtime (rx given from Dr Buchanan [facility]) naltrexone capsule 1.5 mg (CPD) Take 1 capsule by mouth once daily. Dr. Buchanan-DERM atorvastatin (LIPITOR) 10 mg tablet Take 1 tablet by mouth daily at bedtime. For cholesterol. ketoconazole (NIZORAL) 2 % shampoo Apply to affected area once daily. pantoprazole DR (PROTONIX) 40 mg tablet Take 1 tablet by mouth once daily. lactulose 10 gram/15 mL (15 mL) soln Take 30 mL by mouth once daily. or as needed. Flaxseed Oil oil TWICE A DAY melatonin 10 mg cap BEDTIME PRN For Sleep venlafaxine ER (EFFEXOR XR) 75 mg 24 hr capsule Take 150 mg by mouth once daily. Magnesium Oxide 500 mg tab Take 500 mg by mouth once daily. B COMPLEX WITH VITAMIN C (VITAMIN B COMPLEX-C ORAL) Take by mouth. CHOLECALCIFEROL (VITAMIN D3) 1,000 UNIT CAP Take one(1) tablet daily. HERBAL DRUGS CAP Enzyme solutions formula 30 takes 4-5 daily HERBAL DRUGS CAP Colon Buster 400mg twice daily ca carbonate/vitamin d3/vit k(VIACTIV 500 MG-100 UNIT-40 MCG CHEWABLE TAB) Chews 2 daily loteprednol etabonate(ALREX 0.2 % EYE DROPS) 1 or 2 drops in each eye daily as necessary No current facility-administered medications on file prior to visit. Social History Social History Tobacco Use Smoking status: Never Smokeless tobacco: Never Vaping Use Vaping status: Never Used Substance Use Topics Alcohol use: No Drug use: No Review of Symptoms REVIEW OF SYSTEMS See HPI, otherwise negative EXAM: BP 112/72 (BP Site: Left Arm, BP Position: Sitting, BP Cuff Size: Regular Adult) Pulse 101 Resp 16 Wt 68.5 kg (151 lb 0.2 oz) SpO2 98% BMI 25.31 kg/ (more content not included)... Normal [facility] Monse 07-19-2024 KATHY Telephone ([facility]) MONTSE,EMMIE ([id number]) 1955 F Date Time Provider Department 07/19/24 JADE DIMAS During your visit today, we recorded the following information about you: Angelica Sandoval LPN 07/19/2024 2:17 PM Signed Pt had appt today and called for the followin) pt reports amitriptyline was increased from 25 mg to 50 mg daily. Pt has 50 mg tabs. At appt today provider mentioned increasing amitriptyline to 100 mg daily. Pt is asking if she is supposed to start taking 100 mg now or wait until after CT (07/29/24). 2) pt wanted to let provider know first available appt with Dr. Chamorro is 10/03/24. Pt is scheduled for that date and on a wait list. SHAYNE Jolly, Luisa Henning APRN.LITERARY AGENT 07/20/2024 11:23 AM Signed Based on Jade's note, she is agreeable to the increase of amitriptyline to 100 mg daily. I have updated med list. Noted about neurology consult date. Thank you, Luisa Auguste APRN.Young Nicole LPN 07/20/2024 12:19 PM Signed Spoke with pt and information listed below given. Pt verbalizes understanding. Young Abdul LPN Allergies As of Date: 07/19/2024 Noted Allergy Reaction ACETAMINOPHEN 10/07/2013 4 - Hives ASA (SALICYLATES) 05/01/2005 5 - Intolerance Comments: Tolerates 81 mg, not 325 mg DILAUDID (HYDROMORPHONE) 06/20/2011 4 - Hives KEFLEX (CEPHALEXIN) 09/26/2020 2 - Rash LEVAQUIN (LEVOFLOXACIN) 08/06/2020 8 - GI Upset OXYCODONE 06/20/2011 4 - Hives Date Reviewed: 07/19/2024 Reviewed by: Jade Dimas APRN.LITERARY AGENT - Fully Assessed Reason for Visit: Medication Question [9348] Order(s):amitriptylin e (ELAVIL) 50 mg tabletTake 2 tablets by mouth daily at bedtime.Disp: 90 tabletRfl: 1 Prescriptions as of 07/20/2024 - amitriptyline (ELAVIL) 50 mg tablet Take 2 tablets by mouth daily at bedtime. - naltrexone 1.5 mg cap at bedtime (rx given from Dr [facility]) - naltrexone capsule 1.5 mg (CPD) Take 1 capsule by mouth once daily. Dr. Buchanan-DERM - atorvastatin (LIPITOR) 10 mg tablet Take 1 tablet by mouth daily at bedtime. For cholesterol. - ketoconazole (NIZORAL) 2 % shampoo Apply to affected area once daily. - pantoprazole DR (PROTONIX) 40 mg tablet Take 1 tablet by mouth once daily. - lactulose 10 gram/15 mL (15 mL) soln Take 30 mL by mouth once daily. or as needed. - Flaxseed Oil oil TWICE A DAY - melatonin 10 mg cap BEDTIME PRN For Sleep - venlafaxine ER (EFFEXOR XR) 75 mg 24 hr capsule Take 150 mg by mouth once daily. - Magnesium Oxide 500 mg tab Take 500 mg by mouth once daily. - B COMPLEX WITH VITAMIN C (VITAMIN B COMPLEX-C ORAL) Take by mouth. - CHOLECALCIFEROL (VITAMIN D3) 1,000 UNIT CAP Take one(1) tablet daily. - HERBAL DRUGS CAP Enzyme solutions formula 30 takes 4-5 daily - HERBAL DRUGS CAP Colon Buster 400mg twice daily - ca carbonate/vitamin d3/vit k(VIACTIV 500 MG-100 UNIT-40 MCG CHEWABLE TAB) Chews 2 daily - loteprednol etabonate(ALREX 0.2 % EYE DROPS) 1 or 2 drops in each eye daily as necessary Problem List As Of Date 07/19/2024 Noted Resolved PERSISTENT INSOMNIA [G47.00] 02/05/2006 BONE AND CARTILAGE DIS NOS [M89.9, M94.9] 02/05/2006 VENOUS INSUFFICIENCY [I87.2] 02/23/2006 ANXIETY STATE NOS [F41.1] 02/23/2006 CONSTIPATION NOS [K59.00] INT HEMORRHOID W/O COMPL [K64.8] CERVICALGIA [M54.2] 09/23/2006 BACKACHE NOS [M54.9] 09/23/2006 Fibromyalgia [M79.7] 03/19/2010 Atypical lobular hyperplasia of right breast [N*03/15/2015 IBS (irritable bowel syndrome) [K58.9] Irritable bowel syndrome with both constipation*10/23/19 17 Post menopausal problems [N95.9] 10/22/2016 Globus sensation [R09.A2] 05/31/2018 Hyperglycemia [R73.9] 04/30/2022 Dyslipidemia [E78.5] 04/30/2022 Vitamin D deficiency [E55.9] 04/30/2022 Borderline abnormal thyroid function test [R94.*04/30/2022 Anemia [D64.9] 04/30/2022 Prescriptions ordered this encounter Disp Refills Start End AMITRIPTYLINE 50 MG TABLET 90 t* 1 07/20/2024 Class: Med Update Route: ORAL Sig: Take 2 tablets by mouth daily at bedtime. Medications Discontinued During This Encounter Prescriptions - amitriptyline (ELAVIL) 50 mg tablet (Discontinued) Take 1 tablet by mouth daily at bedtime. Encounter Status:Closed by YOUNG ABDUL on 07/20/24 [facility] CNOVzoe 06-03-2024 CNOV Office Visit ([facility] ) EMMIE WILLARD ([id number]) 1955 F Date Time Provider Department 06/03/24 4:30 PM [facility] During your visit today, we recorded the following information about you: Pulse Respiration Blood pressure Weight 93/minute 16/minute 138/88 68.9 kg Renato Kilpatrick APRN.CNP 06/03/2024 4:17 PM Signed This note was created using NoteWriter. Subjective Emmie Willard is a 69 year old female. HPI Patient was getting her fingernails done today when one of the technicians thought that he might have a fungal infection under the fingernail of the left ring finger. Patient denies any pain or trauma to the finger. Denies any fever redness or swelling to the finger. Finger is not tender. Review of Systems As noted in HPI Objective BP 138/88 Pulse 93 Resp 16 Wt 68.9 kg (151 lb 14.4 oz) SpO2 100% BMI 25.46 kg/m? Physical Exam Vitals and nursing note reviewed. Constitutional: General: She is not in acute distress. Appearance: Normal appearance. She is not ill-appearing. HENT: Head: Normocephalic. Pulmonary: Effort: Pulmonary effort is normal. Musculoskeletal: General: Normal range of motion. Cervical back: Normal range of motion. Skin: General: Skin is warm and dry. Comments: Slight morgan of color in the middle of the left ring finger fingernail with no signs of nail deformity, cracking or chipping of the nail. The skin surrounding the nail is normal color and nontender. Neurological: General: No focal deficit present. Mental Status: She is alert. Psychiatric: Mood and Affect: Mood normal. Behavior: Behavior normal. Assessment and Plan ASSESSMENT/PLAN: 1. Discoloration of nail - ICD9: 703.8, ICD10: L60.8 On physical exam her presentation does not appear consistent with onychomycosis. Patient was instructed to continue to monitor the nail. We did discuss treatment options and follow-up with PCP as needed. Patient comfortable with plan. Renato Kilpatrick APRN.LITERARY AGENT Allergies As of Date: 06/03/2024 Noted Allergy Reaction ACETAMINOPHEN 10/07/2013 4 - Hives ASA (SALICYLATES) 05/01/2005 5 - Intolerance Comments: Tolerates 81 mg, not 325 mg DILAUDID (HYDROMORPHONE) 06/20/2011 4 - Hives KEFLEX (CEPHALEXIN) 09/26/2020 2 - Rash LEVAQUIN (LEVOFLOXACIN) 08/06/2020 8 - GI Upset OXYCODONE 06/20/2011 4 - Hives Date Reviewed: 06/03/2024 Reviewed by: Romie Zapata MA - Fully Assessed Reason for Visit: finger infection [Other] Cmt: Possible fungal LEFT ring finger x 1 day Primary Visit Diagnosis:Discolorati on of nail [L60.8] Prescriptions as of 06/03/2024 - naltrexone capsule 1.5 mg (CPD) Take 1 capsule by mouth once daily. Dr. Buchanan-DERM - amitriptyline (ELAVIL) 25 mg tablet Take 1 tablet by mouth daily at bedtime. - atorvastatin (LIPITOR) 10 mg tablet Take 1 tablet by mouth daily at bedtime. For cholesterol. - scopolamine (TRANSDERM-SCOP) patch 1.5 mg/72 hr (delivers 1 mg over 3 days) Apply 1 Patch as directed every 72 hours. Apply patch to skin behind ear 4hrs prior to travel. - ketoconazole (NIZORAL) 2 % shampoo Apply to affected area once daily. - benzonatate (TESSALON PERLES) 100 mg capsule Take 2 capsules by mouth three times daily as needed. - Brompheniramine-Pseud oeph-DM (BROMFED DM) 2-30-10 mg/5 mL syrup Take 5 mL by mouth four times daily as needed. - pantoprazole DR (PROTONIX) 40 mg tablet Take 1 tablet by mouth once daily. - lactulose 10 gram/15 mL (15 mL) soln Take 30 mL by mouth once daily. or as needed. - Flaxseed Oil oil TWICE A DAY - melatonin 10 mg cap BEDTIME PRN For Sleep - venlafaxine ER (EFFEXOR XR) 75 mg 24 hr capsule Take 150 mg by mouth once daily. - Magnesium Oxide 500 mg tab Take 500 mg by mouth once daily. - B COMPLEX WITH VITAMIN C (VITAMIN B COMPLEX-C ORAL) Take by mouth. - CHOLECALCIFEROL (VITAMIN D3) 1,000 UNIT CAP Take one(1) tablet daily. - HERBAL DRUGS CAP Enzyme solutions formula 30 takes 4-5 daily - HERBAL DRUGS CAP Colon Buster 400mg twice daily - ca carbonate/vitamin d3/vit k(VIACTIV 500 MG-100 UNIT-40 MCG CHEWABLE TAB) Chews 2 daily - loteprednol etabonate(ALREX 0.2 % EYE DROPS) 1 or 2 drops in each eye daily as necessary Problem List As Of Date 06/03/2024 Noted Resolved PERSISTENT INSOMNIA [G47.00] 02/05/2006 BONE AND CARTILAGE DIS NOS [M89.9, M94.9] 02/05/2006 VENOUS INSUFFICIENCY [I87.2] 02/23/2006 ANXIETY STATE NOS [F41.1] 02/23/2006 CONSTIPATION NOS [K59.00] INT HEMORRHOID W/O COMPL [K64.8] CERVICALGIA [M54.2] 09/23/2006 BACKACHE NOS [M54.9] 09/23/2006 Fibromyalgia [M79.7] 03/19/2010 Atypical lobular hyperplasia of right breast [N*03/15/2015 IBS (irritable bowel syndrome) [K58.9] Irritable bowel syndrome with both constipation*10/23/19 17 Post menopausal problems [N95.9] 10/22/2016 Globus sensation [R09.A2] 05/31/2018 Hyperglycemia [ (more content not included)... Normal [facility] 06-02-2024 CNPN Telephone ([facility]) EMMIE WILLARD ([id number]) 1955 F Date Time Provider Department 06/02/24 ROBERT RAMIREZ [facility] During your visit today, we recorded the following information about you: Alison Telles LPN 06/02/2024 4:15 PM Signed Patient calling she had gotten rx from [facility] Pollard for the Amitriptyline 50 mg at bedtime. The rx that was sent to the pharmacy on 05/24 was for 25 mg, which she is fine with the lower dose. She did not want to be taking to much. She also had seen Dr Buchanan and was started on Naltrexone 1.5 mg at bedtime for the itching on her scalp. She has been taking for 2 weeks and will follow up with Dermatology since not really working greatly. She wanted to update PCP on this. Robert Ramirez DO 06/09/2024 10:41 AM Signed Noted Robert Ramirez DO Allergies As of Date: 06/02/2024 Noted Allergy Reaction ACETAMINOPHEN 10/07/2013 4 - Hives ASA (SALICYLATES) 05/01/2005 5 - Intolerance Comments: Tolerates 81 mg, not 325 mg DILAUDID (HYDROMORPHONE) 06/20/2011 4 - Hives KEFLEX (CEPHALEXIN) 09/26/2020 2 - Rash LEVAQUIN (LEVOFLOXACIN) 08/06/2020 8 - GI Upset OXYCODONE 06/20/2011 4 - Hives Date Reviewed: 01/27/2024 Reviewed by: Jade Dimas APRN.LITERARY AGENT - Fully Assessed Reason for Visit: Patient Update [1234] Order(s):naltrexone 1.5 mg capat bedtime (rx given from [facility])Disp: Rfl: Prescriptions as of 06/16/2024 - naltrexone 1.5 mg cap at bedtime (rx given from [facility]) - naltrexone capsule 1.5 mg (CPD) Take 1 capsule by mouth once daily. Dr. Buchanan-DERM - amitriptyline (ELAVIL) 25 mg tablet Take 1 tablet by mouth daily at bedtime. - atorvastatin (LIPITOR) 10 mg tablet Take 1 tablet by mouth daily at bedtime. For cholesterol. - scopolamine (TRANSDERM-SCOP) patch 1.5 mg/72 hr (delivers 1 mg over 3 days) Apply 1 Patch as directed every 72 hours. Apply patch to skin behind ear 4hrs prior to travel. - ketoconazole (NIZORAL) 2 % shampoo Apply to affected area once daily. - benzonatate (TESSALON PERLES) 100 mg capsule Take 2 capsules by mouth three times daily as needed. - Brompheniramine-Pseud oeph-DM (BROMFED DM) 2-30-10 mg/5 mL syrup Take 5 mL by mouth four times daily as needed. - pantoprazole DR (PROTONIX) 40 mg tablet Take 1 tablet by mouth once daily. - lactulose 10 gram/15 mL (15 mL) soln Take 30 mL by mouth once daily. or as needed. - Flaxseed Oil oil TWICE A DAY - melatonin 10 mg cap BEDTIME PRN For Sleep - venlafaxine ER (EFFEXOR XR) 75 mg 24 hr capsule Take 150 mg by mouth once daily. - Magnesium Oxide 500 mg tab Take 500 mg by mouth once daily. - B COMPLEX WITH VITAMIN C (VITAMIN B COMPLEX-C ORAL) Take by mouth. - CHOLECALCIFEROL (VITAMIN D3) 1,000 UNIT CAP Take one(1) tablet daily. - HERBAL DRUGS CAP Enzyme solutions formula 30 takes 4-5 daily - HERBAL DRUGS CAP Colon Buster 400mg twice daily - ca carbonate/vitamin d3/vit k(VIACTIV 500 MG-100 UNIT-40 MCG CHEWABLE TAB) Chews 2 daily - loteprednol etabonate(ALREX 0.2 % EYE DROPS) 1 or 2 drops in each eye daily as necessary Problem List As Of Date 06/02/2024 Noted Resolved PERSISTENT INSOMNIA [G47.00] 02/05/2006 BONE AND CARTILAGE DIS NOS [M89.9, M94.9] 02/05/2006 VENOUS INSUFFICIENCY [I87.2] 02/23/2006 ANXIETY STATE NOS [F41.1] 02/23/2006 CONSTIPATION NOS [K59.00] INT HEMORRHOID W/O COMPL [K64.8] CERVICALGIA [M54.2] 09/23/2006 BACKACHE NOS [M54.9] 09/23/2006 Fibromyalgia [M79.7] 03/19/2010 Atypical lobular hyperplasia of right breast [N*03/15/2015 IBS (irritable bowel syndrome) [K58.9] Irritable bowel syndrome with both constipation*10/23/19 17 Post menopausal problems [N95.9] 10/22/2016 Globus sensation [R09.A2] 05/31/2018 Hyperglycemia [R73.9] 04/30/2022 Dyslipidemia [E78.5] 04/30/2022 Vitamin D deficiency [E55.9] 04/30/2022 Borderline abnormal thyroid function test [R94.*04/30/2022 Anemia [D64.9] 04/30/2022 Prescriptions ordered this encounter Disp Refills Start End NALTREXONE 1.5 MG CAPSULE 06/09/2024 Class: Med Update Sig: at bedtime (rx given from [facility]) Encounter Status:Closed by ALISON TELLES on 06/16/24 Normal [facility] Monse 05-20-2024 RAGHAVENDRAN Telephone (FAMPWS) EMMIE WILLARD ([id number]) 1955 F Date Time Provider Department 05/20/24 ROBERT RAMIREZ During your visit today, we recorded the following information about you: Anastasia Wayne, MORGAN 05/20/2024 11:54 AM Signed Pt called I asking to get Amitriptyline refilled, but she reports it's 50 mg. I told her I only see provider filling it for 25 mg, and the last time was 05/06/23. She states the provider on this bottle was Cristal Izaguirre, and she said she was going to call over to Dr Bloom's office because she thinks she may have gotten it from her. She was asking if provider would order to 50 mg tablets to [facility] in [place]. Pt is going to call back if other provider is going to order. Anastasia Wayne RN 05/30/2024 9:38 AM Signed Refilled 05/24/24. Allergies As of Date: 05/20/2024 Noted Allergy Reaction ACETAMINOPHEN 10/07/2013 4 - Hives ASA (SALICYLATES) 05/01/2005 5 - Intolerance Comments: Tolerates 81 mg, not 325 mg DILAUDID (HYDROMORPHONE) 06/20/2011 4 - Hives KEFLEX (CEPHALEXIN) 09/26/2020 2 - Rash LEVAQUIN (LEVOFLOXACIN) 08/06/2020 8 - GI Upset OXYCODONE 06/20/2011 4 - Hives Date Reviewed: 01/27/2024 Reviewed by: Jade Dimas APRN.LITERARY AGENT - Fully Assessed Reason for Visit: Refill Request [94] Prescriptions as of 05/30/2024 - amitriptyline (ELAVIL) 25 mg tablet Take 1 tablet by mouth daily at bedtime. - atorvastatin (LIPITOR) 10 mg tablet Take 1 tablet by mouth daily at bedtime. For cholesterol. - scopolamine (TRANSDERM-SCOP) patch 1.5 mg/72 hr (delivers 1 mg over 3 days) Apply 1 Patch as directed every 72 hours. Apply patch to skin behind ear 4hrs prior to travel. - ketoconazole (NIZORAL) 2 % shampoo Apply to affected area once daily. - benzonatate (TESSALON PERLES) 100 mg capsule Take 2 capsules by mouth three times daily as needed. - Brompheniramine-Pseud oeph-DM (BROMFED DM) 2-30-10 mg/5 mL syrup Take 5 mL by mouth four times daily as needed. - pantoprazole DR (PROTONIX) 40 mg tablet Take 1 tablet by mouth once daily. - lactulose 10 gram/15 mL (15 mL) soln Take 30 mL by mouth once daily. or as needed. - Flaxseed Oil oil TWICE A DAY - melatonin 10 mg cap BEDTIME PRN For Sleep - venlafaxine ER (EFFEXOR XR) 75 mg 24 hr capsule Take 150 mg by mouth once daily. - Magnesium Oxide 500 mg tab Take 500 mg by mouth once daily. - B COMPLEX WITH VITAMIN C (VITAMIN B COMPLEX-C ORAL) Take by mouth. - CHOLECALCIFEROL (VITAMIN D3) 1,000 UNIT CAP Take one(1) tablet daily. - HERBAL DRUGS CAP Enzyme solutions formula 30 takes 4-5 daily - HERBAL DRUGS CAP Colon Buster 400mg twice daily - ca carbonate/vitamin d3/vit k(VIACTIV 500 MG-100 UNIT-40 MCG CHEWABLE TAB) Chews 2 daily - loteprednol etabonate(ALREX 0.2 % EYE DROPS) 1 or 2 drops in each eye daily as necessary Problem List As Of Date 05/20/2024 Noted Resolved PERSISTENT INSOMNIA [G47.00] 02/05/2006 BONE AND CARTILAGE DIS NOS [M89.9, M94.9] 02/05/2006 VENOUS INSUFFICIENCY [I87.2] 02/23/2006 ANXIETY STATE NOS [F41.1] 02/23/2006 CONSTIPATION NOS [K59.00] INT HEMORRHOID W/O COMPL [K64.8] CERVICALGIA [M54.2] 09/23/2006 BACKACHE NOS [M54.9] 09/23/2006 Fibromyalgia [M79.7] 03/19/2010 Atypical lobular hyperplasia of right breast [N*03/15/2015 IBS (irritable bowel syndrome) [K58.9] Irritable bowel syndrome with both constipation*10/23/19 17 Post menopausal problems [N95.9] 10/22/2016 Globus sensation [R09.A2] 05/31/2018 Hyperglycemia [R73.9] 04/30/2022 Dyslipidemia [E78.5] 04/30/2022 Vitamin D deficiency [E55.9] 04/30/2022 Borderline abnormal thyroid function test [R94.*04/30/2022 Anemia [D64.9] 04/30/2022 Encounter Status:Closed by A[facility]ASIA [facility]NE [facility] CNPN [facility] (FAMPWS) EMMIE WILLARD ([id number]) 1955 F Date Time Provider Department 05/17/24 [facility] During your visit today, we recorded the following information about you: Jade Dimas APRN.CNP 05/17/2024 5:12 PM Signed Please let her know that I received the results of her Dexa bone scan, and it does show that she has osteoporosis. Please make sure she is taking a daily calcium and Vitamin D3 supplement. *1200 mg - 1500 mg calcium per day *800 - 1000 International Units of vitamin D3 per day For treatment, I would recommend an injection, Prolia, that she would receive 2x/year to help prevent further bone loss. There is also an oral pill, Fosamax, that she could take on a weekly basis. We would need to check with insurance for coverage. Please let me know if she is agreeable or interested in these tx. Jade Dimas APRN.Anastasia Whitehead, MORGAN 05/18/2024 10:17 AM Signed Pt called and is notified of providers results and instructions. Pt voices understanding. Pt states she takes 5000 international unit(s) D3, and she wanted to know if she should decrease this amount. 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 Pt is going to look into Fosamax and see if her insurance covers it, and will call back. Anastasia Wayne RN Allergies As of Date: 05/17/2024 Noted Allergy Reaction ACETAMINOPHEN 10/07/2013 4 - Hives ASA (SALICYLATES) 05/01/2005 5 - Intolerance Comments: Tolerates 81 mg, not 325 mg DILAUDID (HYDROMORPHONE) 06/20/2011 4 - Hives KEFLEX (CEPHALEXIN) 09/26/2020 2 - Rash LEVAQUIN (LEVOFLOXACIN) 08/06/2020 8 - GI Upset OXYCODONE 06/20/2011 4 - Hives Date Reviewed: 01/27/2024 Reviewed by: Jade Dimas APRN.LITERARY AGENT - Fully Assessed Reason for Visit: Results [95] Prescriptions as of 07/28/2024 - amitriptyline (ELAVIL) 50 mg tablet Take 2 tablets by mouth daily at bedtime. - naltrexone 1.5 mg cap at bedtime (rx given from [facility]) - naltrexone capsule 1.5 mg (CPD) Take 1 capsule by mouth once daily. Dr. Buchanan-DERM - atorvastatin (LIPITOR) 10 mg tablet Take 1 tablet by mouth daily at bedtime. For cholesterol. - ketoconazole (NIZORAL) 2 % shampoo Apply to affected area once daily. - pantoprazole DR (PROTONIX) 40 mg tablet Take 1 tablet by mouth once daily. - lactulose 10 gram/15 mL (15 mL) soln Take 30 mL by mouth once daily. or as needed. - Flaxseed Oil oil TWICE A DAY - melatonin 10 mg cap BEDTIME PRN For Sleep - venlafaxine ER (EFFEXOR XR) 75 mg 24 hr capsule Take 150 mg by mouth once daily. - Magnesium Oxide 500 mg tab Take 500 mg by mouth once daily. - B COMPLEX WITH VITAMIN C (VITAMIN B COMPLEX-C ORAL) Take by mouth. - CHOLECALCIFEROL (VITAMIN D3) 1,000 UNIT CAP Take one(1) tablet daily. 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, M94.9] 02/05/2006 VENOUS INSUFFICIENCY [I87.2] 02/23/2006 ANXIETY STATE NOS [F41.1] 02/23/2006 CONSTIPATION NOS [K59.00] INT HEMORRHOID W/O COMPL [K64.8] CERVICALGIA [M54.2] 09/23/2006 BACKACHE NOS [M54.9] 09/23/2006 Fibromyalgia [M79.7] 03/19/2010 Atypical lobular hyperplasia of right breast [N*03/15/2015 IBS (irritable bowel syndrome) [K58.9] Irritable bowel syndrome with both constipation*10/23/19 17 Post menopausal problems [N95.9] 10/22/2016 Globus sensation [R09.A2] 05/31/2018 Hyperglycemia [R73.9] 04/30/2022 Dyslipidemia [E78.5] 04/30/2022 Vitamin D deficiency [E55.9] 04/30/2022 Borderline abnormal thyroid function test [R94.*04/30/2022 Anemia [D64.9] 04/30/2022 Encounter Status:Closed by JADE DIMAS on 07/28/24 Normal [facility] DXA Femur [T-score] Bone stefany hancock 05-13-2024 * * *Final Report* * * DATE OF EXAM: May 12 2024 9:30AM WRB 0801 - BD DXA TRABECLR BONE SCORE (TBS) / PROCEDURE REASON: multiple diagnoses * * * * Physician Interpretation * * * * EXAMINATION: DXA BONE DENSITOMETRY BD DXA - AXIAL SKELETON, BD DXA TRABECLR BONE SCORE (TBS) PATIENT DEMOGRAPHICS: Age: 68 years, Gender: Female SCANNER INFORMATION: DXA Model: [employer] - [place] C 51599 Date Scanned: 05/12/2024 9:30 AM CLINICAL HISTORY: DIAGNOSTIC Encounter for screening for osteoporosis Osteopenia, senile Other specified disorders of bone density and structure, multiple sites . RISK FACTORS FOR OSTEOPOROSIS AND ASSOCIATED FRACTURES REPORTED BY THIS PATIENT: Please refer to Bone Health Questionnaire in the EMR CURRENT THERAPY: Please refer to Bone Health Questionnaire in the EMR TECHNICAL LIMITATIONS: None RESULTS: Lumbar spine (L1, L2, L3, L4): 0.806 g/cm2, T-score -2.2, Z-score -0.1 Lumbar spine: 2019: 0.787 g/cm2 No statistically significant change Right Femoral Neck: 0.531 g/cm2, T-score -2.9, Z-score -1.1 Right Femoral Neck: 2019: 0.578 g/cm2 Statistically significant decrease Right Total Hip: 0.730 g/cm2, T-score -1.7, Z-score -0.2 Right Total Hip: 2019: 0.757 g/cm2 Statistically significant decrease Left Femoral Neck: 0.546 g/cm2, T-score -2.7, Z-score -0.9 Left Femoral Neck: 2019: 0.589 g/cm2 Statistically significant decrease Left Total Hip: 0.724 g/cm2, T-score -1.8, Z-score -0.3 Left Total Hip: 2019: 0.716 g/cm2 No statistically significant change CHANGE IS STATISTICALLY SIGNIFICANT IN THE SPINE OR HIP IF GREATER THAN OR EQUAL TO 0.04 g/cm2 VERTEBRAL FRACTURE ASSESSMENT Not performed. TRABECULAR BONE ASSESSMENT TBS score: 1.046 Bone micro-architecture: Degraded (< or = 1.230) DIVISION OF RADIOLOGY Provider, [facility] - 05/13/2024 * * *Final Report* * * DATE OF EXAM: May 12 2024 9:30AM [facility] 0801 - BD DXA TRABECLR BONE SCORE (TBS) / PROCEDURE REASON: multiple diagnoses * * * * Physician Interpretation * * * * EXAMINATION: DXA BONE DENSITOMETRY BD DXA - AXIAL SKELETON, BD DXA TRABECLR BONE SCORE (TBS) PATIENT DEMOGRAPHICS: Age: 68 years, Gender: Female SCANNER INFORMATION: DXA Model: [employer] - [place] C [address]702 Date Scanned: 05/12/2024 9:30 AM CLINICAL HISTORY: DIAGNOSTIC Encounter for screening for osteoporosis Osteopenia, senile Other specified disorders of bone density and structure, multiple sites . RISK FACTORS FOR OSTEOPOROSIS AND ASSOCIATED FRACTURES REPORTED BY THIS PATIENT: Please refer to Bone Health Questionnaire in the EMR CURRENT THERAPY: Please refer to Bone Health Questionnaire in the EMR TECHNICAL LIMITATIONS: None RESULTS: Lumbar spine (L1, L2, L3, L4): 0.806 g/cm2, T-score -2.2, Z-score -0.1 Lumbar spine: 2019: 0.787 g/cm2 No statistically significant change Right Femoral Neck: 0.531 g/cm2, T-score -2.9, Z-score -1.1 Right Femoral Neck: 2019: 0.578 g/cm2 Statistically significant decrease Right Total Hip: 0.730 g/cm2, T-score -1.7, Z-score -0.2 Right Total Hip: 2019: 0.757 g/cm2 Statistically significant decrease Left Femoral Neck: 0.546 g/cm2, T-score -2.7, Z-score -0.9 Left Femoral Neck: 2019: 0.589 g/cm2 Statistically significant decrease Left Total Hip: 0.724 g/cm2, T-score -1.8, Z-score -0.3 Left Total Hip: 2019: 0.716 g/cm2 No statistically significant change CHANGE IS STATISTICALLY SIGNIFICANT IN THE SPINE OR HIP IF GREATER THAN OR EQUAL TO 0.04 g/cm2 VERTEBRAL FRACTURE ASSESSMENT Not performed. TRABECULAR BONE ASSESSMENT TBS score: 1.046 Bone micro-architecture: Degraded (< or = 1.230) IMPRESSION IMPRESSION: THE LOWEST T-SCORE IS -2.9 IN THE RIGHT HIP 1) DIAGNOSIS (based on BMD alone): OSTEOPOROSIS Caution: Medical conditions other than osteoporosis may cause low bone density, such as osteomalacia or renal osteodystrophy. Clinical correlation is necessary. 2) FRACTURE RISK (Based on TBS adjusted FRAX): 10-year absolute fracture risk: - major osteoporotic fracture = 44 % - hip fracture = 18 % - A diagnosis of Osteoporosis, a 10 year probability of hip fracture greater than or equal to 3% or a 10 year probability of any major osteoporosis-related fracture greater than or equal to 20% should be considered for treatment. - DXA scanner generated FRAX calculations may slightly differ from online FRAX calculations due to differences in software versions. - All recommendations and calculations are to be considered as guidelines and should not replace sound clinical judgement - Caution: Fracture risk may be increased independent of BMD in patients with corticosteroid use, age greater than 65 years, or a history of prior fragility fracture. RECOMMENDATIONS: Follow-up in 2 years or as clinically indicated. Patients that are taking corticosteroids, are transplant recipients or have hyperparathyroidism should have annual follow-up. Follow-up scans should always be done on the same machine for accurate comparison. FOR MORE INFORMATION ABOUT DIAGNOSIS AND TREATMENT: [facility] for Osteoporosis and Metabolic Bone Disease:? [email or web address].org/arthritis /osteo National Osteoporosis Foundation:? www.nof.org International Society of Clinical Densitometry www.iscd.org Physical Chemistry Teacher: SVEN Transcribe Date/Time: May 13 2024 3:32P Dictated by : CALIXTO JOHNSON MD This examination was interpreted and the report reviewed and electronically signed by: CALIXTO JOHNSON MD on May 13 2024 3:38PM EST [facility] DXA Skeletal system.axial Vi ews for bone densityon 05-13-2024 * * *Final Report* * * DATE OF EXAM: May 12 2024 9:30AM WRB 0804 - BD DXA - AXIAL SKELETON / PROCEDURE REASON: multiple diagnoses * * * * Physician Interpretation * * * * EXAMINATION: DXA BONE DENSITOMETRY BD DXA - AXIAL SKELETON, BD DXA TRABECLR BONE SCORE (TBS) PATIENT DEMOGRAPHICS: Age: 68 years, Gender: Female SCANNER INFORMATION: DXA Model: [employer] - [employer] C [id number] Date Scanned: 05/12/2024 9:30 AM CLINICAL HISTORY: DIAGNOSTIC Encounter for screening for osteoporosis Osteopenia, senile Other specified disorders of bone density and structure, multiple sites . RISK FACTORS FOR OSTEOPOROSIS AND ASSOCIATED FRACTURES REPORTED BY THIS PATIENT: Please refer to Bone Health Questionnaire in the EMR CURRENT THERAPY: Please refer to Bone Health Questionnaire in the EMR TECHNICAL LIMITATIONS: None RESULTS: Lumbar spine (L1, L2, L3, L4): 0.806 g/cm2, T-score -2.2, Z-score -0.1 Lumbar spine: 2019: 0.787 g/cm2 No statistically significant change Right Femoral Neck: 0.531 g/cm2, T-score -2.9, Z-score -1.1 Right Femoral Neck: 2019: 0.578 g/cm2 Statistically significant decrease Right Total Hip: 0.730 g/cm2, T-score -1.7, Z-score -0.2 Right Total Hip: 2019: 0.757 g/cm2 Statistically significant decrease Left Femoral Neck: 0.546 g/cm2, T-score -2.7, Z-score -0.9 Left Femoral Neck: 2019: 0.589 g/cm2 Statistically significant decrease Left Total Hip: 0.724 g/cm2, T-score -1.8, Z-score -0.3 Left Total Hip: 2019: 0.716 g/cm2 No statistically significant change CHANGE IS STATISTICALLY SIGNIFICANT IN THE SPINE OR HIP IF GREATER THAN OR EQUAL TO 0.04 g/cm2 VERTEBRAL FRACTURE ASSESSMENT Not performed. TRABECULAR BONE ASSESSMENT TBS score: 1.046 Bone micro-architecture: Degraded (< or = 1.230) DIVISION OF RADIOLOGY Provider, [facility] - 05/13/2024 * * *Final Report* * * DATE OF EXAM: May 12 2024 9:30AM TRUE 0804 - DXA - AXIAL SKELETON / PROCEDURE REASON: multiple diagnoses * * * * Physician Interpretation * * * * EXAMINATION: DXA BONE DENSITOMETRY BD DXA - AXIAL SKELETON, BD DXA TRABECLR BONE SCORE (TBS) PATIENT DEMOGRAPHICS: Age: 68 years, Gender: Female SCANNER INFORMATION: DXA Model: [employer] - [place] C [address]61 Date Scanned: 05/12/2024 9:30 AM CLINICAL HISTORY: DIAGNOSTIC Encounter for screening for osteoporosis Osteopenia, senile Other specified disorders of bone density and structure, multiple sites . RISK FACTORS FOR OSTEOPOROSIS AND ASSOCIATED FRACTURES REPORTED BY THIS PATIENT: Please refer to Bone Health Questionnaire in the EMR CURRENT THERAPY: Please refer to Bone Health Questionnaire in the EMR TECHNICAL LIMITATIONS: None RESULTS: Lumbar spine (L1, L2, L3, L4): 0.806 g/cm2, T-score -2.2, Z-score -0.1 Lumbar spine: 2019: 0.787 g/cm2 No statistically significant change Right Femoral Neck: 0.531 g/cm2, T-score -2.9, Z-score -1.1 Right Femoral Neck: 2019: 0.578 g/cm2 Statistically significant decrease Right Total Hip: 0.730 g/cm2, T-score -1.7, Z-score -0.2 Right Total Hip: 2019: 0.757 g/cm2 Statistically significant decrease Left Femoral Neck: 0.546 g/cm2, T-score -2.7, Z-score -0.9 Left Femoral Neck: 2019: 0.589 g/cm2 Statistically significant decrease Left Total Hip: 0.724 g/cm2, T-score -1.8, Z-score -0.3 Left Total Hip: 2019: 0.716 g/cm2 No statistically significant change CHANGE IS STATISTICALLY SIGNIFICANT IN THE SPINE OR HIP IF GREATER THAN OR EQUAL TO 0.04 g/cm2 VERTEBRAL FRACTURE ASSESSMENT Not performed. TRABECULAR BONE ASSESSMENT TBS score: 1.046 Bone micro-architecture: Degraded (< or = 1.230) IMPRESSION IMPRESSION: THE LOWEST T-SCORE IS -2.9 IN THE RIGHT HIP 1) DIAGNOSIS (based on BMD alone): OSTEOPOROSIS Caution: Medical conditions other than osteoporosis may cause low bone density, such as osteomalacia or renal osteodystrophy. Clinical correlation is necessary. 2) FRACTURE RISK (Based on TBS adjusted FRAX): 10-year absolute fracture risk: - major osteoporotic fracture = 44 % - hip fracture = 18 % - A diagnosis of Osteoporosis, a 10 year probability of hip fracture greater than or equal to 3% or a 10 year probability of any major osteoporosis-related fracture greater than or equal to 20% should be considered for treatment. - DXA scanner generated FRAX calculations may slightly differ from online FRAX calculations due to differences in software versions. - All recommendations and calculations are to be considered as guidelines and should not replace sound clinical judgement - Caution: Fracture risk may be increased independent of BMD in patients with corticosteroid use, age greater than 65 years, or a history of prior fragility fracture. RECOMMENDATIONS: Follow-up in 2 years or as clinically indicated. Patients that are taking corticosteroids, are transplant recipients or have hyperparathyroidism should have annual follow-up. Follow-up scans should always be done on the same machine for accurate comparison. FOR MORE INFORMATION ABOUT DIAGNOSIS AND TREATMENT: [facility] Osteoporosis and Metabolic Bone Disease:? [email or web address].org/arthritis /osteo National Osteoporosis Foundation:? www.nof.org International Society of Clinical Densitometry www.iscd.org Physical Chemistry Teacher: SVEN Transcribe Date/Time: May 13 2024 3:32P Dictated by : CALIXTO JOHNSON MD This examination was interpreted and the report reviewed and electronically signed by: CALIXTO JOHNSON MD on May 13 2024 3:38PM [facility] InformationOrdered By: Cc Provider on 05-13-2024 LOWEST T-SCORE -2.9 [facility] No Panel Informationon 05-13 IMPRESSION: THE LOWEST T-SCORE IS -2.9 IN THE RIGHT HIP 1) DIAGNOSIS (based on BMD alone): OSTEOPOROSIS Caution: Medical conditions other than osteoporosis may cause low bone density, such as osteomalacia or renal osteodystrophy. Clinical correlation is necessary. 2) FRACTURE RISK (Based on TBS adjusted FRAX): 10-year absolute fracture risk: - major osteoporotic fracture = 44 % - hip fracture = 18 % - A diagnosis of Osteoporosis, a 10 year probability of hip fracture greater than or equal to 3% or a 10 year probability of any major osteoporosis-related fracture greater than or equal to 20% should be considered for treatment. - DXA scanner generated FRAX calculations may slightly differ from online FRAX calculations due to differences in software versions. - All recommendations and calculations are to be considered as guidelines and should not replace sound clinical judgement - Caution: Fracture risk may be increased independent of BMD in patients with corticosteroid use, age greater than 65 years, or a history of prior fragility fracture. RECOMMENDATIONS: Follow-up in 2 years or as clinically indicated. Patients that are taking corticosteroids, are transplant recipients or have hyperparathyroidism should have annual follow-up. Follow-up scans should always be done on the same machine for accurate comparison. FOR MORE INFORMATION ABOUT DIAGNOSIS AND TREATMENT: [facility] Osteoporosis and Metabolic Bone Disease:? www.ccf.org/arthritis /osteo National Osteoporosis Foundation:? www.nof.org International Society of Clinical Densitometry www.iscd.org Physical Chemistry Teacher: SVEN Transcribe Date/Time: May 13 2024 3:32P Dictated by : CALIXTO JOHNSON MD This examination was interpreted and the report reviewed and electronically signed by: CALIXTO JOHNSON MD on May 13 2024 3:38PM [facility] DIVISION OF RADIOLOGY BD DXA - AXIAL SKELETONon BD DXA - AXIAL SKELETON * * *Final Report* * * DATE OF EXAM: May 12 2024 9:30AM TRUE 0804 - BD DXA - AXIAL SKELETON / PROCEDURE REASON: multiple diagnoses * * * * Physician Interpretation * * * * EXAMINATION: DXA BONE DENSITOMETRY BD DXA - AXIAL SKELETON, BD DXA TRABECLR BONE SCORE (TBS) PATIENT DEMOGRAPHICS: Age: 68 years, Gender: Female SCANNER INFORMATION: DXA Model: [employer] - [employer] C [id number] Date Scanned: 05/12/2024 9:30 AM CLINICAL HISTORY: DIAGNOSTIC Encounter for screening for osteoporosis Osteopenia, senile Other specified disorders of bone density and structure, multiple sites . RISK FACTORS FOR OSTEOPOROSIS AND ASSOCIATED FRACTURES REPORTED BY THIS PATIENT: Please refer to Bone Health Questionnaire in the EMR CURRENT THERAPY: Please refer to Bone Health Questionnaire in the EMR TECHNICAL LIMITATIONS: None RESULTS: Lumbar spine (L1, L2, L3, L4): 0.806 g/cm2, T-score -2.2, Z-score -0.1 Lumbar spine: 2019: 0.787 g/cm2 No statistically significant change Right Femoral Neck: 0.531 g/cm2, T-score -2.9, Z-score -1.1 Right Femoral Neck: 2019: 0.578 g/cm2 Statistically significant decrease Right Total Hip: 0.730 g/cm2, T-score -1.7, Z-score -0.2 Right Total Hip: 2019: 0.757 g/cm2 Statistically significant decrease Left Femoral Neck: 0.546 g/cm2, T-score -2.7, Z-score -0.9 Left Femoral Neck: 2019: 0.589 g/cm2 Statistically significant decrease Left Total Hip: 0.724 g/cm2, T-score -1.8, Z-score -0.3 Left Total Hip: 2019: 0.716 g/cm2 No statistically significant change CHANGE IS STATISTICALLY SIGNIFICANT IN THE SPINE OR HIP IF GREATER THAN OR EQUAL TO 0.04 g/cm2 VERTEBRAL FRACTURE ASSESSMENT Not performed. TRABECULAR BONE ASSESSMENT TBS score: 1.046 Bone micro-architecture: Degraded (< or = 1.230) IMPRESSION: THE LOWEST T-SCORE IS -2.9 IN THE RIGHT HIP 1) DIAGNOSIS (based on BMD alone): OSTEOPOROSIS Caution: Medical conditions other than osteoporosis may cause low bone density, such as osteomalacia or renal osteodystrophy. Clinical correlation is necessary. 2) FRACTURE RISK (Based on TBS adjusted FRAX): 10-year absolute fracture risk: - major osteoporotic fracture = 44 % - hip fracture = 18 % - A diagnosis of Osteoporosis, a 10 year probability of hip fracture greater than or equal to 3% or a 10 year probability of any major osteoporosis-related fracture greater than or equal to 20% should be considered for treatment. - DXA scanner generated FRAX calculations may slightly differ from online FRAX calculations due to differences in software versions. - All recommendations and calculations are to be considered as guidelines and should not replace sound clinical judgement - Caution: Fracture risk may be increased independent of BMD in patients with corticosteroid use, age greater than 65 years, or a history of prior fragility fracture. RECOMMENDATIONS: Follow-up in 2 years or as clinically indicated. Patients that are taking corticosteroids, are transplant recipients or have hyperparathyroidism should have annual follow-up. Follow-up scans should always be done on the same machine for accurate comparison. FOR MORE INFORMATION ABOUT DIAGNOSIS AND TREATMENT: [facility]oporosis and Metabolic Bone Disease:? www.ccf.org/arthritis /osteo National Osteoporosis Foundation:? www.nof.org International Society of Clinical Densitometry www.iscd.org Physical Chemistry Teacher: SVEN Transcribe Date/Time: May 13 2024 3:32P Dictated by : CALIXTO JOHNSON MD This examination was interpreted and the report reviewed and electronically signed by: CALIXTO JOHNSON MD on May 13 2024 3:38PM EST [id number] N -2.9 Normal [facility] BD DXA TRABECLR BONE SCORE ( TBS)on 05-12-2024 BD DXA TRABECLR BONE SCORE (TBS) * * *Final Report* * * DATE OF EXAM: May 12 2024 9:30AM WRB [id number] - BD DXA TRABECLR BONE SCORE (TBS) / PROCEDURE REASON: multiple diagnoses * * * * Physician Interpretation * * * * EXAMINATION: DXA BONE DENSITOMETRY BD DXA - AXIAL SKELETON, BD DXA TRABECLR BONE SCORE (TBS) PATIENT DEMOGRAPHICS: Age: 68 years, Gender: Female SCANNER INFORMATION: DXA Model: [employer] - [place] C [id number] Date Scanned: 05/12/2024 9:30 AM CLINICAL HISTORY: DIAGNOSTIC Encounter for screening for osteoporosis Osteopenia, senile Other specified disorders of bone density and structure, multiple sites . RISK FACTORS FOR OSTEOPOROSIS AND ASSOCIATED FRACTURES REPORTED BY THIS PATIENT: Please refer to Bone Health Questionnaire in the EMR CURRENT THERAPY: Please refer to Bone Health Questionnaire in the EMR TECHNICAL LIMITATIONS: None RESULTS: Lumbar spine (L1, L2, L3, L4): 0.806 g/cm2, T-score -2.2, Z-score -0.1 Lumbar spine: 2019: 0.787 g/cm2 No statistically significant change Right Femoral Neck: 0.531 g/cm2, T-score -2.9, Z-score -1.1 Right Femoral Neck: 2019: 0.578 g/cm2 Statistically significant decrease Right Total Hip: 0.730 g/cm2, T-score -1.7, Z-score -0.2 Right Total Hip: 2019: 0.757 g/cm2 Statistically significant decrease Left Femoral Neck: 0.546 g/cm2, T-score -2.7, Z-score -0.9 Left Femoral Neck: 2019: 0.589 g/cm2 Statistically significant decrease Left Total Hip: 0.724 g/cm2, T-score -1.8, Z-score -0.3 Left Total Hip: 2019: 0.716 g/cm2 No statistically significant change CHANGE IS STATISTICALLY SIGNIFICANT IN THE SPINE OR HIP IF GREATER THAN OR EQUAL TO 0.04 g/cm2 VERTEBRAL FRACTURE ASSESSMENT Not performed. TRABECULAR BONE ASSESSMENT TBS score: 1.046 Bone micro-architecture: Degraded (< or = 1.230) IMPRESSION: THE LOWEST T-SCORE IS -2.9 IN THE RIGHT HIP 1) DIAGNOSIS (based on BMD alone): OSTEOPOROSIS Caution: Medical conditions other than osteoporosis may cause low bone density, such as osteomalacia or renal osteodystrophy. Clinical correlation is necessary. 2) FRACTURE RISK (Based on TBS adjusted FRAX): 10-year absolute fracture risk: - major osteoporotic fracture = 44 % - hip fracture = 18 % - A diagnosis of Osteoporosis, a 10 year probability of hip fracture greater than or equal to 3% or a 10 year probability of any major osteoporosis-related fracture greater than or equal to 20% should be considered for treatment. - DXA scanner generated FRAX calculations may slightly differ from online FRAX calculations due to differences in software versions. - All recommendations and calculations are to be considered as guidelines and should not replace sound clinical judgement - Caution: Fracture risk may be increased independent of BMD in patients with corticosteroid use, age greater than 65 years, or a history of prior fragility fracture. RECOMMENDATIONS: Follow-up in 2 years or as clinically indicated. Patients that are taking corticosteroids, are transplant recipients or have hyperparathyroidism should have annual follow-up. Follow-up scans should always be done on the same machine for accurate comparison. FOR MORE INFORMATION ABOUT DIAGNOSIS AND TREATMENT: [facility] Osteoporosis and Metabolic Bone Disease:? www.ccf.org/arthritis /osteo National Osteoporosis Foundation:? www.nof.org International Society of Clinical Densitometry www.iscd.org Physical Chemistry Teacher: SVEN Transcribe Date/Time: May 13 2024 3:32P Dictated by : CALIXTO JOHNSON MD This examination was interpreted and the report reviewed and electronically signed by: CALIXTO JOHNSON MD on May 13 2024 3:38PM EST [id number] N -2.9 Normal [facility] No Panel Informationon 05-12 Radiology Study observation (narrative) [facility] CNPNon 03-10-2024 CNPN Telephone (FAMPWS) EMMIE WILLARD ([id number]) 1955 F Date Time Provider Department 03/10/24 [facility] During your visit today, we recorded the following information about you: Essence Lugo RN 03/10/2024 12:44 PM Signed Patient requesting recent dermatology referral information to be faxed again to [facility]. Faxed as requested. Essence Lugo RN Allergies As of Date: 03/10/2024 Noted Allergy Reaction ACETAMINOPHEN 10/07/2013 4 - Hives ASA (SALICYLATES) 05/01/2005 5 - Intolerance Comments: Tolerates 81 mg, not 325 mg DILAUDID (HYDROMORPHONE) 06/20/2011 4 - Hives KEFLEX (CEPHALEXIN) 09/26/2020 2 - Rash LEVAQUIN (LEVOFLOXACIN) 08/06/2020 8 - GI Upset OXYCODONE 06/20/2011 4 - Hives Date Reviewed: 01/27/2024 Reviewed by: Jade Dimas APRN.LITERARY AGENT - Fully Assessed Reason for Visit: Fax Request [Other] Prescriptions as of 03/10/2024 - scopolamine (TRANSDERM-SCOP) patch 1.5 mg/72 hr (delivers 1 mg over 3 days) Apply 1 Patch as directed every 72 hours. Apply patch to skin behind ear 4hrs prior to travel. - ketoconazole (NIZORAL) 2 % shampoo Apply to affected area once daily. - atorvastatin (LIPITOR) 10 mg tablet Take 1 tablet by mouth daily at bedtime. For cholesterol. - amitriptyline (ELAVIL) 25 mg tablet Take 1 tablet by mouth daily at bedtime. - benzonatate (TESSALON PERLES) 100 mg capsule Take 2 capsules by mouth three times daily as needed. - Brompheniramine-Pseud oeph-DM (BROMFED DM) 2-30-10 mg/5 mL syrup Take 5 mL by mouth four times daily as needed. - pantoprazole DR (PROTONIX) 40 mg tablet Take 1 tablet by mouth once daily. - lactulose 10 gram/15 mL (15 mL) soln Take 30 mL by mouth once daily. or as needed. - Flaxseed Oil oil TWICE A DAY - melatonin 10 mg cap BEDTIME PRN For Sleep - venlafaxine ER (EFFEXOR XR) 75 mg 24 hr capsule Take 150 mg by mouth once daily. - Magnesium Oxide 500 mg tab Take 500 mg by mouth once daily. - B COMPLEX WITH VITAMIN C (VITAMIN B COMPLEX-C ORAL) Take by mouth. - CHOLECALCIFEROL (VITAMIN D3) 1,000 UNIT CAP Take one(1) tablet daily. - HERBAL DRUGS CAP Enzyme solutions formula 30 takes 4-5 daily - HERBAL DRUGS CAP Colon Buster 400mg twice daily - ca carbonate/vitamin d3/vit k(VIACTIV 500 MG-100 UNIT-40 MCG CHEWABLE TAB) Chews 2 daily - loteprednol etabonate(ALREX 0.2 % EYE DROPS) 1 or 2 drops in each eye daily as necessary Problem List As Of Date 03/10/2024 Noted Resolved PERSISTENT INSOMNIA [G47.00] 02/05/2006 BONE AND CARTILAGE DIS NOS [M89.9, M94.9] 02/05/2006 VENOUS INSUFFICIENCY [I87.2] 02/23/2006 ANXIETY STATE NOS [F41.1] 02/23/2006 CONSTIPATION NOS [K59.00] INT HEMORRHOID W/O COMPL [K64.8] CERVICALGIA [M54.2] 09/23/2006 BACKACHE NOS [M54.9] 09/23/2006 Fibromyalgia [M79.7] 03/19/2010 Atypical lobular hyperplasia of right breast [N*03/15/2015 IBS (irritable bowel syndrome) [K58.9] Irritable bowel syndrome with both constipation*10/23/19 17 Post menopausal problems [N95.9] 10/22/2016 Globus sensation [R09.A2] 05/31/2018 Hyperglycemia [R73.9] 04/30/2022 Dyslipidemia [E78.5] 04/30/2022 Vitamin D deficiency [E55.9] 04/30/2022 Borderline abnormal thyroid function test [R94.*04/30/2022 Anemia [D64.9] 04/30/2022 Encounter Status:Closed by ESSENCE LUGO on 03/10/24 [facility] 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 [address] [place] [address] OFFICE VISIT Date of Service: 03/08/24 MR#: [id number] Acct: [id number] Name: EMMIE WILLARD Rep #: [id number] : 1955 Provider: JESSENIA esquivel Age/Sex: 68/F Location: 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 Required: No Is patient in pain?: No Allergies cephalexin Allergy (Intermediate, Verified 03/08/24 15:18) Hives acetaminophen (From Tylenol) Allergy (Mild, Verified 03/08/24 15:18) Hives hydromorphone (From Dilaudid) Allergy (Mild, Verified 03/08/24 15:18) Hives oxycodone Allergy (Mild, Verified 03/08/24 15:18) Hives Medications ???Medication ???Instructions ???Recorded ???Confirmed ???Type calcium carbonate (Calcium 500) 500 mg PO BID 08/26/17 03/08/24 History cholecalciferol (vitamin D3) 25 2,000 unit PO DAILY 08/26/17 03/08/24 History mcg (1,000 unit) capsule flaxseed oil 1,000 mg capsule 1,000 mg PO BID 09/15/18 03/08/24 History cotton seed oil PO 11/06/20 03/08/24 History biotin 5 mg capsule 100 mg PO DAILY 12/19/21 03/08/24 History famotidine 20 mg tablet (Pepcid) 20 mg PO DAILY PRN 12/19/21 03/08/24 History pantoprazole 20 mg tablet,delayed 20 mg PO DAILY 12/19/21 03/08/24 History release venlafaxine 75 mg capsule,extended 150 mg PO DAILY 12/19/21 03/08/24 History release 24 hr (Effexor XR) benzonatate 100 mg capsule 200 mg (2 x 100 mg) PO TID PRN 01/22/23 03/08/24 Rx cough #30 caps levofloxacin 500 mg tablet 500 mg PO DAILY #10 tabs 01/27/23 03/08/24 Rx amitriptyline 50 mg tablet 50 mg PO QHS #90 tabs 02/08/24 03/08/24 Rx Is last menstrual period known: No Post menopausal: Yes Patient : No : No PFSH Medical History h/o covid vaccine h/o bauer virus squamous cell Osteopenia IBS (irritable bowel syndrome) gastrointestinal Fibromyalgia bone fractures Surgical History History of lumpectomy of right breast H/O hemorrhoidectomy cholecystectomy History of hysterectomy Calcaneus fracture Family History Father Heart disease Mother Heart disease Osteoporosis Sister Heart disease Social History Smoking Status: Never smoker alcohol intake: never substance use type: does not use caffeine: No what type of physical activity do you participate in: none, walking and weight training frequency: 3-4 times per week seatbelt use: always do you feel safe at home: Yes additional social history: -Jose Patient and are both retired History 3 Elective abortions Hx Para 3 Spontaneous abortions Hx # Term Pregnancies Ectopic pregnancies Hx # Pregnancies Multiple births # of living children Past Pregnancies Del. Date Name GA/Weeks Outcome Route Bth Weight Gen Labor Lgth Anesthesia Del Locatn Provider FOB Unknown 1975 Angelica Unknown 1978 Laureano Unknown 1983 Janell HPI Encounter for routine gynecological examination Details: EMMIE WILLARD is a 68 year old who presents for annual exam. Denies concerns. Declines breast exam today as goes to [place] tomorrow for oncology follow up and will get exam and mammogram. Last PAP: hyst History of abnormal PAP: no Last mammogram: [facility]-sees them tomorrow. History of abnormal mammogram: 2015 R breast CA Colon cancer screenin:polyp. Needs repeat 3 year Other preventative health care screenings: James SANCHEZ Const Constitutional: Denies fatigue, weight gain or weight loss Cardio Card: Denies chest pain Resp Resp: Denies cough or dyspnea on exertion GI GI: Denies abdominal pain, bloating, change in stool character, constipation or vomiting : Reports as per HPI; Denies difficulty voiding, pelvic pain, urinary frequency, urinary incontinence, urinary urgency, vaginal discharge or vaginal pruritus Exam Const General: cooperative, healthy appearing, no acute distress and well developed Orientation: alert, oriented to person and oriented to place HENIN Head: normal to inspection Neck Neck: normal visual inspection Thyroid: thyroid normal Lymphatic: no lymphadenopathy noted Resp Effort Inspection: normal respiratory effort GI Palpation: soft, no masses and nontender Rectal Exam: deferred External Female Exam: normal external appearance and normal appearance of the ur (more content not included)... Normal [facility] CNOVon 01-27-2024 CNOV Office Visit (FAMPWS ) EMMIE WILLARD ([id number]) 1955 F Date Time Provider Department 01/27/24 9:20 AM JADE DIMAS During your visit today, we recorded the following information about you: Pulse Respiration Blood pressure Weight 80/minute 16/minute 118/78 69.5 kg Jade Dimas APRN.LITERARY AGENT 01/27/2024 12:12 PM Signed Chief Complaint Patient presents with: itchy scalp: Dermatology was not helpful; sister dx with Lichen planus HPI Emmie Willard is a 68 year old female who presents here today for Above Complaints. Itchy scalp x several years. Sees Dr. Buchanan dermatology regularly and he doesn't see anything on her scalp that would cause itchiness and has never treated it. Denies flaking or any drainage. Has never been able to visualize a rash. Itches all the time, sometimes worse than others. Does get shocking pains into her right forehead. Has been going on for a few years. Going on a cruise in February, requesting medication to help with motion sickness. Past medical history, appointments, medications, allergies reviewed. Previous Medical History PAST MEDICAL HISTORY Diagnosis Date Advance care planning 04/29/2022 Jose can help if needed in future with medical decision making Chronic idiopathic constipation Diffuse cystic mastopathy Disorder of bone and cartilage, unspecified Fibromyalgia Fracture of right calcaneus 2010 IBS (irritable bowel syndrome) Internal hemorrhoids without mention of complication Nondisp fx of left radial styloid process, init for clos fx 05/09/2020 [facility] 05/09/2020 PM - PAST MEDICAL HISTORY OF eye [place] Skin cancer 06/06/2019 Left lower leg Squaumous cell Unspecified hemorrhoids without mention of complication Varicose veins of other sites Previous Surgical History PAST SURGICAL HISTORY Procedure Laterality Date COLONOSCOPY FLX DX W/COLLJ SPEC WHEN PFRMD 06/19/06 COLONOSCOPY FLX DX W/COLLJ SPEC WHEN PFRMD 07/07/2016 Colonoscopy HEMORRHOIDECTOMY NTRNL AND XTRNL 1 COLUMN/GROUP 06/29/98 PAST SURGICAL HISTORY OF 1993 CRYOTHERAPY / CERVIX PAST SURGICAL HISTORY OF Right 2011 shattered heel- Dr Wilman Campo- [place], [place] TOTAL ABDOMINAL HYSTERECT W/WO RMVL TUBE OVARY 05/27 Hysterectomy, KELSI AND BLADDER REPAIR Family History FAMILY HISTORY Problem Relation Age of Onset Osteoporosis Mother Hypertension Mother Arthritis Mother Lipids Mother High Cholesterol Heart Mother other (hypertrophic cardiomyopathy w/obstructive heart disease) Mother GI problems Hypertension Father Heart Father [place] Osteoporosis Sister GI problems Hypertension Sister other (Sjorns Disease) Sister Patient Allergies ALLERGIES Allergen Reactions Acetaminophen Hives Asa [Salicylates] Intolerance Tolerates 81 mg, not 325 mg Dilaudid [Hydromorp* Hives Keflex [Cephalexin] Rash Levaquin [Levofloxa* GI Upset Oxycodone Hives Current Medications Current Outpatient Medications on File Prior to Visit Medication Sig atorvastatin (LIPITOR) 10 mg tablet Take 1 tablet by mouth daily at bedtime. For cholesterol. amitriptyline (ELAVIL) 25 mg tablet Take 1 tablet by mouth daily at bedtime. pantoprazole DR (PROTONIX) 40 mg tablet Take 1 tablet by mouth once daily. Flaxseed Oil oil TWICE A DAY melatonin 10 mg cap BEDTIME PRN For Sleep venlafaxine ER (EFFEXOR XR) 75 mg 24 hr capsule Take 150 mg by mouth once daily. Magnesium Oxide 500 mg tab Take 500 mg by mouth once daily. B COMPLEX WITH VITAMIN C (VITAMIN B COMPLEX-C ORAL) Take by mouth. CHOLECALCIFEROL (VITAMIN D3) 1,000 UNIT CAP Take one(1) tablet daily. HERBAL DRUGS CAP Enzyme solutions formula 30 takes 4-5 daily ca carbonate/vitamin d3/vit k(VIACTIV 500 MG-100 UNIT-40 MCG CHEWABLE TAB) Chews 2 daily benzonatate (TESSALON PERLES) 100 mg capsule Take 2 capsules by mouth three times daily as needed. Brompheniramine-Pseud oeph-DM (BROMFED DM) 2-30-10 mg/5 mL syrup Take 5 mL by mouth four times daily as needed. lactulose 10 gram/15 mL (15 mL) soln Take 30 mL by mouth once daily. or as needed. HERBAL DRUGS CAP Colon Buster 400mg twice daily loteprednol etabonate(ALREX 0.2 % EYE DROPS) 1 or 2 drops in each eye daily as necessary No current facility-administered medications on file prior to visit. Social History Social History Tobacco Use Smoking status: Never Smokeless tobacco: Never Vaping Use Vaping Use: Never used Substance Use Topics Alcohol use: No Drug use: No Review of Symptoms REVIEW OF SYSTEMS See HPI, otherwise negative EXAM: BP 118/78 Pulse 80 Resp 16 Wt 69.5 kg (153 lb 3.2 oz) BMI 25.68 kg/m? General Appearance: Well appearing, alert, in no acute distress, well-hydrated, well nourished.. Skin: Skin color, texture, turgor normal, no suspicious rashes or lesions. Heart: RRR without murmur, gallop, or rubs. No ectop (more content not included)... Normal [facility] PT D/C Summary (1)on 023 PT D/C Summary (1) [facility] Physical Therapy [facility] [address] [place] [address] / REHABILITATION SERVICES DISCHARGE SUMMARY MR#: [id number] Acct: [id number] Name: EMMIE WILLARD Rep #: [id number] : 1955 67 From: Shannon Sharif PT, Cert. MDT Referring DrYolanda: Status: REG RCR Insurance: MEDICARE PART A B [facility] Discharge Summary D/C summary: It has been my pleasure to treat EMMIE WILLARD referred by BENJAMIN ALAN, with the diagnosis of S/P R SHLD BICEPS TENOTOMY, RTC REPAR AND SAD 12/04/22 for a total of 25 visit(s). Discharge Date: 04/14/23 Please see the following information for a summary of their discharge status. Subjective Subjective: PATIENT REPORTS SHE IS DOING HER NORMAL CLEANING AND EVERYTHING SHE DID BEFORE. I DON'T REALLY HAVE ANY LIMITATIONS. Pain R shoulder/arm: Pain Intensity (Out of 10): 0 Overall Improvement % Improvement: 98 Objective Objective/Function: PATIENT WAS SEEN TODAY FOR RE-ASSESSMENT OF PROGRESS TOWARD THE SET PT GOALS AND THE NEED FOR FURTHER PHYSICAL THERAPY VS READINESS FOR DISCHARGE. ALL GOALS HAVE BEEN MET AND PATIENT IS APPROPRIATE FOR DISCHARGE. PATIENT IS AGREEABLE. UPON EXAM TODAY: PROM R SHLD IN SUPINE: FLEXION 170 DEG, ABD 152 DEG, (90 DEG ABD):ER 90 DEG AND IR 76 DEG. AROM R SHLD IN STANDING: FLEX 152 DEG, ABD 148 DEG. Goals Goal 1:: DECREASE C/O RIGHT SHLD PAIN Goal Progress: Goal Met Goal 2:: INCREASE R SHLD FUNCTION ROM TO EASE ADL'S PER PROTOCOL Goal Progress: Goal Met Goal 3:: IMPROVE R UE FUNCTIONAL STRENGTH TO EASE ADL'S PER PROTOCOL Goal Progress: Goal Met Goal 4:: PATIENT WILL BE INDEP WITH A HEP FOR CONTINUED IMPROVEMENT ONCE FORMAL PHYSICAL THERAPY CONCLUDES. Goal Progress: Goal Met Plan Plan: D/C TO INDEP HEP. PATINET IS AGREEABLE. D/C Information d/c sentence: If there are questions or concerns regarding this patient's physical therapy, please feel free to call me at [phone]. Thank you for the referral of this patient. Sincerely, Shannon Sharif, PT, Cert MDT Balance/Gait/Function al tests Balance/Special Test Scores Quick DASH Score: 4.5450 04/14/23 1250 CC: Dr. Robert Ramirez, DO; BENJAMIN ALAN JANIE Signed Normal [facility] Re-Evaluation - PT (1)on Re-Evaluation - PT (1) [facility] Physical Therapy [facility] [address] [place] [address]. [address] [place] [address] / REEVALUATION / MEDICARE RECERTIFICATION PHYSICAL THERAPY MR#: [id number] Acct: [id number] Name: EMMIE WILLARD Rep #: [id number] : 1955 67 From: Shannon Sharif PT, Cert. MDT Referring : Status:REG RCR Insurance: MEDICARE PART A B [facility] Re-Evaluation Intro: BENJAMIN ALAN, It has been my pleasure to treat EMMIE WILLARD over the last 25 visits for S/P R SHLD BICEPS TENOTOMY, RTC REPAR AND SAD 12/04/22. Please see the progress note below for an update on the physical therapy plan of care! Subjective Subjective: PATIENT REPORTS SHE IS DOING HER NORMAL CLEANING AND EVERYTHING SHE DID BEFORE. I DON'T REALLY HAVE ANY LIMITATIONS. Objective Objective/Function: PATIENT WAS SEEN TODAY FOR RE-ASSESSMENT OF PROGRESS TOWARD THE SET PT GOALS AND THE NEED FOR FURTHER PHYSICAL THERAPY VS READINESS FOR DISCHARGE. ALL GOALS HAVE BEEN MET AND PATIENT IS APPROPRIATE FOR DISCHARGE. PATIENT IS AGREEABLE. UPON EXAM TODAY: PROM R SHLD IN SUPINE: FLEXION 170 DEG, ABD 152 DEG, (90 DEG ABD):ER 90 DEG AND IR 76 DEG. AROM R SHLD IN STANDING: FLEX 152 DEG, ABD 148 DEG. Plan Plan Plan: D/C TO INDEP HEP. FIDELIA IS AGREEABLE. Balance/Gait/Function al tests Balance/Special Test Scores Quick DASH Score: 4.5450 Goals Goals Goal 1:: DECREASE C/O RIGHT SHLD PAIN Goal Time Frame: 6-8 Weeks Goal Progress: Goal Met Goal 2:: INCREASE R SHLD FUNCTION ROM TO EASE ADL'S PER PROTOCOL Goal Time Frame: 6-8 Weeks Goal Progress: Goal Met Goal 3:: IMPROVE R UE FUNCTIONAL STRENGTH TO EASE ADL'S PER PROTOCOL Goal Time Frame: 6-8 Weeks Goal Progress: Goal Met Goal 4:: PATIENT WILL BE INDEP WITH A HEP FOR CONTINUED IMPROVEMENT ONCE FORMAL PHYSICAL THERAPY CONCLUDES. Goal Time Frame: 6-8 Weeks Goal Progress: Goal Met Anticipated Interventions Anticipated Interventions Patient/Client Instruction: Educate patient on: Condition, Plan of Care and Risk Factors For the Purpose of:: To improve self management Therapeutic Exercise to Include: Strength training, Body mechanics, Postural training, Flexibilty training, Neuromotor development, Passive ROM, Active ROM and Scapular Strength/Stabilizatio n For the Purpose of:: To decrease pain, To increase ROM, To improve muscle performance and motor function, To increase tolerance to activity/condition/po sition and To improve ability of physical actions for home/community/work/l eisure Cryotherapy (ice pack, ice massage): Yes Thermo therapy (hot pack): Yes For the Purpose of:: To decrease pain and To improve nutrient delivery to tissue Re-Evaluation Ending Re-evaluation ending: Please do not hesitate to contact me at [phone] by phone or if you have questions or concerns regarding this new plan of care! Sincerely, Shannon Sharif, PT, Cert MDT 04/14/23 1125 CC: Dr. Robert Ramirez, DO; BENJAMIN ALAN AJNIE Signed For Medicare only, by signing this I certify the plan of care. Physicians Signature Date Normal [facility] Basic metabolic 2000 panelon 10-31-2022 Anion gap [Moles/Vol] 11 mmol/L Normal 5-16 [facility] Comment on above: Order Comment: Speci men Type: BLOOD SPECIMEN Ordering Facility: [facility] Address: [address] [place] [address] Performed By: #### 2 4321-2 #### [facility] CLIA [id number] [address] [place] [address] [place] Calcium [Mass/Vol] 10.2 mg/dL Normal 8.5-10.5 [facility] Comment on above: Order Comment: Speci men Type: BLOOD SPECIMEN Ordering Facility: [facility] Address: [address] [place] [address] Performed By: #### 2 4321-2 #### [facility] CLIA [id number] [address] [place] [address] [place] Chloride [Moles/Vol] 104 mmol/L Normal 98-107 [facility] Comment on above: Order Comment: Speci men Type: BLOOD SPECIMEN Ordering Facility: [facility] Address: [address] [place] [address] Performed By: #### 2 4321-2 #### [facility] CLIA [id number] [address] [place] [address] [place] CO2 [Moles/Vol] 26 mmol/L Normal 21-32 [facility] Comment on above: Order Comment: Speci men Type: BLOOD SPECIMEN Ordering Facility: [facility] Address: [address] [place] [address] Performed By: #### 2 4321-2 #### [facility] CLIA [id number] [address] [place] [address] [place] Creatinine [Mass/Vol] 0.83 mg/dL Normal 0.51-0.95 [facility] Comment on above: Order Comment: Speci men Type: BLOOD SPECIMEN Ordering Facility: [facility] Address: [address] [place] [address] Result Comment: Ekaterina ents receiving either N-Acetylcysteine (NAC) or Metamizole prior to venipuncture, may have falsely depressed results. Performed By: #### 2 4321-2 #### [facility] CLIA [id number] [address] [place] [address] [place] ESTIMATED GLOMERULAR FILTRATION RATE 77 mL/min/1.73m??? Normal >=60 [facility] Comment on above: Order Comment: Sushma abbott Type: BLOOD SPECIMEN Ordering Facility: [facility] Address: [address] [place] [address] Result Comment: Yaz mated Glomerular Filtration Rate (eGFR) is calculated using the 2020 CKD-EPI creatinine equation. This equation utilizes serum creatinine, sex, and age as parameters. The creatinine assay has traceable calibration to isotope dilution-mass spectrometry. Refer to KDIGO guidelines for clinical interpretation. In patients with unstable renal function, e.g. those with acute kidney injury, the eGFR may not accurately reflect actual GFR. Performed By: #### 2 4321-2 #### [facility] CLIA [id number] [address] [place] [address] [place] Glucose [Mass/Vol] 104 mg/dL High 70-100 [facility] Comment on above: Order Comment: Sushma abbott Type: BLOOD SPECIMEN Ordering Facility: [facility] Address: [address] [place] [address] Result Comment: The [place] [employer] (ADA) provides guidance for cutoff values for fasting glucose and random glucose. The ADA defines fasting as no caloric intake for at least 8 hours. Fasting plasma glucose results between 100 to 125 mg/dL indicate increased risk for diabetes (prediabetes). Fasting plasma glucose results greater than or equal to 126 mg/dL meet the criteria for diagnosis of diabetes. In the absence of unequivocal hyperglycemia, results should be confirmed by repeat testing. In a patient with classic symptoms of hyperglycemia or hyperglycemic crisis, random plasma glucose results greater than or equal to 200 mg/dL meet the criteria for diagnosis of diabetes. Reference: Standards of Medical Care in Diabetes 2016, [place] [employer]. Diabetes Care. 2016.39(Suppl 1). Results may be falsely elevated after the administration of Sulfapyridine. Results may be falsely depressed after the administration of Sulfasalazine. Performed By: #### 2 4321-2 #### [facility] CLIA [id number] [address] [place] [address] [place] Potassium [Moles/Vol] 4.6 mmol/L Normal 3.5-5.1 [facility] Comment on above: Order Comment: Sushma abbott Type: BLOOD SPECIMEN Ordering Facility: [facility] Address: [address] [place] [address] Performed By: #### 2 4321-2 #### [facility] CLIA [id number] [address] [place] [address] [place] Sodium [Moles/Vol] 141 mmol/L Normal 136-145 [facility] Comment on above: Order Comment: Sushma abbott Type: BLOOD SPECIMEN Ordering Facility: [facility] Address: [address] [place] [address] Performed By: #### 2 4321-2 #### [facility] CLIA [id number] [address] [place] [address] [place] Urea nitrogen [Mass/Vol] 20 mg/dL Normal 7-26 [facility] Comment on above: Order Comment: Sushma abbott Type: BLOOD SPECIMEN Ordering Facility: [facility] Address: [address] [place] [address] Performed By: #### 2 4321-2 #### [facility] CLIA [id number] [address] [place] [address] STATES OF [facility] 10-31-2022 [facility] Nurse Visit (UCMNCA) EMMIE WILLARD ([id number]) 1955 F Date Time Provider Department 10/31/22 12:35 PM NURSE [facility] During your visit today, we recorded the following information about you: Makenzie Carmona MA 10/31/2022 1:18 PM Signed EKG completed. Patient tolerated well. Report being submitted to chart for review. Makenzie Carmona MA Referring Provider: BENJAMIN ALAN [[id number]] Allergies As of Date: 10/31/2022 Noted Allergy Reaction ACETAMINOPHEN 10/07/2013 4 - Hives ASA (SALICYLATES) 05/01/2005 5 - Intolerance Comments: Tolerates 81 mg, not 325 mg DILAUDID (HYDROMORPHONE) 06/20/2011 4 - Hives KEFLEX (CEPHALEXIN) 09/26/2020 2 - Rash LEVAQUIN (LEVOFLOXACIN) 08/06/2020 8 - GI Upset OXYCODONE 06/20/2011 4 - Hives Date Reviewed: 08/10/2022 Reviewed by: Greer Fonseca - Fully Assessed Reason for Visit: OP EKG [Other] Primary Visit Diagnosis:Traumatic partial tear of right biceps tendon, initial encounter [S46.211A] Other Visit Diagnoses:Impingement syndrome of right shoulder [M75.41] Right shoulder pain, unspecified chronicity [M25.511] Degeneration of intervertebral disc of mid-cervical region, unspecified spinal level [M50.320] Incomplete tear of right rotator cuff, unspecified whether traumatic [M75.111] Order(s):ECG COMPLETE [ECG01] Order #: [id number] FUTURE ECG COMPLETE [ECG01] Order #: [id number] Prescriptions as of 10/31/2022 - benzonatate (TESSALON PERLES) 100 mg capsule Take 2 capsules by mouth three times daily as needed. - atorvastatin (LIPITOR) 10 mg tablet Take 1 tablet by mouth daily at bedtime. For cholesterol. - atorvastatin (LIPITOR) 10 mg tablet Take 1 tablet by mouth daily at bedtime. For cholesterol. - Brompheniramine-Pseud oeph-DM (BROMFED DM) 2-30-10 mg/5 mL syrup Take 5 mL by mouth four times daily as needed. - pantoprazole DR (PROTONIX) 40 mg tablet Take 1 tablet by mouth once daily. - lactulose 10 gram/15 mL (15 mL) soln Take 30 mL by mouth once daily. or as needed. - Flaxseed Oil oil TWICE A DAY - melatonin 10 mg cap BEDTIME PRN For Sleep - amitriptyline (ELAVIL) 25 mg tablet Take 1 tablet by mouth daily at bedtime. - venlafaxine ER (EFFEXOR XR) 75 mg 24 hr capsule Take 150 mg by mouth once daily. - Magnesium Oxide 500 mg tab Take 500 mg by mouth once daily. - B COMPLEX WITH VITAMIN C (VITAMIN B COMPLEX-C ORAL) Take by mouth. - CHOLECALCIFEROL (VITAMIN D3) 1,000 UNIT CAP Take one(1) tablet daily. - HERBAL DRUGS CAP Enzyme solutions formula 30 takes 4-5 daily - HERBAL DRUGS CAP Colon Buster 400mg twice daily - ca carbonate/vitamin d3/vit k(VIACTIV 500 MG-100 UNIT-40 MCG CHEWABLE TAB) Chews 2 daily - loteprednol etabonate(ALREX 0.2 % EYE DROPS) 1 or 2 drops in each eye daily as necessary Problem List As Of Date 10/31/2022 Noted Resolved PERSISTENT INSOMNIA [G47.00] 02/05/2006 BONE AND CARTILAGE DIS NOS [M89.9, M94.9] 02/05/2006 VENOUS INSUFFICIENCY [I87.2] 02/23/2006 ANXIETY STATE NOS [F41.1] 02/23/2006 CONSTIPATION NOS [K59.00] INT HEMORRHOID W/O COMPL [K64.8] CERVICALGIA [M54.2] 09/23/2006 BACKACHE NOS [M54.9] 09/23/2006 Fibromyalgia [M79.7] 03/19/2010 Atypical lobular hyperplasia of right breast [N*03/15/2015 IBS (irritable bowel syndrome) [K58.9] Irritable bowel syndrome with both constipation*10/23/19 17 Post menopausal problems [N95.9] 10/22/2016 Globus sensation [R09.89] 05/31/2018 Hyperglycemia [R73.9] 04/30/2022 Dyslipidemia [E78.5] 04/30/2022 Vitamin D deficiency [E55.9] 04/30/2022 Borderline abnormal thyroid function test [R94.*04/30/2022 Anemia [D64.9] 04/30/2022 Encounter Status:Closed by MAKENZIE CARMONA on 10/31/22 [facility] [id number] 10-31-2022 ECG01 Ventricular Rate : 7 8 BPM Atrial Rate : 78 BPM P-R Interval : 146 ms QRS Duration : 80 ms Q-T Interval : 380 ms QTC Calculation(Bazett) : 433 ms Calculated P [place] : 56 degrees Calculated R [place] : -19 degrees Calculated T [place] : 47 degrees Normal sinus rhythm Normal ECG No previous ECGs available Confirmed by ESTEBAN HOPE MD ([id number]) on 10/31/2022 5:29:35 PM NAME : EMMIE WILLARD PID : [id number] : 1955 Gender : Female Race : ORD : [id number] Procedure Date : Oct 31 2022 13:16:17 Edit Date : Oct 31 2022 17:29:41 Diagnosis: Normal sinus rhythm Normal ECG No previous ECGs available Confirmed by ESTEBAN HOPE MD ([id number]) on 10/31/2022 5:29:35 PM Test Reason : HYPOCHOLESTREMIA Location : 30 : [facility] 7 Overread By : ESTEBAN HOPE MD Edited By : ESTEBAN HOPE MD Referred By : BENJAMIN ALAN Acquired by : MIGUEL [facility] MG Breast - bilateral Screen ingon 08-06-2022 IMPRESSION: No mammographic evidence of malignancy. BI-RADS: 2: Benign Recommendation: Routine mammography. Recommendation Laterality: Bilateral The current National Comprehensive Cancer Network and [place] [employer] guidelines recommend women undergo a screening mammogram every year over the age of 40 and continue mammographic screening as long as they are in good health. Screening mammography under age 40 may occur for women who are at increased risk for breast cancer. OLOGY EXAM: MAMMO SCREENIN G WITH THIERRY BILATERAL, 08/06/2022 12:22 PM CLINICAL INDICATIONS: 67-year-old female with a history of a right breast biopsy at 12:00 showing fibroadenoma with atypical lobular hyperplasia, excised 04/2015. COMPARISON: Mammogram 07/31/2021, 06/13/2020, 05/25/2019, 05/05/2018, 04/22/2017 TECHNIQUE: Synthetic 2-D MLO and CC views were obtained of the bilateral breasts. 3-D MLO and CC digital tomosynthesis images were also acquired. Computer aided detection was utilized. FINDINGS: The breasts have scattered areas of fibroglandular density. Bilateral benign appearing calcifications and masses are noted. Postsurgical changes are noted in the superior right breast. There are no suspicious masses, calcifications, or architectural distortions. RADIOLOGY Ludy Roa DO - 08/06/2022 EXAM: MAMMO SCREENING WITH THIERRY BILATERAL, 08/06/2022 12:22 PM CLINICAL INDICATIONS: 67-year-old female with a history of a right breast biopsy at 12:00 showing fibroadenoma with atypical lobular hyperplasia, excised 04/2015. COMPARISON: Mammogram 07/31/2021, 06/13/2020, 05/25/2019, 05/05/2018, 04/22/2017 TECHNIQUE: Synthetic 2-D MLO and CC views were obtained of the bilateral breasts. 3-D MLO and CC digital tomosynthesis images were also acquired. Computer aided detection was utilized. FINDINGS: The breasts have scattered areas of fibroglandular density. Bilateral benign appearing calcifications and masses are noted. Postsurgical changes are noted in the superior right breast. There are no suspicious masses, calcifications, or architectural distortions. IMPRESSION IMPRESSION: No mammographic evidence of malignancy. BI-RADS: 2: Benign Recommendation: Routine mammography. Recommendation Laterality: Bilateral The current National Comprehensive Cancer Network and [place] [employer] guidelines recommend women undergo a screening mammogram every year over the age of 40 and continue mammographic screening as long as they are in good health. Screening mammography under age 40 may occur for women who are at increased risk for breast cancer. [facility] Radiology Study observation (narrative) [facility] MG Breast - bilateral Screen ingOrdered By: Ludy Roa on 08-06-2022 [facility] Work Phone: XR CHEST 2V FRONTAL/LATon [facility] XR Chest PA and Lateralon IMPRESSION: No acute radiographic abnormality. Physical Chemistry Teacher: SVEN Transcribe Date/Time: Jan 31 2022 12:07P Dictated by : CHAVA MCPHERSON MD This examination was interpreted and the report reviewed and electronically signed by: CHAVA MCPHERSON MD on Jan 31 2022 12:10PM EST ZZZ_DO_NOT_USE _DIVISION OF RADIOLOGY * * *Final Report* * * DATE OF EXAM: Jan 31 2022 12:06PM WOX [id number] - XR CHEST 2V FRONTAL/LAT / PROCEDURE REASON: Rhonchi at right lung base * * * * Physician Interpretation * * * * EXAMINATION: CHEST RADIOGRAPH (2 VIEW FRONTAL & LATERAL) CLINICAL HISTORY: Rhonchi at right lung base MQ: XC2_6 EXAM DATE/TIME: 01/31/2022 12:06 PM COMPARISON: No relevant prior studies available. RESULT: Lines, tubes, and devices: None. Lungs and pleura: No consolidation. No lung mass. No pleural effusion. No pneumothorax. Cardiomediastinal silhouette: Normal cardiomediastinal silhouette. Bones and soft tissues: Unremarkable. ZZZ_DO_NOT_USE _DIVISION OF RADIOLOGY Provider, [facility] - 01/31/2022 * * *Final Report* * * DATE OF EXAM: Jan 31 2022 12:06PM WOX [id number] - XR CHEST 2V FRONTAL/LAT / PROCEDURE REASON: Rhonchi at right lung base * * * * Physician Interpretation * * * * EXAMINATION: CHEST RADIOGRAPH (2 VIEW FRONTAL & LATERAL) CLINICAL HISTORY: Rhonchi at right lung base MQ: XC2_6 EXAM DATE/TIME: 01/31/2022 12:06 PM COMPARISON: No relevant prior studies available. RESULT: Lines, tubes, and devices: None. Lungs and pleura: No consolidation. No lung mass. No pleural effusion. No pneumothorax. Cardiomediastinal silhouette: Normal cardiomediastinal silhouette. Bones and soft tissues: Unremarkable. IMPRESSION IMPRESSION: No acute radiographic abnormality. Physical Chemistry Teacher: PSCB Transcribe Date/Time: Jan 31 2022 12:07P Dictated by : CHAVA MCPHERSON MD This examination was interpreted and the report reviewed and electronically signed by: CHAVA MCPHERSON MD on Jan 31 2022 12:10PM EST [facility] Radiology Study observation (narrative) [facility] XR Chest PA and LateralOrder ed By: Cc Provider on 01-31-2022 [facility] Vital Signs Date Time Vital Sign Value Performing Clinician Facility 08-12-2024 09:46-0500 Body height 165.1 cm Harish Hill MD Work Phone: [facility] 08-12-2024 09:46-0500 Body mass index (BMI) [Ratio] 25.17 kg/m2 Harish Hill MD Work Phone: [facility] 08-12-2024 09:46-0500 Body weight 68.6 kg Harish Hill MD Work Phone: [facility] 08-12-2024 09:46-0500 Diastolic blood pressure 80 mm[Hg] Harish Hill MD Work Phone: [facility] 08-12-2024 09:46-0500 Heart rate 92 /min Harish Hill MD Work Phone: [facility] 08-12-2024 09:46-0500 SaO2% (BldA) [Mass fraction] 97 % Harish Hill MD Work Phone: [facility] 08-12-2024 09:46-0500 Systolic blood pressure 130 mm[Hg] Harish Hill MD Work Phone: [facility] 08-02-2024 11:45-0500 Body height 165.1 cm Ela Hui ADDICTION THERAPIST-LITERARY AGENT Work Phone: [facility] 08-02-2024 11:45-0500 Body mass index (BMI) [Ratio] 25.19 kg/m2 Ela Hui ADDICTION THERAPIST-LITERARY AGENT Work Phone: [facility] 08-02-2024 11:45-0500 Body temperature 97.59 [degF] Ela Hui ADDICTION THERAPIST-LITERARY AGENT Work Phone: [facility] 08-02-2024 11:45-0500 Body weight 68.67 kg Ela Hui ADDICTION THERAPIST-LITERARY AGENT Work Phone: [facility] 08-02-2024 11:45-0500 Diastolic blood pressure 83 mm[Hg] Ela Korina ADDICTION THERAPIST-LITERARY AGENT Work Phone: [facility] 08-02-2024 11:45-0500 Heart rate 84 /min Ela Korina ADDICTION THERAPIST-LITERARY AGENT Work Phone: [facility] 08-02-2024 11:45-0500 Respiratory rate 17 /min Ela Korina ADDICTION THERAPIST-LITERARY AGENT Work Phone: [facility] 08-02-2024 11:45-0500 SaO2% (BldA) [Mass fraction] 95 % Ela Korina ADDICTION THERAPIST-LITERARY AGENT Work Phone: [facility] 08-02-2024 11:45-0500 Systolic blood pressure 112 mm[Hg] Ela Korina ADDICTION THERAPIST-LITERARY AGENT Work Phone: [facility] 07-19-2024 09:28-0500 Body mass index (BMI) [Ratio] 25.31 kg/m2 Jade Cassandra ADDICTION THERAPIST.LITERARY AGENT Work Phone: [facility] 07-19-2024 09:28-0500 Body weight 68.5 kg Jade Cassandra ADDICTION THERAPIST.LITERARY AGENT Work Phone: [facility] 07-19-2024 09:28-0500 Diastolic blood pressure 72 mm[Hg] Jade Cassandra ADDICTION THERAPIST.LITERARY AGENT Work Phone: [facility] 07-19-2024 09:28-0500 Heart rate 101 /min Jade Cassandra ADDICTION THERAPIST.LITERARY AGENT Work Phone: [facility] 07-19-2024 09:28-0500 Respiratory rate 16 /min Jade Cassandra ADDICTION THERAPIST.LITERARY AGENT Work Phone: [facility] 07-19-2024 09:28-0500 SaO2% (BldA) [Mass fraction] 98 % Jade Cassandra ADDICTION THERAPIST.LITERARY AGENT Work Phone: [facility] 07-19-2024 09:28-0500 Systolic blood pressure 112 mm[Hg] Jade Dimas ADDICTION THERAPIST.LITERARY AGENT Work Phone: [facility] 06-03-2024 16:03-0400 Body mass index (BMI) [Ratio] 25.46 kg/m2 Renato Moomaw ADDICTION THERAPIST.LITERARY AGENT Work Phone: [facility] 06-03-2024 16:03-0400 Body weight 68.9 kg Renato Moomaw ADDICTION THERAPIST.LITERARY AGENT Work Phone: [facility] 06-03-2024 16:03-0400 Diastolic blood pressure 88 mm[Hg] Renato Moomaw ADDICTION THERAPIST.LITERARY AGENT Work Phone: [facility] 06-03-2024 16:03-0400 Heart rate 93 /min Renato Moomaw ADDICTION THERAPIST.LITERARY AGENT Work Phone: [facility] 06-03-2024 16:03-0400 Respiratory rate 16 /min Renato Moomaw ADDICTION THERAPIST.LITERARY AGENT Work Phone: [facility] 06-03-2024 16:03-0400 SaO2% (BldA) [Mass fraction] 100 % Renato Moomaw ADDICTION THERAPIST.LITERARY AGENT Work Phone: [facility] 06-03-2024 16:03-0400 Systolic blood pressure 138 mm[Hg] Renato Moomaw ADDICTION THERAPIST.LITERARY AGENT Work Phone: [facility] 03-09-2024 10:30-0400 Body mass index (BMI) [Ratio] 26.16 kg/m2 Ela Hui ADDICTION THERAPIST-LITERARY AGENT Work Phone: [facility] 03-09-2024 10:30-0400 Body temperature 98.01 [degF] Ela Hui ADDICTION THERAPIST-LITERARY AGENT Work Phone: [facility] 03-09-2024 10:30-0400 Body weight 71.22 kg Ela Hui ADDICTION THERAPIST-LITERARY AGENT Work Phone: [facility] 03-09-2024 10:30-0400 Diastolic blood pressure 71 mm[Hg] Lea Korina ADDICTION THERAPIST-LITERARY AGENT Work Phone: [facility] 03-09-2024 10:30-0400 Heart rate 83 /min Ela Korina ADDICTION THERAPIST-LITERARY AGENT Work Phone: [facility] 03-09-2024 10:30-0400 Systolic blood pressure 136 mm[Hg] Ela Korina ADDICTION THERAPIST-LITERARY AGENT Work Phone: [facility] 01-27-2024 09:17-0400 Body mass index (BMI) [Ratio] 25.68 kg/m2 Jade Cassandra ADDICTION THERAPIST.LITERARY AGENT Work Phone: [facility] 01-27-2024 09:17-0400 Body weight 69.49 kg Jade Cassandra ADDICTION THERAPIST.LITERARY AGENT Work Phone: [facility] 01-27-2024 09:17-0400 Diastolic blood pressure 78 mm[Hg] Jade Cassandra ADDICTION THERAPIST.LITERARY AGENT Work Phone: [facility] 01-27-2024 09:17-0400 Heart rate 80 /min Jade Cassandra ADDICTION THERAPIST.LITERARY AGENT Work Phone: [facility] 01-27-2024 09:17-0400 Respiratory rate 16 /min Jade Cassandra ADDICTION THERAPIST.LITERARY AGENT Work Phone: [facility] 01-27-2024 09:17-0400 Systolic blood pressure 118 mm[Hg] Jade Cassandra ADDICTION THERAPIST.LITERARY AGENT Work Phone: [facility] 07-20-2023 11:25-0500 Body temperature 98.2 [degF] Clara Diego ADDICTION THERAPIST.LITERARY AGENT Work Phone: [facility] 07-20-2023 11:25-0500 Body weight 68.04 kg Clara Diego ADDICTION THERAPIST.LITERARY AGENT Work Phone: [facility] 07-20-2023 11:25-0500 Diastolic blood pressure 82 mm[Hg] Clara Diego ADDICTION THERAPIST.LITERARY AGENT Work Phone: [facility] 07-20-2023 11:25-0500 Heart rate 78 /min Clara Diego ADDICTION THERAPIST.LITERARY AGENT Work Phone: [facility] 07-20-2023 11:25-0500 Respiratory rate 16 /min Clara Diego ADDICTION THERAPIST.LITERARY AGENT Work Phone: [facility] 07-20-2023 11:25-0500 SaO2% (BldA) [Mass fraction] 98 % Clara Diego ADDICTION THERAPIST.LITERARY AGENT Work Phone: [facility] 07-20-2023 11:25-0500 Systolic blood pressure 142 mm[Hg] Clara Diego ADDICTION THERAPIST.LITERARY AGENT Work Phone: [facility] 05-06-2023 13:43-0400 Body height 164.5 cm Jade Cassandra ADDICTION THERAPIST.LITERARY AGENT Work Phone: [facility] 05-06-2023 13:43-0400 Body weight 67.22 kg Jade Cassandra ADDICTION THERAPIST.LITERARY AGENT Work Phone: [facility] 05-06-2023 13:43-0400 Diastolic blood pressure 68 mm[Hg] Jade Cassandra ADDICTION THERAPIST.LITERARY AGENT Work Phone: [facility] 05-06-2023 13:43-0400 Heart rate 96 /min Jade Cassandra ADDICTION THERAPIST.LITERARY AGENT Work Phone: [facility] 05-06-2023 13:43-0400 Respiratory rate 16 /min Jade Cassandra ADDICTION THERAPIST.LITERARY AGENT Work Phone: [facility] 05-06-2023 13:43-0400 SaO2% (BldA) [Mass fraction] 97 % Jade Cassandra ADDICTION THERAPIST.LITERARY AGENT Work Phone: [facility] 05-06-2023 13:43-0400 Systolic blood pressure 110 mm[Hg] Jade Cassandra ADDICTION THERAPIST.LITERARY AGENT Work Phone: [facility] 01-27-2023 10:53-0400 Body height 166.[address] Robert Ramirez Work Phone: 0(871)989-402487 [place] [address] 01-27-2023 10:53-0400 Body mass index (BMI) [Ratio] 24.8 kg/m2 Dr. Robert Ramirez Work Phone: 3(162)836-220787 [place] [address] 01-27-2023 10:53-0400 Body temperature 98.2 [degF] Dr. Robert Ramirez Work Phone: 0(493)823-897087 [place] [address] 01-27-2023 10:53-0400 Body weight 68.[address] Robert Ramirez Work Phone: 2(373)237-068387 [place] [address] 01-27-2023 10:53-0400 Diastolic blood pressure 68 mm[Hg] Dr. Robert Ramirez Work Phone: 1(018)643-614487 [place] [address] 01-27-2023 10:53-0400 Heart rate 86 /min Dr. Robert Ramirez Work Phone: 3(448)720-272487 [place] [address] 01-27-2023 10:53-0400 Respiratory rate 17 /min Dr. Robert Ramirez Work Phone: 8(914)593-378087 [place] [address] 01-27-2023 10:53-0400 SaO2% (BldA) [Mass fraction] 93 % Dr. Robert Ramirez Work Phone: 3(742)273-991187 [place] [address] 01-27-2023 10:53-0400 Systolic blood pressure 142 mm[Hg] Dr. Robert Ramirez Work Phone: 8(437)159-211887 [place] [address] 01-22-2023 13:24-0400 Body temperature 97.2 [degF] Dr. Robert Ramirez Work Phone: 6(922)478-449287 [place] [address] 01-22-2023 13:24-0400 Diastolic blood pressure 80 mm[Hg] Dr. Robert Ramirez Work Phone: 3(498)632-154887 [place] [address] 01-22-2023 13:24-0400 Heart rate 94 /min Dr. Robert Ramirez Work Phone: 3(188)501-093787 [place] [address] 2023 13:24-0400 Respiratory rate 16 /min Dr. Robert Ramirez Work Phone: [facility] 01-22-2023 13:24-0400 SaO2% (BldA) [Mass fraction] 98 % Dr. Robert Ramirez Work Phone: [facility] 01-22-2023 13:24-0400 Systolic blood pressure 138 mm[Hg] Dr. Robert Ramirez Work Phone: [facility] 08-06-2022 12:50-0500 Body height 165 cm Ela Korina ADDICTION THERAPIST-LITERARY AGENT Work Phone: 4(682)418-301872 [place] [address] 08-06-2022 12:50-0500 Body mass index (BMI) [Ratio] 24.02 kg/m2 Ela Korina ADDICTION THERAPIST-LITERARY AGENT Work Phone: 3(648)431-606593 [address] 08-06-2022 12:50-0500 Body temperature 98.29 [degF] Ela Korina ADDICTION THERAPIST-LITERARY AGENT Work Phone: 4(976)412-712493 [address] 08-06-2022 12:50-0500 Body weight 65.41 kg Ela Korina ADDICTION THERAPIST-LITERARY AGENT Work Phone: [facility] 08-06-2022 12:50-0500 Diastolic blood pressure 79 mm[Hg] Ela Korina ADDICTION THERAPIST-LITERARY AGENT Work Phone: 5(691)803-694993 [address] 08-06-2022 12:50-0500 Heart rate 83 /min Ela Korina ADDICTION THERAPIST-LITERARY AGENT Work Phone: 6(495)513-613693 [address] 08-06-2022 12:50-0500 Respiratory rate 20 /min Ela Korina ADDICTION THERAPIST-LITERARY AGENT Work Phone: 0(606)477-562293 [address] 08-06-2022 12:50-0500 Systolic blood pressure 147 mm[Hg] Ela Korina ADDICTION THERAPIST-LITERARY AGENT Work Phone: 2(755)550-287793 [address] 04-29-2022 14:27-0400 Body height 167 cm Robert Ramirez DO Work Phone: [facility] 04-29-2022 14:27-0400 Body temperature 98.01 [degF] Robert Ramirez DO Work Phone: [facility] 04-29-2022 14:27-0400 Body weight 65.77 kg Robert Ramirez DO Work Phone: [facility] 04-29-2022 14:27-0400 Diastolic blood pressure 82 mm[Hg] Robert Ramirez DO Work Phone: [facility] 04-29-2022 14:27-0400 Heart rate 88 /min Robert Ramirez DO Work Phone: [facility] 04-29-2022 14:27-0400 Respiratory rate 16 /min Robert Ramirez DO Work Phone: [facility] 04-29-2022 14:27-0400 Systolic blood pressure 122 mm[Hg] Robert Ramirez DO Work Phone: [facility] 02-07-2022 15:25-0400 Body temperature 99.1 [degF] NA Beatty PA-C Work Phone: [facility] 02-07-2022 15:25-0400 Body weight 66.68 kg NA Beatty PA-C Work Phone: [facility] 02-07-2022 15:25-0400 Diastolic blood pressure 68 mm[Hg] NA Beatty PA-C Work Phone: [facility] 02-07-2022 15:25-0400 Heart rate 101 /min NA Beatty PA-C Work Phone: [facility] 02-07-2022 15:25-0400 Respiratory rate 16 /min NA Beatty PA-C Work Phone: [facility] 02-07-2022 15:25-0400 SaO2% (BldA) [Mass fraction] 98 % NA Beatty PA-C Work Phone: [facility] 02-07-2022 15:25-0400 Systolic blood pressure 110 mm[Hg] HUGH Beatty PA-C Work Phone: [facility] 01-31-2022 11:14-0400 Body temperature 98.2 [degF] Osman Jacobs ADDICTION THERAPIST.LITERARY AGENT Work Phone: [facility] 01-31-2022 11:14-0400 Body weight 67.22 kg Osman Jacobs ADDICTION THERAPIST.LITERARY AGENT Work Phone: [facility] 01-31-2022 11:14-0400 Diastolic blood pressure 72 mm[Hg] Osman Jacobs ADDICTION THERAPIST.LITERARY AGENT Work Phone: [facility] 01-31-2022 11:14-0400 Heart rate 88 /min Osman Jacobs ADDICTION THERAPIST.LITERARY AGENT Work Phone: [facility] 01-31-2022 11:14-0400 Respiratory rate 20 /min Osman Jacobs ADDICTION THERAPIST.LITERARY AGENT Work Phone: [facility] 01-31-2022 11:14-0400 SaO2% (BldA) [Mass fraction] 97 % Osman Jacobs ADDICTION THERAPIST.LITERARY AGENT Work Phone: [facility] 01-31-2022 11:14-0400 Systolic blood pressure 110 mm[Hg] Osman Jacobs ADDICTION THERAPIST.LITERARY AGENT Work Phone: [facility] Encounters Encounter Date Encounter Type Care Provider Facility Start: 02-03-2025 End: 02-03-2025 Subsequent hospital visit by physician [facility] 1 Work Phone: Molecular Imaging Comment on above: Nausea with vomiting , unspecified [R11.2] Start: 01-19-2025 ambulatory SAMANTHA Gresham ty:[facility] Start: 01-19-2025 End: 01-19-2025 Subsequent hospital visit by physician [facility] 1 Work Phone: Radiology Comment on above: Nausea with vomiting , unspecified [R11.2] Start: 11-01-2024 End: 11-01-2024 Refill Rboert Ramirez DO Work Phone: [facility] [place] Comment on above: Refill Request (NEW PHARMACY THIS YEAR) Start: 10-16-2024 End: 10-27-2024 ambulatory Jade Dimas APRN.LITERARY AGENT Work Phone: [facility] [place] Comment on above: Test results Start: 10-04-2024 End: 10-04-2024 ambulatory ROBERT Williamson RAMIREZ Facility:[facility] Start: 08-19-2024 End: 08-19-2024 Telephone encounter Robert Ramirez DO Work Phone: [facility] [place] Comment on above: Results Start: 08-16-2024 End: 08-16-2024 ambulatory ROBERT RAMIREZ Facility:[facility] Start: 08-15-2024 End: 08-16-2024 Telephone encounter Robert Ramirez DO Work Phone: [facility] [place] Comment on above: Lab Orders Start: 08-12-2024 End: 08-12-2024 ambulatory HARISH HILL Facility:[facility] Start: 08-12-2024 End: 08-12-2024 Patient encounter procedure Harish Hill MD Work Phone: Neurology Comment on above: Chronic migraine wit hout aura without status migrainosus, 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); Thunderclap headache; Brain ischemia; Chronic post-traumatic headache, not intractable; Dyslipidemia; Trigeminal neuralgia; Cervicalgia Start: 08-11-2024 End: 08-11-2024 ambulatory JADE DIMAS Facility:[facility] Start: 08-11-2024 End: 08-11-2024 Subsequent hospital visit by physician Brandy [facility] Work Phone: Cat Scan Comment on above: Thunderclap headache [G44.53] Start: 08-10-2024 End: 08-10-2024 Refill Robert Ramirez DO Work Phone: [facility] [place] Comment on above: Refill Request Start: 08-08-2024 End: 08-08-2024 ambulatory JADE DIMAS Facility:[facility] Start: 08-03-2024 End: 08-03-2024 Telephone encounter Jade Dimas APRN.LITERARY AGENT Work Phone: [facility] Comment on above: Patient Update Start: 08-02-2024 End: 08-02-2024 Office outpatient visit 15 minutes Ela Hui ADDICTION THERAPIST-LITERARY AGENT Work Phone: Division of Surgical Oncology Comment on above: Fibrocystic breast c hanges, bilateral (Primary Dx); History of atypical hyperplasia of breast; 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 Start: 08-02-2024 ambulatory ELA Jesus ity:[facility] Start: 08-02-2024 End: 08-02-2024 Subsequent hospital visit by physician Ela Hui APRN-LITERARY AGENT Work Phone: [facility] Comment on above: Arrived Start: 07-30-2024 End: 08-02-2024 ambulatory Jade Dimas ADDICTION THERAPIST.LITERARY AGENT Work Phone: [facility] [place] Comment on above: Jade, Start: 07-29-2024 End: 07-29-2024 ambulatory JADE DIMAS Facility:[facility] Start: 07-29-2024 End: 07-29-2024 Subsequent hospital visit by physician Brandy [facility] Work Phone: Cat Scan Comment on above: Other trigeminal aut onomic cephalgia (TAC), 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] Start: 07-19-2024 End: 07-20-2024 Telephone encounter Jade Dimas APRN.LITERARY AGENT Work Phone: [facility] [place] Comment on above: Medication Question Start: 07-19-2024 End: 07-19-2024 ambulatory JADE DIMAS Facility:[facility] Start: 07-19-2024 End: 07-19-2024 Office outpatient visit 25 minutes Jade Dimas ADDICTION THERAPIST.LITERARY AGENT Work Phone: [facility] [place] Comment on above: Other trigeminal aut onomic cephalgia (TAC), 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); Thunderclap headache; Chronic post-traumatic headache, not intractable Start: 07-05-2024 End: 07-05-2024 Refill Robert Carneson DO Work Phone: [facility] [place] Comment on above: Refill Request Start: 06-03-2024 End: 06-03-2024 Patient encounter procedure Renato Kilpatrick ADDICTION THERAPIST.LITERARY AGENT Work Phone: [facility] Comment on above: Discoloration of alonzo l (Primary Dx) Start: 06-03-2024 End: 06-03-2024 ambulatory ROBERT MARTINEZRISON Facility:[facility] Start: 06-02-2024 End: 06-16-2024 Telephone encounter Robert Ramirez DO Work Phone: [facility] [place] Comment on above: Patient Update Start: 05-24-2024 End: 05-24-2024 Refill Robert Martinezrison DO Work Phone: [facility] [place] Comment on above: Refill Request Start: 05-20-2024 End: 05-30-2024 Telephone encounter Robert Ramirez DO Work Phone: [facility] Comment on above: Refill Request Start: 05-17-2024 End: 07-28-2024 Telephone encounter Jade Dimas APRN.LITERARY AGENT Work Phone: [facility] [place] Comment on above: Results Start: 05-12-2024 End: 05-12-2024 ambulatory JADE DIMAS Facility:[facility] Start: 05-12-2024 End: 05-12-2024 Subsequent hospital visit by physician Bone Density [facility] Work Phone: Radiology Comment on above: Encounter for screen ing for osteoporosis [Z13.820] Start: 04-26-2024 End: 04-27-2024 Refill Robert Martinezrison DO Work Phone: [facility] Comment on above: Refill Request Start: 03-10-2024 Telephone encounter Robert mcnally DO Work Phone: [facility] Comment on above: Fax Request Start: 03-09-2024 End: 03-09-2024 Office outpatient visit 15 minutes Ela Hui ADDICTION THERAPIST-LITERARY AGENT Work Phone: Division of Surgical Oncology Comment on above: Fibrocystic breast c hanges, bilateral (Primary Dx); History of atypical hyperplasia of breast; 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; Encounter for screening mammogram for malignant neoplasm of breast Start: 03-09-2024 ambulatory ELA Jesus ity:ADINA Start: 03-08-2024 End: 03-08-2024 ambulatory Robert Ramirez Facility:[facility] Start: 01-27-2024 End: 01-27-2024 ambulatory JADE DIMAS Facility:[facility] Start: 01-27-2024 End: 01-27-2024 Patient encounter procedure Jade Dimas ADDICTION THERAPIST.LITERARY AGENT Work Phone: [facility] Comment on above: Itchy scalp (Primary Dx); Motion sickness, subsequent encounter Start: 10-30-2023 Refill Robert yates DO Work Phone: [facility] Comment on above: Refill Request Start: 07-20-2023 End: 07-20-2023 Patient encounter procedure Clara Diego ADDICTION THERAPIST.LITERARY AGENT Work Phone: [facility] Comment on above: Rhinosinusitis (Prim darnell Dx) Start: 05-28-2023 Telephone encounter Robert mcnally DO Work Phone: [facility] Comment on above: Patient Question Start: 05-11-2023 Telephone encounter Jade Chu ADDICTION THERAPIST.LITERARY AGENT Work Phone: [facility] Comment on above: Patient Update Start: 05-06-2023 End: 05-06-2023 Patient encounter procedure Jade Dimas ADDICTION THERAPIST.LITERARY AGENT Work Phone: [facility] Comment on above: Medicare annual well ness visit, subsequent (Primary Dx); Fibromyalgia Start: 04-14-2023 End: 04-14-[address] Robert Ramirez Work Phone: [facility] Work Phone: Start: 04-14-2023 End: 04-14-[address] Robert Ramirez Work Phone: [facility] Work Phone: Start: 02-20-2023 Refill Robert Fenton son DO Work Phone: [facility] Comment on above: Refill Request Lab Orders Start: 01-27-2023 End: 01-27-[address] Robert Ramirez Work Phone: [facility] Work Phone: Start: 01-22-2023 End: 01-22-[address] Robert Ramirez Work Phone: [facility] Work Phone: Start: 10-31-2022 End: 11-01-2022 ambulatory BENJAMIN Madhuri WAQAS Facility:[id number] Start: 08-06-2022 End: 08-06-2022 Office outpatient visit 15 minutes Ela Hui APRN-LITERARY AGENT Work Phone: Division of Surgical Oncology Comment on above: Fibrocystic breast c hanges, bilateral (Primary Dx); History of atypical hyperplasia of breast; At high risk for breast cancer Start: 08-06-2022 End: 08-06-2022 Subsequent hospital visit by physician Ela Hui APRN-RAGHAVENDRA Work Phone: [facility] Comment on above: Arrived Start: 04-29-2022 End: 04-29-2022 Patient encounter procedure Robert Ramirez DO Work Phone: [facility] Comment on above: Medicare annual well ness visit, subsequent (Primary Dx); Borderline abnormal thyroid function test; Vitamin D deficiency; Anemia, unspecified type; Dyslipidemia; Hyperglycemia; Fibromyalgia Start: 03-05-2022 ambulatory Robert Fenton son DO Work Phone: [facility] [place] Start: 02-07-2022 End: 02-07-2022 Patient encounter procedure Nick Beatty PA-C Work Phone: [facility] Comment on above: Viral bronchitis (Pr imary Dx) Start: 02-07-2022 Telephone encounter Robert mcnally DO Work Phone: [facility] Comment on above: Appointment Request; Patient Update Start: 01-31-2022 End: 01-31-2022 Subsequent hospital visit by physician Xr [facility] Work Phone: Radiology Comment on above: Rhonchi at right sloane g base [R09.89] Start: 01-31-2022 End: 01-31-2022 Patient encounter procedure Osman Jacobs APRN.LITERARY AGENT Work Phone: [facility] Comment on above: Viral bronchitis (Pr imary Dx); Rhonchi at right lung base Procedures Date Procedure Procedure Detail Performing Clinician Start: 10-04-2024 Lipid 1996 panel - S fide or Plasma Jade Dimas ADDICTION THERAPIST.LITERARY AGENT Work Phone: Start: 08-11-2024 Ct angiography head w/contrast/noncontrast Jade Dimas APRN.LITERARY AGENT Work Phone: Start: 08-11-2024 Ct angiography neck w/contrast/noncontrast Jade Dimas APRN.LITERARY AGENT Work Phone: Start: 08-02-2024 Screening mammograph y bi 2-view breast inc cad Ela Hui APRN-LITERARY AGENT Work Phone: Start: 07-29-2024 Ct head/brain w/o co ntrast material Jade Dimas APRN.LITERARY AGENT Work Phone: Start: 05-12-2024 BD DXA TRABECULAR HECTOR NE SCORE (TBS) Jade Dimas APRN.LITERARY AGENT Work Phone: Start: 05-12-2024 Dxa bone density madeleine dy 1/> sites axial skel Jade Dimas ADDICTION THERAPIST.LITERARY AGENT Work Phone: Start: 04-28-2023 Lipid 1996 panel - S fide or Plasma Jade Dimas ADDICTION THERAPIST.LITERARY AGENT Work Phone: Start: 01-27-2023 Plain chest X-ray Dr. Steffanie Ramirez Work Phone: Start: 08-06-2022 End: 08-06-2022 Screening mammography bi 2-view breast inc cad Ela Hui ADDICTION THERAPIST-LITERARY AGENT Work Phone: Start: 01-31-2022 Radiologic exam ches t 2 views Osman Jacobs ADDICTION THERAPIST.LITERARY AGENT Work Phone: Start: 07-16-2021 Adult depression scr eening assessment Omsan Jacobs ADDICTION THERAPIST.LITERARY AGENT Work Phone: Start: 01-29-2021 Mammography Osman marinelli ADDICTION THERAPIST.LITERARY AGENT Work Phone: Start: 07-07-2016 Colonoscopy Osman marinelli ADDICTION THERAPIST.LITERARY AGENT Work Phone: Cholecystectomy cholecystectomy Dr. Dominik Ramirez Work Phone: Plan of Treatment Date Care Activity Detail Author Start: 11-12-2033 Tetanus vaccination TETANUS [facility] Start: 10-04-2029 Lipid panel Lipid Screening [facility] Start: 2029 RSV Vaccine (1 - 1-d ose 75+ series) RSV Vaccine (1 - 1-dose 75+ series) [facility] Start: 04-28-2028 Lipid 1996 panel - Serum or Plasma Lipid Screening [facility] Start: 04-28-2028 Lipid panel Lipid Screening [facility] Start: 08-16-2027 Diabetes Screening Diabetes [facility] Start: 05-09-2027 LIPID SCREEN LIPID SCREEN [facility] Start: 07-07-2026 Colonoscopy COLONOSCOPY [facility] Start: 07-07-2026 COLORECTAL CANCER SCREENING COLORECTAL CANCER SCREENING [facility] Start: 07-07-2026 Screening for malign ant neoplasm of colon [facility] Start: 04-28-2026 Diabetes Screening Diabetes Screenin g [facility] Start: 10-31-2025 DIABETES SCREEN DIABETES SCREEN [facility] Start: 08-08-2025 End: 08-08-2025 Patient encounter procedure [facility] Start: 08-07-2025 LIPID SCREEN LIPID SCREEN [facility] Start: 08-02-2025 Screening for malign ant neoplasm of breast [facility] Start: 05-30-2025 End: 05-30-2025 Patient encounter procedure 05/30/2025 3:30 PM EDT Office Visit Neurology [address] [id number] [place] [address] [address] [place], [place] [id number] To discuss and go over MRI/MRA Follow Up Neurology Comment on above: To discuss and go ov er MRI/MRA Follow Up Start: 05-12-2025 Screening for osteoporosis DEXA SCAN DISCUSSION [facility] Start: 05-02-2025 End: 05-02-2025 Patient encounter procedure MRI Q Comment on above: MRI BRAIN WO/W IVCON To discuss and go ov er MRI/MRA Follow Up Start: 05-02-2025 End: 05-02-2025 ambulatory 05/02/2025 10:30 AM EDT Procedure Cardiology [address] [id number] EKG Cardiology Comment on above: EKG Start: 04-24-2025 Influenza vaccination Influenz a Vaccine (Season Ended) [facility] Start: 02-14-2025 End: 02-14-2025 Patient encounter procedure 02/14/2025 11:00 AM EDT Office Visit Division of Surgical Oncology [address], [address] [place] [id number] Ela Hui, ADDICTION THERAPIST-LITERARY AGENT [address] [place] [address] Division of Surgical Oncology Start: 11-28-2024 End: 02-27-2025 Lipid 1996 panel - Serum or Plasma LIPID PANEL BASIC Lab Routine Dyslipidemia Expected: 11/28/2024, Expires: 02/27/2025 [facility] Work Phone: Comment on above: Expected: 11/28/2024 , Expires: 02/27/2025 Start: 10-03-2024 End: 10-03-2024 Patient encounter procedure 10/03/2024 1:00 PM EST Office Visit Neurology [address] [place], [place] [address] Yoan Chamorro Jr., MD [address] [place], [place] [id number] Other trigeminal autonomic cephalgia (TAC), 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]; Thunderclap headache [G44.53]; Chronic post-traumatic headache, not intractable [G44.329] Neurology Comment on above: Other trigeminal aut onomic cephalgia (TAC), 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]; Thunderclap headache [G44.53]; Chronic post-traumatic headache, not intractable [G44.329] Start: 08-23-2024 End: 08-23-2024 Patient encounter procedure [facility] Start: 08-19-2024 Screening for malign ant neoplasm of breast [facility] Start: 08-16-2024 End: 11-15-2024 25-hydroxyvitamin D3 [Mass/volume] in Serum or Plasma [facility] Comment on above: Expected: 08/16/2024 , Expires: 11/15/2024 Start: 08-16-2024 End: 11-15-2024 CBC W Auto Differential panel - Blood [facility] Comment on above: Expected: 08/16/2024 , Expires: 11/15/2024 Start: 08-16-2024 End: 11-15-2024 Cobalamin (Vitamin B12) [Mass/volume] in Serum or Plasma [facility] Comment on above: Expected: 08/16/2024 , Expires: 11/15/2024 Start: 08-16-2024 End: 11-15-2024 Comprehensive metabolic 2000 panel - Serum or Plasma [facility] Comment on above: Expected: 08/16/2024 , Expires: 11/15/2024 Start: 08-16-2024 End: 11-15-2024 Hemoglobin A1c in Blood [facility] Comment on above: Expected: 08/16/2024 , Expires: 11/15/2024 Start: 08-16-2024 End: 11-15-2024 Lipid 1996 panel - Serum or Plasma LIPID PANEL BASIC Lab Routine Dyslipidemia Expected: 08/16/2024, Expires: 11/15/2024 [facility] Work Phone: Comment on above: Expected: 08/16/2024 , Expires: 11/15/2024 Start: 08-16-2024 End: 11-15-2024 Thyrotropin [Units/volume] in Serum or Plasma [facility] Comment on above: Expected: 08/16/2024 , Expires: 11/15/2024 Start: 08-12-2024 End: 08-12-2024 Patient encounter procedure Neurology Comment on above: Other trigeminal aut onomic cephalgia (TAC), 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]; Thunderclap headache [G44.53]; Chronic post-traumatic headache, not intractable [G44.329] Thunderclap headache [G44.53]; Brain ischemia [I67.82]; Other trigeminal autonomic cephalgia (TAC), 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]; Chronic post-traumatic headache, not intractable [G44.329]; Dyslipidemia [E78.5] Start: 08-11-2024 End: 08-11-2024 Patient encounter procedure 08/11/2024 1:00 PM EST Appointment Cat Scan [address] [facility] [place] [address] Other trigeminal autonomic cephalgia (TAC), 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]; Thunderclap headache [G44.53]; Chronic post-traumatic headache, not intractable [G44.329] Cat Scan Comment on above: Other trigeminal aut onomic cephalgia (TAC), 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]; Thunderclap headache [G44.53]; Chronic post-traumatic headache, not intractable [G44.329] Start: 08-02-2024 End: 11-01-2024 CREATININE BLD CREATININE BLD Lab Routine Thunderclap headache Brain ischemia Other trigeminal autonomic cephalgia (TAC), not intractable Chronic post-traumatic headache, not intractable Dyslipidemia Expected: 08/02/2024, Expires: 11/01/2024 [facility] Comment on above: Expected: 08/02/2024 , Expires: 11/01/2024 Start: 07-29-2024 End: 07-29-2024 Patient encounter procedure 07/29/2024 11:40 AM EST Appointment Cat Scan [address] [place] [address] Other trigeminal autonomic cephalgia (TAC), 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]; Thunderclap headache [G44.53]; Chronic post-traumatic headache, not intractable [G44.329] Cat Scan Comment on above: Other trigeminal aut onomic cephalgia (TAC), 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]; Thunderclap headache [G44.53]; Chronic post-traumatic headache, not intractable [G44.329] Start: 07-24-2024 End: 04-09-2025 MG Breast - bilateral Screening MAMMO SCREENING WITH THIERRY BILATERAL Imaging Routine Encounter for screening mammogram for malignant neoplasm of breast Expected: 07/24/2024 (Approximate), Expires: 04/09/2025 [facility] Comment on above: Expected: 07/24/2024 (Approximate), Expires: 04/09/2025 Start: 05-12-2024 End: 05-12-2024 Patient encounter procedure 05/12/2024 8:55 AM EDT Appointment Radiology [address] [place] [id number] Encounter for screening for osteoporosis [Z13.820] Radiology Comment on above: Encounter for screen ing for osteoporosis [Z13.820] Start: 05-06-2024 Medicare Annual Wellness Visit Medicare Annual Wellness Visit [facility] Start: 05-06-2024 Shingrix Vaccine (2 of 3) Shingrix Vaccine (2 of 3) [facility] Comment on above: Postponed from 04/05 (Currently Scheduled) Start: 04-24-2024 Covid-19 Vaccine () Covid-19 Vaccine () [facility] Start: 04-24-2024 Covid-19 Vaccine ( season) Covid-19 Vaccine () [facility] Start: 04-24-2024 Influenza vaccination C [facility] Start: 02-09-2024 Tetanus vaccination TETANUS [facility] Start: 02-09-2024 Urine microalbumin profile [facility] Start: 08-24-2023 Behavioral Health Screening Behavioral Health Screening [facility] Start: 08-24-2023 Depression Assessment Depression Ass essment [facility] Start: 08-07-2023 DIABET[facility]CREEN [facility] Start: 08-06-2023 Mammography [facility] Start: 08-06-2023 Screening for malign ant neoplasm of breast MAMMOGRAM SCREENING DISCUSSION [facility] Start: 05-08-2023 End: 07-08-2023 25-hydroxyvitamin D3 [Mass/volume] in Serum or Plasma VITAMIN D 25 HYDROXY Lab Routine Vitamin D deficiency Expected: 05/08/2023 (Approximate), Expires: 07/08/2023 [facility] Work Phone: Comment on above: Expected: 05/08/2023 (Approximate), Expires: 07/08/2023 Start: 05-08-2023 End: 07-08-2023 CBC W Auto Differential panel - Blood CBC + DIFF Lab Routine Hyperglycemia Expected: 05/08/2023 (Approximate), Expires: 07/08/2023 [facility] Work Phone: Comment on above: Expected: 05/08/2023 (Approximate), Expires: 07/08/2023 Start: 05-08-2023 End: 07-08-2023 Comprehensive metabolic 2000 panel - Serum or Plasma COMP METABOLIC PANEL Lab Routine Hyperglycemia Expected: 05/08/2023 (Approximate), Expires: 07/08/2023 [facility] Work Phone: Comment on above: Expected: 05/08/2023 (Approximate), Expires: 07/08/2023 Start: 05-08-2023 End: 07-08-2023 Hemoglobin A1c in Blood HGB A1C Lab Routine Hyperglycemia Expected: 05/08/2023 (Approximate), Expires: 07/08/2023 [facility] Work Phone: Comment on above: Expected: 05/08/2023 (Approximate), Expires: 07/08/2023 Start: 05-08-2023 End: 07-08-2023 Lipid 1996 panel - Serum or Plasma LIPID PANEL BASIC Lab Routine Dyslipidemia Expected: 05/08/2023 (Approximate), Expires: 07/08/2023 [facility] Work Phone: Comment on above: Expected: 05/08/2023 (Approximate), Expires: 07/08/2023 Start: 04-24-2023 Covid-19 Vaccine () Covid-19 Vaccine () [facility] Start: 04-24-2023 Influenza vaccination C [facility] Start: 02-20-2023 End: 04-22-2023 Thyrotropin [Units/volume] in Serum or Plasma TSH BLD Lab Routine Borderline abnormal thyroid function test Expected: 02/20/2023, Expires: 04/22/2023 [facility] Work Phone: Comment on above: Expected: 02/20/2023 , Expires: 04/22/2023 Start: 02-03-2023 End: 02-03-2023 Patient encounter procedure 02/03/2023 Office Visit Surgical Oncology Ela Hui, ADDICTION THERAPIST-LITERARY AGENT [address] [place] [address] Division of Surgical Oncology Start: 08-24-2022 DEPRESSION ASSESSMENT DEPRESSION ASS ESSMENT [facility] Start: 07-16-2022 Adult depression screening assessment DEPRESSION SCREENING [facility] Start: 04-29-2022 End: 06-29-2022 25-hydroxyvitamin D3 [Mass/volume] in Serum or Plasma VITAMIN D 25 HYDROXY Lab Routine Vitamin D deficiency Expected: 04/29/2022, Expires: 06/29/2022 [facility] Work Phone: Comment on above: Expected: 04/29/2022 , Expires: 06/29/2022 Start: 04-29-2022 End: 06-29-2022 CBC W Auto Differential panel - Blood CBC + DIFF Lab Routine Anemia, unspecified type Expected: 04/29/2022, Expires: 06/29/2022 [facility] Work Phone: Comment on above: Expected: 04/29/2022 , Expires: 06/29/2022 Start: 04-29-2022 End: 06-29-2022 Cobalamin (Vitamin B12) [Mass/volume] in Serum or Plasma VITAMIN B12 BLOOD Lab Routine Borderline abnormal thyroid function test Vitamin D deficiency Anemia, unspecified type Dyslipidemia Expected: 04/29/2022, Expires: 06/29/2022 [facility] Work Phone: Comment on above: Expected: 04/29/2022 , Expires: 06/29/2022 Start: 04-29-2022 End: 06-29-2022 Comprehensive metabolic 2000 panel - Serum or Plasma COMP METABOLIC PANEL Lab Routine Dyslipidemia Expected: 04/29/2022, Expires: 06/29/2022 [facility] Work Phone: Comment on above: Expected: 04/29/2022 , Expires: 06/29/2022 Start: 04-29-2022 End: 06-29-2022 Hemoglobin A1c in Blood HGB A1C Lab Routine Dyslipidemia Hyperglycemia Expected: 04/29/2022, Expires: 06/29/2022 [facility] Work Phone: Comment on above: Expected: 04/29/2022 , Expires: 06/29/2022 Start: 04-29-2022 End: 06-29-2022 Lipid 1996 panel - Serum or Plasma LIPID PANEL BASIC Lab Routine Dyslipidemia Expected: 04/29/2022, Expires: 06/29/2022 [facility] Work Phone: Comment on above: Expected: 04/29/2022 , Expires: 06/29/2022 Start: 04-29-2022 End: 06-29-2022 Thyrotropin [Units/volume] in Serum or Plasma TSH BLD Lab Routine Borderline abnormal thyroid function test Expected: 04/29/2022, Expires: 06/29/2022 [facility] Work Phone: Comment on above: Expected: 04/29/2022 , Expires: 06/29/2022 Start: 04-29-2022 End: 06-29-2022 Thyroxine (T4) free [Mass/volume] in Serum or Plasma T4 FREE/FREE THYROX Lab Routine Borderline abnormal thyroid function test Expected: 04/29/2022, Expires: 06/29/2022 [facility] Work Phone: Comment on above: Expected: 04/29/2022 , Expires: 06/29/2022 Start: 04-24-2022 Influenza vaccination C [facility] Start: 01-29-2022 Mammography MAMMOGRAM [facility] Start: 08-24-2021 ADVANCE DIRECTIVE DISCUSSION ADVANCE DIRECTIVE DISCUSSION [facility] Start: 12-27-2020 COVID-19 VACCINE (2 - Booster for Charline series) COVID-19 VACCINE (2 - Booster for Charline series) [facility] Start: 08-08-2020 Screening for osteoporosis DEXA SCAN DISCUSSION [facility] Start: 2019 Pneumococcal vaccination [facility] Start: 2019 Pneumococcal Vaccine : 65+ (1 - PCV) Pneumococcal Vaccine: 65+ (1 - PCV) [facility] Start: 2019 Pneumococcal Vaccine : 65+ (1 of 1 - PCV) Pneumococcal Vaccine: 65+ (1 of 1 - PCV) [facility] Start: 2019 PNEUMOCOCCAL: 65+ (1 - PCV) PNEUMOCOCCAL: 65+ (1 - PCV) [facility] Start: 07-07-2017 Screening for malign ant neoplasm of colon COLORECTAL CANCER SCREENING DISCUSSION [facility] Start: 2014 RSV Vaccine (1 - 1-d ose 60+ series) RSV Vaccine (1 - 1-dose 60+ series) [facility] Start: 04-05-2014 SHINGRIX VACCINE (2 of 3) SHINGRIX VACCINE (2 of 3) [facility] Start: 04-05-2014 Zoster vaccine hzv l sarah for subcutaneous use ZOSTER (SHINGLES) VACCINE (2 of 3) [facility] Start: 09-10-2005 Hepatitis B vaccination HEP B VACCINE (2 of 3 - 19+ 3-dose series) [facility] Start: 2004 Pneumococcal Vaccine : 50+ (1 of 1 - PCV) Pneumococcal Vaccine: 50+ (1 of 1 - PCV) [facility] Start: 1999 COLOGUARD (FIT-DNA) COLOGUARD (FIT-D NA) [facility] Start: [address] COLONOGRAPHY [facility] Start: 1999 FECAL OCCULT BLOOD FECAL OCCULT BLOO D [facility] Start: 1999 Screening for malign ant neoplasm of colon [facility] Start: 1999 SIGMOIDOSCOPY SIGMOIDOSCOPY [facility] Start: 1994 Lipid panel LIPID SCREENING [facility] Start: 1975 Screening for malign ant neoplasm of cervix CERVICAL CANCER SCREENING DISCUSSION [facility] Start: 1972 Depression Screening Depression Scre ening [facility] Start: 1954 Hepatitis C screening HEPATITI S C VIRUS SCREENING [facility] Start: 1955 Screening for osteoporosis DEXA SCAN DISCUSSION [facility] End: 08-18-2025 CT Head WO contrast CT BRAIN WO IVCON Radiology Routine Other trigeminal autonomic cephalgia (TAC), not intractable Thunderclap headache Chronic post-traumatic headache, not intractable 1 Occurrences starting 07/19/2024 until 08/18/2025 [facility] Work Phone: Comment on above: 1 Occurrences starti ng 07/19/2024 until 08/18/2025 End: 09-01-2025 CT Neck W contrast IV CTA NECK W IVCON Radiology STAT Thunderclap headache Brain ischemia Other trigeminal autonomic cephalgia (TAC), not intractable Chronic post-traumatic headache, not intractable Dyslipidemia 1 Occurrences starting 08/02/2024 until 09/01/2025 [facility] Comment on above: 1 Occurrences starti ng 08/02/2024 until 09/01/2025 End: 09-01-2025 CTA Head Arteries W contrast IV CTA HEAD W IVCON Radiology STAT Thunderclap headache Brain ischemia Other trigeminal autonomic cephalgia (TAC), not intractable Chronic post-traumatic headache, not intractable Dyslipidemia 1 Occurrences starting 08/02/2024 until 09/01/2025 [facility] Work Phone: Comment on above: 1 Occurrences starti ng 08/02/2024 until 09/01/2025 End: 08-12-2025 ECG COMPLETE ECG COMPLETE ECG Routine Trigeminal neuralgia 1 Occurrences starting 08/12/2024 until 08/12/2025 [facility] Comment on above: 1 Occurrences starti ng 08/12/2024 until 08/12/2025 End: 09-11-2025 MR Brain WO and W contrast IV MRI BRAIN WO/W IVCON Radiology Routine Trigeminal neuralgia 1 Occurrences starting 08/12/2024 until 09/11/2025 [facility] Work Phone: Comment on above: 1 Occurrences starti ng 08/12/2024 until 09/11/2025 End: 09-11-2025 MRA Head vessels WO contrast MRA BRAIN WO IVCON Radiology Routine Trigeminal neuralgia 1 Occurrences starting 08/12/2024 until 09/11/2025 [facility] Comment on above: 1 Occurrences starti ng 08/12/2024 until 09/11/2025 End: 04-04-2023 Screening mammography bi 2-view breast inc cad AARON SCREENING Radiology Routine Encounter for screening mammogram for breast cancer 1 Occurrences starting 03/05/2022 until 04/04/2023 [facility] Work Phone: Comment on above: 1 Occurrences starti ng 03/05/2022 until 04/04/2023 [facility] Immunizations Immunization Date Immunization Notes Care Provider Leticia villagomez 11-01-2020 COVID-19 vaccine (CHARLINE) Osman Jacobs ADDICTION THERAPIST.LITERARY AGENT Work Phone: [facility] Work Phone: 10-28-2017 influenza virus vaccine, unspecified formulation Jade Dimas ADDICTION THERAPIST.LITERARY AGENT Work Phone: [facility] 06-15-2014 influenza, seasonal, injectable Osman Jacobs ADDICTION THERAPIST.LITERARY AGENT Work Phone: [facility] 06-15-2014 influenza virus vaccine, unspecified formulation Ela Hui ADDICTION THERAPIST-LITERARY AGENT Work Phone: [facility] 02-08-2014 tetanus toxoid, redu ajay diphtheria toxoid, and acellular pertussis vaccine, adsorbed Osman Jacobs ADDICTION THERAPIST.LITERARY AGENT Work Phone: [facility] 02-08-2014 zoster vaccine, live Jarrell Jacobs ADDICTION THERAPIST.LITERARY AGENT Work Phone: [facility] 02-08-2014 zoster vaccine, unspecified formulation Ela Hui ADDICTION THERAPIST-LITERARY AGENT Work Phone: [facility] 06-20-2011 influenza virus vaccine, unspecified formulation Osman Jacobs ADDICTION THERAPIST.LITERARY AGENT Work Phone: [facility] 06-29-2006 influenza virus vaccine, unspecified formulation Osman Jacobs ADDICTION THERAPIST.LITERARY AGENT Work Phone: [facility] Work Phone: 08-13-2005 hepatitis B vaccine, adult dosage Osman Jacobs ADDICTION THERAPIST.LITERARY AGENT Work Phone: [facility] Work Phone: Payers Date Payer Category Payer Self-pay [id number] 2019 Private Health Insurance [id number] 2019 Unknown MMO MMO MEDICARE SUPPLEMENT [id number] 2019-Present [phone] [address] [place] [address] Indemnity [id number] 2019 Unknown [id number] 2019 Medicare [id number] 2019 Medicare MEDICARE MEDICAR E A AND B [id number] 2019-Present [phone] [address] [address] [place] [address] Medicare [id number] 2019 Medicare [id number] 2019 Medicare [id number] 1955 Unknown [id number] 1954 Unknown [id number] 1954 Unknown [id number] Unknown MISAEL [id number] Unknown [id number] Unknown [id number] Social History Date Type Detail Facility Start: 04-25-2011 End: 08-10-2022 Tobacco smoking status NHIS Never smoked tobacco [facility] Start: 01-31-2022 End: 07-19-2024 Alcohol intake Current non-drinker of alcohol (finding) [facility] Start: 05-08-2020 History SDOH Financial 5 [facility] Start: 05-08-2020 End: 08-06-2022 History SDOH Food Worry 1 [facility] Start: 05-08-2020 End: 08-06-2022 History SDOH Transport Med 2 [facility] Start: 1955 Sex Assigned At Female C [facility] Start: 01-21-2022 End: 08-06-2022 Exposure to SARS-CoV-2 (event) Not sure [facility] Start: 04-25-2011 End: 08-10-2022 Tobacco use and exposure Smokeless tobacco non-user [facility] Start: 08-06-2022 End: 05-06-2023 Alcohol intake [facility] Work Phone: Start: 08-06-2022 History SDOH Financial 4 [facility] Start: 1955 Sex Assigned At Not on file [facility] Start: 01-27-2023 Tobacco smoking stat us NHIS Unknown if ever smoked [facility] Start: 02-03-2018 None [facility] Start: 02-03-2018 Non-smoker [facility] Start: 05-08-2020 End: 05-06-2023 Tobacco use panel [facility] Work Phone: How hard is it for y ou to pay for the very basics like food, housing, medical care, and heating Not hard at all [facility] Work Phone: (I/We) worried wheth er (my/our) food would run out before (I/we) got money to buy more. Never true [facility] Work Phone: Start: 02-19-2021 Gender identity Identifies as female gender (finding) [facility] Start: 03-21-2020 Sexual orientation Heterosexual (cynthia curran) [facility] Functional Status Date Assessment Result Facility 03-14-2015 Are you deaf, or do you have serious difficulty hearing No 03/14/2015 4:30 PM Marcio Hand [facility] 03-14-2015 Are you blind, or do you have serious difficulty seeing, even when wearing glasses No 03/14/2015 4:30 PM Marcio Hand [facility] 03-14-2015 Do you have serious difficulty walking or climbing stairs No 03/14/2015 4:30 PM Marcio Hand [facility] 03-14-2015 Do you have difficul ty dressing or bathing No 03/14/2015 4:30 PM Marcio Hand [facility] 03-14-2015 Because of a physica l, mental, or emotional condition, do you have difficulty doing errands alone such as visiting a physician's office or shopping No 03/14/2015 4:30 PM Marcio Hand [facility] Mental Status Date Assessment Result Facility 03-14-2015 Because of a physica l, mental, or emotional condition, do you have serious difficulty concentrating, remembering, or making decisions No 03/14/2015 4:30 PM Marcio Hand [facility] Clinical Notes 01-31-2022 to 02-03-2025 Karina Platt CNMT - 02/03/2025 7:45 AM EDTTelephone Encounter - [place] Elli Ramirez - 11/01/2024 9:46 AM EDTTelephone Encounter - [place] Elli Ramirez - 11/01/2024 9:46 AM EDT Note Date & Type Note Facility 02-03-2025 History of Presen t illness Narrative RADIOLOGY SERVICE PROGRESS NOTE SERVICE DATE: 02/03/2025 SERVICE TIME: 8:06 AM PATIENT IDENTITY VERIFICATION COMPLETED USING TWO (2) STANDARD IDENTIFIERS: Name and Date of confirmed by patient verbally and Name and Date of confirmed by identification band FALL SCREENING: Has the patient had 2 falls in the last year or 1 fall with injury or currently using an Ambulatory Assistive Device (Walker, Cane, Wheelchair, Crutches, etc.)? No PATIENT GENDER DATA: .female : No ALLERGIES: Reviewed and unchanged MEDICATIONS REVIEWED: Not applicable PATIENT RELEVANT IMPLANT DATA REVIEWED: Not Applicable PATIENT PRESENTS WITH AN IMPLANTABLE OR ATTACHED COINING PRESS OPERATOR: No CREATININE: Creatinine Date Value Ref Range Status 08/16/2024 0.71 0.58 - 0.96 mg/dL Final 08/08/2024 0.71 0.58 - 0.96 mg/dL Final 04/28/2023 0.80 0.58 - 0.96 mg/dL Final Estimated Glomerular Filtration Rate Date Value Ref Range Status 08/16/2024 92 >=60 mL/min/1.73m Final Comment: Estimated Glomerular Filtration Rate (eGFR) is calculated using the 2020 CKD-EPI creatinine equation. This equation utilizes serum creatinine, sex, and age as parameters. The creatinine assay has traceable calibration to isotope dilution-mass spectrometry. Refer to KDIGO guidelines for clinical interpretation. In patients with unstable renal function, e.g. those with acute kidney injury, the eGFR may not accurately reflect actual GFR. eGFR- Date Value Ref Range Status 08/07/2020 >60 Final P.O.C.T. RESULTS: N/A February 03, [address] PERFORMED: No IV SITE: Ambulatory: A peripheral IV was started in the Left antecubital site with a Angio cath: 24 gauge. POST EXAM PIV STATUS: Discontinued PROCEDURE TYPE: NM INJECT: HIDA. 5.4 mCi Tc99m CHOLETEC. Administered By: mm . CCK 1.37 micrograms intravenous at 8:55. ADMINISTRATION TIME: 7:50 PATIENT DISCHARGED TO: Ambulatory patient, left [place] department area. Is this a therapy: No A Diagnostic radioactive procedure has taken place, with no further precautions necessary other than routine body substance precautions. More information regarding radiation safety can be found using this link: [email or web address] SIGNATURE: RACHANA Bull PATIENT NAME: Emmie Willard DATE: February 03, 2025 TIME: 8:06 AM PAGER/CONTACT #: documented in this encounter [facility] 11-01-2024 Telephone encounter Note Prescription Refill Information The patient has been identified by name and date of : Yes Caregiver verified no other encounters exist for this prescription request: Yes Caregiver confirmed with patient/requestor that no other refills are due, in the near future, with this provider at this time: Yes The last office visit in the department: 07/19/24 Does the patient have a future office visit with this provider/department: No Requested Prescriptions Pending Prescriptions Disp Refills atorvastatin (LIPITOR) 10 mg tablet 90 tablet 3 Sig: Take 1 tablet by mouth daily at bedtime. For cholesterol. Please note: This is a new pharmacy due to insurance. She is now using [facility]. Elli Ramirez November 01, 2024 9:47 AM [facility] 11-01-2024 Miscellaneous Notes Prescription Refill Information The patient has been identified by name and date of : Yes Caregiver verified no other encounters exist for this prescription request: Yes Caregiver confirmed with patient/requestor that no other refills are due, in the near future, with this provider at this time: Yes The last office visit in the department: 07/19/24 Does the patient have a future office visit with this provider/department: No Requested Prescriptions Pending Prescriptions Disp Refills atorvastatin (LIPITOR) 10 mg tablet 90 tablet 3 Sig: Take 1 tablet by mouth daily at bedtime. For cholesterol. Please note: This is a new pharmacy due to insurance. She is now using [facility]. Elli Ramirez November 01, 2024 9:47 AM documented in this encounter [facility] 10-17-2024 Telephone encounter Note See pt message and advise on most recent lab results. Casie Garrido MA [facility] 10-17-2024 Miscellaneous Notes See pt message and advise on most recent lab results. Casie Garrido MA documented in this encounter [facility] 08-19-2024 Telephone encounter Note Patient active MyChart. Patient notified via ZeeVee message. Romie Zapata MA [facility] 08-19-2024 Miscellaneous Notes Patient active MyChart. Patient notified via ZeeVee message. Romie Zapata MA Left message to return call Syeda Frank MA Please inform patient that all her labs are normal except her A1c is still a little high at 6.2% in the prediabetes range. Continue to limit sugars and starches in her diet. Robert Ramirez DO documented in this encounter [facility] 08-19-2024 Telephone encounter Note Left message to return call Syeda Frank MA [facility] 08-19-2024 Telephone encounter Note Please inform patient that all her labs are normal except her A1c is still a little high at 6.2% in the prediabetes range. Continue to limit sugars and starches in her diet. Robert Ramirez DO [facility] 08-16-2024 Telephone encounter Note Pt. informed. [facility] Work Phone: 08-16-2024 Miscellaneous Notes Pt. informed. Order placed for fasting labs Please notify her Robert Ramirez DO Pt reports it was brought to her attention that she has not had blood work done since 2022. Pt is asking if provider would please order labs. Pt reports she is leaving for [place] on . Last OV: 07/19/24. Please review lab orders. CAll pt when labs have been ordered. Angelica Sandoval LPN documented in this encounter [facility] 08-16-2024 Telephone encounter Note Order placed for fasting labs Please notify her Robert Ramirez DO [facility] 08-15-2024 Telephone encounter Note Pt reports it was brought to her attention that she has not had blood work done since 2022. Pt is asking if provider would please order labs. Pt reports she is leaving for [place] on . Last OV: 07/19/24. Please review lab orders. CAll pt when labs have been ordered. Angelica Sandoval LPN [facility] 08-12-2024 Instructions Harish Hill MD - 08/12/2024 10:37 AM EST MRI brain and MRA ECG Repeat Botox in 12 weeks PT referral documented in this encounter [facility] 08-12-2024 Note HNO ID: [id number] Author: HARISH HILL MD Service: ? Author Type: Physician Type: Progress Notes Filed: 08/12/2024 11:39 Note Text: Headache Clinic Date: August 12, 2024 Patient Name: Emmie Willard Referring physician: Jade Dimas [address] [facility] [id number] Primary physician: Robert Ramirez [address] [id number] Reason for Evaluation: Headaches Consultation requested by Jade Dimas CNP for an opinion regarding headaches. My final recommendations will be communicated back to the requesting physician by way of shared Medical record or letter to requesting physician via US mail. HPI: This patient is a 69-year-old female being seen for headaches. She is accompanied by her . She has a medical history notable for fibromyalgia, hyperlipidemia, rosacea, and IBS. She reports multiple complaints. The first issue is headaches. These have been daily for the last 5 years. She gets about 8 days/month of moderate to severe headaches with accompanying photophobia and phonophobia. On occasion she will get nausea. Her other headaches are low-grade. Headaches last at least 4 hours and can last the entire day. She gets significant neck pain and occasional low back pain. She gets massage for her neck pain which helps but has never done physical therapy. Headaches worsen with exertion. She has never seen a neurologist for these headaches. She does not get auras. Her second issue is that in early June 2024 she was in [place] when she began experiencing electric zaps of pain that were excruciating. These were occurring around the right ear with radiation to the right mormon and forehead. They would worsen with chewing, brushing her teeth, and talking. She was seen in urgent care and told that she had trigeminal neuralgia. She was recommended Percocet but declined. Symptoms lasted about 1.5 weeks before resolving and have not recurred. She has fibromyalgia and follows with her PCP. She has had issues with tingling in her head that will radiate to her body. This is not painful. This has been going on for years and she follows with dermatology. They are treating her with naltrexone. She underwent a CT of the brain on 07/29/2024 that showed microvascular ischemic changes. Patient reports that this was actually the main reason that she was referred to us. She underwent a CTA of the head and neck on 08/11/2024 which was normal. She has had 2 episodes of head trauma but recovered well from them. She will occasionally have dizziness. She has been diagnosed with vertigo in the past. Trigeminal Neuralgia HPI Onset: June, Side: right Distribution: V1 Any pain on the side or back of head: Yes Character: sharp/shooting and electric shock Pain-free between episodes: Yes Triggers: talking, eating/chewing and brushing teeth Sensory abnormalities: No Initial benefit from Tegretol/Trileptal: N/A History of MS: No History of Lyme disease: No History of shingles facial rash: No History of dental/oral surgery: No History of facial/plastic surgery: No Type of Trigeminal Neuralgia: pending workup CT Head/Brain - Last [address] BRAIN WO IVCON Exam End: 07/29/2024 12:02 PM (Final result) Impression: IMPRESSION: No CT evidence of an acute intracranial process. Extensive white matter changes, which may be related to chronic microvascular ischemia. Physical Chemistry Teacher: SVEN Transcribe Date/Time: Jul 29 2024 2:50P Dictated by : VANCE PANTOJA MD This examination was interpreted and the report reviewed and electronically signed by: VANCE PANTOJA MD on Jul 29 2024 2:53PM EST CTA Head and/or Neck - Last 2 CTA NECK W IVCON Exam End: 08/11/2024 1:50 PM (Final result) Impression: IMPRESSION: No evidence of hemodynamically significant stenosis, intraluminal filling defect, abrupt vessel occlusion, aneurysm or vascular malformation in the intracranial and extracranial arterial vasculature. Arterial blood flow was measured to detect acute large vessel occlusion by computer aided detection software: Not Performed. Concordance between software and imaging review: Not Applicable. Physical Chemistry Teacher: PSC[facility] Transcribe Date/Time: Aug 11 2024 2:08P Dictated by : ANGELA MAGANA MD This examination was interpreted and the report reviewed and electronically signed by: ANGELA MAGANA MD on Aug 11 2024 2:16PM EST CTA HEAD W IVCON Exam End: 08/11/2024 1:50 PM (Final result) Impression: IMPRESSION: No evidence of hemodynamically significant stenosis, intraluminal filling defect, abrupt vessel occlusion, aneurysm or vascular malformation in the intracranial and extracranial arterial vasculature. Arterial blood flow was measured to detect acute large vessel occlusion by computer aided detection software: Not Performed. Concordance between software and imaging review: Not Caden (more content not included)... [facility] 08-12-2024 History of Presen t illness Narrative Images from the original note were not included. Headache Clinic Date: August 12, 2024 Patient Name: Emmie Willard Referring physician: Jade Dimas [address] [phone] Primary physician: Robert Ramirez [address] [place] [address] Reason for Evaluation: Headaches Consultation requested by Jade Dimas CNP for an opinion regarding headaches. My final recommendations will be communicated back to the requesting physician by way of shared Medical record or letter to requesting physician via US mail. HPI: This patient is a 69-year-old female being seen for headaches. She is accompanied by her . She has a medical history notable for fibromyalgia, hyperlipidemia, rosacea, and IBS. She reports multiple complaints. The first issue is headaches. These have been daily for the last 5 years. She gets about 8 days/month of moderate to severe headaches with accompanying photophobia and phonophobia. On occasion she will get nausea. Her other headaches are low-grade. Headaches last at least 4 hours and can last the entire day. She gets significant neck pain and occasional low back pain. She gets massage for her neck pain which helps but has never done physical therapy. Headaches worsen with exertion. She has never seen a neurologist for these headaches. She does not get auras. Her second issue is that in early June 2024 she was in [place] when she began experiencing electric zaps of pain that were excruciating. These were occurring around the right ear with radiation to the right mormon and forehead. They would worsen with chewing, brushing her teeth, and talking. She was seen in urgent care and told that she had trigeminal neuralgia. She was recommended Percocet but declined. Symptoms lasted about 1.5 weeks before resolving and have not recurred. She has fibromyalgia and follows with her PCP. She has had issues with tingling in her head that will radiate to her body. This is not painful. This has been going on for years and she follows with dermatology. They are treating her with naltrexone. She underwent a CT of the brain on 07/29/2024 that showed microvascular ischemic changes. Patient reports that this was actually the main reason that she was referred to us. She underwent a CTA of the head and neck on 08/11/2024 which was normal. She has had 2 episodes of head trauma but recovered well from them. She will occasionally have dizziness. She has been diagnosed with vertigo in the past. Trigeminal Neuralgia HPI Onset: June, Side: right Distribution: V1 Any pain on the side or back of head: Yes Character: sharp/shooting and electric shock Pain-free between episodes: Yes Triggers: talking, eating/chewing and brushing teeth Sensory abnormalities: No Initial benefit from Tegretol/Trileptal: N/A History of MS: No History of Lyme disease: No History of shingles facial rash: No History of dental/oral surgery: No History of facial/plastic surgery: No Type of Trigeminal Neuralgia: pending workup CT Head/Brain - Last [address] BRAIN WO IVCON Exam End: 07/29/2024 12:02 PM (Final result) Impression: IMPRESSION: No CT evidence of an acute intracranial process. Extensive white matter changes, which may be related to chronic microvascular ischemia. Physical Chemistry Teacher: [facility] Transcribe Date/Time: Jul 29 2024 2:50P Dictated by : VANCE PANTOJA MD This examination was interpreted and the report reviewed and electronically signed by: VANCE PANTOJA MD on Jul 29 2024 2:53PM EST CTA Head and/or Neck - Last 2 CTA NECK W IVCON Exam End: 08/11/2024 1:50 PM (Final result) Impression: IMPRESSION: No evidence of hemodynamically significant stenosis, intraluminal filling defect, abrupt vessel occlusion, aneurysm or vascular malformation in the intracranial and extracranial arterial vasculature. Arterial blood flow was measured to detect acute large vessel occlusion by computer aided detection software: Not Performed. Concordance between software and imaging review: Not Applicable. Physical Chemistry Teacher: [facility] Transcribe Date/Time: Aug 11 2024 2:08P Dictated by : ANGELA MAGANA MD This examination was interpreted and the report reviewed and electronically signed by: ANGELA MAGANA MD on Aug 11 2024 2:16PM EST CTA HEAD W IVCON Exam End: 08/11/2024 1:50 PM (Final result) Impression: IMPRESSION: No evidence of hemodynamically significant stenosis, intraluminal filling defect, abrupt vessel occlusion, aneurysm or vascular malformation in the intracranial and extracranial arterial vasculature. Arterial blood flow was measured to detect acute large vessel occlusion by computer aided detection software: Not Performed. Concordance between software and imaging review: Not Applicable. 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 For cholesterol. amitriptyline (ELAVIL) 50 mg tablet Take 2 tablets by mouth daily at bedtime. naltrexone 1.5 mg cap at bedtime (rx given from Dr [facility]) naltrexone capsule 1.5 mg (CPD) Take 1 capsule by mouth once daily. Dr. Buchanan-DERM pantoprazole DR (PROTONIX) 40 mg tablet Take 1 tablet by mouth once daily. Flaxseed Oil oil TWICE A DAY melatonin 10 mg cap BEDTIME PRN For Sleep venlafaxine ER (EFFEXOR XR) 75 mg 24 hr capsule Take 150 mg by mouth once daily. Magnesium Oxide 500 mg tab Take 500 mg by mouth once daily. B COMPLEX WITH VITAMIN C (VITAMIN B COMPLEX-C ORAL) Take by mouth. CHOLECALCIFEROL (VITAMIN D3) 1,000 UNIT CAP Take one(1) tablet daily. HERBAL DRUGS CAP Enzyme solutions formula 30 takes 4-5 daily HERBAL DRUGS CAP Colon Buster 400mg twice daily ca carbonate/vitamin d3/vit k(VIACTIV 500 MG-100 UNIT-40 MCG CHEWABLE TAB) Chews 2 daily loteprednol etabonate(ALREX 0.2 % EYE DROPS) 1 or 2 drops in each eye daily as necessary ketoconazole (NIZORAL) 2 % shampoo Apply to affected area once daily. (Patient not taking: Reported on 08/12/2024) lactulose 10 gram/15 mL (15 mL) soln Take 30 mL by mouth once daily. or as needed. (Patient not taking: Reported on 08/12/2024) No current facility-administered medications on file prior to visit. MEDICAL HISTORY PAST MEDICAL HISTORY Diagnosis Date Advance care planning 04/29/2022 Jose can help if needed in future with medical decision making Chronic idiopathic constipation Diffuse cystic mastopathy Disorder of bone and cartilage, unspecified Fibromyalgia Fracture of right calcaneus 2010 IBS (irritable bowel syndrome) Internal hemorrhoids without mention of complication Nondisp fx of left radial styloid process, init for clos fx 05/09/2020 [facility] 05/09/2020 PMH - PAST MEDICAL HISTORY OF eye [place] Skin cancer 06/06/2019 Left lower leg Squaumous cell Unspecified hemorrhoids without mention of complication Varicose veins of other sites SURGICAL HISTORY PAST SURGICAL HISTORY Procedure Laterality Date COLONOSCOPY FLX DX W/COLLJ SPEC WHEN PFRMD 06/19/06 COLONOSCOPY FLX DX W/COLLJ SPEC WHEN PFRMD 07/07/2016 Colonoscopy HEMORRHOIDECTOMY NTRNL & XTRNL 1 COLUMN/GROUP 06/29/98 PAST SURGICAL HISTORY OF 1993 CRYOTHERAPY / CERVIX PAST SURGICAL HISTORY OF Right 2010 [place] TOTAL ABDOMINAL HYSTERECT W/WO RMVL TUBE OVARY 05/27 Hysterectomy, KELSI & BLADDER REPAIR FAMILY HISTORY FAMILY HISTORY Problem Relation Age of Onset Osteoporosis Mother Hypertension Mother Arthritis Mother Lipids Mother High Cholesterol Heart Mother other (hypertrophic cardiomyopathy w/obstructive heart disease) Mother GI problems Hypertension Father Heart Father [place] Osteoporosis Sister GI problems Hypertension Sister other (Sjorns Disease) Sister ALLERGIES ALLERGIES Allergen Reactions Acetaminophen Hives Asa [Salicylates] Intolerance Tolerates 81 mg, not 325 mg Dilaudid [Hydromorp* Hives Keflex [Cephalexin] Rash Levaquin [Levofloxa* GI Upset Oxycodone Hives REVIEW OF SYSTEMS: A 10-point review of systems was obtained and is negative except as per HPI above. KP review: 05/06/2023 08/05/2024 08/05/2024 Depression Screening PHQ-2 Score 0 1 PHQ-9 Score 2 CONCHITA-2 Total Score 0 08/05/2024 CONCHITA - 2/7 SCORES CONCHITA-2 Score 0 No data to display No data to display No data to display OBJECTIVE PHYSICAL EXAM: BP 130/80 Pulse 92 Ht 165.1 cm (5' 5) Wt 68.6 kg (151 lb 3.8 oz) SpO2 97% BMI 25.17 kg/m Mental Status: Alert and oriented to person, place and time. Affect is normal. Speech is normal in rate, volume and articulation. Short and bed bug exterminator memory, cognition and general fund of knowledge are good. Attention span and concentration are excellent. Cranial Nerves: II-Visual cain are full. Funduscopic examination reveals no papilledema. Venous pulsations present. III, IV, -EOMI, PERRL, nystagmus absent, V-normal facial sensation to light touch. VII-face is symmetric without evidence of weakness. VIII-hearing intact. IX, X-palate elevates symmetrically. XI-SCM 5/5. XII-tongue protrudes midline with normal movements. No atrophy or fasciculations of the tongue. Moderate tenderness to palpation over the trapezius muscles bilaterally Motor: Normal muscle tone and bulk. No evidence of atrophy or fasciculations. Strength is normal, 5/5. Sensation: normal light touch in the upper and lower extremities. Cerebellar: No ataxia. Tremor: absent. Muscle stretch reflexes are 2+ and symmetrical. Gait examination is normal. ASSESSMENT/PLAN: 1) Chronic migraines without aura -On multiple prophylactic meds as above with no benefit. -Recommend Botox, patient in agreement and will start today. -Hold off on abortive tx given daily nature of VENEGAS. -Reasonable to continue amitriptyline and Effexor for now as these are prescribed for other indications. -Check an ECG to monitor QTc 2) Cervicalgia -PT referral -Additional Botox injections into traps as below which should help 3) TN of right side -Typical features and triggers though primary pain around the ear is a bit unusual. She did experience radiation to the forehead, however. -At this point she is free of pain so no need to start medication. -MRI brain and MRA to rule out secondary etiology and vascular compression. -She will reach out if pain worsens. I would trial oxcarbazepine at that point. Follow-up for next Botox. All questions were answered. I spent 60 minutes in this visit, with more than 50% of the time devoted to patient counseling and coordination of care. New Onabotulinum Toxin A (BotoxTM) for Migraine Indication: Chronic Intractable Migraine Treatment #: 1 Referral Expiration: 08/02/2025 Number of moderate-severe migraine days/month: 8 (daily) Number of mild migraine days/month: 22 Number of headache free days/month: 0 (0 headache-free hours) The patient has been assessed for disorders which could contribute to breathing or swallowing difficulty, and there is no contraindication with PREEMPT Botox. There is no documented allergic reaction/hypersensitivity to any botulinum toxin and there is no active infection at proposed injection site. HEADACHE SCORES: 08/05/2024 Headache Questions ID Migraine Screener: 1 (Negative) ER visits in the last year: 0 Limited ADLs in the last month: 5 Days missed from work or school in the last month: 0 Days headache pain free in the last month: 6 Days per month with ALL of the following symptoms - decreased productivity, light sensitivity and nausea: 0 PRN medication usage in the last month: 25 08/05/2024 HIT-6 HIT-6 54 (Moderate impact) 08/05/2024 CONCHITA - 2/7 SCORES CONCHITA-2 Score 0 08/05/2024 PHQ-9 Score 2 BP 130/80 Pulse 92 Ht 165.1 cm (5' 5) Wt 68.6 kg (151 lb 3.8 oz) SpO2 97% BMI 25.17 kg/m Patient name: Emmie Willard : 1955 ALLERGIES Allergen Reactions Acetaminophen Hives Asa [Salicylates] Intolerance Tolerates 81 mg, not 325 mg Dilaudid [Hydromorp* Hives Keflex [Cephalexin] Rash Levaquin [Levofloxa* GI Upset Oxycodone Hives UNIVERSAL PROTOCOL / SAFETY CHECKLIST Procedure: Onabotulinum toxin A for migraine Informed Consent Consent Obtained: Verbal [place] Protocol A moment to CARE was completed SIGN IN Personnel directly involved with the procedure wore the appropriate PPE Special Equipment: N/A Patient/Surrogate Stated/Verified: Patient name, Date of , Relevant allergies and Intended procedure TIME OUT Intended patient and procedure match the source document(s) Consent documented and matches the intended procedure No relevant labs, photos, and/or imaging studies were applicable for review. No correct side/site applicable for marking and visibility. No medications required for procedure. No fire risk assessment and interventions applicable. No implant(s) inserted. SIGN OUT No specimen collected. No instruments, equipment or retained foreign bodies applicable. Post-procedure follow-up management communicated and Plan of Care Visit completed when applicable Written Consent Obtained: Verbal Injection Sites Left (Units) Left (Sites) Right (Units) Right (Sites) TOTAL (Units) Rectifying Operator 5 1 5 1 10 Procerus Units: 5 Sites: 1 5 Frontalis 10 2 10 2 20 Temporalis 20 4 20 4 40 Occipitalis optional follow the pain 15 7.5 3 15 7.5 3 45 Cervical PSP optional follow the pain 10 5 2 10 5 2 30 Trapezius optional follow the pain 15 10 3 15 10 3 50 Total Units used: 200 Total Units wasted: 0 Prior Therapies Duration of Use Dose Side effect Harish Hill MD My impression and recommendations were discussed at length with the patient (and family members, if present). The patient and family (if present) voiced understanding to my recommendations. All questions were answered. The patient was provided with a detailed after visit summary highlighting my impression and recommendations (if seen in outpatient setting). Harish Hill MD Staff, [facility] Neurological [place] Board Certified in Adult Neurology by [employer] Board Certified in Headache Medicine by [facility] Clinical Archery Instructor of Neurology with [facility] [address] [facility]/ [place] [address] Office: [phone] Portions of this note have been composed using voice recognition and may contain shank breaker errors The results of this consult will be sent to the referring provider by either electronic medical record or standard mail. CC: Referring Physician: Jade Dimas [address] [place] [id number] PCP: Robert Ramirez [address] [place], [place] [phone] documented in this encounter [facility] 08-11-2024 History of Presen t illness Narrative Radiology Service Progress Note DATE OF SERVICE: August 11, 2024 TIME: 3:53 PM PATIENT IDENTITY VERIFICATION COMPLETED USING TWO (2) STANDARD IDENTIFIERS: Name and Date of confirmed by patient verbally. FALL SCREENING: Has the patient had 2 falls in the last year or 1 fall with injury or currently using an Ambulatory Assistive Device (Walker, Cane, Wheelchair, Crutches, etc.)? No PATIENT GENDER DATA: Female. status: : No status: NO. PATIENT RELEVANT IMPLANT DATA REVIEWED: Yes PATIENT PRESENTS WITH AN IMPLANTABLE OR ATTACHED COINING PRESS OPERATOR: No ALLERGIES: Reviewed and unchanged CONTRAST ALLERGY: NO. EXAM: CT -CONTRAST INDUCED NEPHROPATHY RISK FACTORS: Patient age > 60 years CREATININE: Creatinine Date Value Ref Range Status 08/08/2024 0.71 0.58 - 0.96 mg/dL Final 04/28/2023 0.80 0.58 - 0.96 mg/dL Final 10/31/2022 0.83 0.51 - 0.95 mg/dL Final Comment: Patients receiving either N-Acetylcysteine (NAC) or Metamizole prior to venipuncture, may have falsely depressed results. Estimated Glomerular Filtration Rate Date Value Ref Range Status 08/08/2024 92 >=60 mL/min/1.73m Final Comment: Estimated Glomerular Filtration Rate (eGFR) is calculated using the 2020 CKD-EPI creatinine equation. This equation utilizes serum creatinine, sex, and age as parameters. The creatinine assay has traceable calibration to isotope dilution-mass spectrometry. Refer to KDIGO guidelines for clinical interpretation. In patients with unstable renal function, e.g. those with acute kidney injury, the eGFR may not accurately reflect actual GFR. eGFR- Date Value Ref Range Status 08/07/2020 >60 Final P.O.C.T. RESULTS: POC done: Yes, See Lab Tab August 11, 2024 TREATMENT: N/A PERIPHERAL IV DATA: Ambulatory: A peripheral IV was started in the Left antecubital site with a Angio cath: 18 gauge. RADIOLOGY DEPARTMENT: CT; Exam(s) Completed: CTA Brain and CTA Neck SIGNATURE: BEE Layne) PATIENT NAME: Emmie Willard DATE: August 11, 2024 TIME: 3:53 PM documented in this encounter [facility] 08-11-2024 Note HNO ID: [id number] Author: CAROLINE DONOHUE RT(R) Service: ? Author Type: Shuttleless Loom Weaver Type: Progress Notes Filed: 08/11/2024 15:54 Note Text: Radiology Service Progress Note DATE OF SERVICE: August 11, 2024 TIME: 3:53 PM PATIENT IDENTITY VERIFICATION COMPLETED USING TWO (2) STANDARD IDENTIFIERS: Name and Date of confirmed by patient verbally. FALL SCREENING: Has the patient had 2 falls in the last year or 1 fall with injury or currently using an Ambulatory Assistive Device (Walker, Cane, Wheelchair, Crutches, etc.)? No PATIENT GENDER DATA: Female. status: : No status: NO. PATIENT RELEVANT IMPLANT DATA REVIEWED: Yes PATIENT PRESENTS WITH AN IMPLANTABLE OR ATTACHED COINING PRESS OPERATOR: No ALLERGIES: Reviewed and unchanged CONTRAST ALLERGY: NO. EXAM: CT -CONTRAST INDUCED NEPHROPATHY RISK FACTORS: Patient age > 60 years CREATININE: Creatinine Date Value Ref Range Status 08/08/2024 0.71 0.58 - 0.96 mg/dL Final 04/28/2023 0.80 0.58 - 0.96 mg/dL Final 10/31/2022 0.83 0.51 - 0.95 mg/dL Final Comment: Patients receiving either N-Acetylcysteine (NAC) or Metamizole prior to venipuncture, may have falsely depressed results. Estimated Glomerular Filtration Rate Date Value Ref Range Status 08/08/2024 92 >=60 mL/min/1.73m? Final Comment: Estimated Glomerular Filtration Rate (eGFR) is calculated using the 2020 CKD-EPI creatinine equation. This equation utilizes serum creatinine, sex, and age as parameters. The creatinine assay has traceable calibration to isotope dilution-mass spectrometry. Refer to KDIGO guidelines for clinical interpretation. In patients with unstable renal function, e.g. those with acute kidney injury, the eGFR may not accurately reflect actual GFR. eGFR- Date Value Ref Range Status 08/07/2020 >60 Final P.O.C.T. RESULTS: POC done: Yes, See Lab Tab August 11, 2024 TREATMENT: N/A PERIPHERAL IV DATA: Ambulatory: A peripheral IV was started in the Left antecubital site with a Angio cath: 18 gauge. RADIOLOGY DEPARTMENT: CT; Exam(s) Completed: CTA Brain and CTA Neck SIGNATURE: RT Roverto(R) PATIENT NAME: Emmie Willard DATE: August 11, 2024 TIME: 3:53 PM [facility] 08-10-2024 Telephone encounter Note The patient has been identified by name and date of : Yes Caregiver verified no other encounters exist for this prescription request: Yes Caregiver confirmed with patient/requestor that no other refills are due, in the near future, with this provider at this time: Yes The last office visit in the department: 07/19/2024 Does the patient have a future office visit with this provider/department: No Requested Prescriptions Pending Prescriptions Disp Refills atorvastatin (LIPITOR) 10 mg tablet 90 tablet 1 Sig: Take 1 tablet by mouth daily at bedtime. For cholesterol. Kirit Schroeder RN August 10, 2024 8:28 AM [facility] 08-10-2024 Miscellaneous Notes The patient has been identified by name and date of : Yes Caregiver verified no other encounters exist for this prescription request: Yes Caregiver confirmed with patient/requestor that no other refills are due, in the near future, with this provider at this time: Yes The last office visit in the department: 07/19/2024 Does the patient have a future office visit with this provider/department: No Requested Prescriptions Pending Prescriptions Disp Refills atorvastatin (LIPITOR) 10 mg tablet 90 tablet 1 Sig: Take 1 tablet by mouth daily at bedtime. For cholesterol. Kirit Schroeder RN August 10, 2024 8:28 AM documented in this encounter [facility] 08-03-2024 Telephone encounter Note Call placed to patient and detailed message left on secure voicemail. Phone number to call back also given for any further questions. Kirit Schroeder RN [facility] 08-03-2024 Miscellaneous Notes Call placed to patient and detailed message left on secure voicemail. Phone number to call back also given for any further questions. Kirit Schroeder RN Yes, she is an appropriate provider. Jade Dimas APRN.LITERARY AGENT Patient calls to verify that provider (Latanya Dennis) that patient is seeing on 08/12/2024 is ok with Christine for neurology consult. Consult to neurology appears to be scheduled with appropriate provider. Patient asking Christine to verify she approves as discussed with provider last evening. Kirit Schroeder RN documented in this encounter [facility] 08-03-2024 Telephone encounter Note Yes, she is an appropriate provider. Jade Dimas APRN.LITERARY AGENT [facility] 08-03-2024 Telephone encounter Note Patient calls to verify that provider (Latanya Dennis) that patient is seeing on 08/12/2024 is ok with Christine for neurology consult. Consult to neurology appears to be scheduled with appropriate provider. Patient asking Christine to verify she approves as discussed with provider last evening. Kirit Schroeder RN [facility] 08-02-2024 Telephone encounter Note Pt called in and message below given. Pt also aware information given is on MyChart. Pt was transferred to home care scheduler to get testing scheduled. Young Abdul LPN [facility] 08-02-2024 Miscellaneous Notes Pt called in and message below given. Pt also aware information given is on MyChart. Pt was transferred to home care scheduler to get testing scheduled. Young Abdul LPN 1st attempt LVM to schedule CTA and appt with neurology Please assist her to schedule STAT CTA head & neck. Please assist her to schedule STAT neurology consult. Jade Dimas APRN.LITERARY AGENT Please review pt message regarding recent imaging results. Pt notified Provider out of the today but returning tomorrow. Casie Garrido MA documented in this encounter [facility] 08-02-2024 Telephone encounter Note 1st attempt LVM to schedule CTA and appt with neurology [facility] 08-02-2024 Telephone encounter Note Please assist her to schedule STAT CTA head & neck. Please assist her to schedule STAT neurology consult. Jade Dimas APRN.RAGHAVENDRA [facility] 08-02-2024 History of Presen t illness Narrative Emmie Willard was offered and declined a Medical Registration Manager for this exam/procedure/test 08/02/2024. [id number] Emmie Willard 08/02/2024 REFERRING/PRIMARY PROVIDER(S) Primary Care Provider: Robert Ramirez Surgical oncologist: Kamini Guy History of Present Illness: Emmie Willard is a 69 y.o. female, established patient who presents to the [facility] today for routine follow up. Chief Complaint Patient presents with Follow-up Six months follow up with Bilateral screeninG ammmo for HX.Fibrocystic Breast changhes.HX. 2015 benign lesion r. Breast. Voiced no Breast concerns for today. 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 08/02/24 interval update She presents today for routine follow up, with mammogram. She denies any new breast concerns, including lumps, skin changes, nipple changes/discharge or pain. She was recently diagnosed with trigeminal neuralgia. Her medical, surgical, social and family history was reviewed and updated. Her allergies and current medications were reviewed and updated. She denies any changes to her medical, surgical, social or family history since her last visit. Sister with recurrent blood clots due to post op complications after knee surgery and varicose veins. Her mother also had blood clots. PERSONAL BREAST/FRAME BENDER HISTORY: Breast biopsy: yes 03/22/15 - right breast US guide biopsy - Atypical lobular hyperplasia - Fibroadenomatoid changes 05/21/15 - right breast excisional biopsy - Lobular carcinoma in situ (LCIS), classical type, low nuclear grade, with pagetoid spreading. - Biopsy site changes. - Fibroadenomatoid changes with associated microcalcification. Breast cysts: She has had bilateral cyst aspirations in past Breast surgery: yes Excisional biopsy Postmenopausal surgically at 48yrs; She is s/p KELSI-BSO 06/13/[address] Haseeb Bae. FRAME BENDER exams: Every 2 yrs HRT: Premarin in the past, weaned self off 07/2015, took for 15+ years CANCER SURVEILLANCE/HEALTH MAINTENANCE: Colonoscopy: 05/2016 normal per pt report Skin cancer screening: Every 6 mos - once a year Eye exams: Every 2 years Dental exams: Twice annually Vitamin D deficiency yes 1000U daily BMD: yes osteopenia. She took Boniva for 5 yrs from 2009 to 2014 Last DEXA scan was on 08/09/19 at [facility], stable with osteopenia RISK FACTORS FOR BREAST CANCER: Age at the onset of menses: 10 yrs P:3 Age at the of first child: 21 yrs She Breast fed no Contraception : She used oral contraceptive pills in the past for 2 to 4 years. She used an IUD Infertility medication: no Chest Irradiation/mantle : no Postmenopausal obesity: no Body mass index is 25.19 kg/m . Mammographic density: The breast is heterogeneously dense, which may obscure small masses Personal History of Benign Atypical Breast Biopsy: Yes ALH/ADH Alcohol use: Social History Substance and Sexual Activity Alcohol Use No Alcohol/week: 0.0 standard drinks of alcohol Tobacco use Social History Tobacco Use Smoking Status Never Smokeless Tobacco Never GENETICS: Ashkenazi Ancestry: No Genetic counseling: No Genetic Testing: No Genes tested: Family Members with GeneticTesting: No FAMILY HISTORY: Family History Problem Relation Age of Onset Cancer- Other Sister endocrine tumor Heart Disease - Other Sister Prostate Cancer Brother 53 Lung Cancer Maternal Grandfather 80 Breast Cancer Neg Hx Ovarian Cancer Neg Hx Uterine Cancer Neg Hx Family history of breast cancer: no Family history of ovarian cancer: no Other Cancer: yes Prostate cancer brother age 53 yrs Lung cancer in maternal grandfather age 80 yrs Gastric tumors in her sister There is no family history of colon, uterine, pancreatic, gastric, brain, renal cell or thyroid cancer. There is no family history of melanoma, sarcoma or leukemia. Osteoporosis: no Stroke: no Blood Clot: yes sister after her vein surgery. Heart attack: no Thyroid Nodule or Goiter: Autism: REVIEW OF SYSTEMS: She denies any recently unintentional weight loss, CP, SOB, cough or severe headache. PHYSICAL EXAMINATION VITAL SIGNS: BP 112/83 (BP Location: Right arm, BP Position: Sitting) Pulse 84 Temp 97.6 F (36.4 C) (Oral) Resp 17 Ht 1.651 m (5' 5) Wt 68.7 kg (151 lb 6.4 oz) SpO2 95% BMI 25.19 kg/m Smoking Status Never ,Body mass index is 25.19 kg/m . GENERAL: Well nourished, well developed female No acute distress. Breasts and Regional Lymph Nodes: The Patient was examined in the upright and supine positions. The breasts are symmetrical in appearance without visible skin or nipple changes. Right breast: Well healed lumpectomy scar right upper outer breast. The patient has no discrete, concerning, palpable right breast masses. Left breast: There are no palpable masses left outer breast area of patient's intermittent pain concerns no bruising or skin changes. The patient has no discrete, concerning, palpable left breast masses. There are no suspicious nipple abnormalities or no suspicious skin changes of her breast skin bilaterally. The axillary tails are normal. Lumpy breast parenchyma bilaterally upper outer quadrants of both breasts without any discrete masses. No chest wall abnormalities. The patient has no cervical, supraclavicular or axillary adenopathy bilaterally. Exam stable on 08/02/24 IMAGING: EXAM: MAMMO SCREENING WITH THIERRY BILATERAL, 08/02/2024 11:21 AM CLINICAL INDICATIONS: Screening. History of right-sided ALH status post excisional breast biopsy (2014) COMPARISON: Mammograms dated 08/19/2023, 08/06/2022, 07/31/2021. TECHNIQUE: 3-D MLO and CC digital tomosynthesis images were obtained of the bilateral breasts. Synthetic 2-D images were generated from the tomosynthesis data. Additionally, 2-D/3-D XCCL digital tomosynthesis images of the right breast were obtained. Computer aided detection was utilized. FINDINGS: Breast Density: There are scattered areas of fibroglandular density. Postsurgical changes of right-sided excisional breast biopsy. Bilateral benign appearing masses are noted. There are no suspicious masses, calcifications, or architectural distortions. IMPRESSION IMPRESSION: No mammographic evidence of malignancy. BI-RADS: 2: Benign Recommendation: Routine mammography. Recommendation Laterality: Bilateral The current National Comprehensive Cancer Network and [place] [employer] guidelines recommend women undergo a screening mammogram every year over the age of 40 and continue mammographic screening as long as they are in good health. Screening mammography under age 40 may occur for women who are at increased risk for breast cancer. [facility] Facility: [facility], [address] [place] [address], I personally viewed and interpreted these images and I have reviewed and approved this report. Electronically Signed By: Sam Henning M.D. IMPRESSION/PLAN: IMPRESSION: Emmie is a 69 y.o. female with fibrocystic breast changes, H/O ALH/LCIS, VM symptoms and dense breasts. There is no evidence of malignancy. The patient was reassured as to the benign nature of her clinical exam and imaging. PLAN: Recommendations: She will continue with annual screening mammogram (due Jul 2025), and biannual clinical breast exams. We discussed that she does not have to do annual MRI's since she does not have FH of breast cancer. She was ok not doing these unless needed. Chemoprevention discussion: Dr. Allen discussed with her at previous appointments. She defers. Lifestyle changes: The patient was given information in her AVS regarding health promotion and lifestyle recommendations for breast health. Followup: Return in about 6 months (around 01/31/2025) for HR return with Ela Hui. She was encouraged on SBA. She was advised to reach out as needed with any new or worsening concerns. HOME Wyatt spent approximately 20 minutes preparing for and in direct patient care with this patient 08/02/24 documented in this encounter [facility] 08-02-2024 Instructions HOME Wyatt - 08/02/2024 2:00 PM EST Health Promotion/Lifestyle Recommendations for Breast Health Self Breast Awareness: We do recommend that you continue to perform monthly breast self-exams. If you are menstruating, we would recommend after your cycle has completed. If you are post-menopausal, we recommend that you pick a day of the month to do your monthly exam. If you do not have breasts, it is important to examine your skin, chest wall, and underarms for any new masses or skin lesions. If you find any areas of concern, please call us to discuss or be seen. Nutrition: Below are some guidelines for health lifestyle that we recommend. Adopt a plant based diet. Aim to make a majority of your foods (2/3 of your diet) from plant based sources. This includes, fruits, vegetables, whole grains, nuts, legumes, beans, and seeds. Try to get in a rainbow of fruits/vegetables each day to maximize your health benefits. Strive for weight management Choose healthy fats in moderation Good rule of thumb is 20% of total calories from fat. Focus should be on choosing the right fats Eat more monounsaturated fats (olive/canola oil, nuts, avocado) and omega-3 polyunsaturated fats (cold-water fish, walnuts). Limit saturated fats (animal fats, butter, dairy). Avoid trans fats (partially hydrogenated vegetable oil, commercial baked goods). Eat in moderation - omega-6 polyunsaturated fats (vegetable oils) Maintain good control of blood sugars. Avoid simple carbohydrates which make your blood sugar rise high and quickly. (the whites: Breads, pasta, rice, potatoes, candy and sweets, table sugar, soda, juice). Choose complex carbohydrates which provide a gradual release of sugar and energy (whole grains, whole fruits, sweet potatoes, corn, peas, winter squash). Include a healthy protein when consuming carbohydrates to help further control blood sugar levels, decrease fatigue and help to feel full longer (lean meats, fish, skinless poultry, nuts and nut butters (i.e. Peanut butter), beans and candelario dip (i.e. hummus) Soy: Moderate intake of whole soy foods as part of an overall healthy diet has not shown a risk for breast cancer. Choosing soy, up to 2-3 servings of whole soy foods/day as prat of a plant-based dietary pattern is reasonable. However, the safety of concentrated soy in the form of soy protein powders, soy protein isolates, or soy supplements is unknown and we recommend you avoid these at this time. Weight Management: Weight management is important for your overall health as well as for breast health. To help you reach weight management goals we have many resources including a registered dietitian and physical therapy department who will develop a plan to help you reach your goals. Alcohol Consumption: We recommend that you drink alcohol in moderation, if at all. You should limit alcohol consumption to no more than one alcoholic drink per day. Smoking: If you are currently a smoker, we recommend that you stop smoking. There is evidence that smoking increases the risk of breast cancer recurrence. Please speak to your health care providers regarding this as there are many programs offered here at the [facility] for assistance with smoking cessation. Exercise: Studies have shown that 30 minutes of exercise 3-5 times/week can have positive benefits. Exercise also promotes heart health and overall wellness. Recommended exercise prescription should include the following: Frequency: 5 days per week Duration: 30 minutes minimum per day Moderate intensity: Examples include brisk walked (treadmill speed of 2.9-3.2mph), vigorous housework or dancing Always be able to carry on a conversation while you exercise Vary your activity to reduce overuse injuries to muscles and joints to increase your enjoyment level documented in this encounter [facility] 08-02-2024 History of Presen t illness Narrative Patient offered a medical brick off bearer for sensitive exam. Pt declined documented in this encounter [facility] 08-01-2024 Telephone encounter Note Please review pt message regarding recent imaging results. Pt notified Provider out of the today but returning tomorrow. Casie Garrido MA [facility] 07-29-2024 History of Presen t illness Narrative Radiology Service Progress Note PATIENT NAME: Emmie Willard DATE OF SERVICE: July 29, 2024 TIME: 11:52 AM PATIENT IDENTITY VERIFICATION COMPLETED USING TWO (2) IDENTIFIERS: Name and Date of confirmed by patient verbally. FALL SCREENING: Has the patient had 2 falls in the last year or 1 fall with injury or currently using an Ambulatory Assistive Device (Walker, Cane, Wheelchair, Crutches, etc.)? No PATIENT GENDER DATA: Female. status: : No status: NO. PATIENT RELEVANT IMPLANT DATA REVIEWED: Not Applicable PATIENT PRESENTS WITH AN IMPLANTABLE OR ATTACHED COINING PRESS OPERATOR: No RADIOLOGY DEPARTMENT: CT; Exam(s) Completed: Brain PERIPHERAL IV DATA: Not applicable SIGNED BY: RT Roverto(Lee) July 29, 2024 11:52 AM documented in this encounter [facility] 07-29-2024 Note HNO ID: [id number] Author: CAROLINE DONOHUE RT(R) Service: ? Author Type: Shuttleless Loom Weaver Type: Progress Notes Filed: 07/29/2024 11:53 Note Text: Radiology Service Progress Note PATIENT NAME: Emmie Willard DATE OF SERVICE: July 29, 2024 TIME: 11:52 AM PATIENT IDENTITY VERIFICATION COMPLETED USING TWO (2) IDENTIFIERS: Name and Date of confirmed by patient verbally. FALL SCREENING: Has the patient had 2 falls in the last year or 1 fall with injury or currently using an Ambulatory Assistive Device (Walker, Cane, Wheelchair, Crutches, etc.)? No PATIENT GENDER DATA: Female. status: : No status: NO. PATIENT RELEVANT IMPLANT DATA REVIEWED: Not Applicable PATIENT PRESENTS WITH AN IMPLANTABLE OR ATTACHED COINING PRESS OPERATOR: No RADIOLOGY DEPARTMENT: CT; Exam(s) Completed: Brain PERIPHERAL IV DATA: Not applicable SIGNED BY: RT Roverto(R) July 29, 2024 11:52 AM [facility] 07-20-2024 Telephone encounter Note Spoke with pt and information listed below given. Pt verbalizes understanding. Young Abdul LPN [facility] 07-20-2024 Miscellaneous Notes Spoke with pt and information listed below given. Pt verbalizes understanding. Young Abdul LPN Based on Jade's note, she is agreeable to the increase of amitriptyline to 100 mg daily. I have updated med list. Noted about neurology consult date. Thank you, Luisa Auguste APRN.LITERARY AGENT Pt had appt today and called for the followin) pt reports amitriptyline was increased from 25 mg to 50 mg daily. Pt has 50 mg tabs. At appt today provider mentioned increasing amitriptyline to 100 mg daily. Pt is asking if she is supposed to start taking 100 mg now or wait until after CT (07/29/24). 2) pt wanted to let provider know first available appt with Dr. Chamorro is 10/03/24. Pt is scheduled for that date and on a wait list. Angelica Sandoval LPN documented in this encounter [facility] 07-20-2024 Telephone encounter Note Based on Jade's note, she is agreeable to the increase of amitriptyline to 100 mg daily. I have updated med list. Noted about neurology consult date. Thank you, Luisa Auguste APRN.LITERARY AGENT [facility] 07-19-2024 Telephone encounter Note Pt had appt today and called for the followin) pt reports amitriptyline was increased from 25 mg to 50 mg daily. Pt has 50 mg tabs. At appt today provider mentioned increasing amitriptyline to 100 mg daily. Pt is asking if she is supposed to start taking 100 mg now or wait until after CT (07/29/24). 2) pt wanted to let provider know first available appt with Dr. Chamorro is 10/03/24. Pt is scheduled for that date and on a wait list. Angelica Sandoval LPN [facility] 07-19-2024 Note HNO ID: [id number] Author: JADE DIMAS APRN.LITERARY AGENT Service: ? Author Type: Nurse Practitioner Type: Progress Notes Filed: 07/19/2024 15:29 Note Text: Chief Complaint Patient presents with: Headache: Shooting pains right side of head since beginning of JUN, [facility] [place] [facility]/28-06/30, provider dx with trigeminal neuralgia HPI Emmie Willard is a 69 year old female who presents here today for Above Complaints. Scalp itching-Dr. Buchanan dermatology started her on naltrexone 1.5mg at nighttime. Does seem to overall help. She sees him again on 08/05. Trigeminal Neuralgia-was seen at an [facility] [place]-they dx her with trigeminal neuralgia. Started with pain in the lower back side of her ear and up the right side of her head and moving upward. Last night was feeling some twinges in the front of her ear. When she has the pain it stays. That side of her face and scalp are tender. Past medical history, appointments, medications, allergies reviewed. Previous Medical History PAST MEDICAL HISTORY Diagnosis Date Advance care planning 04/29/2022 Jose can help if needed in future with medical decision making Chronic idiopathic constipation Diffuse cystic mastopathy Disorder of bone and cartilage, unspecified Fibromyalgia Fracture of right calcaneus 2010 IBS (irritable bowel syndrome) Internal hemorrhoids without mention of complication Nondisp fx of left radial styloid process, init for clos fx 05/09/2020 [facility] 05/09/2020 PMH - PAST MEDICAL HISTORY OF [facility] [place] Skin cancer 06/06/2019 Left lower leg Squaumous cell Unspecified hemorrhoids without mention of complication Varicose veins of other sites Previous Surgical History PAST SURGICAL HISTORY Procedure Laterality Date COLONOSCOPY FLX DX W/COLLJ SPEC WHEN PFRMD 06/19/06 COLONOSCOPY FLX DX W/COLLJ SPEC WHEN PFRMD 07/07/2016 Colonoscopy HEMORRHOIDECTOMY NTRNL AND XTRNL 1 COLUMN/GROUP 06/29/98 PAST SURGICAL HISTORY OF 1993 CRYOTHERAPY / CERVIX PAST SURGICAL HISTORY OF Right 2011 [place] TOTAL ABDOMINAL HYSTERECT W/WO RMVL TUBE OVARY 05/27 Hysterectomy, KELSI AND BLADDER REPAIR Family History FAMILY HISTORY Problem Relation Age of Onset Osteoporosis Mother Hypertension Mother Arthritis Mother Lipids Mother High Cholesterol Heart Mother other (hypertrophic cardiomyopathy w/obstructive heart disease) Mother GI problems Hypertension Father Heart Father [place] Osteoporosis Sister GI problems Hypertension Sister other (Sjorns Disease) Sister Patient Allergies ALLERGIES Allergen Reactions Acetaminophen Hives Asa [Salicylates] Intolerance Tolerates 81 mg, not 325 mg Dilaudid [Hydromorp* Hives Keflex [Cephalexin] Rash Levaquin [Levofloxa* GI Upset Oxycodone Hives Current Medications Current Outpatient Medications on File Prior to Visit Medication Sig amitriptyline (ELAVIL) 50 mg tablet Take 1 tablet by mouth daily at bedtime. naltrexone 1.5 mg cap at bedtime (rx given from Dr [facility]) naltrexone capsule 1.5 mg (CPD) Take 1 capsule by mouth once daily. Dr. Buchanan-DERM atorvastatin (LIPITOR) 10 mg tablet Take 1 tablet by mouth daily at bedtime. For cholesterol. ketoconazole (NIZORAL) 2 % shampoo Apply to affected area once daily. pantoprazole DR (PROTONIX) 40 mg tablet Take 1 tablet by mouth once daily. lactulose 10 gram/15 mL (15 mL) soln Take 30 mL by mouth once daily. or as needed. Flaxseed Oil oil TWICE A DAY melatonin 10 mg cap BEDTIME PRN For Sleep venlafaxine ER (EFFEXOR XR) 75 mg 24 hr capsule Take 150 mg by mouth once daily. Magnesium Oxide 500 mg tab Take 500 mg by mouth once daily. B COMPLEX WITH VITAMIN C (VITAMIN B COMPLEX-C ORAL) Take by mouth. CHOLECALCIFEROL (VITAMIN D3) 1,000 UNIT CAP Take one(1) tablet daily. HERBAL DRUGS CAP Enzyme solutions formula 30 takes 4-5 daily HERBAL DRUGS CAP Colon Buster 400mg twice daily ca carbonate/vitamin d3/vit k(VIACTIV 500 MG-100 UNIT-40 MCG CHEWABLE TAB) Chews 2 daily loteprednol etabonate(ALREX 0.2 % EYE DROPS) 1 or 2 drops in each eye daily as necessary No current facility-administered medications on file prior to visit. Social History Social History Tobacco Use Smoking status: Never Smokeless tobacco: Never Vaping Use Vaping status: Never Used Substance Use Topics Alcohol use: No Drug use: No Review of Symptoms REVIEW OF SYSTEMS See HPI, otherwise negative EXAM: BP 112/72 (BP Site: Left Arm, BP Position: Sitting, BP Cuff Size: Regular Adult) Pulse 101 Resp 16 Wt 68.5 kg (151 lb 0.2 oz) SpO2 98% BMI 25.31 kg/m? General Appearance: Well appearing, alert, in no acute distress, well-hydrated, well nourished.. Head: Normocephalic, no masses, lesions, tenderness or abnormalities. Eyes: Anicteric sclera. Pupils are equally round and reactive to light. Extraocular m (more content not included)... [facility] 07-19-2024 History of Presen t illness Narrative Chief Complaint Patient presents with: Headache: Shooting pains right side of head since beginning of JUN, went to [facility] [place] between [facility]/28-06/30, [facility] provider dx with trigeminal neuralgia HPI Emmie Willard is a 69 year old female who presents here today for Above Complaints. Scalp itching-Dr. Buchanan dermatology started her on naltrexone 1.5mg at nighttime. Does seem to overall help. She sees him again on 08/05. Trigeminal Neuralgia-was seen at an [facility] in [place]-they dx her with trigeminal neuralgia. Started with pain in the lower back side of her ear and up the right side of her head and moving upward. Last night was feeling some twinges in the front of her ear. When she has the pain it stays. That side of her face and scalp are tender. Past medical history, appointments, medications, allergies reviewed. Previous Medical History PAST MEDICAL HISTORY Diagnosis Date Advance care planning 04/29/2022 Jose can help if needed in future with medical decision making Chronic idiopathic constipation Diffuse cystic mastopathy Disorder of bone and cartilage, unspecified Fibromyalgia Fracture of right calcaneus 2010 IBS (irritable bowel syndrome) Internal hemorrhoids without mention of complication Nondisp fx of left radial styloid process, init for clos fx 05/09/2020 [facility] 05/09/2020 [facility] - PAST MEDICAL HISTORY OF eye [place] Skin cancer 06/06/2019 Left lower leg Squaumous cell Unspecified hemorrhoids without mention of complication Varicose veins of other sites Previous Surgical History PAST SURGICAL HISTORY Procedure Laterality Date COLONOSCOPY FLX DX W/COLLJ SPEC WHEN PFRMD 06/19/06 COLONOSCOPY FLX DX W/COLLJ SPEC WHEN PFRMD 07/07/2016 Colonoscopy HEMORRHOIDECTOMY NTRNL & XTRNL 1 COLUMN/GROUP 06/29/98 PAST SURGICAL HISTORY OF 1993 CRYOTHERAPY / CERVIX PAST SURGICAL HISTORY OF Right 2011 shattered heel- Dr Wilman Campo- [place], [place] TOTAL ABDOMINAL HYSTERECT W/WO RMVL TUBE OVARY 05/27 Hysterectomy, KELSI & BLADDER REPAIR Family History FAMILY HISTORY Problem Relation Age of Onset Osteoporosis Mother Hypertension Mother Arthritis Mother Lipids Mother High Cholesterol Heart Mother other (hypertrophic cardiomyopathy w/obstructive heart disease) Mother GI problems Hypertension Father Heart Father [place] Osteoporosis Sister GI problems Hypertension Sister other (Sjorns Disease) Sister Patient Allergies ALLERGIES Allergen Reactions Acetaminophen Hives Asa [Salicylates] Intolerance Tolerates 81 mg, not 325 mg Dilaudid [Hydromorp* Hives Keflex [Cephalexin] Rash Levaquin [Levofloxa* GI Upset Oxycodone Hives Current Medications Current Outpatient Medications on File Prior to Visit Medication Sig amitriptyline (ELAVIL) 50 mg tablet Take 1 tablet by mouth daily at bedtime. naltrexone 1.5 mg cap at bedtime (rx given from Dr Buch[facility]) naltrexone capsule 1.5 mg (CPD) Take 1 capsule by mouth once daily. Dr. Fisher atorvastatin (LIPITOR) 10 mg tablet Take 1 tablet by mouth daily at bedtime. For cholesterol. ketoconazole (NIZORAL) 2 % shampoo Apply to affected area once daily. pantoprazole DR (PROTONIX) 40 mg tablet Take 1 tablet by mouth once daily. lactulose 10 gram/15 mL (15 mL) soln Take 30 mL by mouth once daily. or as needed. Flaxseed Oil oil TWICE A DAY melatonin 10 mg cap BEDTIME PRN For Sleep venlafaxine ER (EFFEXOR XR) 75 mg 24 hr capsule Take 150 mg by mouth once daily. Magnesium Oxide 500 mg tab Take 500 mg by mouth once daily. B COMPLEX WITH VITAMIN C (VITAMIN B COMPLEX-C ORAL) Take by mouth. CHOLECALCIFEROL (VITAMIN D3) 1,000 UNIT CAP Take one(1) tablet daily. HERBAL DRUGS CAP Enzyme solutions formula 30 takes 4-5 daily HERBAL DRUGS CAP Colon Buster 400mg twice daily ca carbonate/vitamin d3/vit k(VIACTIV 500 MG-100 UNIT-40 MCG CHEWABLE TAB) Chews 2 daily loteprednol etabonate(ALREX 0.2 % EYE DROPS) 1 or 2 drops in each eye daily as necessary No current facility-administered medications on file prior to visit. Social History Social History Tobacco Use Smoking status: Never Smokeless tobacco: Never Vaping Use Vaping status: Never Used Substance Use Topics Alcohol use: No Drug use: No Review of Symptoms REVIEW OF SYSTEMS See HPI, otherwise negative EXAM: BP 112/72 (BP Site: Left Arm, BP Position: Sitting, BP Cuff Size: Regular Adult) Pulse 101 Resp 16 Wt 68.5 kg (151 lb 0.2 oz) SpO2 98% BMI 25.31 kg/m General Appearance: Well appearing, alert, in no acute distress, well-hydrated, well nourished.. Head: Normocephalic, no masses, lesions, tenderness or abnormalities. Eyes: Anicteric sclera. Pupils are equally round and reactive to light. Extraocular movements are intact. . Ears: External ears normal, canals clear. Lungs: Lungs clear to auscultation. No wheezing, rhonchi, rales.. Heart: RRR without murmur, gallop, or rubs. No ectopy. Psychiatric: pleasant, cooperative. Health Maintenance List Depression Screening Never done Shingrix Vaccine(2 of 3) due on 04/05/2014 Pneumococcal Vaccine: 65+(1 of 1 - PCV) Never done DTaP,Tdap,Td Vaccine(2 - Td or Tdap) due on 02/09/2024 Influenza Vaccine(1) due on 04/24/2024 Covid-19 Vaccine(2 - season) due on 04/24/2024 Mammogram Screening due on 08/19/2024 Diabetes Screening due on 04/28/2026 Colorectal Cancer Screening due on 07/07/2026 Lipid Screening due on 04/28/2028 RSV Vaccine(1 - 1-dose 75+ series) due on 2029 Bone Density Screening Completed Hepatitis C Screening Completed Advance Directive Discussion Discontinued Data reviewed Previous records, office notes ASSESSMENT/PLAN: 1. Other trigeminal autonomic cephalgia (TAC), not intractable - ICD9: 339.09, ICD10: G44.099 (primary diagnosis) Consider increase of amitriptyline from 50mg to 100mg daily. She would like to hold off on that at this time. Will schedule CT of her brain to r/o that etiology. Would like her to see neurology. - CONSULT TO NEUROLOGY - CT BRAIN WO IVCON 2. [place] headache - ICD9: 784.0, ICD10: G44.53 Consider increase of amitriptyline from 50mg to 100mg daily. She would like to hold off on that at this time. Will schedule CT of her brain to r/o that etiology. Would like her to see neurology. - CONSULT TO NEUROLOGY - CT BRAIN WO IVCON 3. Chronic post-traumatic headache, not intractable - ICD9: 339.22, ICD10: G44.329 Consider increase of amitriptyline from 50mg to 100mg daily. She would like to hold off on that at this time. Will schedule CT of her brain to r/o that etiology. Would like her to see neurology. - CONSULT TO NEUROLOGY - CT BRAIN WO IVCON Jade Dimas APRN.LITERARY AGENT documented in this encounter [facility] 07-05-2024 Telephone encounter Note Patient calls and states that she was seen in urgent care and was diagnosed with trigeminal neuralgia. Patient was told that amitriptyline would help with this. Provider had recently sent prescription for amitriptyline 25 mg to pharmacy. This was previously prescribed by Martha Pollard CNP but patient was told that since she only sees provider every 2 years that PCP should handle medicine. Patient states that Martha Pollard was prescribing 50 mg previously. Patient thinks that this may be why medication has not been helping her. Patient asking if 50 mg can be sent to pharmacy? Patient is going to have Martha Crowder's office fax over medication information. Note from [facility] Scanned into Documents. Patient has been on Amitriptyline 50 mg since 2020. Please send prescription to [facility]. Please review and advise, Mounika Dodd RN [facility] 07-05-2024 Miscellaneous Notes Patient calls and states that she was seen in urgent care and was diagnosed with trigeminal neuralgia. Patient was told that amitriptyline would help with this. Provider had recently sent prescription for amitriptyline 25 mg to pharmacy. This was previously prescribed by Martha Pollard CNP but patient was told that since she only sees provider every 2 years that PCP should handle medicine. Patient states that Martha Pollard was prescribing 50 mg previously. Patient thinks that this may be why medication has not been helping her. Patient asking if 50 mg can be sent to pharmacy? Patient is going to have Martha Crowder's office fax over medication information. Note from [facility] Scanned into Documents. Patient has been on Amitriptyline 50 mg since 2020. Please send prescription to [facility]. Please review and advise, Mounika Dodd RN documented in this encounter [facility] 06-09-2024 Telephone encounter Note Noted Robert Ramirez DO [facility] 06-09-2024 Miscellaneous Notes Noted Robert Ramirez DO Patient calling she had gotten rx from [facility] for the Amitriptyline 50 mg at bedtime. The rx that was sent to the pharmacy on 05/24 was for 25 mg, which she is fine with the lower dose. She did not want to be taking to much. She also had seen Dr Buchanan and was started on Naltrexone 1.5 mg at bedtime for the itching on her scalp. She has been taking for 2 weeks and will follow up with Dermatology since not really working greatly. She wanted to update PCP on this. documented in this encounter [facility] 06-03-2024 Note HNO ID: [id number] Author: RENATO KILPATRICK APRN.LITERARY AGENT Service: ? Author Type: Nurse Practitioner Type: Progress Notes Filed: 06/03/2024 16:17 Note Text: This note was created using [employer]. Subjective Emmie Willard is a 69 year old female. HPI Patient was getting her fingernails done today when one of the technicians thought that he might have a fungal infection under the fingernail of the left ring finger. Patient denies any pain or trauma to the finger. Denies any fever redness or swelling to the finger. Finger is not tender. Review of Systems As noted in HPI Objective BP 138/88 Pulse 93 Resp 16 Wt 68.9 kg (151 lb 14.4 oz) SpO2 100% BMI 25.46 kg/m? Physical Exam Vitals and nursing note reviewed. Constitutional: General: She is not in acute distress. Appearance: Normal appearance. She is not ill-appearing. HENT: Head: Normocephalic. Pulmonary: Effort: Pulmonary effort is normal. Musculoskeletal: General: Normal range of motion. Cervical back: Normal range of motion. Skin: General: Skin is warm and dry. Comments: Slight morgan of color in the middle of the left ring finger fingernail with no signs of nail deformity, cracking or chipping of the nail. The skin surrounding the nail is normal color and nontender. Neurological: General: No focal deficit present. Mental Status: She is alert. Psychiatric: Mood and Affect: Mood normal. Behavior: Behavior normal. Assessment and Plan ASSESSMENT/PLAN: 1. Discoloration of nail - ICD9: 703.8, ICD10: L60.8 On physical exam her presentation does not appear consistent with onychomycosis. Patient was instructed to continue to monitor the nail. We did discuss treatment options and follow-up with PCP as needed. Patient comfortable with plan. Renato Kilpatrick APRN.[facility] 06-03-2024 History of Presen t illness Narrative This note was created using [employer]. Subjective Emmie Willard is a 69 year old female. HPI Patient was getting her fingernails done today when one of the technicians thought that he might have a fungal infection under the fingernail of the left ring finger. Patient denies any pain or trauma to the finger. Denies any fever redness or swelling to the finger. Finger is not tender. Review of Systems As noted in HPI Objective BP 138/88 Pulse 93 Resp 16 Wt 68.9 kg (151 lb 14.4 oz) SpO2 100% BMI 25.46 kg/m Physical Exam Vitals and nursing note reviewed. Constitutional: General: She is not in acute distress. Appearance: Normal appearance. She is not ill-appearing. HENT: Head: Normocephalic. Pulmonary: Effort: Pulmonary effort is normal. Musculoskeletal: General: Normal range of motion. Cervical back: Normal range of motion. Skin: General: Skin is warm and dry. Comments: Slight morgan of color in the middle of the left ring finger fingernail with no signs of nail deformity, cracking or chipping of the nail. The skin surrounding the nail is normal color and nontender. Neurological: General: No focal deficit present. Mental Status: She is alert. Psychiatric: Mood and Affect: Mood normal. Behavior: Behavior normal. Assessment and Plan ASSESSMENT/PLAN: 1. Discoloration of nail - ICD9: 703.8, ICD10: L60.8 On physical exam her presentation does not appear consistent with onychomycosis. Patient was instructed to continue to monitor the nail. We did discuss treatment options and follow-up with PCP as needed. Patient comfortable with plan. Renato Kilpatrick APRN.RAGHAVENDRA documented in this encounter [facility] 06-02-2024 Telephone encounter Note Patient calling she had gotten rx from Martha Pollard for the Amitriptyline 50 mg at bedtime. The rx that was sent to the pharmacy on 05/24 was for 25 mg, which she is fine with the lower dose. She did not want to be taking to much. She also had seen Dr Buchanan and was started on Naltrexone 1.5 mg at bedtime for the itching on her scalp. She has been taking for 2 weeks and will follow up with Dermatology since not really working greatly. She wanted to update PCP on this. [facility] 05-30-2024 Telephone encounter Note Refilled 05/24/24. [facility] 05-30-2024 Miscellaneous Notes Refilled 05/24/24. Pt called I asking to get Amitriptyline refilled, but she reports it's 50 mg. I told her I only see provider filling it for 25 mg, and the last time was 05/06/23. She states the provider on this bottle was Cristal Izaguirre, and she said she was going to call over to Dr Bloom's office because she thinks she may have gotten it from her. She was asking if provider would order to 50 mg tablets to [facility] in [place]. Pt is going to call back if other provider is going to order. documented in this encounter [facility] 05-24-2024 Telephone encounter Note The patient has been identified by name and date of : Yes Caregiver verified no other encounters exist for this prescription request: Yes Caregiver confirmed with patient/requestor that no other refills are due, in the near future, with this provider at this time: Yes The last office visit in the department: 01/27/2024 Does the patient have a future office visit with this provider/department: No Visit date not found Requested Prescriptions Pending Prescriptions Disp Refills amitriptyline (ELAVIL) 25 mg tablet 90 tablet 1 Sig: Take 1 tablet by mouth daily at bedtime. Mounika Dodd RN May 24, 2024 10:22 AM [facility] 05-24-2024 Miscellaneous Notes The patient has been identified by name and date of : Yes Caregiver verified no other encounters exist for this prescription request: Yes Caregiver confirmed with patient/requestor that no other refills are due, in the near future, with this provider at this time: Yes The last office visit in the department: 01/27/2024 Does the patient have a future office visit with this provider/department: No Visit date not found Requested Prescriptions Pending Prescriptions Disp Refills amitriptyline (ELAVIL) 25 mg tablet 90 tablet 1 Sig: Take 1 tablet by mouth daily at bedtime. Mounika Dodd RN May 24, 2024 10:22 AM documented in this encounter [facility] 05-20-2024 Telephone encounter Note Pt called I asking to get Amitriptyline refilled, but she reports it's 50 mg. I told her I only see provider filling it for 25 mg, and the last time was 05/06/23. She states the provider on this bottle was Cristal Izaguirre, and she said she was going to call over to Dr Bloom's office because she thinks she may have gotten it from her. She was asking if provider would order to 50 mg tablets to [facility] in [place]. Pt is going to call back if other provider is going to order. [facility] 05-18-2024 Telephone encounter Note Pt called and is notified of providers results and instructions. Pt voices understanding. Pt states she takes 5000 international unit(s) D3, and she wanted to know if she should decrease this amount. 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 Pt is going to look into Fosamax and see if her insurance covers it, and will call back. Anastasia Wayne RN [facility] 05-18-2024 Miscellaneous Notes Pt called and is notified of providers results and instructions. Pt voices understanding. Pt states she takes 5000 international unit(s) D3, and she wanted to know if she should decrease this amount. 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 Pt is going to look into Fosamax and see if her insurance covers it, and will call back. Anastasia Wayne RN Please let her know that I received the results of her Dexa bone scan, and it does show that she has osteoporosis. Please make sure she is taking a daily calcium and Vitamin D3 supplement. *1200 mg - 1500 mg calcium per day *800 - 1000 International Units of vitamin D3 per day For treatment, I would recommend an injection, Prolia, that she would receive 2x/year to help prevent further bone loss. There is also an oral pill, Fosamax, that she could take on a weekly basis. We would need to check with insurance for coverage. Please let me know if she is agreeable or interested in these tx. Jade Dimas APRN.CNP documented in this encounter [facility] 05-17-2024 Telephone encounter Note Please let her know that I received the results of her Dexa bone scan, and it does show that she has osteoporosis. Please make sure she is taking a daily calcium and Vitamin D3 supplement. *1200 mg - 1500 mg calcium per day *800 - 1000 International Units of vitamin D3 per day For treatment, I would recommend an injection, Prolia, that she would receive 2x/year to help prevent further bone loss. There is also an oral pill, Fosamax, that she could take on a weekly basis. We would need to check with insurance for coverage. Please let me know if she is agreeable or interested in these tx. Jade Dimas APRN.CNP [facility] 05-12-2024 History of Presen t illness Narrative Radiology Service Progress Note PATIENT NAME: Emmie Willard DATE OF SERVICE: May 12, 2024 TIME: 9:06 AM PATIENT IDENTITY VERIFICATION COMPLETED USING TWO (2) IDENTIFIERS: Name and Date of confirmed by patient verbally. FALL SCREENING: Has the patient had 2 falls in the last year or 1 fall with injury or currently using an Ambulatory Assistive Device (Walker, Cane, Wheelchair, Crutches, etc.)? No PATIENT GENDER DATA: Female. status: : No status: NO. PATIENT RELEVANT IMPLANT DATA REVIEWED: Not Applicable PATIENT PRESENTS WITH AN IMPLANTABLE OR ATTACHED COINING PRESS OPERATOR: No RADIOLOGY DEPARTMENT: Bone Density PERIPHERAL IV DATA: Not applicable SIGNED BY: RT Gurjit(Lee) May 12, 2024 9:06 AM documented in this encounter [facility] 05-12-2024 Note HNO ID: [id number] Author: EULOGIO DAVIS RT(R) Service: ? Author Type: Technologist Type: Progress Notes Filed: 05/12/2024 09:16 Note Text: Radiology Service Progress Note PATIENT NAME: Emmie Willard DATE OF SERVICE: May 12, 2024 TIME: 9:06 AM PATIENT IDENTITY VERIFICATION COMPLETED USING TWO (2) IDENTIFIERS: Name and Date of confirmed by patient verbally. FALL SCREENING: Has the patient had 2 falls in the last year or 1 fall with injury or currently using an Ambulatory Assistive Device (Walker, Cane, Wheelchair, Crutches, etc.)? No PATIENT GENDER DATA: Female. status: : No status: NO. PATIENT RELEVANT IMPLANT DATA REVIEWED: Not Applicable PATIENT PRESENTS WITH AN IMPLANTABLE OR ATTACHED COINING PRESS OPERATOR: No RADIOLOGY DEPARTMENT: Bone Density PERIPHERAL IV DATA: Not applicable SIGNED BY: BEE Cagle) May 12, 2024 9:06 AM [facility] 04-26-2024 Telephone encounter Note Prescription Refill Information The patient has been identified by name and date of : Yes Caregiver verified no other encounters exist for this prescription request: Yes Caregiver confirmed with patient/requestor that no other refills are due, in the near future, with this provider at this time: Yes The last office visit in the department: 01/27/24 Does the patient have a future office visit with this provider/department: No Requested Prescriptions Pending Prescriptions Disp Refills atorvastatin (LIPITOR) 10 mg tablet 90 tablet 1 Sig: Take 1 tablet by mouth daily at bedtime. For cholesterol. Sampson Ramirez April 26, 2024 11:28 AM [facility] 04-26-2024 Miscellaneous Notes Prescription Refill Information The patient has been identified by name and date of : Yes Caregiver verified no other encounters exist for this prescription request: Yes Caregiver confirmed with patient/requestor that no other refills are due, in the near future, with this provider at this time: Yes The last office visit in the department: 01/27/24 Does the patient have a future office visit with this provider/department: No Requested Prescriptions Pending Prescriptions Disp Refills atorvastatin (LIPITOR) 10 mg tablet 90 tablet 1 Sig: Take 1 tablet by mouth daily at bedtime. For cholesterol. Sampson Ramirez April 26, 2024 11:28 AM documented in this encounter [facility] 03-10-2024 Telephone encounter Note Patient requesting recent dermatology referral information to be faxed again to [facility]. Faxed as requested. Essence Lugo RN [facility] 03-10-2024 Miscellaneous Notes Patient requesting recent dermatology referral information to be faxed again to [facility]. Faxed as requested. Essence Lugo RN documented in this encounter [facility] 03-09-2024 History of Presen t illness Narrative [id number] Emmie Willard 03/09/2024 REFERRING/PRIMARY PROVIDER(S) Primary Care Provider: Robert Ramirez Surgical oncologist: Kamini Guy History of Present Illness: Emmie Willard is a 68 y.o. female, established patient who [facility] [facility] today for routine follow up. Chief Complaint Patient presents with Follow-up fibrocystic breast changes, dense breasts and H/O R breast LCIS/ ALH (excised 04/2015) She has fibrocystic breast changes, dense breasts and H/O R breast LCIS/ ALH (excised 04/2015) There is no FH of breast or ovarian cancer. 03/09/24 interval update She presents today for routine follow up, no imaging. She denies any new breast concerns, including lumps, skin changes, nipple changes/discharge or pain. Her medical, surgical, social and family history was reviewed and updated. Her allergies and current medications were reviewed and updated. She denies any changes to her medical, surgical, social or family history since her last visit. Sister with recurrent blood clots due to post op complications after knee surgery and varicose veins. Her mother also had blood clots. PERSONAL BREAST/FRAME BENDER HISTORY: Breast biopsy: yes 03/22/15 - right breast US guide biopsy - Atypical lobular hyperplasia - Fibroadenomatoid changes 05/21/15 - right breast excisional biopsy - Lobular carcinoma in situ (LCIS), classical type, low nuclear grade, with pagetoid spreading. - Biopsy site changes. - Fibroadenomatoid changes with associated microcalcification. Breast cysts: She has had bilateral cyst aspirations in past Breast surgery: yes Excisional biopsy Postmenopausal surgically at 48yrs; She is s/p KELSI-BSO 06/13/[address] Haseeb Bae. FRAME BENDER exams: Every 2 yrs HRT: Premarin in the past, weaned self off 07/2015, took for 15+ years CANCER SURVEILLANCE/HEALTH MAINTENANCE: Colonoscopy: 05/2016 normal per pt report Skin cancer screening: Every 6 mos - once a year Eye exams: Every 2 years Dental exams: Twice annually Vitamin D deficiency yes 1000U daily BMD: yes osteopenia. She took Boniva for 5 yrs from 2009 to 2014 Last DEXA scan was on 08/09/19 at [facility], stable with osteopenia RISK FACTORS FOR BREAST CANCER: Age at the onset of menses: 10 yrs P:3 Age at the of first child: 21 yrs She Breast fed no Contraception : She used oral contraceptive pills in the past for 2 to 4 years. She used an IUD Infertility medication: no Chest Irradiation/mantle : no Postmenopausal obesity: no Body mass index is 26.16 kg/m . Mammographic density: The breast is heterogeneously dense, which may obscure small masses Personal History of Benign Atypical Breast Biopsy: Yes ALH/ADH Alcohol use: Social History Substance and Sexual Activity Alcohol Use No Alcohol/week: 0.0 standard drinks of alcohol Tobacco use Social History Tobacco Use Smoking Status Never Smokeless Tobacco Never GENETICS: Ashkenazi Ancestry: No Genetic counseling: No Genetic Testing: No Genes tested: Family Members with GeneticTesting: No FAMILY HISTORY: Family History Problem Relation Age of Onset Cancer- Other Sister endocrine tumor Heart Disease - Other Sister Prostate Cancer Brother 53 Lung Cancer Maternal Grandfather 80 Breast Cancer Neg Hx Ovarian Cancer Neg Hx Uterine Cancer Neg Hx Family history of breast cancer: no Family history of ovarian cancer: no Other Cancer: yes Prostate cancer brother age 53 yrs Lung cancer in maternal grandfather age 80 yrs Gastric tumors in her sister There is no family history of colon, uterine, pancreatic, gastric, brain, renal cell or thyroid cancer. There is no family history of melanoma, sarcoma or leukemia. Osteoporosis: no Stroke: no Blood Clot: yes sister after her vein surgery. Heart attack: no Thyroid Nodule or Goiter: Autism: REVIEW OF SYSTEMS: She denies any recently unintentional weight loss, CP, SOB, cough or severe headache. PHYSICAL EXAMINATION VITAL SIGNS: BP 136/71 (BP Position: Sitting) Pulse 83 Temp 98 F (36.7 C) (Oral) Wt 71.2 kg (157 lb) BMI 26.16 kg/m Smoking Status Never ,Body mass index is 26.16 kg/m . GENERAL: Well nourished, well developed female No acute distress. Breasts and Regional Lymph Nodes: The Patient was examined in the upright and supine positions. The breasts are symmetrical in appearance without visible skin or nipple changes. Right breast: Well healed lumpectomy scar right upper outer breast. The patient has no discrete, concerning, palpable right breast masses. Left breast: There are no palpable masses left outer breast area of patient's intermittent pain concerns no bruising or skin changes. The patient has no discrete, concerning, palpable left breast masses. There are no suspicious nipple abnormalities or no suspicious skin changes of her breast skin bilaterally. The axillary tails are normal. Lumpy breast parenchyma bilaterally upper outer quadrants of both breasts without any discrete masses. No chest wall abnormalities. The patient has no cervical, supraclavicular or axillary adenopathy bilaterally. Exam stable on 03/09/24 IMAGING: No imaging today. IMPRESSION/PLAN: IMPRESSION: Emmie is a 68 y.o. female with fibrocystic breast changes, H/O ALH/LCIS, VM symptoms and dense breasts. There is no evidence of malignancy. The patient was reassured as to the benign nature of her clinical exam. PLAN: Recommendations: She will continue with annual screening mammogram (due Jul 2024), and biannual clinical breast exams. We discussed that she does not have to do annual MRI's since she does not have FH of breast cancer. She was ok not doing these unless needed. Chemoprevention discussion: Dr. Allen discussed with her at previous appointments. She defers. Lifestyle changes: The patient was given information in her AVS regarding health promotion and lifestyle recommendations for breast health. Followup: Return in about 5 months (around 07/24/2024) for Mammo and same day HR return with Ela Hui. She was encouraged on SBA. She was advised to reach out as needed with any new or worsening concerns. HOME Wyatt spent approximately 20 minutes preparing for and in direct patient care with this patient 03/09/24 documented in this encounter [facility] 03-09-2024 Instructions HOME Wyatt - 03/09/2024 10:20 AM EDT Health Promotion/Lifestyle Recommendations for Breast Health Self Breast Awareness: We do recommend that you continue to perform monthly breast self-exams. If you are menstruating, we would recommend after your cycle has completed. If you are post-menopausal, we recommend that you pick a day of the month to do your monthly exam. If you do not have breasts, it is important to examine your skin, chest wall, and underarms for any new masses or skin lesions. If you find any areas of concern, please call us to discuss or be seen. Nutrition: Below are some guidelines for health lifestyle that we recommend. Adopt a plant based diet. Aim to make a majority of your foods (2/3 of your diet) from plant based sources. This includes, fruits, vegetables, whole grains, nuts, legumes, beans, and seeds. Try to get in a rainbow of fruits/vegetables each day to maximize your health benefits. Strive for weight management Choose healthy fats in moderation Good rule of thumb is 20% of total calories from fat. Focus should be on choosing the right fats Eat more monounsaturated fats (olive/canola oil, nuts, avocado) and omega-3 polyunsaturated fats (cold-water fish, walnuts). Limit saturated fats (animal fats, butter, dairy). Avoid trans fats (partially hydrogenated vegetable oil, commercial baked goods). Eat in moderation - omega-6 polyunsaturated fats (vegetable oils) Maintain good control of blood sugars. Avoid simple carbohydrates which make your blood sugar rise high and quickly. (the whites: Breads, pasta, rice, potatoes, candy and sweets, table sugar, soda, juice). Choose complex carbohydrates which provide a gradual release of sugar and energy (whole grains, whole fruits, sweet potatoes, corn, peas, winter squash). Include a healthy protein when consuming carbohydrates to help further control blood sugar levels, decrease fatigue and help to feel full longer (lean meats, fish, skinless poultry, nuts and nut butters (i.e. Peanut butter), beans and candelario dip (i.e. hummus) Soy: Moderate intake of whole soy foods as part of an overall healthy diet has not shown a risk for breast cancer. Choosing soy, up to 2-3 servings of whole soy foods/day as prat of a plant-based dietary pattern is reasonable. However, the safety of concentrated soy in the form of soy protein powders, soy protein isolates, or soy supplements is unknown and we recommend you avoid these at this time. Weight Management: Weight management is important for your overall health as well as for breast health. To help you reach weight management goals we have many resources including a registered dietitian and physical therapy department who will develop a plan to help you reach your goals. Alcohol Consumption: We recommend that you drink alcohol in moderation, if at all. You should limit alcohol consumption to no more than one alcoholic drink per day. Smoking: If you are currently a smoker, we recommend that you stop smoking. There is evidence that smoking increases the risk of breast cancer recurrence. Please speak to your health care providers regarding this as there are many programs offered here at the [facility] for assistance with smoking cessation. Exercise: Studies have shown that 30 minutes of exercise 3-5 times/week can have positive benefits. Exercise also promotes heart health and overall wellness. Recommended exercise prescription should include the following: Frequency: 5 days per week Duration: 30 minutes minimum per day Moderate intensity: Examples include brisk walked (treadmill speed of 2.9-3.2mph), vigorous housework or dancing Always be able to carry on a conversation while you exercise Vary your activity to reduce overuse injuries to muscles and joints to increase your enjoyment level documented in this encounter [facility] 01-27-2024 Note HNO ID: [id number] Author: JADE DIMAS APRN.LITERARY AGENT Service: ? Author Type: Nurse Practitioner Type: Progress Notes Filed: 01/27/2024 12:12 Note Text: Chief Complaint Patient presents with: itchy scalp: Dermatology was not helpful; sister dx with Lichen planus HPI Emmie Willard is a 68 year old female who presents here today for Above Complaints. Itchy scalp x several years. Sees Dr. Buchanan dermatology regularly and he doesn't see anything on her scalp that would cause itchiness and has never treated it. Denies flaking or any drainage. Has never been able to visualize a rash. Itches all the time, sometimes worse than others. Does get shocking pains into her right forehead. Has been going on for a few years. Going on a cruise in February, requesting medication to help with motion sickness. Past medical history, appointments, medications, allergies reviewed. Previous Medical History PAST MEDICAL HISTORY Diagnosis Date Advance care planning 04/29/2022 Jose can help if needed in future with medical decision making Chronic idiopathic constipation Diffuse cystic mastopathy Disorder of bone and cartilage, unspecified Fibromyalgia Fracture of right calcaneus 2010 IBS (irritable bowel syndrome) Internal hemorrhoids without mention of complication Nondisp fx of left radial styloid process, init for clos fx 05/09/2020 [facility] 05/09/2020 PMH - PAST MEDICAL HISTORY OF eye [place] Skin cancer 06/06/2019 Left lower leg Squaumous cell Unspecified hemorrhoids without mention of complication Varicose veins of other sites Previous Surgical History PAST SURGICAL HISTORY Procedure Laterality Date COLONOSCOPY FLX DX W/COLLJ SPEC WHEN PFRMD 06/19/06 COLONOSCOPY FLX DX W/COLLJ SPEC WHEN PFRMD 07/07/2016 Colonoscopy HEMORRHOIDECTOMY NTRNL AND XTRNL 1 COLUMN/GROUP 06/29/98 PAST SURGICAL HISTORY OF 1993 CRYOTHERAPY / CERVIX PAST SURGICAL HISTORY OF Right 2011 shattered heel- Dr Wilman Campo- [place], [place] TOTAL ABDOMINAL HYSTERECT W/WO RMVL TUBE OVARY 05/27 Hysterectomy, KELSI AND BLADDER REPAIR Family History FAMILY HISTORY Problem Relation Age of Onset Osteoporosis Mother Hypertension Mother Arthritis Mother Lipids Mother High Cholesterol Heart Mother other (hypertrophic cardiomyopathy w/obstructive heart disease) Mother GI problems Hypertension Father Heart Father [place] Osteoporosis Sister GI problems Hypertension Sister other (Sjorns Disease) Sister Patient Allergies ALLERGIES Allergen Reactions Acetaminophen Hives Asa [Salicylates] Intolerance Tolerates 81 mg, not 325 mg Dilaudid [Hydromorp* Hives Keflex [Cephalexin] Rash Levaquin [Levofloxa* GI Upset Oxycodone Hives Current Medications Current Outpatient Medications on File Prior to Visit Medication Sig atorvastatin (LIPITOR) 10 mg tablet Take 1 tablet by mouth daily at bedtime. For cholesterol. amitriptyline (ELAVIL) 25 mg tablet Take 1 tablet by mouth daily at bedtime. pantoprazole DR (PROTONIX) 40 mg tablet Take 1 tablet by mouth once daily. Flaxseed Oil oil TWICE A DAY melatonin 10 mg cap BEDTIME PRN For Sleep venlafaxine ER (EFFEXOR XR) 75 mg 24 hr capsule Take 150 mg by mouth once daily. Magnesium Oxide 500 mg tab Take 500 mg by mouth once daily. B COMPLEX WITH VITAMIN C (VITAMIN B COMPLEX-C ORAL) Take by mouth. CHOLECALCIFEROL (VITAMIN D3) 1,000 UNIT CAP Take one(1) tablet daily. HERBAL DRUGS CAP Enzyme solutions formula 30 takes 4-5 daily ca carbonate/vitamin d3/vit k(VIACTIV 500 MG-100 UNIT-40 MCG CHEWABLE TAB) Chews 2 daily benzonatate (TESSALON PERLES) 100 mg capsule Take 2 capsules by mouth three times daily as needed. Zszozzmshwpqezs-Ngzkzvpdy-BM (BROMFED DM) 2-30-10 mg/5 mL syrup Take 5 mL by mouth four times daily as needed. lactulose 10 gram/15 mL (15 mL) soln Take 30 mL by mouth once daily. or as needed. HERBAL DRUGS CAP Colon Buster 400mg twice daily loteprednol etabonate(ALREX 0.2 % EYE DROPS) 1 or 2 drops in each eye daily as necessary No current facility-administered medications on file prior to visit. Social History Social History Tobacco Use Smoking status: Never Smokeless tobacco: Never Vaping Use Vaping Use: Never used Substance Use Topics Alcohol use: No Drug use: No Review of Symptoms REVIEW OF SYSTEMS See HPI, otherwise negative EXAM: BP 118/78 Pulse 80 Resp 16 Wt 69.5 kg (153 lb 3.2 oz) BMI 25.68 kg/m? General Appearance: Well appearing, alert, in no acute distress, well-hydrated, well nourished.. Skin: Skin color, texture, turgor normal, no suspicious rashes or lesions. Heart: RRR without murmur, gallop, or rubs. No ectopy. Psychiatric: pleasant, cooperative. Health Maintenance List RSV Vaccine(1 - 1-dose 60+ series) Never done Pneumococcal Vaccine: 65+(1 of 1 - PCV) Never done Covid-19 Vaccine(2 - 2022-24 season) due on 04/24/2023 Behavioral Health Screening Never (more content not included)... [facility] 01-27-2024 History of Presen t illness Narrative Chief Complaint Patient presents with: itchy scalp: Dermatology was not helpful; sister dx with Lichen planus HPI Emmie Willard is a 68 year old female who presents here today for Above Complaints. Itchy scalp x several years. Sees Dr. Bcuhanan dermatology regularly and he doesn't see anything on her scalp that would cause itchiness and has never treated it. Denies flaking or any drainage. Has never been able to visualize a rash. Itches all the time, sometimes worse than others. Does get shocking pains into her right forehead. Has been going on for a few years. Going on a cruise in February, requesting medication to help with motion sickness. Past medical history, appointments, medications, allergies reviewed. Previous Medical History PAST MEDICAL HISTORY Diagnosis Date Advance care planning 04/29/2022 Jose can help if needed in future with medical decision making Chronic idiopathic constipation Diffuse cystic mastopathy Disorder of bone and cartilage, unspecified Fibromyalgia Fracture of right calcaneus 2010 IBS (irritable bowel syndrome) Internal hemorrhoids without mention of complication Nondisp fx of left radial styloid process, init for clos fx 05/09/2020 [facility] 05/09/2020 PMH - PAST MEDICAL HISTORY OF eye [place] Skin cancer 06/06/2019 Left lower leg Squaumous cell Unspecified hemorrhoids without mention of complication Varicose veins of other sites Previous Surgical History PAST SURGICAL HISTORY Procedure Laterality Date COLONOSCOPY FLX DX W/COLLJ SPEC WHEN PFRMD 06/19/06 COLONOSCOPY FLX DX W/COLLJ SPEC WHEN PFRMD 07/07/2016 Colonoscopy HEMORRHOIDECTOMY NTRNL & XTRNL 1 COLUMN/GROUP 06/29/98 PAST SURGICAL HISTORY OF 1992 CRYOTHERAPY / CERVIX PAST SURGICAL HISTORY OF Right 2011 shattered heel- Dr Wilman Campo- [place], [place] TOTAL ABDOMINAL HYSTERECT W/WO RMVL TUBE OVARY 05/27 Hysterectomy, KELSI & BLADDER REPAIR Family History FAMILY HISTORY Problem Relation Age of Onset Osteoporosis Mother Hypertension Mother Arthritis Mother Lipids Mother High Cholesterol Heart Mother other (hypertrophic cardiomyopathy w/obstructive heart disease) Mother GI problems Hypertension Father Heart Father [place] Osteoporosis Sister GI problems Hypertension Sister other (Sjorns Disease) Sister Patient Allergies ALLERGIES Allergen Reactions Acetaminophen Hives Asa [Salicylates] Intolerance Tolerates 81 mg, not 325 mg Dilaudid [Hydromorp* Hives Keflex [Cephalexin] Rash Levaquin [Levofloxa* GI Upset Oxycodone Hives Current Medications Current Outpatient Medications on File Prior to Visit Medication Sig atorvastatin (LIPITOR) 10 mg tablet Take 1 tablet by mouth daily at bedtime. For cholesterol. amitriptyline (ELAVIL) 25 mg tablet Take 1 tablet by mouth daily at bedtime. pantoprazole DR (PROTONIX) 40 mg tablet Take 1 tablet by mouth once daily. Flaxseed Oil oil TWICE A DAY melatonin 10 mg cap BEDTIME PRN For Sleep venlafaxine ER (EFFEXOR XR) 75 mg 24 hr capsule Take 150 mg by mouth once daily. Magnesium Oxide 500 mg tab Take 500 mg by mouth once daily. B COMPLEX WITH VITAMIN C (VITAMIN B COMPLEX-C ORAL) Take by mouth. CHOLECALCIFEROL (VITAMIN D3) 1,000 UNIT CAP Take one(1) tablet daily. HERBAL DRUGS CAP Enzyme solutions formula 30 takes 4-5 daily ca carbonate/vitamin d3/vit k(VIACTIV 500 MG-100 UNIT-40 MCG CHEWABLE TAB) Chews 2 daily benzonatate (TESSALON PERLES) 100 mg capsule Take 2 capsules by mouth three times daily as needed. Kvmhosmmssnespt-Zxyxrsany-JC (BROMFED DM) 2-30-10 mg/5 mL syrup Take 5 mL by mouth four times daily as needed. lactulose 10 gram/15 mL (15 mL) soln Take 30 mL by mouth once daily. or as needed. HERBAL DRUGS CAP Colon Buster 400mg twice daily loteprednol etabonate(ALREX 0.2 % EYE DROPS) 1 or 2 drops in each eye daily as necessary No current facility-administered medications on file prior to visit. Social History Social History Tobacco Use Smoking status: Never Smokeless tobacco: Never Vaping Use Vaping Use: Never used Substance Use Topics Alcohol use: No Drug use: No Review of Symptoms REVIEW OF SYSTEMS See HPI, otherwise negative EXAM: BP 118/78 Pulse 80 Resp 16 Wt 69.5 kg (153 lb 3.2 oz) BMI 25.68 kg/m General Appearance: Well appearing, alert, in no acute distress, well-hydrated, well nourished.. Skin: Skin color, texture, turgor normal, no suspicious rashes or lesions. Heart: RRR without murmur, gallop, or rubs. No ectopy. Psychiatric: pleasant, cooperative. Health Maintenance List RSV Vaccine(1 - 1-dose 60+ series) Never done Pneumococcal Vaccine: 65+(1 of 1 - PCV) Never done Covid-19 Vaccine(2 - 2022- season) due on 04/24/2023 Behavioral Health Screening Never done DTaP,Tdap,Td Vaccine(2 - Td or Tdap) due on 02/09/2024 Shingrix Vaccine(2 of 3) due on 05/06/2024 Influenza Vaccine(Season Ended) due on 04/24/2024 Mammogram Screening due on 08/19/2024 Diabetes Screening due on 04/28/2026 Colorectal Cancer Screening due on 07/07/2026 Lipid Screening due on 04/28/2028 Bone Density Screening Completed Hepatitis C Screening Completed Advance Directive Discussion Discontinued Data reviewed Previous records, office notes ASSESSMENT/PLAN: 1. Itchy scalp - ICD9: 698.9, ICD10: L29.9 (primary diagnosis) Consider treatment such as ketoconazole shampoo. Likely consider consult to dermatology for 2nd opinion. Will discuss with PCP Dr. Ramirez as well. - CONSULT TO DERMATOLOGY 2. Motion sickness, subsequent encounter - ICD9: V58.89, 994.6, ICD10: T75.3XXD For cruise in February. - SCOPOLAMINE 1 MG OVER 3 DAYS TRANSDERMAL PATCH Jade Dimas APRN.LITERARY AGENT documented in this encounter [facility] 10-30-2023 Miscellaneous Notes Patient has been identified by name and date of : Yes, Provider Dr. Ramirez Date 10/30/23 Time 2:30 Patient phones for refill(s): Requested Prescriptions Pending Prescriptions Disp Refills atorvastatin (LIPITOR) 10 mg tablet 90 tablet 1 Sig: Take 1 tablet by mouth daily at bedtime. For cholesterol. Date of last office visit in primary care: 05/06/2023 Date of next office visit in primary care: Visit date not found Please advise. Thank you. Emmie Mcdonald LPN. Patient has been identified by name and date of : Patient phones for refill(s): Requested Prescriptions Pending Prescriptions Disp Refills atorvastatin (LIPITOR) 10 mg tablet 90 tablet 1 Sig: Take 1 tablet by mouth daily at bedtime. For cholesterol. Date of last office visit in primary care: 05/06/2023 Date of next office visit in primary care: Visit date not found Please advise. Thank you. Enriqueta Morales. documented in this encounter [facility] 07-20-2023 History of Presen t illness Narrative This note was created using Brain Sentry[employer]. Subjective Emmie Willard is a 68 year old female. 68 year old female with PMH IBS presents for illness. Acute onset 10 days ago +sinus pressure (Left greater than right) +headache +cough Denies sore throat Denies CP Denies dyspnea Denies SOB Denies tobacco usage. The history is provided by the patient. No english language learner teacher was used. Sinus Problem This is a new problem. The current episode started 1 to 4 weeks ago. The problem occurs constantly. The problem has been gradually worsening. Associated symptoms include congestion, coughing, headaches and a sore throat. Pertinent negatives include no abdominal pain, anorexia, arthralgias, change in bowel habit, chest pain, chills, diaphoresis, fatigue, fever, joint swelling, myalgias, nausea, neck pain, numbness, rash, swollen glands, urinary symptoms, vertigo, visual change, vomiting or weakness. Nothing aggravates the symptoms. She has tried nothing for the symptoms. The treatment provided no relief. PAST MEDICAL HISTORY Diagnosis Date Advance care planning 04/29/2022 Jose can help if needed in future with medical decision making Chronic idiopathic constipation Diffuse cystic mastopathy Disorder of bone and cartilage, unspecified Fibromyalgia Fracture of right calcaneus 2010 IBS (irritable bowel syndrome) Internal hemorrhoids without mention of complication Nondisp fx of left radial styloid process, init for clos fx 05/09/2020 [facility] 05/09/2020 PMH - PAST MEDICAL HISTORY OF eye [place] Skin cancer 06/06/2019 Left lower leg Squaumous cell Unspecified hemorrhoids without mention of complication Varicose veins of other sites PAST SURGICAL HISTORY Procedure Laterality Date COLONOSCOPY FLX DX W/COLLJ SPEC WHEN PFRMD 06/19/06 COLONOSCOPY FLX DX W/COLLJ SPEC WHEN PFRMD 07/07/2016 Colonoscopy HEMORRHOIDECTOMY NTRNL & XTRNL 1 COLUMN/GROUP 06/29/98 PAST SURGICAL HISTORY OF 1993 CRYOTHERAPY / CERVIX PAST SURGICAL HISTORY OF Right 2011 shattered heel- Dr Wilman Campo- [place], [place] TOTAL ABDOMINAL HYSTERECT W/WO RMVL TUBE OVARY 05/27 Hysterectomy, KELSI & BLADDER REPAIR ALLERGIES Acetaminophen, Asa [Salicylates], Dilaudid [Hydromorphone], Keflex [Cephalexin], Levaquin [Levofloxacin], and Oxycodone MEDICATIONS atorvastatin (LIPITOR) 10 mg tablet Take 1 tablet by mouth daily at bedtime. For cholesterol. amitriptyline (ELAVIL) 25 mg tablet Take 1 tablet by mouth daily at bedtime. pantoprazole DR (PROTONIX) 40 mg tablet Take 1 tablet by mouth once daily. lactulose 10 gram/15 mL (15 mL) soln Take 30 mL by mouth once daily. or as needed. Flaxseed Oil oil TWICE A DAY melatonin 10 mg cap BEDTIME PRN For Sleep venlafaxine ER (EFFEXOR XR) 75 mg 24 hr capsule Take 150 mg by mouth once daily. Magnesium Oxide 500 mg tab Take 500 mg by mouth once daily. B COMPLEX WITH VITAMIN C (VITAMIN B COMPLEX-C ORAL) Take by mouth. CHOLECALCIFEROL (VITAMIN D3) 1,000 UNIT CAP Take one(1) tablet daily. HERBAL DRUGS CAP Enzyme solutions formula 30 takes 4-5 daily HERBAL DRUGS CAP Colon Buster 400mg twice daily ca carbonate/vitamin d3/vit k(VIACTIV 500 MG-100 UNIT-40 MCG CHEWABLE TAB) Chews 2 daily loteprednol etabonate(ALREX 0.2 % EYE DROPS) 1 or 2 drops in each eye daily as necessary amoxicillin-clavulanate potassium (AUGMENTIN) 875-125 mg per tablet Take 1 tablet by mouth two times a day for 7 days. methylPREDNISolone (MEDROL, JAIME,) 4 mg Dose-Pack Follow dosing instructions, take with food. benzonatate (TESSALON PERLES) 100 mg capsule Take 2 capsules by mouth three times daily as needed. (Patient not taking: Reported on 05/06/2023) Rpbszfulpscamzo-Ziufrcjaw-BD (BROMFED DM) 2-30-10 mg/5 mL syrup Take 5 mL by mouth four times daily as needed. (Patient not taking: Reported on 05/06/2023) FAMILY HISTORY Problem Relation Age of Onset Osteoporosis Mother Hypertension Mother Arthritis Mother Lipids Mother High Cholesterol Heart Mother other (hypertrophic cardiomyopathy w/obstructive heart disease) Mother GI problems Hypertension Father Heart Father [place] Osteoporosis Sister GI problems Hypertension Sister other (Sjorns Disease) Sister Social History Tobacco Use Smoking status: Never Smokeless tobacco: Never Vaping Use Vaping Use: Never used Substance Use Topics Alcohol use: No Drug use: No Review of Systems Constitutional: Negative for chills, diaphoresis, fatigue and fever. HENT: Positive for congestion, postnasal drip, sinus pressure, sinus pain and sore throat. Eyes: Negative for pain, discharge, redness and itching. Respiratory: Positive for cough. Negative for apnea, choking and chest tightness. Cardiovascular: Negative for chest pain, palpitations and leg swelling. Gastrointestinal: Negative for abdominal pain, anorexia, change in bowel habit, nausea and vomiting. Musculoskeletal: Negative for arthralgias, joint swelling, myalgias and neck pain. Skin: Negative for rash. Allergic/Immunologic: Negative for environmental allergies, food allergies and immunocompromised state. Neurological: Positive for headaches. Negative for vertigo, weakness and numbness. Hematological: Negative for adenopathy. Does not bruise/bleed easily. Psychiatric/Behavioral: Negative for agitation and behavioral problems. Objective BP 142/82 Pulse 78 Temp 36.8 C (98.2 F) Resp 16 Wt 68 kg (150 lb) SpO2 98% BMI 25.14 kg/m Physical Exam Vitals and nursing note reviewed. Constitutional: General: She is not in acute distress. Appearance: Normal appearance. She is normal weight. She is not ill-appearing, toxic-appearing or diaphoretic. HENT: Head: Normocephalic and atraumatic. Comments: +maxillary sinus pressure +frontal sinus pressure Right Ear: Ear canal and external ear normal. Left Ear: Ear canal and external ear normal. Nose: Nose normal. No congestion or rhinorrhea. Mouth/Throat: Mouth: Mucous membranes are moist. Pharynx: Posterior oropharyngeal erythema present. No oropharyngeal exudate. Eyes: General: Right eye: No discharge. Left eye: No discharge. Extraocular Movements: Extraocular movements intact. Conjunctiva/sclera: Conjunctivae normal. Pupils: Pupils are equal, round, and reactive to light. Cardiovascular: Rate and Rhythm: Normal rate and regular rhythm. Pulses: Normal pulses. Heart sounds: Normal heart sounds. No murmur heard. No friction rub. Pulmonary: Effort: Pulmonary effort is normal. No respiratory distress. Breath sounds: Normal breath sounds. No stridor. No wheezing, rhonchi or rales. Chest: Chest wall: No tenderness. Abdominal: General: Abdomen is flat. There is no distension. Palpations: Abdomen is soft. There is no mass. Tenderness: There is no abdominal tenderness. There is no right CVA tenderness, left CVA tenderness, guarding or rebound. Hernia: No hernia is present. Musculoskeletal: General: No swelling, tenderness, deformity or signs of injury. Normal range of motion. Cervical back: Normal range of motion and neck supple. No rigidity. Right lower leg: No edema. Left lower leg: No edema. Lymphadenopathy: Cervical: Cervical adenopathy present. Skin: General: Skin is warm and dry. Capillary Refill: Capillary refill takes less than 2 seconds. Coloration: Skin is not jaundiced or pale. Findings: No bruising, erythema, lesion or rash. Neurological: General: No focal deficit present. Mental Status: She is alert and oriented to person, place, and time. Cranial Nerves: No cranial nerve deficit. Sensory: No sensory deficit. Motor: No weakness. Coordination: Coordination normal. Gait: Gait normal. Psychiatric: Mood and Affect: Mood normal. Behavior: Behavior normal. Thought Content: Thought content normal. Judgment: Judgment normal. Assessment and Plan ASSESSMENT/PLAN: 1. Rhinosinusitis - ICD9: 473.9, ICD10: J32.9 X 10 days - Will begin treatment with as per antibiotic as written, see orders - The patient should also be given OTC cough and cold meds as needed, warm salt water gargles, throat lozenges and/or OTC throat spray as needed, and nasal saline gtts and suction prn for the first 5-7 days of treatment. - Supportive care with plenty of fluids, rest, and analgesia prn. - Follow up in 3-5 days if symptoms persist or worsen. Clara Diego APRN.LITERARY AGENT documented in this encounter [facility] 06-02-2023 Miscellaneous Notes Called and let Pt know per the IM nurse that she should get the flu and Pneumonia vaccines first, and she can get those together. To wait on the Shingrix. Called and Let Pt know that she would need to get the Shingrix at large [facility] because Medicare will always be the primary insurance. I told her to call the pharmacy and make sure with them first though. Pt called in and was wanting to get the Shingles, Flu, and Pneumonia vaccines. I told her I wouldn't get all three together. She was asking what she should get first. I let her know the second shingles vaccine needs to be done 2-6 months after the first one. Pt needed to know where to get Shingles shot to have it covered. Coverage for Shingrex Managed Medicare- Shingrix is a Pharmacy Part D benefit, so those patients should go to a large box retail pharmacy. Due to the LAITH, co-pays will be $0 at the retail pharmacy. Dual eligible- BOTH Medicare and Medicaid patients are to be sent to a large box chain because Medicare will always be the primary insurance. documented in this encounter [facility] 05-14-2023 Miscellaneous Notes Spoke with pt gave information provided. Pt voices understanding. TC to patient with no answer. Left VM to return call to office. SADIE Canales Please let Emmie know I was able to speak with Dr. Ramirez regarding her questions about the flu and pneumonia shots. She states she would advise her having both. Jade Dimas APRN.RAGHAVENDRA documented in this encounter [facility] 05-06-2023 History of Presen t illness Narrative Emmie Willard is a 67 year old female here for a Medicare wellness visit. Health Risk Assessment In general, health is: Excellent Concerns with balance:Not at all Concerns with teeth or dentures:Not at all Concerns with sexual function:Not at all [place] anxious, stressed, angry, irritable, lonely, isolated, or had thoughts of hurting themself: Not at all Has little interest or pleasure in doing things: Not at all Bothered by feeling down, depressed, or hopeless: Not at all Needs help with grocery shopping, cooking, housework, bathing, grooming, dressing, eating, sitting or standing, walking, using the toilet, handling finances, taking medications, using the telephone, or driving: No Following safety precautions in the home environment and vehicle: removed throw rugs from floors, installed grab bars in the bathroom, handrails in stairwells, having adequate lighting, wearing seatbelt at all times?: Yes Smokes cigarettes, vapes, or chew tobacco: No Eats healthy foods including fruits, vegetables, whole grains, and fiber-rich foods: Nearly every day Number of days per week engages in exercise: 5 days Average alcohol consumption: Never Medical/Family history review Reviewed and updated problem list, medical/surgical/family/social history, medications, and allergies. Opioid use review Patient is not currently using opioids. Depression screening Depression Screening PHQ-2 Score 10/22/2016 0 Depression screening tool completed and reviewed. Based on score and interview, patient is not at risk for depression. Screening tool discussed with patient, and I recommended no further intervention at this time. Cognitive screening Mini Cog Score: Score: 5 Functional Observation Was the patient's timed Up & Go test unsteady or ? 12 seconds? Yes Advance Care Planning End of Life planning discussed, including patient's advanced directive wishes: Yes, do not have copy on file Measurements BP- 110/68 Height- 164.5cm Weight- 148lb 3.2oz Pulse- 96 Resp- 16 SpO2- 97% Visual acuity (required for Welcome to Medicare): follows with optometry/ophthalmology Hearing Evaluation: within normal limits Has been taking some enzymes to help her bowels move better, this have been helpful. Assessment/Plan Medicare annual wellness visit, subsequent (Z00.00) - Counseled on healthy diet and regular exercise - Fall avoidance - Vaccines recommended Pneumococcal, Influenza, and Shingrix at pharmacy - Depression screening documented in this encounter [facility] 04-14-2023 Discharge summary Note Date/Time April 14, 2023 12:50pm [facility] Physical Therapy [facility] [place] [address] / REHABILITATION SERVICES DISCHARGE SUMMARY MR#: [id number] Acct: [id number] Name: EMMIE WILLARD Rep #: [id number] : 1955 67 From: Shannon Sharif PT, Cert. MDT Referring : Status: REG RCR Insurance: MEDICARE PART A [facility] Discharge Summary D/C summary: It has been my pleasure to treat EMMIE WILLARD referred by BENJAMIN ALAN, with the diagnosis of S/P R SHLD BICEPS TENOTOMY, RTC REPAR AND SAD 12/04/22 for a total of 25 visit(s). Discharge Date: 04/14/23 Please see the following information for a summary of their discharge status. Subjective Subjective: PATIENT REPORTS SHE IS DOING HER NORMAL CLEANING AND EVERYTHING SHE DID BEFORE. I DON'T REALLY HAVE ANY LIMITATIONS. Pain R shoulder/arm: Pain Intensity (Out of 10): 0 Overall Improvement % Improvement: 98 Objective Objective/Function: PATIENT WAS SEEN TODAY FOR RE-ASSESSMENT OF PROGRESS TOWARD THE SET PT GOALS AND THE NEED FOR FURTHER PHYSICAL THERAPY VS READINESS FOR DISCHARGE. ALL GOALS HAVE BEEN MET AND PATIENT IS APPROPRIATE FOR DISCHARGE. PATIENT IS AGREEABLE. UPON EXAM TODAY: PROM R SHLD IN SUPINE: FLEXION 170 DEG, ABD 152 DEG, (90 DEG ABD):ER 90 DEG AND IR 76 DEG. AROM R SHLD IN STANDING: FLEX 152 DEG, ABD 148 DEG. Goals Goal 1:: DECREASE C/O RIGHT SHLD PAIN Goal Progress: Goal Met Goal 2:: INCREASE R SHLD FUNCTION ROM TO EASE ADL'S PER PROTOCOL Goal Progress: Goal Met Goal 3:: IMPROVE R UE FUNCTIONAL STRENGTH TO EASE ADL'S PER PROTOCOL Goal Progress: Goal Met Goal 4:: PATIENT WILL BE INDEP WITH A HEP FOR CONTINUED IMPROVEMENT ONCE FORMAL PHYSICAL THERAPY CONCLUDES. Goal Progress: Goal Met Plan Plan: D/C TO INDEP HEP. PATINET IS AGREEABLE. D/C Information d/c sentence: If there are questions or concerns regarding this patient's physical therapy, please feel free to call me at [phone]. Thank you for the referral of thispatient. Sincerely, Shannon Sharif, PT, Cert MDT Balance/Gait/Functional tests Balance/Special Test Scores Quick DASH Score: 4.5450 <Electronically signed by Shannon Sharif PT Cert. MDT> 04/14/23 1250 CC: Dr. Robert Ramirez, DO; BENJAMIN ALAN ~ JANIE Signed [facility] Work Phone: [phone]) 580-259707-03-2023 Miscellaneous Notes* Telephone Encounter - Kaci Simons RN - 02/23/2023 8:43 AM EDT Pt called and is notified of providers instructions. Pt voices understanding. Kaci Simons RN * Telephone Encounter - Jade Dimas APRN.CNP - 02/20/2023 5:06 PM EDT Lab orders placed. Jade Dimas APRN.CNP * Telephone Encounter - Kaci Simons RN - 02/20/2023 3:24 PM EDT Pt set up for medicare wellness visit on 05/06/23. Please place lab orders and call pt once they arein. Make sure she knows to do close to her appt. [facility] Miscellaneous Notes* Telephone Encounter - Godfrey Bailey MD - 02/20/2023 3:44 PM EDT OK to refill as ordered Godfrey Bailey MD * Telephone Encounter - Kaci Simons RN - 02/20/2023 3:11 PM EDT Patient has been identified by name and date of : Yes, Provider Dr. Ramirez Date 02/20/23 [id number] Patient phones for refill(s): Requested Prescriptions Pending Prescriptions Disp Refills atorvastatin (LIPITOR) 10 mg tablet 90 tablet 0 Sig: Take 1 tablet by mouth daily at bedtime. For cholesterol. Date of last office visit in primary care: 04/29/22 Future visit: 05/06/23 Last 2 Encounter Wt Readings: Date: Wt: 08/10/2022 66.2 kg (146 lb) 04/29/2022 65.8 kg (145 lb) Previous labs/tests for medication: Cholesterol: HDL Cholesterol (mg/dL) Date Value 05/09/2022 44 08/07/2020 51 LDL Cholesterol (mg/dL) Date Value 05/09/2022 119 08/07/2020 132 ALT (U/L) Date Value 05/09/2022 21 12/13/2020 24 Non HDL Cholesterol (mg/dL) Date Value 05/09/2022 188 08/07/2020 171 Please advise. Thank you. Kaci Simons RN [facility] NoteHNO ID: [id number] Author: Makenzie Carmona MA Service: ? Author Type: Fast Food Supervisor Type: Progress Notes Filed: 10/31/2022 1:18 PM Note Text: EKG completed. Patient tolerated well. Report being submitted to chart for review. Makenzie Carmona, [facility]12-14-2022 History of Present illness Narrative* Ela Hui, ADDICTION THERAPIST-LITERARY AGENT - 08/06/2022 1:00 PM EST [id number] Emmie Willard 08/06/2022 REFERRING/PRIMARY PROVIDER(S) Primary Care Provider: Robert Ramirez Surgical oncologist: Kamini Guy History of Present Illness: Emmie Willard is a 67 y.o. female, established patient who presents to the [facility] today for routine follow up. Chief Complaint Patient presents with Follow-up Fibrocystic breast changes, bilateral She has fibrocystic breast changes, dense breasts and H/O R breast LCIS/ ALH (excised 04/2015) Thereis no FH of breast or ovarian cancer. 08/06/22 interval update She presents today for routine follow up with mammogram. She denies any new breast concerns, including lumps, skin changes, nipple changes/discharge or pain. Her medical, surgical, social and family history was reviewed and updated. Her allergies and current medications were reviewed and updated. She denies any changes to her medical, surgical, social or family history since her last visit. Sister with recurrent blood clots due to post op complications after knee surgery and varicose veins. Her mother also had blood clots. PERSONAL BREAST/FRAME BENDER HISTORY: Breast biopsy: yes 03/22/15 - right breast US guide biopsy - Atypical lobular hyperplasia - Fibroadenomatoid changes 05/21/15 - right breast excisional biopsy - Lobular carcinoma in situ (LCIS), classical type, low nuclear grade, with pagetoid spreading. - Biopsy site changes. - Fibroadenomatoid changes with associated microcalcification. Breast cysts: She has had bilateral cyst aspirations in past Breast surgery: yes Excisional biopsy Postmenopausal surgically at 48yrs; She is s/p KELSI-BSO 06/13/[address] Haseeb Bae. FRAME BENDER exams: Every 2 yrs HRT: Premarin in the past, weaned self off 07/2015, took for 15+ years CANCER SURVEILLANCE/HEALTH MAINTENANCE: Colonoscopy: 05/2016 normal per pt report Skin cancer screening: Every 6 mos - once a year Eye exams: Every 2 years Dental exams: Twice annually Vitamin D deficiency yes 1000U daily BMD: yes osteopenia. She took Boniva for 5 yrs from 2009 to 2014 Last DEXA scan was on 08/09/19 at [facility], stable with osteopenia RISK FACTORS FOR BREAST CANCER: Age at the onset of menses: 10 yrs P:3 Age at the of first child: 21 yrs She Breast fed no Contraception : She used oral contraceptive pills in the past for 2 to 4 years. She used an IUD Infertility medication: no Chest Irradiation/mantle : no Postmenopausal obesity: no Body mass index is 24.02 kg/m . Mammographic density: The breast is heterogeneously dense, which may obscure small masses Personal History of Benign Atypical Breast Biopsy: Yes ALH/ADH Alcohol use: Social History Substance and Sexual Activity Alcohol Use No Alcohol/week: 0.0 standard drinks Tobacco use Social History Tobacco Use Smoking Status Never Smokeless Tobacco Never GENETICS: Ashkenazi Ancestry: No Genetic counseling: No Genetic Testing: No Genes tested: Family Members with GeneticTesting: No FAMILY HISTORY: Family History Problem Relation Age of Onset Heart Disease - Other Sister Prostate Cancer Brother 53 Lung Cancer Maternal Grandfather 80 Breast Cancer Neg Hx Ovarian Cancer Neg Hx Uterine Cancer Neg Hx Family history of breast cancer: no Family history of ovarian cancer: no Other Cancer: yes Prostate cancer brother age 53 yrs Lung cancer in maternal grandfather age 80 yrs - There is no family history of colon, uterine, pancreatic, gastric, brain, renal cell or thyroid cancer. - There is no family history of melanoma, sarcoma or leukemia. Osteoporosis: no Stroke: no Blood Clot: yes sister after her vein surgery. Heart attack: no Thyroid Nodule or Goiter: Autism: REVIEW OF SYSTEMS: She denies any recently unintentional weight loss, CP, SOB, cough or severe headache. PHYSICAL EXAMINATION VITAL SIGNS: BP 147/79 (BP Position: Sitting) Pulse 83 Temp 98.3 F (36.8 C) (Oral) Resp 20 Ht 1.65 m (5' 4.96) Wt 65.4 kg (144 lb 3.2 oz) BMI 24.02 kg/m Smoking Status Never ,Body massindex is 24.02 kg/m . GENERAL: Well nourished, well developed female No acute distress. Breasts and Regional Lymph Nodes: The Patient was examined in the upright and supine positions. The breasts are symmetrical in appearance without visible skin or nipple changes. Right breast: Well healed lumpectomy scar right upper outer breast. The patient has no discrete, concerning, palpable right breast masses. Left breast: There are no palpable masses left outer breast area of patient's intermittent pain concerns no bruising or skin changes. The patient has no discrete, concerning, palpable left breast masses. There are no suspicious nipple abnormalities or no suspicious skin changes of her breast skin bilaterally. The axillary tails are normal. Lumpy breast parenchyma bilaterally upper outer quadrants of both breasts without any discrete masses. No chest wall abnormalities. The patient has no cervical, supraclavicular or axillary adenopathy bilaterally. Exam stable on 08/06/22 IMAGING: EXAM: MAMMO SCREENING WITH THIERRY BILATERAL, 08/06/2022 12:22 PM CLINICAL INDICATIONS: 67-year-old female with a history of a right breast biopsy at 12:00 showing fibroadenoma with atypical lobular hyperplasia, excised 04/2015. COMPARISON: Mammogram 07/31/2021, 06/13/2020, 05/25/2019, 05/05/2018, 04/22/2017 TECHNIQUE: Synthetic 2-D MLO and CC views were obtained of the bilateral breasts. 3-D MLO and CC digital tomosynthesis images were also acquired. Computer aided detection was utilized. FINDINGS: The breasts have scattered areas of fibroglandular density. Bilateral benign appearing calcifications and masses are noted. Postsurgical changes are noted in the superior right breast. There are no suspicious masses, calcifications, or architectural distortions. IMPRESSION IMPRESSION: No mammographic evidence of malignancy. BI-RADS: 2: Benign Recommendation: Routine mammography. Recommendation Laterality: Bilateral The current National Comprehensive Cancer Network and [place] [employer] guidelines recommend women undergo a screening mammogram every year over the age of 40 and continue mammographic screening as long as they are in good health. Screening mammography under age 40 may occur for women who are at increased risk for breast cancer. Electronically Signed By: Ludy Roa DO IMPRESSION/PLAN: IMPRESSION: Emmie is a 67 y.o. female with fibrocystic breast changes, H/O ALH/LCIS, VM symptoms and dense breasts. There is no evidence of malignancy. The patient was reassured as to the benign nature of her clinical exam and imaging. PLAN: Recommendations: She will continue with annual screening mammogram (due Jul 2023), and biannual clinical breast exams. We discussed that she does not have to do annual MRI's since she does not have FH of breast cancer.She was ok not doing these unless needed. Chemoprevention discussion: Dr. Allen discussed with her at previous appointments. She defers. Lifestyle changes: The patient was given information in her AVS regarding health promotion and lifestyle recommendations for breast health. Followup: Return in about 6 months (around 02/04/2023) for HR return with Ela Hui.. She was encouraged on SBA. She was advised to reach out as needed with any new or worsening concerns. [facility] Instructions* Patient Instructions* HOME [place] - 08/06/2022 1:00 PM EST Health Promotion/Lifestyle Recommendations for Breast Health Self Breast Awareness: We do recommend that you continue to perform monthly breast self-exams. If you are menstruating, we would recommend after your cycle has completed. If you are post-menopausal, we recommend that you pick a day of the month to do your monthly exam. If you do not have breasts, it is important to examine your skin, chest wall, and underarms for any new masses or skin lesions. If you find any areas of concern, please call us to discuss or be seen. Nutrition: Below are some guidelines for health lifestyle that we recommend. Adopt a plant based diet. Aim to make a majority of your foods (2/3 of your diet) from plant based sources. This includes,fruits, vegetables, whole grains, nuts, legumes, beans, and seeds. Try to get in a rainbow of fruits/vegetables each day to maximize your health benefits. Strive for weight management Choose healthy fats in moderation Good rule of thumb is 20% of total calories from fat. Focus should be on choosing the right fats Eat more monounsaturated fats (olive/canola oil, nuts, avocado) and omega-3 polyunsaturated fats (cold-water fish, walnuts). Limit saturated fats (animal fats, butter, dairy). Avoid trans fats (partially hydrogenated vegetable oil, commercial baked goods). Eat in moderation - omega-6 polyunsaturated fats (vegetable oils) Maintain good control of blood sugars. Avoid simple carbohydrates which make your blood sugar rise high and quickly. (the whites: Breads, pasta, rice, potatoes, candy and sweets, table sugar, soda,juice). Choose complex carbohydrates which provide a gradual release of sugar and energy (whole grains, whole fruits, sweet potatoes, corn, peas, winter squash). Include a healthy protein when consuming carbohydrates to help further control blood sugar levels, decrease fatigue and help to feel full longer (lean meats, fish, skinless poultry, nuts and nut butters (i.e. Peanut butter), beans and candelario dip (i.e. hummus) Soy: Moderate intake of whole soy foods as part of an overall healthy diet has not shown a risk forbreast cancer. Choosing soy, up to 2-3 servings of whole soy foods/day as prat of a plant-based dietary pattern is reasonable. However, the safety of concentrated soy in the form of soy protein powders, soy protein isolates, or soy supplements is unknown and we recommend you avoid these at this time. Weight Management: Weight management is important for your overall health as well as for breast health. To help you reach weight management goals we have many resources including a registered dietitian and physical therapy department who will develop a plan to help you reach your goals. Alcohol Consumption: We recommend that you drink alcohol in moderation, if at all. You should limitalcohol consumption to no more than one alcoholic drink per day. Smoking: If you are currently a smoker, we recommend that you stop smoking. There is evidence that smoking increases the risk of breast cancer recurrence. Please speak to your health care providers regarding this as there are many programs offered here at the [facility] for assistance with smoking cessation. Exercise: Studies have shown that 30 minutes of exercise 3-5 times/week can have positive benefits.Exercise also promotes heart health and overall wellness. Recommended exercise prescription should include the following: Frequency: 5 days per week Duration: 30 minutes minimum per day Moderate intensity: Examples include brisk walked (treadmill speed of 2.9- 3.2mph), vigorous housework or dancing Always be able to carry on a conversation while you exercise Vary your activity to reduce overuse injuries to muscles and joints to increase your enjoyment level documented in this [facility]12-14-2022 History of Present illness Narrative* Karlene Alicea - 08/06/2022 11:40 AM EST Patient offered a medical brick off bearer for sensitive exam. Pt declined documented in this [facility]09-07-2022 History of Present illness Narrative* Robert Ramirez DO - 04/30/2022 7:30 AM EDT Emmie Willard is a 66 year old female here for a Medicare Initial Annual Wellness Visit Health Risk Assessment In general, health is: Excellent Concerns with tiredness, difficulties with sexual function, balance, teeth/dentures: Not at all [place] anxious, stressed, angry, irritable, lonely, isolated, or had thoughts of hurting themself: Not at all Eats healthy foods including fruits, vegetables, whole grains, and fiber-rich foods: Nearly every day Has little interest or pleasure in doing things: Not at all Bothered by feeling down, depressed, or hopeless: Not at all Needs help with grocery shopping, cooking, housework, bathing, grooming, dressing, eating, sitting or standing, walking, using the toilet, handling finances, taking medications, using the telephone, or driving: No Following safety precautions in the home environment and vehicle: removed throw rugs from floors, installed grab bars in the bathroom, handrails in stairwells, having adequate lighting, wearing seatbelt at all times?: Yes Smokes cigarettes, vapes, or chew tobacco: No Number of days per week engages in exercise: 7 days Average alcohol consumption: Never Current Providers Patient Care Team: Robert Ramirez DO as PCP - General (Family Practice) Specialists: I have reviewed specialist-related care of the patient in the medical record. Medical/Family history review Reviewed and updated problem list, medical history, surgical history, family history, social history, medication list, and allergies. Opioid use review Patient is not currently using opioids. Depression screening Depression screening tool completed and reviewed. Based on score and interview, patient is already diagnosed with depression. Screening tool discussed with patient, and I recommended continuing current plan of care. Cognitive screening Mini-cog score: Mini Cog Score: 4 Cognitive screening reviewed and no further action needed (score 3-5) Functional Observation Was the patient's timed Up & Go test unsteady or longer than 30 seconds? No Advance Care Planning End of Life planning discussed, including patient's advanced directive wishes: Yes Measurements BP 122/82 Pulse 88 Temp (Src) 98 (Left Tympanic) Resp 16 Ht 5' 5.748 (1.67m) Wt 145 lb (65.8kg) BMI 23.58 kg/(m^2). Visual acuity: follows with optometry/ophthalmology Hearing Evaluation: within normal limits Assessment/Plan - Counseled on healthy diet and regular exercise - Lipid panel - Diabetes screening [facility] Inst[facility]* Patient Instructions* Nick Beatty PA-C - 02/07/2022 3:46 PM EDT Acute Bronchitis What is acute bronchitis? Acute bronchitis is an infection of the bronchial (say: brittanie ) tree. The bronchial tree ismade up of the tubes that carry air into your lungs. When these tubes get infected, they swell and mucus (thick fluid) forms inside them. This makes it hard for you to breathe. You may cough up mucusand wheeze (make a whistling sound when you breathe). What causes acute bronchitis? Acute bronchitis is almost always caused by viruses that attack the lining of the bronchial tree and cause infection. As your body fights back against these viruses, more swelling occurs and more mucus is made. It takes time for your body to kill the viruses and heal the damage to your bronchial tubes. In most cases, the same viruses that cause colds cause acute bronchitis. Research has shown that bacterial infection is a much less common cause of bronchitis than we used to think. Very rarely, an infection caused by a fungus can cause acute bronchitis. How do people get acute bronchitis? The viruses that cause acute bronchitis are sprayed into the air or onto people s hands when they cough. You can get acute bronchitis if you breathe in these viruses. You can also get it if you toucha hand that is coated with the viruses. If you smoke or are around damaging fumes (such as those in certain kinds of factories), you are more likely to get acute bronchitis and to have it longer. This is because your bronchial tree is already damaged. How is acute bronchitis treated? Most cases of acute bronchitis will go away on their own after a few days or a week. It's a good idea to get plenty of rest, drink lots of noncaffeinated fluids (for example, water and fruit juices) and increase the humidity in your environment. Because acute bronchitis is usually caused by viruses, antibiotics (medicines that kill bacteria) usually do not help. Even if you cough up mucus that is colored or thick, antibiotics probably won t help you get better any faster. If you smoke, you should cut down on the number of cigarettes you smoke, or stop smoking altogether. This will help your bronchial tree heal faster. For some people with acute bronchitis, doctors prescribe medicines that are usually used to treat asthma. These medicines can help open the bronchial tubes and clear out mucus. They are usually givenwith an inhaler. An inhaler sprays the medicine right into the bronchial tree. Your doctor will decide if this treatment is right for you. How long will the cough from acute bronchitis last? You should call your doctor if: You continue to wheeze and cough for more than 2 weeks, especially at night or when you are active. You continue to cough for more than 2 weeks and sometimes have a bad-tasting fluid come up into your mouth. You have a cough, you feel very sick and weak, and you have a high fever that doesn t go down. You cough up blood. You have trouble breathing when you lie down. Your feet swell. Sometimes the cough from acute bronchitis lasts for several weeks or months. Usually this happens because the bronchial tree is taking a long time to heal. However, a cough that doesn t go away may be a sign of another problem, like asthma or pneumonia. How can I keep from getting acute bronchitis again? One of the best ways to keep from getting acute bronchitis is to wash your hands often to get rid of any viruses. If you smoke, the best defense against acute bronchitis is to quit. Smoking damages your bronchial tree and makes it easier for viruses to cause infection. Smoking also slows down the healing, so it takes longer for you to get well. Reviewed/Updated: 08/29 Created: 12/22 This handout provides a general overview on this topic and may not apply to everyone. To find out if this handout applies to you and to get more information on this subject, talk to your family doctor. Copyright [id number] [employer] Permission is granted to print and photocopy this material for nonprofit educational uses. Written permission is required for all other uses, including electronic uses. documented in this encounterC[facility] History of Present illness Narrative* Nick Beatty PA-C - 02/07/2022 3:29 PM EDT 66 year old female with c/o follow up on bronchitis 01/31/2022 Chava jacobs cough, congestion x 1 week. CXR was negative Tx: Bromfed, prednisone which helped to break up mucus. Just doesn't feel right. Cold sweats at night. Extremely tired. Sleep s off and on all day- retired. No asthma, pneumonia. HISTORIES FAMILY HISTORY Problem Relation Age of Onset Osteoporosis Mother Hypertension Mother Arthritis Mother Lipids Mother High Cholesterol Heart Mother other (hypertrophic cardiomyopathy w/obstructive heart disease) Mother GI problems Hypertension Father Heart Father [place] Osteoporosis Sister GI problems Hypertension Sister other (Sjorns Disease) Sister PAST MEDICAL HISTORY Diagnosis Date Chronic idiopathic constipation Diffuse cystic mastopathy Disorder of bone and cartilage, unspecified Fibromyalgia Fracture of right calcaneus 2010 IBS (irritable bowel syndrome) Internal hemorrhoids without mention of complication Nondisp fx of left radial styloid process, init for clos fx 05/09/2020 [facility] 05/09/2020 PMH - PAST MEDICAL HISTORY OF eye [place] Skin cancer 06/06/2019 Left lower leg Squaumous cell Unspecified hemorrhoids without mention of complication Varicose veins of other sites PAST SURGICAL HISTORY Procedure Laterality Date COLONOSCOPY FLX DX W/COLLJ SPEC WHEN PFRMD 06/19/06 COLONOSCOPY FLX DX W/COLLJ SPEC WHEN PFRMD 07/07/2016 Colonoscopy HEMORRHOIDECTOMY NTRNL & XTRNL 1 COLUMN/GROUP 06/29/98 PAST SURGICAL HISTORY OF 1993 CRYOTHERAPY / CERVIX PAST SURGICAL HISTORY OF Right 2011 [place] TOTAL ABDOMINAL HYSTERECT W/WO RMVL TUBE OVARY 05/27 Hysterectomy, KELSI & BLADDER REPAIR Social History Tobacco Use Smoking status: Never Smoker Smokeless tobacco: Never Used Vaping Use Vaping Use: Never used Substance Use Topics Alcohol use: No Drug use: No ACTIVE PROBLEM LIST 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 30 tablet 3 lactulose 10 gram/15 mL (15 mL) soln Take 30 mL by mouth once daily. or as needed. 473 mL 1 Flaxseed Oil oil TWICE A DAY melatonin 10 mg cap BEDTIME PRN For Sleep amitriptyline (ELAVIL) 25 mg tablet Take 1 tablet by mouth daily at bedtime. 90 tablet 1 venlafaxine ER (EFFEXOR XR) 75 mg 24 hr capsule Take 150 mg by mouth once daily. Magnesium Oxide 500 mg tab Take 500 mg by mouth once daily. B COMPLEX WITH VITAMIN C (VITAMIN B COMPLEX-C ORAL) Take by mouth. CHOLECALCIFEROL (VITAMIN D3) 1,000 UNIT CAP Take one(1) tablet daily. 0 HERBAL DRUGS CAP Enzyme solutions formula 30 takes 4-5 daily 0 0 HERBAL DRUGS CAP Colon Buster 400mg twice daily 0 0 ca carbonate/vitamin d3/vit k(VIACTIV 500 MG-100 UNIT-40 MCG CHEWABLE TAB) Chews 2 daily 0 0 loteprednol etabonate(ALREX 0.2 % EYE DROPS) 1 or 2 drops in each eye daily as necessary 0 0 Pcnqvakglghdpzm-Scvojnlqh-EG (BROMFED DM) 2-30-10 mg/5 mL syrup Take 5 mL by mouth four times dailyas needed. (Patient not taking: Reported on 02/07/2022 ) 120 mL 0 No current facility-administered medications for this visit. SHINGRIX VACCINE(2 of 3) due on 04/05/2014 PNEUMOCOCCAL: 65+(1 - PCV) Never done COVID-19 VACCINE(2 - Booster for Charline series) due on 12/27/2020 ADVANCE DIRECTIVE DISCUSSION Never done MAMMOGRAM due on 01/29/2022 EXAM: BP 110/68 Pulse 101 Temp 37.3 C (99.1 F) (Tympanic) Resp 16 Wt 66.7 kg (147 lb) SpO2 98% BMI 24.20 kg/m Very pleasant adult woman in no acute distress. Alert and oriented all spheres. Normal affect and cognition. Speech normal. No deficits to learning or comprehension. Skin warm, dry, pink to lips and nailbeds. Normal turgor. Respirations regular and unlabored. HEENT: NCAT. No scleral icterus or conjunctival injection. TM's clear. Nose and oropharynx free from injection or lesion. Oral membranes moist and pink. No cervical lymph nodes. Thyroid non-tender, no masses, or enlargement. Carotids pulses 2+/4+ without bruits. No JVD with HOB at 30 degrees. Chest is normal shape. Lungs are clear to all cain with good air exchange through out. HRRR without murmur or gallop. No lifts, heaves, or rubs. Extrem: no clubbing or cyanosis. Edema: none. Extremities are warm and pink with prompt capillary refill. ASSESSMENT/PLAN: 1. Viral bronchitis - ICD9: 466.0, ICD10: J20.8 Educated on nature and course, anticipated duration 3-4 weeks to complete recovery. Offered symptomatic treatment: declined. [facility] Push rest, fluids, good nutrition. Nick Beatty PA-C Some of this note may have been copied and pasted for the purpose of history context and comparison. documented in this encounterC[facility] Miscellaneous Notes* Telephone Encounter - Essence Lugo RN - 02/07/2022 11:53 AM EDT Patient calling to request to be evaluated today. She reports she was seen in [facility] on 01/31/22 for viral bronchitis and was ordered prednisone and Bromfed-DM. She also had a chest xray on 01/31/22. Today she reports she does not feel she is improving. Denies fever. States she feels exhausted and although she denies shortness of breath, she states she feels almost wheezy or airy when breathing in. She does state her cough has improved. She is requesting an evaluation of her lungs priorto the weekend coming. No appts available in Dr. Ramirez's office today. Appt made with Wilman Beatty. Please contact patient if not agreeable to this plan, or if patient requires alternative instructions. Thank you. documented in this encounterC[facility]06-10-[facility] History of Present illness Narrative* Coby Hartman, RT(R) - 01/31/2022 11:50 AM EDT Radiology Service Progress Note PATIENT NAME: Emmie Willard DATE OF SERVICE: January 31, 2022 TIME: 12:00 PM PATIENT IDENTITY VERIFICATION COMPLETED USING TWO (2) IDENTIFIERS: Name and Date of confirmedby patient verbally. FALL SCREENING: Has the patient had 2 falls in the last year or 1 fall with injury or currently using an Ambulatory Assistive Device (Walker, Cane, Wheelchair, Crutches, etc.)? No PATIENT GENDER DATA: Female. status: : No status: NO. PATIENT RELEVANT IMPLANT DATA REVIEWED: Yes RADIOLOGY DEPARTMENT: General X-ray: Exam(s) Completed: Chest X-Ray PERIPHERAL IV DATA: Not applicable SIGNED BY: RT Jena(R) January 31, 2022 12:00 PM documented in this encounterC[facility]06-10-[facility] History of Present illness Narrative* Osman Jacobs, ADDICTION THERAPIST.LITERARY AGENT - 01/31/2022 11:21 AM EDT Subjective HPI HPI Emmie Willard is a 66 year old female who presents today for CC of cough, congestion, h/a. This started 1 week ago. Has tried otc medication for relief. Symptoms are worsened at night. Risk factors sick exposures at home. Denies cp/sob, n/v/d, ear pain, st. .Patient presents with: Cough: VENEGAS x1 week PAST MEDICAL HISTORY Diagnosis Date Chronic idiopathic constipation Diffuse cystic mastopathy Disorder of bone and cartilage, unspecified Fibromyalgia Fracture of right calcaneus 2010 IBS (irritable bowel syndrome) Internal hemorrhoids without mention of complication Nondisp fx of left radial styloid process, init for clos fx 05/09/2020 [facility] 05/09/2020 PMH - PAST MEDICAL HISTORY OF eye [place] Skin cancer 06/06/2019 Left lower leg Squaumous cell Unspecified hemorrhoids without mention of complication Varicose veins of other sites PAST SURGICAL HISTORY Procedure Laterality Date COLONOSCOPY FLX DX W/COLLJ SPEC WHEN PFRMD 06/19/06 COLONOSCOPY FLX DX W/COLLJ SPEC WHEN PFRMD 07/07/2016 Colonoscopy HEMORRHOIDECTOMY NTRNL & XTRNL 1 COLUMN/GROUP 06/29/98 PAST SURGICAL HISTORY OF 1992 CRYOTHERAPY / CERVIX PAST SURGICAL HISTORY OF Right 2011 shattered heel- Dr Wilman Campo- [place], [place] TOTAL ABDOMINAL HYSTERECT W/WO RMVL TUBE OVARY 05/27 Hysterectomy, KELSI & BLADDER REPAIR ALLERGIES Acetaminophen, Asa [Salicylates], Dilaudid [Hydromorphone], Keflex [Cephalexin], Levaquin[Levofloxacin], and Oxycodone MEDICATIONS pantoprazole DR (PROTONIX) 40 mg tablet Take 1 tablet by mouth once daily. lactulose 10 gram/15 mL (15 mL) soln Take 30 mL by mouth once daily. or as needed. Flaxseed Oil oil TWICE A DAY melatonin 10 mg cap BEDTIME PRN For Sleep amitriptyline (ELAVIL) 25 mg tablet Take 1 tablet by mouth daily at bedtime. venlafaxine ER (EFFEXOR XR) 75 mg 24 hr capsule Take 150 mg by mouth once daily. Magnesium Oxide 500 mg tab Take 500 mg by mouth once daily. B COMPLEX WITH VITAMIN C (VITAMIN B COMPLEX-C ORAL) Take by mouth. CHOLECALCIFEROL (VITAMIN D3) 1,000 UNIT CAP Take one(1) tablet daily. HERBAL DRUGS CAP Enzyme solutions formula 30 takes 4-5 daily HERBAL DRUGS CAP Colon Buster 400mg twice daily ca carbonate/vitamin d3/vit k(VIACTIV 500 MG-100 UNIT-40 MCG CHEWABLE TAB) Chews 2 daily loteprednol etabonate(ALREX 0.2 % EYE DROPS) 1 or 2 drops in each eye daily as necessary FAMILY HISTORY Problem Relation Age of Onset Osteoporosis Mother Hypertension Mother Arthritis Mother Lipids Mother High Cholesterol Heart Mother other (hypertrophic cardiomyopathy w/obstructive heart disease) Mother GI problems Hypertension Father Heart Father [place] Osteoporosis Sister GI problems Hypertension Sister other (Sjorns Disease) Sister Social History Tobacco Use Smoking status: Never Smoker Smokeless tobacco: Never Used Vaping Use Vaping Use: Never used Substance Use Topics Alcohol use: No Drug use: No ROS Objective Blood pressure 110/72, pulse 88, temperature 36.8 C (98.2 F), resp. rate 20, weight 67.2 kg (148 lb3.2 oz), SpO2 97 %. Physical Exam Constitutional: General: She is not in acute distress. Appearance: She is not toxic-appearing or diaphoretic. HENT: Head: Normocephalic and atraumatic. Nose: Nose normal. Cardiovascular: Rate and Rhythm: Normal rate and regular rhythm. Heart sounds: Normal heart sounds, S1 normal and S2 normal. Pulmonary: Effort: Pulmonary effort is normal. Breath sounds: Examination of the right-lower field reveals rhonchi. Rhonchi present. No decreased breath sounds, wheezing or rales. Lymphadenopathy: Cervical: No cervical adenopathy. Right cervical: No superficial cervical adenopathy. Left cervical: No superficial cervical adenopathy. Neurological: Mental Status: She is alert and oriented to person, place, and time. Gait: Gait is intact. ASSESSMENT/PLAN: 1. Viral bronchitis - ICD9: 466.0, ICD10: J20.8 (primary diagnosis) - Discussed supportive care - Limit exposure to smoke and other inhaled irritants - Discussed possible red flags and when to seek medical attention - Follow up in 3-5 days or sooner if no better or worse -If you experience chest pain/shortness of breath go to ER - PREDNISONE 20 MG TABLET - EVHODRQGSOTFMNE-OFCNAWACVCKBTXW-MP 2 MG-30 MG-10 MG/5 ML ORAL SYRUP 2. Rhonchi at right lung base - ICD9: 786.7, ICD10: R09.89 xr negative - XR CHEST 2V FRONTAL/LAT IMPRESSION: No acute radiographic abnormality. Dictated by : CHAVA MCPHERSON MD Agrees to plan Declines avs Osman Jacobs APRN.LITERARY AGENT documented in this [facility]* Diagnosis Viral bronchitis- Primary Acute bronchitis Rhonchi at right lung base [facility]* Diagnosis Viral bronchitis- Primary Acute bronchitis documented in this encounter [facility]* Diagnosis Encounter for screening mammogram for breast cancer documented in this encounter [facility] note* Diagnosis Medicare annual wellness visit, subsequent- Primary Routine general medical examination at a health care facility Borderline abnormal thyroid function test Nonspecific abnormal results of thyroid function study Vitamin D deficiency Unspecified vitamin D deficiency Anemia, unspecified type Dyslipidemia Other and unspecified hyperlipidemia Hyperglycemia Other abnormal glucose Fibromyalgia Mylagia and myositis, unspecified documented [facility] this encounter [facility]* Diagnosis Fibrocystic breast changes, bilateral- Primary History of atypical hyperplasia of breast At high risk for breast cancer [facility] Diagnosis Bilateral fibrocystic breast changes History of atypical hyperplasia of breast At high risk for breast cancer Encounter for screening mammogram for breast cancer [facility]* Diagnosis Dyslipidemia Other and unspecified hyperlipidemia [facility] Dyslipidemia- Primary Other and unspecified hyperlipidemia Vitamin D deficiency Unspecified vitamin D deficiency Borderline abnormal thyroid function test Nonspecific abnormal results of thyroid function study Hyperglycemia Other abnormal glucose documented in this encounter [facility]* Diagnosis Onset Date Resolution Status Acute upper respiratory infection acute Acute sinusitis, unspecified acute Cough noneactive [facility] Work Phone: Evaluation note* Diagnosis Medicare annual wellness visit, subsequent- Primary Routine general medical examination at a health care facility Fibromyalgia Mylagia and myositis, unspecified documented [facility] this encounter [facility]* Diagnosis Rhinosinusitis- Primary Unspecified sinusitis (chronic) documented [facility]* Diagnosis Dyslipidemia Other and unspecified hyperlipidemia documented [facility] this encounter [facility]* Diagnosis Itchy scalp- Primary Unspecified pruritic disorder Motion sickness, subsequent encounter [facility]* Diagnosis Fibrocystic breast changes, bilateral- Primary 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 Encounter for screening mammogram for malignant neoplasm of breast Other screening mammogram [facility]* Diagnosis Dyslipidemia Other and unspecified hyperlipidemia [facility]* Diagnosis Encounter for screening for osteoporosis Special screening for osteoporosis Osteopenia, senile Disorder of bone and cartilage, unspecified Other specified disorders of bone density and structure, multiple sites [facility]* Diagnosis Discoloration of nail- Primary Other specified disease of nail [facility]* Diagnosis Other trigeminal autonomic cephalgia (TAC), 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 Thunderclap headache Headache Chronic post-traumatic headache, not intractable Chronic post-traumatic headache [facility]* Diagnosis Other trigeminal autonomic cephalgia (TAC), not intractable Thunderclap headache Headache Chronic post-traumatic headache, not intractable Chronic post-traumatic headache [facility] Diagnosis Thunderclap headache- Primary Headache Brain ischemia 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), not intractable Chronic post-traumatic headache, not intractable Chronic post-traumatic headache Dyslipidemia Other and unspecified hyperlipidemia [facility] Diagnosis Fibrocystic breast changes, bilateral- Primary 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 Visit for screening mammogram Other screening mammogram [facility] Diagnosis Encounter for screening mammogram for malignant neoplasm of breast Other screening mammogram Visit for screening mammogram Other screening mammogram [facility] Diagnosis Dyslipidemia Other and unspecified hyperlipidemia documented in this encounter [facility] note* Diagnosis Thunderclap headache Headache Brain ischemia 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), not intractable Chronic post-traumatic headache, not intractable Chronic post-traumatic headache Dyslipidemia Other and unspecified hyperlipidemia [facility]* Diagnosis Chronic migraine without aura without status migrainosus, 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 Chronic migraine without aura, without mention of intractable migraine without mention of status migrainosus Thunderclap headache Headache Brain ischemia Other generalized ischemic cerebrovascular disease Chronic post-traumatic headache, not intractable Chronic post-traumatic headache Dyslipidemia Other and unspecified hyperlipidemia Trigeminal neuralgia Cervicalgia documented in this encounter [facility] note* Diagnosis Dyslipidemia- Primary Other and unspecified hyperlipidemia Vitamin D deficiency Unspecified vitamin D deficiency Hyperglycemia Other abnormal glucose Vitamin B12 deficiency Other B-complex deficiencies documented in this encounter [facility] note* Diagnosis Dyslipidemia- Primary Other and unspecified hyperlipidemia documented in this encounter [facility] for referral (narrative)* Diagnostic Procedure Only (Routine) - Pending Review Specialty Diagnoses / Procedures Referred By Palak t Referred To Contact BR IMAGING Diagnoses Encounter for screening mammogram for breast cancer Procedures AARON SCREENING SCREENING MAMMOGRAPHY BI 2-VIEW BREAST INC Robert Underwood DO [address] [place] [address] [facility] [address] [place] [address] Referral ID Status Reason Start Date Expiration Date Visits Requested Visits Authorized [id number] Pending Review Auto-Generat ed Referral 03/05/2022 04/04/2023 1 1 [facility] for referral (narrative)* Diagnostic Procedure Only (Routine) - Closed Specialty Diagnoses / Procedures Referred By Contac t Referred To Contact XR IMAGING Diagnoses Encounter for screening for osteoporosis Osteopenia, senile Other specified disorders of bone density and structure, multiple sites Procedures DXA-AXIAL SKELETON Jade Dimas APRN.LITERARY AGENT [address] [place] [address] [place] [address] Referral ID Status Reason Start Date Expiration Date V isits Requested Visits Authorized [id number] Closed Auto-Generate d Referral 01/27/2024 02/25/2025 1 1 [facility] for visit Narrative* Diagnostic Procedure Only (Routine) - Closed Specialty Diagnoses / Procedures Referred By Contac t Referred To Contact XR IMAGING Diagnoses Encounter for screening for osteoporosis Osteopenia, senile Other specified disorders of bone density and structure, multiple sites Procedures DXA-AXIAL SKELETON Jade Dimas APRN.LITERARY AGENT [address] [place] [address] [place] [address] Referral ID Status Reason Start Date Expiration Date V isits Requested Visits Authorized [id number] Closed Auto-Generate d Referral 01/27/2024 02/25/2025 1 1 [facility] Advance Directives Documents on File Type Date Recorded Patient Supervisor Filling And Packing Expl anation Advance Directive(s) 06/14/2018 1:10 PM Advance Directive(s) 07/07/2016 10:03 AM Advance Directive(s) 07/07/2016 12:00 AM Advance Directive(s) 07/01/2016 1:09 PM Documents on File Type Date Recorded Patient Supervisor Filling And Packing Expl anation Advance Directive(s) 06/14/2018 1:10 PM Advance Directive(s) 07/07/2016 10:03 AM Advance Directive(s) 07/07/2016 12:00 AM Advance Directive(s) 07/01/2016 1:09 PM Documents on File Type Date Recorded Patient Supervisor Filling And Packing Expl anation Advance Directive(s) 07/07/2016 12:00 AM Advance Directive Response Recorded Date/ Time Living Will No April 01, 2020 4:39pm Power of Glassware Defect Repairer No [place] 9th, 20 20 4:39pm Documents on File Type Date Recorded Patient Supervisor Filling And Packing Expl anation Advance Directive(s) 07/07/2016 12:00 AM Reason for Referral Specialty Diagnoses / Procedures Referred By Palak t Referred To Contact Diagnoses Bilateral fibrocystic breast changes History of atypical hyperplasia of breast At high risk for breast cancer Encounter for screening mammogram for breast cancer Procedures MAMMO SCREENING WITH THIERRY BILATERAL Ela Hui, ADDICTION THERAPIST-LITERARY AGENT [address] [place] [address] Referral ID Status Reason Start Date Expiration Date V isits Requested Visits Authorized [id number] Pending Review 07/31/2021 08/25/2022 1 1 Specialty Diagnoses / Procedures Referred By Palak t Referred To Contact Dermatology Diagnoses Itchy scalp Procedures CONSULT TO DERMATOLOGY Jade Dimas APRN.LITERARY AGENT [address] [place] [address] Referral ID Status Reason Start Date Expiration Date Visits Requested Visits Authorized [id number] Ref Not Required PCP Requested Referral 01/27/2024 01/26/2025 1 1 Specialty Diagnoses / Procedures Referred By Palak t Referred To Contact Diagnoses Encounter for screening mammogram for malignant neoplasm of breast Procedures MAMMO SCREENING WITH THIERRY BILATERAL Ela Hui, ADDICTION THERAPIST-LITERARY AGENT [address] [place] [phone] Referral ID Status Reason Start Date Expiration Date V isits Requested Visits Authorized [id number] New Request 03/09/2024 04/03/2025 1 1 Specialty Diagnoses / Procedures Referred By Palak t Referred To Contact CT IMAGING Diagnoses Other trigeminal autonomic cephalgia (TAC), not intractable Thunderclap headache Chronic post-traumatic headache, not intractable Procedures CT BRAIN WO IVCON CT HEAD/BRAIN W/O CONTRAST MATERIAL Jade Dimas APRN.LITERARY AGENT [address] [place] [address] [place] [address] Referral ID Status Reason Start Date Expiration Date Visits Requested Visits Authorized [id number] Authorized Auto-Generat ed Referral 08/18/2025 1 1 Specialty Diagnoses / Procedures Referred By Contac t Referred To Contact Neurology Diagnoses Other trigeminal autonomic cephalgia (TAC), not intractable Thunderclap headache Chronic post-traumatic headache, not intractable Procedures CONSULT TO NEUROLOGY OFFICE/OUTPATIENT [facility] 60 MINUTES Jade Dimas, ADDICTION THERAPIST.LITERARY AGENT [address] [place] [address] Referral ID Status Reason Start Date Expiration Date Visits Requested Visits Authorized [id number] Authorized PCP Requested Referral 4 07/19/2025 1 1 Referral ID Status Reason Start Date Expiration Date V isits Requested Visits Authorized [id number] Closed Auto-Generate d Referral 07/19/2024 08/18/2025 1 1 Specialty Diagnoses / Procedures Referred By Contac t Referred To Contact Neurology Diagnoses Thunderclap headache Brain ischemia Other trigeminal autonomic cephalgia (TAC), not intractable Chronic post-traumatic headache, not intractable Dyslipidemia Procedures CONSULT TO NEUROLOGY OFFICE/OUTPATIENT [facility] 60 MINUTES [facility]Jade, ADDICTION THERAPIST.LITERARY AGENT [address] [place] [phone] Referral ID Status Reason Start Date Expiration Date Visits Requested Visits Authorized [id number] Authorized PCP Requested Referral 4 08/02/2025 1 1 Specialty Diagnoses / Procedures Referred By Contac t Referred To Contact CT IMAGING Diagnoses Thunderclap headache Brain ischemia Other trigeminal autonomic cephalgia (TAC), not intractable Chronic post-traumatic headache, not intractable Dyslipidemia Procedures CTA NECK W IVCON CT ANGIOGRAPHY NECK W/CONTRAST/NONCONTRAST Jade Dimas, ADDICTION THERAPIST.LITERARY AGENT [address] [place] [address] [place] [address] Referral ID Status Reason Start Date Expiration Date Visits Requested Visits Authorized [id number] Authorized Auto-Generat ed Referral 4 09/01/2025 1 1 Specialty Diagnoses / Procedures Referred By Contac t Referred To Contact CT IMAGING Diagnoses Thunderclap headache Brain ischemia Other trigeminal autonomic cephalgia (TAC), not intractable Chronic post-traumatic headache, not intractable Dyslipidemia Procedures CTA HEAD W IVCON CT ANGIOGRAPHY HEAD W/CONTRAST/NONCONTRAST Jade Dimas, ADDICTION THERAPIST.LITERARY AGENT [address] [place] [address] [address] [facility] [place] [address] Referral ID Status Reason Start Date Expiration Date Visits Requested Visits Authorized [id number] Authorized Auto-Generat ed Referral 09/01/2025 1 1 Referral ID Status Reason Start Date Expiration Date V isits Requested Visits Authorized [id number] Closed Auto-Generate d Referral 08/02/2024 09/01/2025 1 1 Referral ID Status Reason Start Date Expiration Date V isits Requested Visits Authorized [id number] Closed Auto-Generate d Referral 08/02/2024 09/01/2025 1 1 Specialty Diagnoses / Procedures Referred By Palak t Referred To Contact [facility] Diagnoses Cervicalgia Procedures CONSULT TO PHYSICAL THERAPY PHYSICAL THERAPY EVALUATION HIGH COMPLEX [address] [place] [address] [address] [place] [phone] [facility] [place] [address] Referral ID Status Reason Start Date Expiration Date Visits Requested Visits Authorized [id number] Authorized PCP Requested Referral Auto-Generate d Referral 4 08/12/2025 99 99 Specialty Diagnoses / Procedures Referred By Palak t Referred To Contact [facility] Diagnoses Trigeminal neuralgia Procedures ECG COMPLETE ECG ROUTINE ECG W/LEAST 12 LDS W/I&[place] [address] [address] [place] [phone] [facility] [place] [address] Referral ID Status Reason Start Date Expiration Date Visits Requested Visits Authorized [id number] New Request Auto-Generat ed Referral 08/12/2025 1 1 Specialty Diagnoses / Procedures Referred By Palak t Referred To Contact MR IMAGING Diagnoses Trigeminal neuralgia Procedures MRA BRAIN WO IVCON MRA, HEAD [place] [address] [place] [address] [facility] [place] [address] Referral ID Status Reason Start Date Expiration Date Visits Requested Visits Authorized [id number] New Request Auto-Generat ed Referral 4 09/11/2025 1 1 Specialty Diagnoses / Procedures Referred By Contac aneudy Referred To Contact MR IMAGING Diagnoses Trigeminal neuralgia Procedures MRI BRAIN WO/W IVCON MRI BRAIN BRAIN STEM W/O W/[place] [address] [place] [address] [place] [address] Referral ID Status Reason Start Date Expiration Date Visits Requested Visits Authorized [id number] New Request Auto-Generat ed Referral 4 09/11/2025 1 1 Summary Purpose Family History Relationship Condition Age at Onset Recorded Date/T gulshan father Cardiac disease Unknown mother Cardiac disease Unknown Osteoporosis Unknown sister Cardiac disease Unknown Chief Complaint and Reason for Visit Chief Complaint SORE THROAT, COUGH SORE THROAT/CONGESTION cough, fatigue R BICEP STRAIN/PAIN/CERVICAL DD/RTC TEAR. RX HERE Reason for Visit Acute upper respirat ory infection Acute sinusitis, unspecified Cough Additional Source Comments Source Comments (unrecognize d section and content) In the event this informatio n is protected by the Federal Confidentiality of Alcohol and Drug Abuse Patient Records regulations: The Federal rules restrict any use of the information to criminally investigate or prosecute any alcohol or drug abuse patient.[facility] the event this information is protected by the Federal Confidentiality of Alcohol and Drug Abuse Patient Records regulations: The Federal rules restrict any use of the information to criminally investigate or prosecute any alcohol or drug abuse patient.[facility] the event this information is protected by the Federal Confidentiality of Alcohol and Drug Abuse Patient Records regulations: The Federal rules restrict any use of the information to criminally investigate or prosecute any alcohol or drug abuse patient.[facility] the event this information is protected by the Federal Confidentiality of Alcohol and Drug Abuse Patient Records regulations: The Federal rules restrict any use of the information to criminally investigate or prosecute any alcohol or drug abuse patient.[facility] the event this information is protected by the Federal Confidentiality of Alcohol and Drug Abuse Patient Records regulations: The Federal rules restrict any use of the information to criminally investigate or prosecute any alcohol or drug abuse patient.[facility] the event this information is protected by the Federal Confidentiality of Alcohol and Drug Abuse Patient Records regulations: The Federal rules restrict any use of the information to criminally investigate or prosecute any alcohol or drug abuse patient.[facility] the event this information is protected by the Federal Confidentiality of Alcohol and Drug Abuse Patient Records regulations: The Federal rules restrict any use of the information to criminally investigate or prosecute any alcohol or drug abuse patient.[facility] the event this information is protected by the Federal Confidentiality of Alcohol and Drug Abuse Patient Records regulations: The Federal rules restrict any use of the information to criminally investigate or prosecute any alcohol or drug abuse patient.[facility] the event this information is protected by the Federal Confidentiality of Alcohol and Drug Abuse Patient Records regulations: The Federal rules restrict any use of the information to criminally investigate or prosecute any alcohol or drug abuse patient.[facility] the event this information is protected by the Federal Confidentiality of Alcohol and Drug Abuse Patient Records regulations: The Federal rules restrict any use of the information to criminally investigate or prosecute any alcohol or drug abuse patient.[facility] the event this information is protected by the Federal Confidentiality of Alcohol and Drug Abuse Patient Records regulations: The Federal rules restrict any use of the information to criminally investigate or prosecute any alcohol or drug abuse patient.[facility] the event this information is protected by the Federal Confidentiality of Alcohol and Drug Abuse Patient Records regulations: The Federal rules restrict any use of the information to criminally investigate or prosecute any alcohol or drug abuse patient.[facility] the event this information is protected by the Federal Confidentiality of Alcohol and Drug Abuse Patient Records regulations: The Federal rules restrict any use of the information to criminally investigate or prosecute any alcohol or drug abuse patient.[facility] the event this information is protected by the Federal Confidentiality of Alcohol and Drug Abuse Patient Records regulations: The Federal rules restrict any use of the information to criminally investigate or prosecute any alcohol or drug abuse patient.[facility] the event this information is protected by the Federal Confidentiality of Alcohol and Drug Abuse Patient Records regulations: The Federal rules restrict any use of the information to criminally investigate or prosecute any alcohol or drug abuse patient.[facility] the event this information is protected by the Federal Confidentiality of Alcohol and Drug Abuse Patient Records regulations: The Federal rules restrict any use of the information to criminally investigate or prosecute any alcohol or drug abuse patient.[facility] Hospital[facility] the event this information is protected by the Federal Confidentiality of Alcohol and Drug Abuse Patient Records regulations: The Federal rules restrict any use of the information to criminally investigate or prosecute any alcohol or drug abuse patient.[facility] the event this information is protected by the Federal Confidentiality of Alcohol and Drug Abuse Patient Records regulations: The Federal rules restrict any use of the information to criminally investigate or prosecute any alcohol or drug abuse patient.[facility] the event this information is protected by the Federal Confidentiality of Alcohol and Drug Abuse Patient Records regulations: The Federal rules restrict any use of the information to criminally investigate or prosecute any alcohol or drug abuse patient.[facility] the event this information is protected by the Federal Confidentiality of Alcohol and Drug Abuse Patient Records regulations: The Federal rules restrict any use of the information to criminally investigate or prosecute any alcohol or drug abuse patient.[facility] the event this information is protected by the Federal Confidentiality of Alcohol and Drug Abuse Patient Records regulations: The Federal rules restrict any use of the information to criminally investigate or prosecute any alcohol or drug abuse patient.[facility] the event this information is protected by the Federal Confidentiality of Alcohol and Drug Abuse Patient Records regulations: The Federal rules restrict any use of the information to criminally investigate or prosecute any alcohol or drug abuse patient.[facility] the event this information is protected by the Federal Confidentiality of Alcohol and Drug Abuse Patient Records regulations: The Federal rules restrict any use of the information to criminally investigate or prosecute any alcohol or drug abuse patient.[facility] the event this information is protected by the Federal Confidentiality of Alcohol and Drug Abuse Patient Records regulations: The Federal rules restrict any use of the information to criminally investigate or prosecute any alcohol or drug abuse patient.[facility] the event this information is protected by the Federal Confidentiality of Alcohol and Drug Abuse Patient Records regulations: The Federal rules restrict any use of the information to criminally investigate or prosecute any alcohol or drug abuse patient.[facility] the event this information is protected by the Federal Confidentiality of Alcohol and Drug Abuse Patient Records regulations: The Federal rules restrict any use of the information to criminally investigate or prosecute any alcohol or drug abuse patient.[facility] the event this information is protected by the Federal Confidentiality of Alcohol and Drug Abuse Patient Records regulations: The Federal rules restrict any use of the information to criminally investigate or prosecute any alcohol or drug abuse patient.[facility] the event this information is protected by the Federal Confidentiality of Alcohol and Drug Abuse Patient Records regulations: The Federal rules restrict any use of the information to criminally investigate or prosecute any alcohol or drug abuse patient.[facility] the event this information is protected by the Federal Confidentiality of Alcohol and Drug Abuse Patient Records regulations: The Federal rules restrict any use of the information to criminally investigate or prosecute any alcohol or drug abuse patient.[facility]In the event this information is protected by the Federal Confidentiality of Alcohol and Drug Abuse Patient Records regulations: The Federal rules restrict any use of the information to criminally investigate or prosecute any alcohol or drug abuse patient.[facility] the event this information is protected by the Federal Confidentiality of Alcohol and Drug Abuse Patient Records regulations: The Federal rules restrict any use of the information to criminally investigate or prosecute any alcohol or drug abuse patient.[facility]In the event this information is protected by the Federal Confidentiality of Alcohol and Drug Abuse Patient Records regulations: The Federal rules restrict any use of the information to criminally investigate or prosecute any alcohol or drug abuse patient.[facility] HospitalIn the event this information is protected by the Federal Confidentiality of Alcohol and Drug Abuse Patient Records regulations: The Federal rules restrict any use of the information to criminally investigate or prosecute any alcohol or drug abuse patient.[facility] HospitalIn the event this information is protected by the Federal Confidentiality of Alcohol and Drug Abuse Patient Records regulations: The Federal rules restrict any use of the information to criminally investigate or prosecute any alcohol or drug abuse patient.[facility] HospitalIn the event this information is protected by the Federal Confidentiality of Alcohol and Drug Abuse Patient Records regulations: The Federal rules restrict any use of the information to criminally investigate or prosecute any alcohol or drug abuse patient.[facility]In the event this information is protected by the Federal Confidentiality of Alcohol and Drug Abuse Patient Records regulations: The Federal rules restrict any use of the information to criminally investigate or prosecute any alcohol or drug abuse patient.[facility] HospitalIn the event this information is protected by the Federal Confidentiality of Alcohol and Drug Abuse Patient Records regulations: The Federal rules restrict any use of the information to criminally investigate or prosecute any alcohol or drug abuse patient.[facility] Reason for Visit (unrecogniz ed section and content) Reason Comments Cough VENEGAS x1 week Reason Comments Bronchitis follow up Reason Comments Appointment Request Patient Update Reason Comments Medicare Wellness Exam Reason Comments Follow-up Fibrocystic breast c hanges, bilateral Specialty Diagnoses / Procedures Referred By Contac t Referred To Contact Diagnoses Bilateral fibrocystic breast changes History of atypical hyperplasia of breast At high risk for breast cancer Encounter for screening mammogram for breast cancer Procedures MAMMO SCREENING WITH THIERRY BILATERAL Ela Hui APRN-LITERARY AGENT [address] [place] [address] Referral ID Status Reason Start Date Expiration Date V isits Requested Visits Authorized [id number] Pending Review 07/31/2021 08/25/2022 1 1 Specialty Diagnoses / Procedures Referred By Contac t Referred To Contact Diagnoses Bilateral fibrocystic breast changes History of atypical hyperplasia of breast At high risk for breast cancer Encounter for screening mammogram for breast cancer Procedures MAMMO SCREENING WITH THIERRY BILATERAL Ela Hui APRN-LITERARY AGENT [address] [place] [address] Reason Onset Date Comments Refill Request 02/20/2023 Reason Comments Lab Orders Reason Comments Patient Update Reason Comments Patient Question Reason Comments Sinus Problem sinus pressure, head ache, cough x 10 days Reason Onset Date Comments Refill Request 10/30/2023 Reason Comments itchy scalp Dermatology was not helpful; sister dx with Lichen planus Reason Comments Follow-up fibrocystic breast c hanges, dense breasts and H/O R breast LCIS/ [facility] (excised 04/2015) Reason Comments Fax Request Reason Onset Date Comments Refill Request 04/26/2024 Reason Onset Date Comments Refill Request 05/24/2024 Reason Onset Date Comments Refill Request 05/20/2024 Reason Comments finger infection Possible fungal LEFT ring finger x 1 day Reason Comments Refill Request Reason Comments Headache Shooting pains right side of head since beginning of JUN, [facility] [place] between 06/28-06/30, provider dx with trigeminal neuralgia Reason Comments Medication Question Reason Comments Results Specialty Diagnoses / Procedures Referred By Palak amado Referred To Contact CT IMAGING Diagnoses Other trigeminal autonomic cephalgia (TAC), not intractable Thunderclap headache Chronic post-traumatic headache, not intractable Procedures CT BRAIN WO IVCON CT HEAD/BRAIN W/O CONTRAST MATERIAL Jade Dimas, ADDICTION THERAPIST.LITERARY AGENT [address] [place] [address] [place] [address] Referral ID Status Reason Start Date Expiration Date V isits Requested Visits Authorized [id number] Closed Auto-Generate d Referral 07/19/2024 08/18/2025 1 1 Reason Comments Follow-up Six months follow up with Bilateral screeninG ammmo for HX.Fibrocystic Breast changhes.HX. 2015 benign lesion r. Breast. Voiced no Breast concerns for today. Specialty Diagnoses / Procedures Referred By Palak amado Referred To Contact Diagnoses Encounter for screening mammogram for malignant neoplasm of breast Procedures MAMMO SCREENING WITH THIERRY BILATERAL Ela Hui, ADDICTION THERAPIST-LITERARY AGENT [address] [place] [address] Referral ID Status Reason Start Date Expiration Date V isits Requested Visits Authorized [id number] New Request 03/09/2024 04/03/2025 1 1 Reason Onset Date Comments Refill Request 08/10/[address] Specialty Diagnoses / Procedures Referred By Palak amado Referred To Contact CT IMAGING Diagnoses Thunderclap headache Brain ischemia Other trigeminal autonomic cephalgia (TAC), not intractable Chronic post-traumatic headache, not intractable Dyslipidemia Procedures CTA NECK W IVCON CT ANGIOGRAPHY NECK W/CONTRAST/NONCONTRAST Jade Dimas, ADDICTION THERAPIST.LITERARY AGENT [address] [place] [address] [place] [address] Referral ID Status Reason Start Date Expiration Date V isits Requested Visits Authorized [id number] Closed Auto-Generate d Referral 08/02/2024 09/01/2025 1 1 Reason Comments Thunderclap Headache Specialty Diagnoses / Procedures Referred By Palak amado Referred To Contact Neurology Diagnoses Thunderclap headache Brain ischemia Other trigeminal autonomic cephalgia (TAC), not intractable Chronic post-traumatic headache, not intractable Dyslipidemia Procedures CONSULT TO NEUROLOGY OFFICE/OUTPATIENT [facility] 60 MINUTES Jade Dimas, ADDICTION THERAPIST.LITERARY AGENT [address] [place] [address] Referral ID Status Reason Start Date Expiration Date V isits Requested Visits Authorized [id number] Closed PCP Requested Referral 08/02/2024 08/02/2025 1 1 Reason Onset Date Comments Refill Request 11/01/2024 NEW PHARMACY THI S YEAR Care Teams (unrecognized sec tion and content) Orchard Worker Relationship Specialty Start Date End Date Robert Ramirez, DO [address] [place] [address] PCP - General Family Practice 07/01/16 Orchard Worker Relationship Specialty Start Date End Date Robert Ramirez, DO [address] [place] [address] PCP - General Family Practice 07/01/16 Orchard Worker Relationship Specialty Start Date End Date Robert Ramirez, DO [address] [place] [address] PCP - General Family Practice 07/01/16 Orchard Worker Relationship Specialty Start Date End Date Robert Ramirez, DO [address] [place] [address] PCP - General Family Practice 07/01/16 Orchard Worker Relationship Specialty Start Date End Date Robert Ramirez, DO [address] [place] [address] PCP - General Family Practice 07/01/16 Orchard Worker Relationship Specialty Start Date End Date Robert Ramirez DO PCP - General Family Medicine 09/16/16 Orchard Worker Relationship Specialty Start Date End Date Robert Ramirez DO PCP - General Family Medicine 09/16/16 Orchard Worker Relationship Specialty Start Date End Date Robert Ramirez, DO [address] [place] [address] PCP - General Family Medicine 07/01/16 Orchard Worker Relationship Specialty Start Date End Date Robert Ramirez DO [address] [place] [address] PCP - General [facility] 07/01/16 Team Status: Active Member Role Status Dates Dr. Robert Ramirez DO Family Provider Active Dr. Robert Ramirez DO Primary Care Provider Active Team Status: Inactive Member Role Status Dates Dr. Robert Ramirez DO Primary Care Provider, Referr ing Provider Active Dusty WONG, PA Attending Provider Active Team Status: Inactive Member Role Status Dates Dr. Robert Ramirez DO Primary Care Provider, Referr ing Provider Active Juancarlos WONG, PA Attending Provider Active Team Status: Inactive Member Role Status Dates Dr. Robert Ramirez DO Primary Care Provider Active WAQAS ALEXANDER Attending Provider, Referring Provide r Active WAQAS MELTON Active Team Status: Inactive Member Role Status Dates Dr. Robert Ramirez DO Primary Care Provider Active Juancarlos WONG PA Attending Provider, Referring Pr ovider Active Orchard Worker Relationship Specialty Start Date End Date Robert Ramirez DO [address] [place] [address] PCP - General [facility] 07/01/16 Orchard Worker Relationship Specialty Start Date End Date Robert Ramirez DO [address] [place] [address] [facility]CP - [facility] 07/01/16 Orchard Worker Relationship Specialty Start Date End Date Robert Ramirez DO [address] [place] [address] PCP - [facility] 07/01/16 Orchard Worker Relationship Specialty Start Date End Date Robert Ramirez DO [address] [place] [address] PCP - [facility] 07/01/16 Orchard Worker Relationship Specialty Start Date End Date Robert Ramirez DO PCP - General Family Medicine 09/16/16 Orchard Worker Relationship Specialty Start Date End Date Robert Ramirez DO [address] [place] [address] PCP - General [facility] 07/01/16 Orchard Worker Relationship Specialty Start Date End Date Robert Ramirez DO [address] [place] [address] PCP - General Family Medicine 07/01/16 Orchard Worker Relationship Specialty Start Date End Date Robert Ramirez DO [address] [place] [address] PCP - General Family Medicine 07/01/16 Orchard Worker Relationship Specialty Start Date End Date Robert Ramirez, DO [address] [place] [address] PCP - General Family Medicine 07/01/16 Orchard Worker Relationship Specialty Start Date End Date Robert Ramirez, DO [address] [place] [address] PCP - General Family Medicine 07/01/16 Orchard Worker Relationship Specialty Start Date End Date Robert Ramirez, [address] [place] [address] PCP - General Family Medicine 07/01/16 Orchard Worker Relationship Specialty Start Date End Date Robert Ramirez DO [address] [place] [address] PCP - General Family Medicine 07/01/16 Orchard Worker Relationship Specialty Start Date End Date Robert Ramirez, [address] [place] [address] PCP - General Family Medicine 07/01/16 Orchard Worker Relationship Specialty Start Date End Date Robert Ramirez DO [address] [place] [address] PCP - General Family Medicine 07/01/16 Orchard Worker Relationship Specialty Start Date End Date Robert Ramirez, DO [address] [place] [address] PCP - General Family Medicine 07/01/16 Luisa Auguste, ADDICTION THERAPIST.LITERARY AGENT [address] [place], [place] [address] [facility] 07/31/24 Jade Dimas, ADDICTION THERAPIST.LITERARY AGENT [address] [place] [address] [facility] 07/31/24 Orchard Worker Relationship Specialty Start Date End Date Robert Ramirez DO PCP - General Family Medicine 09/16/16 Orchard Worker Relationship Specialty Start Date End Date Robert Ramirez DO PCP - General Family Medicine 09/16/16 Orchard Worker Relationship Specialty Start Date End Date Robert Ramirez DO [address] [place] [address] PCP - General Family Medicine 07/01/16 Luisa Auguste, ADDICTION THERAPIST.LITERARY AGENT [address] [place] [address] [facility] 07/31/24 Jade Dimas, ADDICTION THERAPIST.LITERARY AGENT [address] [place] [address] [facility] 07/31/24 Orchard Worker Relationship Specialty Start Date End Date Robert Ramirez DO [address] [place] [address] PCP - General Family Medicine 07/01/16 Luisa Auguste, ADDICTION THERAPIST.LITERARY AGENT [address] [place] [address] [facility] 07/31/24 Jade Dimas, ADDICTION THERAPIST.LITERARY AGENT [address] [place] [address] [facility] 07/31/24 Orchard Worker Relationship Specialty Start Date End Date Robert Ramirez DO [address] [place] [address] PCP - General Family Medicine 07/01/16 Luisa Auguste, ADDICTION THERAPIST.LITERARY AGENT [address] [place] [address] [facility] 07/[facility]/24 [facility]Kseniaah, ADDICTION THERAPIST.LITERARY AGENT [address] [place] [address] [facility] 07/31/24 Orchard Worker Relationship Specialty Start Date End Date Robert Ramirez DO [address] [place] [address] PCP - General Family Medicine 07/01/16 Luisa Auguste, ADDICTION THERAPIST.LITERARY AGENT [address] [place] [address] [facility] 07/31/24 [facility]Kseniaah, ADDICTION THERAPIST.LITERARY AGENT [address] [place] [address] [facility] 07/31/24 Orchard Worker Relationship Specialty Start Date End Date Robert Ramirez DO [address] [place] [address] PCP - General Family Medicine 07/01/16 Luisa Auguste, ADDICTION THERAPIST.LITERARY AGENT [address] [place] [address] [facility] 07/31/24 [facility]Jade, ADDICTION THERAPIST.LITERARY AGENT [address] [place] [address] [facility] 07/31/24 Orchard Worker Relationship Specialty Start Date End Date Robert Ramirez DO [address] [place] [address] PCP - General Family Medicine 07/01/16 Luisa Auguste, ADDICTION THERAPIST.LITERARY AGENT [address] [place] [address] [facility] 07/31/24 Jade Dimas, ADDICTION THERAPIST.LITERARY AGENT [address] [facility] [place] [address] [facility] 07/31/24 Orchard Worker Relationship Specialty Start Date End Date Robert Ramirez DO [address] [place] [address] PCP - General Family Medicine 07/01/16 Luisa Auguste, ADDICTION THERAPIST.LITERARY AGENT [address] [place] [address] [facility] 07/31/24 Jade Dimas, ADDICTION THERAPIST.LITERARY AGENT [address] [place] [address] [facility] 07/31/24 Orchard Worker Relationship Specialty Start Date End Date Robert Ramirez DO [address] [place] [address] PCP - General Family Medicine 07/01/16 Luisa Auguste, ADDICTION THERAPIST.LITERARY AGENT [address] [place] [address] [facility] 07/31/24 Jade Dimas, ADDICTION THERAPIST.LITERARY AGENT [address] [place] [address] [facility] 07/31/24 Orchard Worker Relationship Specialty Start Date End Date Robert Ramirez DO [address] [place] [address] PCP - General Family Medicine 07/01/16 Jade Dimas, ADDICTION THERAPIST.LITERARY AGENT [address] [place] [address] [facility] 07/31/24 Orchard Worker Relationship Specialty Start Date End Date Robert Ramirez DO [address] [place] [address] PCP - General Family Medicine 07/01/16 Jade Dimas APRN.CNP [address] [place], [place] [address] [facility] 07/31/24 INFORMATION SOURCE (unrecogn ized section and content) DATE CREATED AUTHOR 11/01/2022 [facility] DATE CREATED AUTHOR AUTHOR'S ORGANIZ ATION 03/09/2024 [facility] DATE CREATED AUTHOR AUTHOR'S ORGANIZ ATION 10/06/2024 [facility] DATE CREATED AUTHOR AUTHOR'S ORGANIZ ATION 10/20/2024 [facility] DATE CREATED AUTHOR AUTHOR'S ORGANIZ ATION 01/21/2025 [facility] Goals (unrecognized section and content) Goals may be documented in a n alternate section FOR RECORDS PERTAINING TO PATIENTS WHO ARE OR HAVE BEEN ENROLLED IN A CHEMICAL DEPENDENCY/SUBSTANCEABUSE PROGRAM, SOME INFORMATION MAY BE OMITTED. This clinical summary was aggregated from multiple sources. Caution should be exercised in using it in the provision of clinical care. This summary normalizes information from multiple sources, and as a consequence, information in this document may materially change the coding, format and clinical context of patient data. In addition, data may be omitted in some cases. CLINICAL DECISIONS SHOULD BE BASED ON THE PRIMARY CLINICAL RECORDS. [employer] provides no warranty or guarantee of the accuracy or completeness of information in this document.
[2025-02-05 11:45] VITALS: BP 149/90; PULSE 86; RESP 16; TEMP 36; O2SAT 99
== END 2025-02-05 11:45 | disposition home or self-care (01) ==
PROVIDERS: Emergency Provider Emergency Medicine; PCP Student in an Organized Health Care Education/Training Program; Visit Provider Emergency Medicine
DX: K59.00 Constipation, unspecified (principal); K58.9 Irritable bowel syndrome, unspecified; Z79.899 Other long term (current) drug therapy; R51.9 Headache, unspecified
CPT/HCPCS: 74022; 99282